=== PATIENT | female | born 1975 | race Caucasian/White ===

== ENCOUNTER → 2016-09-16 | Outpatient (CLI) | payer OTHER ==
[2016-09-16 18:34] LABS: Basophils % (A) 0 %; CH 30.9; Eosinophils # (A) 0.2 k/uL (0-0.7); Eosinophils % (A) 2 %; HCT 39.1 % (34.0-46.0); HDW 2.87; Luc # (Auto) 0.16; Luc % (Auto) 2; Lymphocytes # (A) 1.9 k/uL (1.0-4.8); Lymphocytes % (A) 22 %; MCH 30.3 pg (25.0-35.0); MCHC 33.1 g/dL (31.0-37.0); MCV 91.4 fL (80.0-100.0); Mean Platelet Volume 7.4; Monocytes # (A) 0.6 k/uL (0-1.0); Monocytes % (A) 6 %; Neutrophils % (A) 68 %; RBC 4.28 m/uL (3.80-5.40); RDW 13.8 % (11.5-15.5); WBC 8.9 k/uL (3.8-10.6); WBC (Perox) 9.36
[2016-09-16 18:59] LABS: Follicle Stimulating Hormone 3.2 mIU/mL; Prolactin 12.6 ng/mL (3.0-18.6)
[2016-09-16 19:23] LABS: HCG,Qualitative Serum Not Detected
== END ==
LOC: MMGSC 16:11
PROVIDERS: ATTEND Family Medicine
DX: N91.2 Amenorrhea, unspecified (principal)
CPT/HCPCS: 36415; 82626; 83001; 83002; 84146; 84439; 84443; 84703; 85025

== ENCOUNTER → 2016-11-05 | Outpatient (CLI) | payer OTHER ==
--- NOTE | 2016-11-05 10:01 | US ---
EXAMINATION TYPE: US pelvic complete DATE OF EXAM: 11/05/2016 COMPARISON: NONE CLINICAL HISTORY: N91.5 Oligomenorrhea,N85.01 Simple Hyperplasia. Oligomenorrhea, abnormal cycles, sp otting x 3 days, 3, para 2, 1, history of , obese patient TECHNIQUE: Transvaginal (TV) and Transabdominal (TA) Date of LMP: 09/18/2016 EXAM MEASUREMENTS: Uterus: 9.9 x 4.8 x 5.0 cm Endometrial Stripe: 0.8 cm Right Ovary: not seen Left Ovary: not seen Difficult and suboptimal study due to patient body habitus 1. Uterus: anteverted, heterogeneous echogenicity without any definite lesions seen at this time, mu ltiple nabothian cysts within cervix 2. Endometrium: appears wnl 3. Right Ovary: not seen due to overlying bowel gas 4. Left Ovary: not seen due to overlying bowel gas 5. Bilateral Adnexa: wnl 6. Posterior cul-de-sac: wnl IMPRESSION: 1. HETEROGENEITY OF THE UTERUS MAY REFLECT ADENOMYOSIS. 2. NABOTHIAN CYSTS.
== END | disposition home or self-care (01) ==
LOC: RADUSWWP 09:06
PROVIDERS: ATTEND Obstetrics & Gynecology
DX: N88.8 Other specified noninflammatory disorders of cervix uteri (principal)
CPT/HCPCS: 76830; 76856

== ENCOUNTER → 2018-10-13 | Outpatient (CLI) | payer OTHER ==
[2018-10-13 09:32] LABS: ALT 30 U/L (9-52); AST 166 U/L (14-36); African American GFR (CKD) >90 (>60 ml/min/1.73 sqM); Albumin 3.7 g/dL (3.5-5.0); Albumin/Globulin Ratio 1.2; Alkaline Phosphatase 137 U/L (38-126); Anion Gap 7 mmol/L; Blood Urea Nitrogen 14 mg/dL (7-17); Calcium 12.9 mg/dL (8.4-10.2); Carbon Dioxide 31 mmol/L (22-30); Chloride 103 mmol/L (98-107); Globulin 3.2 g/dL; Glucose 103 mg/dL (74-99); Potassium 3.2 mmol/L (3.5-5.1); Sodium 141 mmol/L (137-145); Total Protein 6.9 g/dL (6.3-8.2)
[2018-10-13 13:58] LABS: Phosphorus 2.5 mg/dL (2.5-4.5)
== END | disposition home or self-care (01) ==
LOC: LABWHC1 08:54
PROVIDERS: ATTEND Family Medicine
DX: E87.6 Hypokalemia (principal)
CPT/HCPCS: 36415; 80053; 83970; 84100

== ENCOUNTER 2018-10-25 16:15 | Inpatient (IN) | payer OTHER ==
[2018-10-25] MEDS ORDERED: SODIUM CHLORIDE 0.9% 1,000 ML IV STA (16:54)
--- NOTE | 2018-10-25 16:57 | ED ---
General Adult HPI - General Chief complaint: Recheck/Abnormal Lab/Rx Stated complaint: recheck-sent by Time Seen by Provider: 10/25/18 16:30 Source: patient, family, RN notes reviewed Mode of arrival: ambulatory Limitations: no limitations - History of Present Illness Initial comments: Patient is a pleasant 43-year-old female presenting to the emergency department with fatigue. Patient has had her blood work checked several times over the past week or 2. Patient has been having conflicting reports as far as potassium and calcium levels. Patient was advised to come to the emergency department. Patient states she is fatigued in general. Patient does admit to having some increased stress at work and increased stress regarding health problems including the fatigue and abdominal hernia which she has seen a surgeon for. Patient did also see her doctor who diagnosed a murmur on her. No isolated area of weakness. No confusion. Patient states she has been losing weight over the past few months however also has been trying to diet better. - Related Data Home Medications Medication Instructions Recorded Confirmed Ibuprofen [Motrin] 600 mg PO Q8HR PRN 10/25/18 10/25/18 Polyethylene Glycol 3350 [Miralax] 17 gm PO DAILY PRN 10/25/18 10/25/18 Sertraline [Zoloft] 50 mg PO QAM 10/25/18 10/25/18 amLODIPine BESYLATE/BENAZEPRIL 1 cap PO QAM 10/25/18 10/25/18 [amLODIPine BESYLATE/BENAZEPRIL 5-20 MG] Allergies Allergy/AdvReac Type Severity Reaction Status Date / Time No Known Allergies Allergy Verified 10/25/18 16:35 Review of Systems ROS Statement: Those systems with pertinent positive or pertinent negative responses have been documented in the HPI. ROS Other: All systems not noted in ROS Statement are negative. Constitutional: Denies: fever, chills Eyes: Denies: eye pain ENT: Denies: ear pain Respiratory: Denies: cough, dyspnea Cardiovascular: Denies: chest pain Endocrine: Reports: fatigue Gastrointestinal: Denies: abdominal pain Genitourinary: Denies: dysuria Musculoskeletal: Denies: back pain Skin: Denies: rash Neurological: Denies: headache, numbness Past Medical History Past Medical History: Hypertension Additional Past Medical History / Comment(s): arthritis History of Any Multi-Drug Resistant Organisms: None Reported Past Surgical History: Section Past Psychological History: Anxiety, Depression Smoking Status: Never smoker Past Alcohol Use History: Rare Past Drug Use History: Marijuana General Exam Limitations: no limitations General appearance: alert, in no apparent distress Head exam: Present: atraumatic Eye exam: Present: normal appearance, PERRL ENT exam: Present: normal oropharynx Neck exam: Present: normal inspection Respiratory exam: Present: normal lung sounds bilaterally Cardiovascular Exam: Present: regular rate, normal rhythm GI/Abdominal exam: Present: soft. Absent: tenderness Extremities exam: Present: normal inspection Neurological exam: Present: alert, oriented X3, CN II-XII intact. Absent: motor sensory deficit Expanded Motor strength exam: RUE: 5, LUE: 5, RLE: 5, LLE: 5 Psychiatric exam: Present: normal affect, normal mood Skin exam: Present: normal color Course Vital Signs 10/25/18 16:18 Temperature 97.7 F Pulse Rate 78 Respiratory 118 H Rate Blood Pressure 134/84 O2 Sat by Pulse 97 Oximetry EKG Findings - EKG Comments: EKG Findings:: Sinus rhythm at 65. [place] 182. QRS 100. QT 378. QTC 393. Normal axis. Q wave in lead III. No acute ST change. Medical Decision Making - Medical Decision Making Patient reevaluated and resting comfortably in bed. Patient updated on results and plan. Case was discussed in detail with Dr. Collins, covering for Dr. Meek, who will admit. Patient has scheduled appointment for hematology/oncology and they will be consult as well. - Lab Data Result diagrams: 10/25/18 17:14 10/25/18 17:14 Lab Results 10/25/18 10/25/18 10/25/18 Range/Units 17:14 17:14 17:14 WBC 6.7 (3.8-10.6) k/uL RBC 4.15 (3.80-5.40) m/uL Hgb 11.3 L (11.4-16.0) gm/dL Hct 34.0 (34.0-46.0) % MCV 81.8 (80.0-100.0) fL MCH 27.3 (25.0-35.0) pg MCHC 33.4 (31.0-37.0) g/dL RDW 14.7 (11.5-15.5) % Plt Count 270 (150-450) k/uL Neutrophils % 75 % Lymphocytes % 17 % Monocytes % 6 % Eosinophils % 1 % Basophils % 0 % Neutrophils # 5.0 (1.3-7.7) k/uL Lymphocytes # 1.1 (1.0-4.8) k/uL Monocytes # 0.4 (0-1.0) k/uL Eosinophils # 0.1 (0-0.7) k/uL Basophils # 0.0 (0-0.2) k/uL Poikilocytosis Slight PT (9.0-12.0) sec INR (<1.2) APTT (22.0-30.0) sec Sodium 140 (137-145) mmol/L Potassium 2.7 L* (3.5-5.1) mmol/L Chloride 101 (98-107) mmol/L Carbon Dioxide 31 H (22-30) mmol/L Anion Gap 8 mmol/L BUN 17 (7-17) mg/dL Creatinine 1.01 (0.52-1.04) mg/dL Est GFR (CKD-EPI)AfAm 78 (>60 ml/min/1.73 sqM) Est GFR (CKD-EPI)NonAf 68 (>60 ml/min/1.73 sqM) Glucose 101 H (74-99) mg/dL Plasma Lactic Acid Saroj 1.1 (0.7-2.0) mmol/L Calcium 13.1 H* (8.4-10.2) mg/dL Ionized Calcium Marilyn 7.1 H* (4.5-5.3) mg/dL Phosphorus 2.9 (2.5-4.5) mg/dL Magnesium 1.7 (1.6-2.3) mg/dL Total Bilirubin 0.9 (0.2-1.3) mg/dL AST 158 H (14-36) U/L ALT 26 (9-52) U/L Alkaline Phosphatase 130 H (38-126) U/L Creatine Kinase <20 L (30-135) U/L Troponin I (0.000-0.034) ng/mL Total Protein 6.8 (6.3-8.2) g/dL Albumin 3.5 (3.5-5.0) g/dL TSH 3.380 (0.465-4.680) mIU/L Free T4 1.51 (0.78-2.19) ng/dL Free T3 pg/mL 3.4 (2.8-5.3) pg/ml Urine Color Urine Appearance (Clear) Urine pH (5.0-8.0) Ur Specific [place] (1.001-1.035) Urine Protein (Negative) Urine Glucose (UA) (Negative) Urine Ketones (Negative) Urine Blood (Negative) Urine Nitrite (Negative) Urine Bilirubin (Negative) Urine Urobilinogen (<2.0) mg/dL Ur Leukocyte Esterase (Negative) Urine RBC (0-5) /hpf Urine WBC (0-5) /hpf Ur Squamous Epith Cells (0-4) /hpf Hyaline Casts (0-2) /lpf Urine Mucus (None) /hpf 10/25/18 10/25/18 10/25/18 Range/Units 17:14 17:14 Unknown WBC (3.8-10.6) k/uL RBC (3.80-5.40) m/uL Hgb (11.4-16.0) gm/dL Hct (34.0-46.0) % MCV (80.0-100.0) fL MCH (25.0-35.0) pg MCHC (31.0-37.0) g/dL RDW (11.5-15.5) % Plt Count (150-450) k/uL Neutrophils % % Lymphocytes % % Monocytes % % Eosinophils % % Basophils % % Neutrophils # (1.3-7.7) k/uL Lymphocytes # (1.0-4.8) k/uL Monocytes # (0-1.0) k/uL Eosinophils # (0-0.7) k/uL Basophils # (0-0.2) k/uL Poikilocytosis PT 10.4 (9.0-12.0) sec INR 1.0 (<1.2) APTT 23.0 (22.0-30.0) sec Sodium (137-145) mmol/L Potassium (3.5-5.1) mmol/L Chloride (98-107) mmol/L Carbon Dioxide (22-30) mmol/L Anion Gap mmol/L BUN (7-17) mg/dL Creatinine (0.52-1.04) mg/dL Est GFR (CKD-EPI)AfAm (>60 ml/min/1.73 sqM) Est GFR (CKD-EPI)NonAf (>60 ml/min/1.73 sqM) Glucose (74-99) mg/dL Plasma Lactic Acid Saroj (0.7-2.0) mmol/L Calcium (8.4-10.2) mg/dL Ionized Calcium Marilyn (4.5-5.3) mg/dL Phosphorus (2.5-4.5) mg/dL Magnesium (1.6-2.3) mg/dL Total Bilirubin (0.2-1.3) mg/dL AST (14-36) U/L ALT (9-52) U/L Alkaline Phosphatase (38-126) U/L Creatine Kinase (30-135) U/L Troponin I <0.012 (0.000-0.034) ng/mL Total Protein (6.3-8.2) g/dL Albumin (3.5-5.0) g/dL TSH (0.465-4.680) mIU/L Free T4 (0.78-2.19) ng/dL Free T3 pg/mL (2.8-5.3) pg/ml Urine Color Yellow Urine Appearance Cloudy H (Clear) Urine pH 5.5 (5.0-8.0) Ur Specific [place] 1.019 (1.001-1.035) Urine Protein 1+ H (Negative) Urine Glucose (UA) Negative (Negative) Urine Ketones Negative (Negative) Urine Blood Negative (Negative) Urine Nitrite Negative (Negative) Urine Bilirubin Negative (Negative) Urine Urobilinogen <2.0 (<2.0) mg/dL Ur Leukocyte Esterase Negative (Negative) Urine RBC 6 H (0-5) /hpf Urine WBC 14 H (0-5) /hpf Ur Squamous Epith Cells 9 H (0-4) /hpf Hyaline Casts 6 H (0-2) /lpf Urine Mucus Occasional H (None) /hpf - Radiology Data Radiology results: image reviewed (Chest x-ray shows no acute process) Disposition Clinical Impression: Hypokalemia, Hypercalcemia Disposition: ADMITTED IP TO THIS HOSP Is patient prescribed a controlled substance at d/c from ED?: No Referrals: Krupa Martin MD [Primary Care Provider] - 1-2 days Decision Time: 18:39
[2018-10-25 17:27] LABS: Basophils % (A) 0 %; Eosinophils # (A) 0.1 k/uL (0-0.7); Eosinophils % (A) 1 %; HGB 11.3 gm/dL (11.4-16.0); Lymphocytes # (A) 1.1 k/uL (1.0-4.8); Lymphocytes % (A) 17 %; MCH 27.3 pg (25.0-35.0); MCHC 33.4 g/dL (31.0-37.0); MCV 81.8 fL (80.0-100.0); Monocytes # (A) 0.4 k/uL (0-1.0); Monocytes % (A) 6 %; Neutrophils % (A) 75 %; Platelet Count 270 k/uL (150-450); Poikilocytosis Slight; RBC 4.15 m/uL (3.80-5.40); RDW 14.7 % (11.5-15.5); WBC 6.7 k/uL (3.8-10.6)
[2018-10-25 17:33] LABS: Ionized Calcium 7.1 mg/dL (4.5-5.3)
[2018-10-25 17:36] LABS: Appearance,Urine Cloudy (Clear); Bilirubin,Urine Negative (Negative); Blood,Urine Negative (Negative); Color,Urine Yellow; Glucose,Urine (UA) Negative (Negative); Hyaline Casts,Urine 6 /lpf (0-2); Ketones,Urine Negative (Negative); Leukocyte Esterase,Urine Negative (Negative); Mucus,Urine Occasional /hpf; Nitrite,Urine Negative (Negative); PH, Urine 5.5 (5.0-8.0); Protein,Urine 1+ (Negative); RBC,Urine 6 /hpf (0-5); Specific Gravity,Urine 1.019 (1.001-1.035); Squamous Epithelial Cell,Urine 9 /hpf (0-4); Urobilinogen,Urine <2.0 mg/dL (<2.0); WBC,Urine 14 /hpf (0-5)
[2018-10-25 17:41] LABS: ALT 26 U/L (9-52); AST 158 U/L (14-36); African American GFR (CKD) 78 (>60 ml/min/1.73 sqM); Albumin 3.5 g/dL (3.5-5.0); Alkaline Phosphatase 130 U/L (38-126); Anion Gap 8 mmol/L; Blood Urea Nitrogen 17 mg/dL (7-17); Carbon Dioxide 31 mmol/L (22-30); Chloride 101 mmol/L (98-107); Creatine Kinase <20 U/L (30-135); Glucose 101 mg/dL (74-99); Magnesium 1.7 mg/dL (1.6-2.3); Phosphorus 2.9 mg/dL (2.5-4.5); Sodium 140 mmol/L (137-145); Total Bilirubin 0.9 mg/dL (0.2-1.3); Total Protein 6.8 g/dL (6.3-8.2)
[2018-10-25 17:43] LABS: Prothrombin Time 10.4 sec (9.0-12.0)
--- NOTE | 2018-10-25 17:53 | XR ---
EXAMINATION TYPE: XR chest 2V DATE OF EXAM: 10/25/2018 COMPARISON: NONE HISTORY: Weakness TECHNIQUE: Frontal and lateral views of the chest are obtained. FINDINGS: Heart is normal. There is probably a right-sided aortic arch. Lungs are clear of infiltrat e. There is no pleural effusion. Bony thorax is intact. IMPRESSION: No active cardiopulmonary disease. Normal heart.
[2018-10-25 17:54] LABS: Potassium 2.7 mmol/L (3.5-5.1)
[2018-10-25 17:55] LABS: Calcium 13.1 mg/dL (8.4-10.2)
[2018-10-25 17:57] LABS: T4, Free (Free Thyroxine) 1.51 ng/dL (0.78-2.19)
[2018-10-25] MEDS ORDERED: POTASSIUM CHLORIDE ER 20 MEQ TAB.ER PO STA (18:02)
[2018-10-25] MEDS ORDERED: POTASSIUM CHLORIDE 2 MEQ/ML 20 ML VIAL IVPB STA (18:02)
[2018-10-25] MEDS ORDERED: NALOXONE 0.4 MG/ML 1 ML VIAL IV PRN (18:39)
[2018-10-25] MEDS: POTASSIUM CHLORIDE 10 MEQ in WATER FOR INJECTION 1 100ML.BAG IVPB SCH ×2 (19:01→19:56)
[2018-10-25] MEDS: 0.9% NACL WITH KCL 20 MEQ/L 1,000 ML IV SCH (21:37)
[2018-10-25] MEDS ORDERED: IOPAMIDOL-300 CONTRAST 30 ML VIAL (ORAL USE) PO PRN (23:31)
--- NOTE | 2018-10-25 23:39 | P.HPIM ---
History of Present Illness H&P Date: 10/25/18 The patient is a 43 yo F with a PMH of HTN, morbid obesity, and hemorrhoids who presented to the ED for worsening fatigue and weight-loss. The patient reports that over the past 6 months, she feels that her energy levels have been gradually decreasing and now more recently she finds herself sleeping upwards of 12-15 hours a day. She also reports a 30 lbs weight loss in the past 2 months along with a diminished exercise tolerance. She further endorsed a vague lower abdominal, somewhat post-prandial pain which she initially attributed to her constipation but notes that the pain is persistent, even when she has normal BMs. She reports the pain to be 3-4/10, non-radiating, with no clear alleviating or exacerbating features. She also notes that she feels she may have an abdominal hernia and was scheduled to see a surgeon for further workup. She further stated that she has been following with her PMD over the past few weeks for her hypercalcemia and hypokalemia. She otherwise denied fever, night sweats, cough, dysuria, melena, or hematochezia. She underwent an extensive evaluation in the ED w/ CXR unremarkable, EKG showing NSR @ 65 bpm. Laboratory evaluation revealed a K of 2.7, Calcium 13.1, PTH 3.9 (low), WBC 6.7, Hgb 11.3, platelelts 270, Cr 1.01 and Troponin < 0.012. The patient is being admitted to the medicine service for further management. Review of Systems Pertinent positives and negatives as discussed in HPI, a complete review of systems was performed and all other systems are negative. Past Medical History Past Medical History: Hypertension Additional Past Medical History / Comment(s): arthritis History of Any Multi-Drug Resistant Organisms: None Reported Past Surgical History: Section Past Psychological History: Anxiety, Depression Smoking Status: Never smoker Past Alcohol Use History: Rare Past Drug Use History: Marijuana - Past Family History Mother Family Medical History: Hypertension Medications and Allergies Home Medications Medication Instructions Recorded Confirmed Type Ibuprofen [Motrin] 600 mg PO Q8HR PRN 10/25/18 10/25/18 History Polyethylene Glycol 3350 [Miralax] 17 gm PO DAILY PRN 10/25/18 10/25/18 History Sertraline [Zoloft] 50 mg PO QAM 10/25/18 10/25/18 History amLODIPine BESYLATE/BENAZEPRIL 1 cap PO QAM 10/25/18 10/25/18 History [amLODIPine BESYLATE/BENAZEPRIL 5-20 MG] Allergies Allergy/AdvReac Type Severity Reaction Status Date / Time No Known Allergies Allergy Verified 10/25/18 16:35 Physical Exam Vitals: Vital Signs Temp Pulse Resp BP Pulse Ox 10/25/18 20:02 71 18 136/88 98 10/25/18 16:18 97.7 F 78 118 H 134/84 97 Intake and Output 10/25/18 10/25/18 10/26/18 14:59 22:59 06:59 Other: Weight 172.365 kg General: non toxic, no distress, appears at stated age, morbidly obese Derm: no unusual rashes/lesions no unusual ecchymoses, warm, dry Head: atraumatic, normocephalic, symmetric Eyes: EOMI, no lid lag, anicteric sclera, pupils equal round reactive to light ENT: Nose and ears atraumatic, no thrush, no pharyngeal erythema Neck: No thyromegaly, no cervical lymphadenopathy, trachea midline, supple Mouth: no lip lesion, mucus membranes moist Cardiovascular: S1S2 reg, no murmur, positive posterior tibial pulse bilateral, trace lower extremity edema bilaterally, capillary refill less than 2 seconds Lungs: CTA bilateral, no rhonchi, no rales , no accessory muscle use Abdominal: soft, mild diffuse lower abdominal tenderness to palpation, no guarding, no appreciable organomegaly, normal bowel sounds Ext: no gross muscle atrophy, muscle strength 5 out of 5 in all 4 extremities grossly, no contractures, Neuro: CN II-XI grossly intact, light touch intact all 4 extremities, finger to nose within normal limits, Psych: Alert, oriented, appropriate affect Results CBC & Chem 7: 10/25/18 17:14 10/25/18 17:14 Labs: Abnormal Lab Results - Last 24 Hours (Table) 10/25/18 10/25/18 10/25/18 Range/Units 17:14 17:14 Unknown Hgb 11.3 L (11.4-16.0) gm/dL Potassium 2.7 L* (3.5-5.1) mmol/L Carbon Dioxide 31 H (22-30) mmol/L Glucose 101 H (74-99) mg/dL Calcium 13.1 H* (8.4-10.2) mg/dL Ionized Calcium Marilyn 7.1 H* (4.5-5.3) mg/dL AST 158 H (14-36) U/L Alkaline Phosphatase 130 H (38-126) U/L Creatine Kinase <20 L (30-135) U/L Urine Appearance Cloudy H (Clear) Urine Protein 1+ H (Negative) Urine RBC 6 H (0-5) /hpf Urine WBC 14 H (0-5) /hpf Ur Squamous Epith Cells 9 H (0-4) /hpf Hyaline Casts 6 H (0-2) /lpf Urine Mucus Occasional H (None) /hpf Assessment and Plan Plan: Hypercalcemia, intact PTH suppressed -- highly suspicious for malignancy, especially in light of presenting features of weight-loss and fatigue -Will obtain CT C/A/P w/ contrast -Obtain SPEP, UPEP, Urine light chains -Check PTH-rp levels, if available -Oncology consult -C/w IV Hydration for now -Cardiac monitoring Hypokalemia, secondary to hypercalcemia -Will replace and monitor -Cardiac monitoring Normocytic anemia -Possibly due to malignancy -Will f/u workup Abdominal pain, possible related to underling malignancy vs hernia -F/u imaging studies DVT prophylaxis -Heparin The patient is admitted with an anticipated greater than 2 midnight stay for evaluation of hypercalcemia. CODE STATUS:Full Code Discussed with: Patient Anticipated discharge date: 10/27/[address]: Home A total of 45 minutes was spent on the care of this complex patient more than 50% of the time was spent in counseling and care coordination.
[2018-10-26] MEDS: HEPARIN SODIUM,PORCINE 5,000 UNIT/ML 1 ML VIAL SQ SCH ×4 (09:10→23:08)
[2018-10-26 10:41] LABS: Albumin 3.3 g/dL (3.5-5.0); Calcium 12.7 mg/dL (8.4-10.2); Potassium 2.9 mmol/L (3.5-5.1); Total Protein 6.4 g/dL (6.3-8.2)
--- NOTE | 2018-10-26 11:06 | CT ---
EXAMINATION TYPE: CT ChestAbdPelvis w con DATE OF EXAM: 10/26/2018 COMPARISON: Chest x-ray 10/25/2018 HISTORY: hypercalcemia, hypokalemia and suspected malignancy CT DLP: 3319.8 mGycm Automated exposure control for dose reduction was used. CONTRAST: CT scan of the chest, abdomen and pelvis is performed with Oral Contrast and with IV Contrast, patien t injected with 100 mL of Isovue 300. FINDINGS: LUNGS: The lungs are grossly clear, there is no concerning parenchymal mass or nodule identified. T here is no pleural effusion or pneumothorax seen. The tracheobronchial tree is patent. MEDIASTINUM: There are no greater than 1 cm hilar or mediastinal lymph nodes. No pericardial effusi on is seen. AORTA: Right arch is present. 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 OTHER: There is an umbilical hernia containing some fluid attenuation, there may be underlying infla mmatory change.. LIVER/GB: Multiple varying sized low attenuation foci are scattered within the liver. The liver is en larged, gallstones present within the gallbladder. PANCREAS: No significant abnormality is seen. SPLEEN: Enlarged in close to 19 cm. ADRENALS: No significant abnormality is seen. KIDNEYS: No significant abnormality is seen. REPRODUCTIVE ORGANS: The uterus is bulky which may be due to underlying fibroids, intrauterine contra ceptive device is in place. BOWEL: Difficult to exclude mucosal abnormality within the colon, cecum shows some questionable incr eased soft tissue density, the appendix is normal. There is a hiatal hernia present which show some f luid density and lymph nodes present within the hernia. FREE AIR: No Free Air visible. ASCITES: Small amount of fluid is present about the liver. Possible small amount of fluid in the adn exal regions and within the mesentery. RETROPERITONEAL ADENOPATHY: No retroperitoneal adenopathy is seen. LYMPH NODES: No greater than 1 cm abdominal or pelvic lymph nodes are appreciated. URINARY BLADDER: No significant abnormality is seen. PELVIC ADENOPATHY: None visualized. OSSEOUS STRUCTURES: Lytic lesion is present within the right ilium measuring approximately 2.7 cm wi th some suggestion of endosteal scalloping, there is a lytic lesion in the posterior right ilium on a xial image 95 with some cortical destruction present, lesion measures 2.5 cm. Degenerative disc raymundo es present within the visualized spine. IMPRESSION: Findings suspicious for metastatic disease to the liver and bones. Splenomegaly, small am ount of ascites. Cholelithiasis. Nonspecific findings in the colon is described. Additional findings above
[2018-10-26] MEDS: SERTRALINE 50 MG TAB PO SCH (12:23)
[2018-10-26] MEDS ORDERED: SODIUM CHLORIDE 0.9% 250 ML with PAMIDRONATE 30 MG IV ONE ×4 (13:08→14:00)
--- NOTE | 2018-10-26 13:20 | P.CONS ---
History of Present Illness - Reason for Consult Consult date: 10/26/18 Hypercalcemia Requesting physician: Mikey Thomas - Chief Complaint Progressive weakness - History of Present Illness Mrs. Clancy is a very pleasant 43-year-old female who states that back in April she started noticing some health changes. At that time she was going through some blood pressure medication changes so, she did not initially think too much of her symptoms. Since that time now her symptoms include lightheadedness, decreased articulation, having to think very hard about thing she feels that she knows, progressive weakness, feeling exhausted, she can perform activities for about 10:15 minutes and then requires rest periods up to 30 minutes. She is also been trying to manage constipation, dry mouth, increased thirst, increased urination, she states that everything tastes very salty, she denies fevers, night sweats, painful swallowing or difficulty swallowing, no acute changes in her breathing, abdominal pain or bloating, changes in bladder habits, she has an IUD so no menses, no other health changes acutely to report. Patient had a maternal grandmother with breast cancer at 50 years old, patient has not had a mammogram in 3 years, she also had a paternal nephew with "tumors". Patient has no personal history of cancer. Review of Systems 14 point review of systems is negative except as stated in HPI Past Medical History Past Medical History: Hypertension, Osteoarthritis (OA) Additional Past Medical History / Comment(s): Cardiac murmur, chronic low back pain, UTI, constipation. History of Any Multi-Drug Resistant Organisms: None Reported Past Surgical History: Section Past Anesthesia/Blood Transfusion Reactions: No Reported Reaction Past Psychological History: No Psychological Hx Reported Smoking Status: Never smoker Past Alcohol Use History: None Reported Past Drug Use History: None Reported - Past Family History Mother Family Medical History: Dementia, Vascular Disorder Additional Family Medical History / Comment(s): Mother had appendicitis that went undiagnosed for VERN chavez. Patient's maternal grandmother had breast cancer around the age of 50 Father Family Medical History: No Reported History Additional Family Medical History / Comment(s): Father is healthy Medications and Allergies Home Medications Medication Instructions Recorded Confirmed Type Ibuprofen [Motrin] 600 mg PO Q8HR PRN 10/25/18 10/25/18 History Polyethylene Glycol 3350 [Miralax] 17 gm PO DAILY PRN 10/25/18 10/25/18 History Sertraline [Zoloft] 50 mg PO QAM 10/25/18 10/25/18 History amLODIPine BESYLATE/BENAZEPRIL 1 cap PO QAM 10/25/18 10/25/18 History [amLODIPine BESYLATE/BENAZEPRIL 5-20 MG] Allergies Allergy/AdvReac Type Severity Reaction Status Date / Time No Known Allergies Allergy Verified 10/25/18 16:35 Physical Exam Vitals: Vital Signs Temp Pulse Pulse Resp BP BP BP 10/26/18 11:42 10/26/18 11:25 98.3 F 58 L 17 86/58 10/26/18 10:00 18 10/26/18 09:25 98.2 F 64 17 171/81 10/26/18 08:59 97.7 F 62 18 144/82 10/26/18 08:00 62 18 140/80 10/26/18 03:00 74 18 134/67 10/25/18 20:02 71 18 136/88 10/25/18 16:18 97.7 F 78 118 H 134/84 BP BP BP Pulse Ox 10/26/18 11:42 106/68 126/76 149/87 10/26/18 11:25 98 10/26/18 10:00 10/26/18 09:25 97 10/26/18 08:59 98 10/26/18 08:00 98 10/26/18 03:00 98 10/25/18 20:02 98 10/25/18 16:18 97 Intake and Output 10/25/18 10/26/18 10/26/18 22:59 06:59 14:59 Other: Voiding Method Toilet Weight 172.365 kg - Constitutional General appearance: cooperative, morbidly obese, no acute distress - EENT Missing teeth towards the posterior, multiple fillings, no acutely broken teeth or caries Eyes: anicteric sclerae, EOMI ENT: hearing grossly normal, normal oropharynx - Neck Neck: no lymphadenopathy - Respiratory Respiratory: bilateral: CTA - Cardiovascular Rhythm: regular Heart sounds: normal: S1, S2 Abnormal Heart Sounds: systolic murmur leg Peripheral Edema: bilateral: 1+ - Gastrointestinal Large midline hernia, inferior to sternum, continues inferior and around to below the umbilicus General gastrointestinal: normal bowel sounds, soft - Integumentary Integumentary: normal, normal turgor - Neurologic Neurologic: CNII-XII intact - Musculoskeletal Musculoskeletal: generalized weakness, strength equal bilaterally - Psychiatric Psychiatric: A&O x's 3, appropriate affect, intact judgment & insight Results CBC & Chem 7: 10/25/18 17:14 10/26/18 09:25 Labs: Abnormal Lab Results - Last 24 Hours (Table) 10/25/18 10/25/18 10/25/18 Range/Units 17:14 17:14 17:14 Hgb 11.3 L (11.4-16.0) gm/dL Potassium 2.7 L* (3.5-5.1) mmol/L Carbon Dioxide 31 H (22-30) mmol/L Glucose 101 H (74-99) mg/dL Calcium 13.1 H* (8.4-10.2) mg/dL Ionized Calcium Marilyn 7.1 H* (4.5-5.3) mg/dL AST 158 H (14-36) U/L Alkaline Phosphatase 130 H (38-126) U/L Creatine Kinase <20 L (30-135) U/L Albumin (3.5-5.0) g/dL PTH Intact 4.2 L (14.0-72.0) pg/mL Urine Appearance (Clear) Urine Protein (Negative) Urine RBC (0-5) /hpf Urine WBC (0-5) /hpf Ur Squamous Epith Cells (0-4) /hpf Hyaline Casts (0-2) /lpf Urine Mucus (None) /hpf 10/25/18 10/26/18 Range/Units Unknown 09:25 Hgb (11.4-16.0) gm/dL Potassium 2.9 L (3.5-5.1) mmol/L Carbon Dioxide 32 H (22-30) mmol/L Glucose (74-99) mg/dL Calcium 12.7 H (8.4-10.2) mg/dL Ionized Calcium Marilyn (4.5-5.3) mg/dL AST 139 H (14-36) U/L Alkaline Phosphatase (38-126) U/L Creatine Kinase (30-135) U/L Albumin 3.3 L (3.5-5.0) g/dL PTH Intact (14.0-72.0) pg/mL Urine Appearance Cloudy H (Clear) Urine Protein 1+ H (Negative) Urine RBC 6 H (0-5) /hpf Urine WBC 14 H (0-5) /hpf Ur Squamous Epith Cells 9 H (0-4) /hpf Hyaline Casts 6 H (0-2) /lpf Urine Mucus Occasional H (None) /hpf Assessment and Plan (1) Hypercalcemia Narrative/Plan: CT of the chest abdomen and pelvis (this was ordered earlier today, this order was canceled) and Nuclear medicine bone scan ordered to evaluate for occult malignancy. Multiple labs have been ordered to evaluate for the potential of a marrow related malignancy. 1 dose of Aredia ordered for hypercalcemia. CMP ordered daily for ongoing monitoring. All of the above testing and reasons for testing, including differentials, were discussed with pt, she verbalized understanding and wants to proceed. Current Visit: Yes Status: Acute Priority: High Code(s): E83.52 - HYPERCALCEMIA SNOMED Code(s): 08765243
[2018-10-26] MEDS ORDERED: Potassium Replacement Protocol 1 EACH MISC MISCELLANE PRN (14:30)
[2018-10-26] MEDS ORDERED: POLYETHYLENE GLYCOL 3350 17 GM POWD.PACK PO PRN (14:30)
[2018-10-26] MEDS ORDERED: IBUPROFEN 600 MG TAB PO PRN (14:30)
[2018-10-26 15:47] VITALS: BMI 56.1
--- NOTE | 2018-10-26 16:18 | P.PN ---
Subjective Progress Note Date: 10/26/18 Patient seen and examined at bedside. Daughter and son present, with reporting vague symptoms of lower back pain and was having previous symptoms of constipation. Serum potassium 2.9 today, calcium 12.7 today,intact PTH 4.2. CT abdomen and pelvis suspicious for metastatic disease to the liver and bones splenomegaly and a small amount of ascites. Discussed findings and plan of care including correcting her electrolytes , obtaining a biopsy of lytic bone lesion versus liver lesion . Objective - Vital Signs Vital signs: Vital Signs Temp 98.3 F 10/26/18 11:25 Pulse 58 L 10/26/18 11:25 Resp 17 10/26/18 11:25 BP 126/76 10/26/18 11:42 Pulse Ox 98 10/26/18 11:25 Intake & Output 10/25/18 10/26/18 10/26/18 18:59 06:59 18:59 Intake Total 1100 Balance 1100 Weight 172.365 kg 172.365 kg Intake: Intake, IV Titration 450 Amount 0.9% NaCl with KCl 20 Meq 450 /l 1,000 ml @ 75 mls/hr IV .[id number] [facility] Rx#: [id number] Oral 650 Other: Voiding Method Toilet # Voids 3 - Exam Constitutional: No acute distress, flat affect sad, tearful after being told about concern for cancer metastatic disease Eyes: Anicteric sclerae, moist conjunctiva, no lid-lag, PERRLA ENMT: NC/AT,Oropharynx clear, no erythema, exudates Neck:Supple, FROM, no masses, or JVD, No carotid bruits; No thyromegaly Lungs: Clear to auscultation, Clear to percussion, Normal respiratory effort, no accessory muscle use Cardiovascular: Heart regular in rate and rhythm, No murmurs, gallops, or rubs no peripheral edema Abdominal: Soft Nontender, nom distended, no guarding, no rebound or rigidity, Normoactive bowel sounds No hepatomegaly, No splenomegaly, No palpable mass No abdominal wall hernia noted Skin: Normal temperature, tone, texture, turgor, No induration No subcutaneous nodules, No rash, lesions, No ulcers Extremities:No digital cyanosis No clubbing, Pedal pulses intact and symmetrical Radial pulses intact and symmetrical Normal gait and station, No calf tenderness Psychiatric: Alert and oriented to person, place and time, Appropriate affect Intact judgement Neuro: Muscles Strength 5/5 in all 4 extremities, Sensation to light touch grossly present throughout, Cranial nerves II-XII grossly intact. No focal sensory deficits - Labs CBC & Chem 7: 10/25/18 17:14 10/26/18 09:25 Labs: Abnormal Lab Results - Last 24 Hours (Table) 10/25/18 10/25/18 10/25/18 Range/Units 17:14 17:14 17:14 Hgb 11.3 L (11.4-16.0) gm/dL Potassium 2.7 L* (3.5-5.1) mmol/L Carbon Dioxide 31 H (22-30) mmol/L Glucose 101 H (74-99) mg/dL Calcium 13.1 H* (8.4-10.2) mg/dL Ionized Calcium Marilyn 7.1 H* (4.5-5.3) mg/dL AST 158 H (14-36) U/L Alkaline Phosphatase 130 H (38-126) U/L Creatine Kinase <20 L (30-135) U/L Albumin (3.5-5.0) g/dL PTH Intact 4.2 L (14.0-72.0) pg/mL Urine Appearance (Clear) Urine Protein (Negative) Urine RBC (0-5) /hpf Urine WBC (0-5) /hpf Ur Squamous Epith Cells (0-4) /hpf Hyaline Casts (0-2) /lpf Urine Mucus (None) /hpf 10/25/18 10/26/18 Range/Units Unknown 09:25 Hgb (11.4-16.0) gm/dL Potassium 2.9 L (3.5-5.1) mmol/L Carbon Dioxide 32 H (22-30) mmol/L Glucose (74-99) mg/dL Calcium 12.7 H (8.4-10.2) mg/dL Ionized Calcium Marilyn (4.5-5.3) mg/dL AST 139 H (14-36) U/L Alkaline Phosphatase (38-126) U/L Creatine Kinase (30-135) U/L Albumin 3.3 L (3.5-5.0) g/dL PTH Intact (14.0-72.0) pg/mL Urine Appearance Cloudy H (Clear) Urine Protein 1+ H (Negative) Urine RBC 6 H (0-5) /hpf Urine WBC 14 H (0-5) /hpf Ur Squamous Epith Cells 9 H (0-4) /hpf Hyaline Casts 6 H (0-2) /lpf Urine Mucus Occasional H (None) /hpf Assessment and Plan (1) Metastatic adenocarcinoma Narrative/Plan: * CT abdomen and pelvis concerning for metastatic disease, the primary unknown at this time suspect colon versus breast * Noted liver lesion on CT and lytic lesion in the right ilium * Appreciated oncology recommendations planning to have IR obtain biopsy * Bone nuclear scan also ordered to evaluate for occult malignancy Current Visit: Yes Status: Acute Code(s): C79.9 - SECONDARY MALIGNANT NEOPLASM OF UNSPECIFIED SITE SNOMED Code(s): 868273089 (2) Hypercalcemia Narrative/Plan: * Secondary to occult malignancy * Intact PTH only 4.2 Current Visit: Yes Status: Acute Priority: High Code(s): E83.52 - HYPERCALCEMIA SNOMED Code(s): 56464545 (3) Liver lesion Narrative/Plan: * Likely representing site of metastasis for primary malignancy Current Visit: Yes Status: Acute Code(s): K76.9 - LIVER DISEASE, UNSPECIFIED SNOMED Code(s): 798743842 (4) Hypokalemia Narrative/Plan: * Continue to replace and recheck Current Visit: Yes Status: Acute Code(s): E87.6 - HYPOKALEMIA SNOMED Code(s): 82517034 Plan: * Disposition follow up with biopsy results * Continue to monitor electrolytes
[2018-10-26 16:47] LABS: Protein, Total 6.2 g/dL (6.2-8.2)
--- NOTE | 2018-10-26 17:40 | NM ---
EXAMINATION TYPE: NM bone scan whole body DATE OF EXAM: 10/26/2018 COMPARISON: NONE HISTORY: Possible metastatic disease. Hypercalcemia. Delayed whole-body scanning was performed following the injection of 26.9 mCi Tc 99m MDP. Images acq uired 3 hours post injection. FINDINGS: There is fairly symmetric increased activity on both sides of the knee joints. This is similar at the shoulder joints. This could relate to metabolic disease or bone infarct. I do not see increased acti vity to suggest metastatic disease. IMPRESSION: No evidence of osseous metastatic disease.
[2018-10-26] MEDS: 0.9% NACL WITH KCL 20 MEQ/L 1,000 ML IV SCH (23:07)
[2018-10-27] MEDS: 0.9% NACL WITH KCL 20 MEQ/L 1,000 ML IV SCH ×2 (02:13→16:13)
[2018-10-27 09:52] LABS: Basophils % (A) 0 %; Eosinophils # (A) 0.1 k/uL (0-0.7); Eosinophils % (A) 1 %; HCT 34.4 % (34.0-46.0); HGB 10.9 gm/dL (11.4-16.0); Hypochromasia Slight; Lymphocytes # (A) 0.8 k/uL (1.0-4.8); Lymphocytes % (A) 13 %; MCH 26.3 pg (25.0-35.0); MCHC 31.8 g/dL (31.0-37.0); MCV 82.8 fL (80.0-100.0); Mean Platelet Volume 7.7; Monocytes # (A) 0.3 k/uL (0-1.0); Monocytes % (A) 6 %; Neutrophils # (A) 4.6 k/uL (1.3-7.7); Neutrophils % (A) 79 %; Platelet Count 209 k/uL (150-450); Poikilocytosis Slight; RBC 4.16 m/uL (3.80-5.40); WBC 5.8 k/uL (3.8-10.6)
[2018-10-27 09:55] LABS: ALT 24 U/L (9-52); AST 143 U/L (14-36); African American GFR (CKD) >90 (>60 ml/min/1.73 sqM); Albumin 3.3 g/dL (3.5-5.0); Alkaline Phosphatase 112 U/L (38-126); Anion Gap 6 mmol/L; Blood Urea Nitrogen 11 mg/dL (7-17); Calcium 12.3 mg/dL (8.4-10.2); Carbon Dioxide 31 mmol/L (22-30); Chloride 105 mmol/L (98-107); Glucose 120 mg/dL (74-99); Magnesium 1.5 mg/dL (1.6-2.3); Potassium 2.8 mmol/L (3.5-5.1); Sodium 142 mmol/L (137-145); Total Bilirubin 1.2 mg/dL (0.2-1.3); Total Protein 6.5 g/dL (6.3-8.2)
[2018-10-27] MEDS: HYDROmorphone 0.5 MG/0.5 ML SYRINGE IVP PRN ×2 (09:59→17:12)
--- NOTE | 2018-10-27 10:18 | P.PCN ---
Date of Procedure: 10/27/18 Preoperative Diagnosis: liver masses Postoperative Diagnosis: same Procedure(s) Performed: liver biopsy Anesthesia: local Estimated Blood Loss (ml): 10 Pathology: other (in formalin) Condition: stable Disposition: floor Indications for Procedure: above Operative Findings: 1 pass 18 ga right lobe liver mass, specimen to path in formalin
[2018-10-27] MEDS: HEPARIN SODIUM,PORCINE 5,000 UNIT/ML 1 ML VIAL SQ SCH ×2 (10:31→16:07)
--- NOTE | 2018-10-27 11:12 | US ---
EXAMINATION TYPE: US biopsy liver DATE OF EXAM: 10/27/2018 HISTORY: Liver masses. FINDINGS: Maximal barrier technique was utilized. The skin overlying a suitable path to the patient' s right lobe liver mass was localized with ultrasound and the overlying skin prepped and draped. Ult rasound was utilized with sterile technique. Lidocaine was used for local anesthesia. A skin jessica w as made with a scalpel. An 18-gauge needle was advanced under direct ultrasound guidance and core sp ecimen obtained of the mass. Specimen submitted in formalin to Pathology. Following the procedure, hemostasis achieved and the patient is discharged in stable condition without complication. IMPRESSION:STATUS POST ULTRASOUND GUIDED CORE BIOPSY OF right lobe liver MASS, PATHOLOGY IS PENDING. THIS PROCEDURE IS PERFORMED BY THE UNDERSIGNED.
[2018-10-27] MEDS: SERTRALINE 50 MG TAB PO SCH (11:52)
[2018-10-27] MEDS: amLODIPine 5 MG TAB PO SCH (12:14)
[2018-10-27] MEDS: LISINOPRIL 20 MG TAB PO SCH (12:14)
[2018-10-27 12:58] LABS: Albumin 2.86 g/dL (3.80-4.90); Gamma Globulin 1.64 g/dL (0.70-1.50)
--- NOTE | 2018-10-27 16:50 | P.PN ---
Subjective Progress Note Date: 10/27/18 Principal diagnosis: Liver lesions, hypercalcemia In f/u pt is s/p liver biopsy. She has no new symptoms to report, she is very anxious about the work up and what it means Objective - Vital Signs Vital signs: Vital Signs Temp 97.9 F 10/27/18 12:01 Pulse 85 10/27/18 12:01 Resp 17 10/27/18 12:01 BP 124/85 10/27/18 14:01 Pulse Ox 95 10/27/18 12:01 Intake & Output 10/26/18 10/27/18 10/27/18 18:59 06:59 18:59 Intake Total 1100 1180 1300 Balance 1100 1180 1300 Weight 172.365 kg Intake: Intake, IV Titration 450 650 Amount 0.9% NaCl with KCl 20 Meq 450 650 /l 1,000 ml @ 75 mls/hr IV .[id number] [facility] Rx#: [id number] Oral 650 1180 650 Other: Voiding Method Toilet Toilet Toilet # Voids 3 2 3 # Bowel Movements 1 - Constitutional General appearance: Present: cooperative, mild distress, morbidly obese - EENT Eyes: Present: anicteric sclerae, EOMI - Respiratory Respiratory: bilateral: CTA - Cardiovascular Heart sounds: normal: S1, S2 - Gastrointestinal General gastrointestinal: Present: normal bowel sounds, soft - Psychiatric Psychiatric Comment(s): tearful Psychiatric: Present: A&O x's 3, intact judgment & insight - Labs CBC & Chem 7: 10/27/18 08:51 10/27/18 08:51 Labs: Abnormal Lab Results - Last 24 Hours (Table) 10/26/18 10/26/18 10/27/18 Range/Units 09:25 09:25 08:51 Hgb (11.4-16.0) gm/dL Lymphocytes # (1.0-4.8) k/uL Potassium 2.8 L (3.5-5.1) mmol/L Carbon Dioxide 31 H (22-30) mmol/L Glucose 120 H (74-99) mg/dL Calcium 12.3 H (8.4-10.2) mg/dL Magnesium 1.5 L (1.6-2.3) mg/dL AST 143 H (14-36) U/L Albumin 3.3 L (3.5-5.0) g/dL Albumin (PEP) 2.86 L (3.80-4.90) g/dL Kfgb-[id number]-Jdrwihqelunbs 3.60 H (0.61-2.37) mg/L Gamma Globulins 1.64 H (0.70-1.50) g/dL Free [place] LC, Quant 4.87 H (0.33-1.94) mg/dL Free Lambda LC, Quant 4.23 H (0.57-2.63) mg/dL 10/27/18 Range/Units 08:51 Hgb 10.9 L (11.4-16.0) gm/dL Lymphocytes # 0.8 L (1.0-4.8) k/uL Potassium (3.5-5.1) mmol/L Carbon Dioxide (22-30) mmol/L Glucose (74-99) mg/dL Calcium (8.4-10.2) mg/dL Magnesium (1.6-2.3) mg/dL AST (14-36) U/L Albumin (3.5-5.0) g/dL Albumin (PEP) (3.80-4.90) g/dL [id number]-[id number]-Hlbxzaxmdelgp (0.61-2.37) mg/L Gamma Globulins (0.70-1.50) g/dL Free [place] LC, Quant (0.33-1.94) mg/dL Free Lambda LC, Quant (0.57-2.63) mg/dL Assessment and Plan (1) Hypercalcemia Narrative/Plan: Reviewed results of CT CAP with pt. Concerning findings in the liver and bone. Case discussed with IR Nurse, plan was for liver biopsy, that was changed to bone biopsy but, Radiologist today preferred the liver so, biopsy completed, path pending. The NM Bone scan did not report finding any specific lesion-this will be reviewed with Oncologist and possibly with Radiologist. The only other abnormality was a thickening in the colon-nothing else. If needed, may have to request colonoscopy. Pending immunofixation on the marrow work up, findings suggestive of infl ammation at this time. 1 dose of Aredia administered for hypercalcemia. CMP ordered daily for ongoing monitoring, Ca++ level stable, not improved, today. Once pt Ca++ improves she can be discharged home and further work up can be scheduled outpatient-pt has many family responsibilities. Current Visit: Yes Status: Acute Priority: High Code(s): E83.52 - HYPERCALCEMIA SNOMED Code(s): 55440133
--- NOTE | 2018-10-27 16:54 | P.PN ---
Subjective Progress Note Date: 10/27/18 Patient seen and examined at bedside. Denying any symptoms reported she had a bowel movement. Discussed bone scan findings with no evidence of osseous metastases. Patient scheduled to go down for a liver biopsy today. Objective - Vital Signs Vital signs: Vital Signs Temp 97.9 F 10/27/18 12:01 Pulse 85 10/27/18 12:01 Resp 17 10/27/18 12:01 BP 124/85 10/27/18 14:01 Pulse Ox 95 10/27/18 12:01 Intake & Output 10/26/18 10/27/18 10/27/18 18:59 06:59 18:59 Intake Total 1100 1180 1300 Balance 1100 1180 1300 Weight 172.365 kg Intake: Intake, IV Titration 450 650 Amount 0.9% NaCl with KCl 20 Meq 450 650 /l 1,000 ml @ 75 mls/hr IV .[id number] [facility] Rx#: [id number] Oral 650 1180 650 Other: Voiding Method Toilet Toilet Toilet # Voids 3 2 3 # Bowel Movements 1 - Exam Constitutional: No acute distress, flat affect sad, tearful after being told about concern for cancer metastatic disease Eyes: Anicteric sclerae, moist conjunctiva, no lid-lag, PERRLA ENMT: NC/AT,Oropharynx clear, no erythema, exudates Neck:Supple, FROM, no masses, or JVD, No carotid bruits; No thyromegaly Lungs: Clear to auscultation, Clear to percussion, Normal respiratory effort, no accessory muscle use Cardiovascular: Heart regular in rate and rhythm, No murmurs, gallops, or rubs no peripheral edema Abdominal: Soft Nontender, nom distended, no guarding, no rebound or rigidity, Normoactive bowel sounds No hepatomegaly, No splenomegaly, No palpable mass No abdominal wall hernia noted Skin: Normal temperature, tone, texture, turgor, No induration No subcutaneous nodules, No rash, lesions, No ulcers Extremities:No digital cyanosis No clubbing, Pedal pulses intact and symmetrical Radial pulses intact and symmetrical Normal gait and station, No calf tenderness Psychiatric: Alert and oriented to person, place and time, Appropriate affect Intact judgement Neuro: Muscles Strength 5/5 in all 4 extremities, Sensation to light touch grossly present throughout, Cranial nerves II-XII grossly intact. No focal sensory deficits - Labs CBC & Chem 7: 10/27/18 08:51 10/27/18 08:51 Labs: Abnormal Lab Results - Last 24 Hours (Table) 10/26/18 10/26/18 10/27/18 Range/Units 09:25 09:25 08:51 Hgb (11.4-16.0) gm/dL Lymphocytes # (1.0-4.8) k/uL Potassium 2.8 L (3.5-5.1) mmol/L Carbon Dioxide 31 H (22-30) mmol/L Glucose 120 H (74-99) mg/dL Calcium 12.3 H (8.4-10.2) mg/dL Magnesium 1.5 L (1.6-2.3) mg/dL AST 143 H (14-36) U/L Albumin 3.3 L (3.5-5.0) g/dL Albumin (PEP) 2.86 L (3.80-4.90) g/dL Gamma Globulins 1.64 H (0.70-1.50) g/dL Free [place] LC, Quant 4.87 H (0.33-1.94) mg/dL Free Lambda LC, Quant 4.23 H (0.57-2.63) mg/dL 10/27/18 Range/Units 08:51 Hgb 10.9 L (11.4-16.0) gm/dL Lymphocytes # 0.8 L (1.0-4.8) k/uL Potassium (3.5-5.1) mmol/L Carbon Dioxide (22-30) mmol/L Glucose (74-99) mg/dL Calcium (8.4-10.2) mg/dL Magnesium (1.6-2.3) mg/dL AST (14-36) U/L Albumin (3.5-5.0) g/dL Albumin (PEP) (3.80-4.90) g/dL Gamma Globulins (0.70-1.50) g/dL Free [place] LC, Quant (0.33-1.94) mg/dL Free Lambda LC, Quant (0.57-2.63) mg/dL Assessment and Plan (1) Metastatic adenocarcinoma Narrative/Plan: * CT abdomen and pelvis concerning for metastatic disease, the primary unknown at this time * Noted liver lesion on CT and lytic lesion in the right ilium, bone scan negative for osseous metastasis * Appreciated oncology recommendations planning to have IR obtain biopsy of liver lesion today Current Visit: Yes Status: Acute Code(s): C79.9 - SECONDARY MALIGNANT NEOPLASM OF UNSPECIFIED SITE SNOMED Code(s): 223522040 (2) Hypercalcemia Narrative/Plan: * Secondary to occult malignancy * Intact PTH only 4.2 * received dose of Aredia Current Visit: Yes Status: Acute Priority: High Code(s): E83.52 - HYPERCALCEMIA SNOMED Code(s): 26415755 (3) Liver lesion Narrative/Plan: * Awaiting biopsy to be done later today with path results * Likely representing site of metastasis for primary malignancy Current Visit: Yes Status: Acute Code(s): K76.9 - LIVER DISEASE, UNSPECIFIED SNOMED Code(s): 102678328 (4) Hypokalemia Narrative/Plan: * Continue to replace and recheck Current Visit: Yes Status: Acute Code(s): E87.6 - HYPOKALEMIA SNOMED Code(s): 86622699 Plan: * Disposition follow up with biopsy results * Continue to monitor electrolytes currently on K replacement protocol * Follow up further recommendations from oncology
[2018-10-27] MEDS: POTASSIUM CHLORIDE ER 20 MEQ TAB.ER PO SCH ×3 (17:11→20:16)
[2018-10-27] MEDS: MAGNESIUM OXIDE 400 MG TAB PO SCH (20:16)
[2018-10-27] MEDS ORDERED: Potassium Replacement Protocol 1 EACH MISC MISCELLANE PRN (23:42)
[2018-10-28] MEDS: POTASSIUM CHLORIDE ER 20 MEQ TAB.ER PO SCH ×3 (00:51→03:42)
[2018-10-28] MEDS: HEPARIN SODIUM,PORCINE 5,000 UNIT/ML 1 ML VIAL SQ SCH ×4 (00:51→22:54)
[2018-10-28] MEDS: 0.9% NACL WITH KCL 20 MEQ/L 1,000 ML IV SCH ×2 (00:53→17:31)
[2018-10-28 07:52] LABS: Basophils % (A) 0 %; Eosinophils % (A) 1 %; HCT 30.8 % (34.0-46.0); HGB 10.4 gm/dL (11.4-16.0); Lymphocytes # (A) 0.5 k/uL (1.0-4.8); Lymphocytes % (A) 12 %; MCH 27.8 pg (25.0-35.0); MCHC 33.7 g/dL (31.0-37.0); MCV 82.6 fL (80.0-100.0); Mean Platelet Volume 7.4; Monocytes # (A) 0.3 k/uL (0-1.0); Monocytes % (A) 8 %; Neutrophils # (A) 3.5 k/uL (1.3-7.7); Neutrophils % (A) 78 %; Platelet Count 199 k/uL (150-450); Poikilocytosis Slight; RBC 3.73 m/uL (3.80-5.40); RDW 15.1 % (11.5-15.5); WBC 4.5 k/uL (3.8-10.6)
[2018-10-28 08:05] LABS: ALT 31 U/L (9-52); AST 132 U/L (14-36); African American GFR (CKD) >90 (>60 ml/min/1.73 sqM); Albumin 2.9 g/dL (3.5-5.0); Alkaline Phosphatase 100 U/L (38-126); Anion Gap 6 mmol/L; Blood Urea Nitrogen 9 mg/dL (7-17); Calcium 10.7 mg/dL (8.4-10.2); Carbon Dioxide 28 mmol/L (22-30); Chloride 106 mmol/L (98-107); Glucose 90 mg/dL (74-99); Magnesium 1.4 mg/dL (1.6-2.3); Sodium 140 mmol/L (137-145); Total Bilirubin 1.1 mg/dL (0.2-1.3); Total Protein 5.8 g/dL (6.3-8.2)
[2018-10-28] MEDS ORDERED: POTASSIUM BICARBONATE/CIT AC 20 MEQ TABLET.EFF PO ONE (08:30)
[2018-10-28] MEDS: SERTRALINE 50 MG TAB PO SCH (08:30)
[2018-10-28] MEDS: MAGNESIUM OXIDE 400 MG TAB PO SCH ×2 (08:30→22:13)
[2018-10-28] MEDS: amLODIPine 5 MG TAB PO SCH (08:30)
[2018-10-28] MEDS: LISINOPRIL 20 MG TAB PO SCH (08:31)
[2018-10-28] MEDS: MAGNESIUM SULFATE-D5W PMX 1 GM in DEXTROSE/WATER 1 100ML.BAG IVPB SCH ×4 (10:16→15:33)
[2018-10-28] MEDS: POTASSIUM CHLORIDE 10 MEQ in WATER FOR INJECTION 1 100ML.BAG IVPB SCH ×4 (10:28→15:33)
[2018-10-28 14:07] LABS: African American GFR (CKD) >90 (>60 ml/min/1.73 sqM); Anion Gap 6 mmol/L; Blood Urea Nitrogen 9 mg/dL (7-17); Calcium 10.9 mg/dL (8.4-10.2); Carbon Dioxide 29 mmol/L (22-30); Chloride 105 mmol/L (98-107); Glucose 93 mg/dL (74-99); Magnesium 1.8 mg/dL (1.6-2.3); Potassium 3.3 mmol/L (3.5-5.1); Sodium 140 mmol/L (137-145)
--- NOTE | 2018-10-28 15:54 | P.PN ---
Subjective Progress Note Date: 10/28/18 Principal diagnosis: Liver lesions, hypercalcemia In follow-up today patient is starting to feel a little bit better. She is a little less fatigued, she has had a time to process all of the information she's been given and mentally feeling better as well. Noticing that food tastes terrible but, encouraged her to have family bring her different food items to try. No fevers, vomiting, biopsy site without bruising or discomfort, patient is able to ambulate independently Objective - Vital Signs Vital signs: Vital Signs Temp 98.8 F 10/28/18 13:00 Pulse 72 10/28/18 13:00 Resp 16 10/28/18 13:00 BP 132/72 10/28/18 13:00 Pulse Ox 96 10/28/18 13:00 Intake & Output 10/27/18 10/28/18 10/28/18 18:59 06:59 18:59 Intake Total 1300 1000 Balance 1300 1000 Intake: Intake, IV Titration 650 1000 Amount 0.9% NaCl with KCl 20 Meq 650 600 /l 1,000 ml @ 100 mls/hr IV .Q10H [facility] Rx#: [id number] Magnesium Sulfate-D5w Pmx 200 1 gm In Dextrose/Water 1 100ml.bag @ 100 mls/hr IVPB Q1H [facility] Rx#: [id number] Potassium Chloride 10 meq 200 In Water For Injection 1 100ml.bag @ 100 mls/hr IVPB Q1HR [facility] Rx#: [id number] Oral 650 Other: Voiding Method Toilet Toilet Toilet # Voids 3 3 # Bowel Movements 1 - Exam Well-developed female sitting up side of the bed, she is able to move independently without assistance, alert and oriented 4, no acute distress, respirations even and unlabored - Labs CBC & Chem 7: 10/28/18 07:26 10/28/18 13:13 Labs: Abnormal Lab Results - Last 24 Hours (Table) 10/27/18 10/28/18 10/28/18 Range/Units 23:07 07:26 07:26 RBC 3.73 L (3.80-5.40) m/uL Hgb 10.4 L (11.4-16.0) gm/dL Hct 30.8 L (34.0-46.0) % Lymphocytes # 0.5 L (1.0-4.8) k/uL Potassium 2.9 L 3.0 L (3.5-5.1) mmol/L Calcium 10.7 H (8.4-10.2) mg/dL Magnesium 1.4 L (1.6-2.3) mg/dL AST 132 H (14-36) U/L Total Protein 5.8 L (6.3-8.2) g/dL Albumin 2.9 L (3.5-5.0) g/dL 10/28/18 Range/Units 13:13 RBC (3.80-5.40) m/uL Hgb (11.4-16.0) gm/dL Hct (34.0-46.0) % Lymphocytes # (1.0-4.8) k/uL Potassium 3.3 L (3.5-5.1) mmol/L Calcium 10.9 H (8.4-10.2) mg/dL Magnesium (1.6-2.3) mg/dL AST (14-36) U/L Total Protein (6.3-8.2) g/dL Albumin (3.5-5.0) g/dL Assessment and Plan (1) Hypercalcemia Narrative/Plan: Pending immunofixation on the marrow work up. 1 dose of Aredia administered for hypercalcemia. Ca++ level slightly improved today on AM lab draw, then slightly worse on afternoon draw. Pending liver biopsy results. Bone scan and CT findings are more suggestive of myeloma bone vs solid tumor bone met (blastic vs lytic). Will await the results of testing to give final diagnosis. We will cont to follow Current Visit: Yes Status: Acute Priority: High Code(s): E83.52 - HYPERCALCEMIA SNOMED Code(s): 43836563
--- NOTE | 2018-10-28 18:44 | P.PN ---
Subjective Progress Note Date: 10/28/18 Principal diagnosis: fatigue and weight loss Patient is a 43-year-old female past medical history of hypertension, morbid obesity, and hemorrhoids who presented to the ER with worsening fatigue and weight loss. In the ER she underwent an extensive evaluation. Her chest x-ray was unremarkable, EKG did not history of normal sinus rhythm. Laboratory evaluation showed a potassium of 2.7, calcium 13.3, PTH 3.9 which is low, white blood cell count 6.7, hemoglobin 11.3, platelets 270, creatinine 1.01. Patient was admitted for symptomatic hypercalcemia. There was concerns for malignancy with her present weight loss and fatigue. CT chest abdomen and pelvis was ordered with contrast as well as SPEP, UPEP, and urine light chains. PTH-RP levels were ordered. Oncology was consulted. She was placed on IV hydration. She was given 1 dose of pamidronate for her hypercalcemia. CT chest/abdomen/pelvis showed metastatic disease to liver and bones as well as splenomegaly and small amounts of ascites. Nuclear medicine bone scan revealed no evidence of osseous metastatic disease. She underwent an ultrasound-guided liver biopsy on 10/27/18 of a right liver lobe mass. Pathology pending. Patient seen and examined at bedside. Still feeling very fatigued today. Having increased abdominal pain and bloating. Denies any vomiting but does still nauseous. Denies any chest pain or shortness of breath. Still not feeling well. Discussed the fact that she has severe electrolyte disturbances which should be corrected prior to patient being discharged. Objective - Vital Signs Vital signs: Vital Signs Temp 98.1 F 10/28/18 05:00 Pulse 78 10/28/18 05:00 Resp 18 10/28/18 05:00 BP 138/86 10/28/18 05:00 Pulse Ox 95 10/28/18 05:00 Intake & Output 10/27/18 10/28/18 10/28/18 18:59 06:59 18:59 Intake Total 1300 Balance 1300 Intake: Intake, IV Titration 650 Amount 0.9% NaCl with KCl 20 Meq 650 /l 1,000 ml @ 75 mls/hr IV .[id number] [facility] Rx#: [id number] Oral 650 Other: Voiding Method Toilet Toilet # Voids 3 3 # Bowel Movements 1 - Exam General: non toxic, no distress, appears at stated age, obese, ill-appearing Derm: warm, dry Head: atraumatic, normocephalic, symmetric Eyes: EOMI, no lid lag, anicteric sclera, sunken in eyes eyes Mouth: no lip lesion, mucus membranes moist Cardiovascular: S1S2 reg, no murmur, positive posterior tibial pulse bilateral, Lungs: Decreased breath sounds bilateral, no rhonchi, no rales , no accessory muscle use Abdominal: soft, nontender to palpation, no guarding, no appreciable organomegaly Ext: no gross muscle atrophy, no edema, no contractures Neuro: CN II-XI grossly intact, no focal neuro deficits Psych: Alert, oriented, appropriate affect - Labs CBC & Chem 7: 10/28/18 07:26 10/28/18 13:13 Labs: Abnormal Lab Results - Last 24 Hours (Table) 10/26/18 10/26/18 10/27/18 Range/Units 09:25 09:25 08:51 RBC (3.80-5.40) m/uL Hgb (11.4-16.0) gm/dL Hct (34.0-46.0) % Lymphocytes # (1.0-4.8) k/uL Potassium 2.8 L (3.5-5.1) mmol/L Carbon Dioxide 31 H (22-30) mmol/L Glucose 120 H (74-99) mg/dL Calcium 12.3 H (8.4-10.2) mg/dL Magnesium 1.5 L (1.6-2.3) mg/dL AST 143 H (14-36) U/L Albumin 3.3 L (3.5-5.0) g/dL Albumin (PEP) 2.86 L (3.80-4.90) g/dL Gamma Globulins 1.64 H (0.70-1.50) g/dL Free [place] LC, Quant 4.87 H (0.33-1.94) mg/dL Free L[place] LC, Quant 4.23 H (0.57-2.63) mg/dL 10/27/18 10/27/18 10/28/18 Range/Units 08:51 23:07 07:26 RBC 3.73 L (3.80-5.40) m/uL Hgb 10.9 L 10.4 L (11.4-16.0) gm/dL Hct 30.8 L (34.0-46.0) % Lymphocytes # 0.8 L 0.5 L (1.0-4.8) k/uL Potassium 2.9 L (3.5-5.1) mmol/L Carbon Dioxide (22-30) mmol/L Glucose (74-99) mg/dL Calcium (8.4-10.2) mg/dL Magnesium (1.6-2.3) mg/dL AST (14-36) U/L Albumin (3.5-5.0) g/dL Albumin (PEP) (3.80-4.90) g/dL Gamma Globulins (0.70-1.50) g/dL Free [place] LC, Quant (0.33-1.94) mg/dL Free Lambda LC, Quant (0.57-2.63) mg/dL Assessment and Plan Assessment: Hypercalcemia likely related to malignancy, liver lesion noted -Bony lesions noted on CT but not confirmed on nuclear medicine bone scan -Patient has slight spike on aspirin, immunofixation pending, marrow workup pending, liver biopsy pending -Oncology recommendations appreciated -On IV fluids, status post major knee on 10/26 -Check ionized calcium level in a.m. Severe hypokalemia and hypomagnesemia -Aggressive IV and oral replacements -Repeat today at 1 PM and in a.m. Hypertension, controlled - norvasc, lisinopril - Controlled, follow blood pressures Morbid obesity with BMI 56.1 -Patient has had significant amount of weight loss without trying DVT prophylaxis: heparin Discussed with: patient, nursing Anticipated discharge: [address]: home A total of 35 minutes was spent on the care of this complex patient more than 50% of the time was spent in counseling and care coordination.
[2018-10-28 18:56] LABS: African American GFR (CKD) >90 (>60 ml/min/1.73 sqM); Anion Gap 6 mmol/L; Blood Urea Nitrogen 8 mg/dL (7-17); Calcium 10.3 mg/dL (8.4-10.2); Carbon Dioxide 29 mmol/L (22-30); Chloride 105 mmol/L (98-107); Glucose 89 mg/dL (74-99); Magnesium 2.2 mg/dL (1.6-2.3); Potassium 3.5 mmol/L (3.5-5.1); Sodium 140 mmol/L (137-145)
[2018-10-28] MEDS ORDERED: POTASSIUM CHLORIDE ER 20 MEQ TAB.ER PO STA (22:26)
[2018-10-28] MEDS ORDERED: ONDANSETRON 4 MG/2 ML VIAL IVP PRN (22:26)
[2018-10-28] MEDS ORDERED: HYDROcodone/APAP 5-325MG 1 EACH TAB PO PRN (22:26)
[2018-10-29] MEDS: 0.9% NACL WITH KCL 20 MEQ/L 1,000 ML IV SCH ×2 (04:06→10:33)
[2018-10-29] MEDS: SERTRALINE 50 MG TAB PO SCH (09:17)
[2018-10-29] MEDS: amLODIPine 5 MG TAB PO SCH (09:17)
[2018-10-29] MEDS: LISINOPRIL 20 MG TAB PO SCH (09:17)
[2018-10-29] MEDS: HEPARIN SODIUM,PORCINE 5,000 UNIT/ML 1 ML VIAL SQ SCH (09:17)
[2018-10-29] MEDS: MAGNESIUM OXIDE 400 MG TAB PO SCH (09:17)
[2018-10-29 09:57] LABS: HCT 31.6 % (34.0-46.0); HGB 10.7 gm/dL (11.4-16.0); Hypochromasia Slight; MCH 28.2 pg (25.0-35.0); MCHC 33.9 g/dL (31.0-37.0); MCV 83.1 fL (80.0-100.0); Mean Platelet Volume 7.5; Platelet Count 194 k/uL (150-450); Poikilocytosis Slight; RBC 3.81 m/uL (3.80-5.40); RDW 15.4 % (11.5-15.5); WBC 5.8 k/uL (3.8-10.6)
[2018-10-29 10:03] LABS: Ionized Calcium 5.7 mg/dL (4.5-5.3)
[2018-10-29 10:06] LABS: ALT 28 U/L (9-52); AST 140 U/L (14-36); African American GFR (CKD) >90 (>60 ml/min/1.73 sqM); Alkaline Phosphatase 109 U/L (38-126); Anion Gap 6 mmol/L; Blood Urea Nitrogen 8 mg/dL (7-17); Calcium 9.8 mg/dL (8.4-10.2); Carbon Dioxide 25 mmol/L (22-30); Chloride 109 mmol/L (98-107); Glucose 105 mg/dL (74-99); Potassium 3.5 mmol/L (3.5-5.1); Sodium 140 mmol/L (137-145); Total Bilirubin 0.8 mg/dL (0.2-1.3)
[2018-10-29] MEDS ORDERED: POTASSIUM BICARBONATE/CIT AC 20 MEQ TABLET.EFF PO ONE (11:06)
[2018-10-29 12:31] VITALS: BP 113/67; PULSE 66; RESP 16; TEMP 98.1
--- NOTE | 2018-10-29 15:00 | P.DS ---
Providers Date of admission: 10/25/18 18:39 Expected date of discharge: 10/29/18 Attending physician: Susana Isabel MD Consults: 10/25/18 18:39 Consult Physician Urgent Consulting Provider: Andrzej Burt Consult Reason/Comments: Hypercalcemia, weight loss Do you want consulting provider notified?: Yes Primary care physician: Krupa Martin Hospital Course: Discharge Diagnosis: Hypercalcemia, liver mass, probable cancer Severe hypokalemia and hypomagnesemia HTN Morbid Obesity Hospital Course: Patient is a 43-year-old female past medical history of hypertension, morbid obesity, and hemorrhoids who presented to the ER with worsening fatigue and weight loss. In the ER she underwent an extensive evaluation. Her chest x-ray was unremarkable, EKG did not history of normal sinus rhythm. Laboratory evaluation showed a potassium of 2.7, calcium 13.3, PTH 4.2 which is low, white blood cell count 6.7, hemoglobin 11.3, platelets 270, creatinine 1.01. Patient was admitted for symptomatic hypercalcemia. There was concerns for malignancy with her present weight loss and fatigue. CT chest abdomen and pelvis was ordered with contrast as well as SPEP, UPEP, and urine light chains. Oncology was consulted. She was placed on IV hydration. She was given 1 dose of pamidronate for her hypercalcemia. CT chest/abdomen/pelvis showed metastatic disease to liver and bones as well as splenomegaly and small amounts of ascites. Nuclear medicine bone scan revealed no evidence of osseous metastatic disease. She underwent an ultrasound-guided liver biopsy on 10/27/18 of a right liver lobe mass. Pathology pending. Slight spike on protein analysis. Her severe electrolyte abnormalities had improved and calcium levels normalized. She was determined stable for discharge. She will see Dr. Hartman on 11/05. She will see Dr. Martin in 1-2 days. She will have CMP and magnesium between 11/03- 11/05. She will start on potassium and magnesium oral as outpatient. Patient seen and examined at bedside. No chest pain, SOB, no nausea, some loose stools. Feeling much better than yesterday. Vital signs reviewed and stable. General: non toxic, no distress, appears at stated age Derm: warm, dry Head: atraumatic, normocephalic, symmetric Eyes: EOMI, no lid lag, anicteric sclera Mouth: no lip lesion, mucus membranes moist Cardiovascular: S1S2 reg, no murmur, positive posterior tibial pulse bilateral, Lungs: CTA bilateral, no rhonchi, no rales , no accessory muscle use Abdominal: soft, nontender to palpation, no guarding, no appreciable organomegaly Ext: no gross muscle atrophy, no edema, no contractures Neuro: CN II-XI grossly intact, no focal neuro deficits Psych: Alert, oriented, appropriate affect A total of 35 minutes of time were spent preparing this complex discharge summary . Pertinent Studies: Nuclear Medicine Bone Scan- no evidence of metastatic disease CT abd and pelvis- suspicious metastatic disease to the liver and bones, splenomegaly, small amount of ascities. Procedures: Ultrasound-guided liver biopsy 10/27 Plan - Discharge Summary Discharge Rx Participant: No New Discharge Prescriptions: New Potassium Chloride ER [K-Dur 20] 40 meq PO DAILY #60 tab Magnesium Oxide [Mag-Oxide] 200 mg PO BID #60 tablet Continue amLODIPine BESYLATE/BENAZEPRIL [amLODIPine BESYLATE/BENAZEPRIL 5-20 MG] 1 cap PO QAM Sertraline [Zoloft] 50 mg PO QAM Ibuprofen [Motrin] 600 mg PO Q8HR PRN PRN Reason: Pain Polyethylene Glycol 3350 [Miralax] 17 gm PO DAILY PRN PRN Reason: Constipation Discharge Medication List Ibuprofen [Motrin] 600 mg PO Q8HR PRN 10/25/18 [History] Polyethylene Glycol 3350 [Miralax] 17 gm PO DAILY PRN 10/25/18 [History] Sertraline [Zoloft] 50 mg PO QAM 10/25/18 [History] amLODIPine BESYLATE/BENAZEPRIL [amLODIPine BESYLATE/BENAZEPRIL 5-20 MG] 1 cap PO QAM 10/25/18 [History] Magnesium Oxide [Mag-Oxide] 200 mg PO BID #60 tablet 10/29/18 [Rx] Potassium Chloride ER [K-Dur 20] 40 meq PO DAILY #60 tab 10/29/18 [Rx] Follow up Appointment(s)/Referral(s): Krupa Martin MD [Primary Care Provider] - 1-2 days Dorita Hartman MD [STAFF PHYSICIAN] - 11/05/18 9:45 am Ambulatory/Diagnostic Orders: Comprehensive Metabolic Panel [LAB.AMB] Time Frame: 1 Week, Location: None Selected Magnesium [LAB.AMB] Time Frame: 1 Week, Location: None Selected Activity/Diet/Wound Care/Special Instructions: diet: regular Activity: as tolerated Discharge/Stand Alone Forms: Work/Release Restrictions Form Discharge Disposition: HOME SELF-CARE Pending Studies Pending Results: Liver biopsy Immunofixation
--- NOTE | 2018-11-04 10:56 | CDI ---
Documentation Clarification Form Date: 11/04/18 From: Rajwinder Bennett Phone: If you have question, contact Svetlana Acevedo at [phone] M-F 8:30 am to 6pm Admit Date: 10/25/2018 6:39:00 PM Patient Name: Sole Clancy Visit Number: [id number] Discharge Date: 10/29/2018 4:54:00 PM ATTENTION: The Clinical Documentation Specialists (CDI) and [facility] Coding Staff appreciate your assistance in clarifying documentation. Please respond to the clarification below the line at the bottom and electronically sign. The CDI & [facility] Coding staff will review the response and follow-up if needed. Please note: Queries are made part of the Legal Health Record. If you have any questions, please contact the author of this message via ITS. Dr. Susana Isabel Ms Clancy underwent a biopsy of the liver masses on 10/27. The final diagnosis of the pathology report states: Metastatic poorly differentiated adenocarcinoma Documentation in the discharge summary states: liver mass, probable cancer Patient history/risk factors: Hypercalcemia, weight loss, normocytic anemia, no personal history of cancer In your professional opinion, do you agree with the pathology report specifying the liver masses as metastatic adenocarcinoma? Yes No Other (please specify) Unable to determine yes MTDD
== END 2018-10-29 16:54 | disposition home or self-care (01) | DRG 436 ==
LOC: EC 16:15 → 3NMEDONC 18:39
PROVIDERS: ADMIT Family Medicine; ATTEND Family Medicine
PROC: 0FB13ZX Excision of Right Lobe Liver, Percutaneous Approach, Diagnostic (ICD-10-PCS; principal; 2018-10-27)
DX: C78.7 Secondary malignant neoplasm of liver and intrahepatic bile duct (principal); C79.51 Secondary malignant neoplasm of bone; Z68.43 Body mass index [BMI] 50.0-59.9, adult; R18.8 Other ascites; E83.52 Hypercalcemia; E87.6 Hypokalemia; I10 Essential (primary) hypertension; E83.42 Hypomagnesemia; E66.01 Morbid (severe) obesity due to excess calories; C80.1 Malignant (primary) neoplasm, unspecified; R16.1 Splenomegaly, not elsewhere classified; D63.0 Anemia in neoplastic disease; M19.90 Unspecified osteoarthritis, unspecified site; F32.9 Major depressive disorder, single episode, unspecified; F41.9 Anxiety disorder, unspecified; K59.00 Constipation, unspecified; R01.1 Cardiac murmur, unspecified; K45.8 Other specified abdominal hernia without obstruction or gangrene; M54.5 Low back pain; G89.29 Other chronic pain; Z79.899 Other long term (current) drug therapy; Z80.3 Family history of malignant neoplasm of breast; Z82.49 Family history of ischemic heart disease and other diseases of the circulatory system; Z97.5 Presence of (intrauterine) contraceptive device; Z87.440 Personal history of urinary (tract) infections
CPT/HCPCS: 36415; 47000; 71046; 71260; 74177; 76942; 78306; 80048; 80053; 81001; 82232; 82330; 82550; 83605; 83735; 83883; 83970; 84100; 84132; 84165; 84439; 84443; 84481; 84484; 85025; 85027; 85610; 85730; 88307; 88341; 88342; 93005; 96361; 96365; 96366; 96372; 99284

== ENCOUNTER → 2018-11-02 | Outpatient (CLI) | payer OTHER ==
[2018-11-02 16:34] LABS: African American GFR (CKD) 121.3 (60.0-200.0); Albumin 3.5 g/dL (3.80-4.90); Albumin/Globulin Ratio 1.21 (1.60-3.17); Anion Gap 8.2 mmol/L (4.00-12.00); BUN/Creat Ratio 14.29 Ratio (12.00-20.00); Calcium 10.1 mg/dL (8.7-10.3); Carbon Dioxide 23.8 mmol/L (21.6-31.8); Globulin 2.9 g/dL (1.6-3.3); Magnesium 1.6 mg/dL (1.5-2.4); Potassium 3.9 mmol/L (3.5-5.5); Total Bilirubin 0.8 mg/dL (0.3-1.2); Total Protein 6.4 g/dL (6.2-8.2)
== END | disposition home or self-care (01) ==
LOC: LABWHC1 09:41
PROVIDERS: ATTEND Family Medicine
DX: E83.52 Hypercalcemia (principal); I10 Essential (primary) hypertension
CPT/HCPCS: 36415; 80053; 83735

== ENCOUNTER → 2018-11-17 | Outpatient (CLI) | payer OTHER ==
--- NOTE | 2018-11-18 08:54 | MM ---
Reason for exam: screening (asymptomatic). Last mammogram was performed 8 years and 7 months ago. History: Family history of breast cancer in maternal grandmother. Took hormonal contraceptives for 5 years beginning at age 19. Physical Findings: Nurse did not find any significant physical abnormalities on exam. MG Screening Mammo w CAD Bilateral CC and MLO view(s) were taken. Spot compression XCCL view(s) were taken of the right breast. Prior study comparison: April 12, 2010, bilateral diagnostic digital mammog. February 13, 2009, bilateral screening mammogram free. The breast tissue is heterogeneously dense. This may lower the sensitivity of mammography. Exaggerated CC done with spot resolving a lateral asymmetry, however, this is new from 2008 and precautionary ultrasound will be done. This is 12cm from nipple. These results were verbally communicated with the patient and result sheet given to the patient on 11/17/18. ASSESSMENT: Incomplete: need additional imaging evaluation, BI-RAD 0 RECOMMENDATION: Ultrasound of the right breast. (upper outer quadrant)
--- NOTE | 2018-11-18 08:55 | USB ---
Reason for exam: additional evaluation requested from abnormal screening. History: Family history of breast cancer in maternal grandmother. Took hormonal contraceptives for 5 years beginning at age 19. US Breast Workup Limited RT Right limited breast ultrasound including focal area of concern, retroareolar and axilla demonstrates no cystic or solid lesion seen. No suspicious finding. These results were verbally communicated with the patient and result sheet given to the patient on 11/17/18. ASSESSMENT: Negative, BI-RAD 1 RECOMMENDATION: Return to routine screening mammogram schedule for both breasts.
== END | disposition home or self-care (01) ==
LOC: RADMAMWWP 14:21
PROVIDERS: ATTEND Internal Medicine Hematology & Oncology
DX: Z12.31 Encounter for screening mammogram for malignant neoplasm of breast (principal); C80.0 Disseminated malignant neoplasm, unspecified; Z80.3 Family history of malignant neoplasm of breast
CPT/HCPCS: 77067

== ENCOUNTER 2018-12-11 18:22 | Inpatient (IN) | payer OTHER ==
[2018-12-11] MEDS ORDERED: SODIUM CHLORIDE 0.9% 1,000 ML IV STA (18:53)
--- NOTE | 2018-12-11 19:02 | ED ---
Pediatric Fever HPI - General Chief Complaint: Fever Stated Complaint: Fever Time Seen by Provider: 12/11/18 18:35 Source: patient Mode of arrival: ambulatory Limitations: no limitations - History of Present Illness Initial Comments: 43-year-old female patient with past medical history significant for stage IV pancreatic cancer currently receiving chemotherapy last dose one week ago, presents to the emergency department today for evaluation of fever. Patient states she's had a fever for the last 4 hours. States it has been over 100.5F. States that she has been having abdominal cramping. States she's been having intermittent constipation and diarrhea. States she's had some nausea and lack of appetite. Patient denies any cough or congestion. Denies any rash. States she does have some chafing to the inner thighs but denies any redness or purulent drainage. Sates that she does currently have hemorrhoids that bleed intermittently. She is currently being treated for urinary tract infection. Patient denies any recent rash, shortness breath, chest pain, back pain, numbness, tingling, dizziness, hematuria, dysuria, urinary urgency, urinary frequency, visual changes, or any other complaints. - Related Data Home Medications Medication Instructions Recorded Confirmed Ibuprofen [Motrin] 600 mg PO Q8HR PRN 10/25/18 12/11/18 Polyethylene Glycol 3350 [Miralax] 17 gm PO DAILY PRN 10/25/18 12/11/18 Sertraline [Zoloft] 50 mg PO DAILY 10/25/18 12/11/18 amLODIPine BESYLATE/BENAZEPRIL 1 cap PO DAILY 10/25/18 12/11/18 [amLODIPine BESYLATE/BENAZEPRIL 5-20 MG] Levofloxacin [Levaquin] 500 mg PO DAILY 12/11/18 12/11/18 Magnesium Oxide [Mag-Ox] 200 mg PO BID 12/11/18 12/11/18 Ondansetron HCl [Zofran] 4 mg PO Q8H PRN 12/11/18 12/11/18 traMADol HCL [Ultram] 50 mg PO Q6HR PRN 12/11/18 12/11/18 Previous Rx's Medication Instructions Recorded Potassium Chloride ER [K-Dur 20] 40 meq PO DAILY #60 tab 10/29/18 Allergies Allergy/AdvReac Type Severity Reaction Status Date / Time No Known Allergies Allergy Verified 12/11/18 23:38 Review of Systems ROS Statement: Those systems with pertinent positive or pertinent negative responses have been documented in the HPI. ROS Other: All systems not noted in ROS Statement are negative. Past Medical History Past Medical History: Cancer, Hypertension, Osteoarthritis (OA) Additional Past Medical History / Comment(s): Cardiac murmur, chronic low back pain, UTI, constipation. PANCREATIC Cancer History of Any Multi-Drug Resistant Organisms: None Reported Past Surgical History: Section Past Anesthesia/Blood Transfusion Reactions: No Reported Reaction Past Psychological History: No Psychological Hx Reported Smoking Status: Never smoker Past Alcohol Use History: None Reported Past Drug Use History: None Reported - Past Family History Mother Family Medical History: Dementia, Vascular Disorder Additional Family Medical History / Comment(s): Mother had appendicitis that went undiagnosed for VERN chavez. Patient's maternal grandmother had breast cancer around the age of 50 Father Family Medical History: No Reported History Additional Family Medical History / Comment(s): Father is healthy General Exam Limitations: no limitations General appearance: alert, in no apparent distress, other (Physical well- developed, well-nourished adult female patient in no acute distress. Vital signs upon presentation are temperature 100.6F, pulse 97, respirations 16, blood pressure 101/69, pulse ox 99% on room air.) Eye exam: Present: normal appearance, PERRL, EOMI. Absent: scleral icterus, conjunctival injection, periorbital swelling Neck exam: Present: normal inspection. Absent: tenderness, meningismus, lymphadenopathy Respiratory exam: Present: normal lung sounds bilaterally. Absent: respiratory distress, wheezes, rales, rhonchi, stridor Cardiovascular Exam: Present: regular rate, normal rhythm, normal heart sounds. Absent: systolic murmur, diastolic murmur, rubs, gallop, clicks GI/Abdominal exam: Present: soft, tenderness (Midepigastric tenderness), normal bowel sounds. Absent: distended, guarding, rebound, rigid Neurological exam: Present: alert, oriented X3, CN II-XII intact Psychiatric exam: Present: normal affect, normal mood Skin exam: Present: warm, dry, intact, normal color. Absent: rash Course Vital Signs 12/11/18 12/11/18 12/11/18 18:40 19:12 20:45 Temperature 100.6 F H 102.2 F H 100.8 F H Pulse Rate 97 Respiratory 16 Rate Blood Pressure 101/69 O2 Sat by Pulse 99 Oximetry Medical Decision Making - Medical Decision Making 43-year-old female patient with past medical history significant for stage IV. Chronic cancer currently receiving chemotherapy presents to the emergency department today for evaluation of fever 4 hours. Physical examination is relatively unremarkable there was some midepigastric tenderness. Labs reviewed and did reveal decreased white blood cell count at 0.3, hemoglobin 6.2, hematocrit 18.8, platelet count 7. Urine is still pending, patient has not yet been able to give a sample. Does report she's had decreased food and fluid intake over the last few days. I did discuss findings and results with the patient. Patient be admitted to [facility] physician [facility] Dr. Galvin. Case was also discussed with Dr. Ellis who recommends transfusing 2 units PRBC and platelets. Also, recommends cefepime and vancomycin for coverage of neutropenic fever. 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 Differential Comment Rouleaux Present PT (9.0-12.0) sec INR (<1.2) APTT (22.0-30.0) sec Sodium 137 (137-145) mmol/L Potassium 4.4 (3.5-5.1) mmol/L Chloride 108 H (98-107) mmol/L Carbon Dioxide 17 L (22-30) mmol/L Anion Gap 12 mmol/L BUN 29 H (7-17) mg/dL Creatinine 1.39 H (0.52-1.04) mg/dL Est GFR (CKD-EPI)AfAm 53 (>60 ml/min/1.73 sqM) Est GFR (CKD-EPI)NonAf 46 (>60 ml/min/1.73 sqM) Glucose 90 (74-99) mg/dL Plasma Lactic Acid Saroj 1.1 (0.7-2.0) mmol/L Calcium 8.6 (8.4-10.2) mg/dL Total Bilirubin 1.5 H (0.2-1.3) mg/dL AST 71 H (14-36) U/L ALT 30 (9-52) U/L Alkaline Phosphatase 112 (38-126) U/L Total Protein 5.8 L (6.3-8.2) g/dL Albumin 2.8 L (3.5-5.0) g/dL 12/11/18 Range/Units 22:16 WBC (3.8-10.6) k/uL RBC (3.80-5.40) m/uL Hgb (11.4-16.0) gm/dL Hct (34.0-46.0) % MCV (80.0-100.0) fL MCH (25.0-35.0) pg MCHC (31.0-37.0) g/dL RDW (11.5-15.5) % Plt Count (150-450) k/uL Neutrophils # Differential Comment Rouleaux PT 12.0 (9.0-12.0) sec INR 1.2 H (<1.2) APTT 26.0 (22.0-30.0) sec Sodium (137-145) mmol/L Potassium (3.5-5.1) mmol/L Chloride (98-107) mmol/L Carbon Dioxide (22-30) mmol/L Anion Gap mmol/L BUN (7-17) mg/dL Creatinine (0.52-1.04) mg/dL Est GFR (CKD-EPI)AfAm (>60 ml/min/1.73 sqM) Est GFR (CKD-EPI)NonAf (>60 ml/min/1.73 sqM) Glucose (74-99) mg/dL Plasma Lactic Acid Saroj (0.7-2.0) mmol/L Calcium (8.4-10.2) mg/dL Total Bilirubin (0.2-1.3) mg/dL AST (14-36) U/L ALT (9-52) U/L Alkaline Phosphatase (38-126) U/L Total Protein (6.3-8.2) g/dL Albumin (3.5-5.0) g/dL - Radiology Data Radiology results: report reviewed, image reviewed Two-view x-ray of the chest is obtained. Report was reviewed in its entirety. Impression by Dr. Cordero shows no suspicious acute pulmonary process Disposition Clinical Impression: Pancytopenia, Neutropenic fever, Pancreatic cancer Disposition: ADMITTED IP TO THIS [facility] Condition: Serious Referrals: Krupa Martin MD [Primary Care Provider] - 1-2 days Decision to Admit Reason: Admit from EC Decision Date: 12/11/18 Decision Time: 23:29
[2018-12-11] MEDS ORDERED: ACETAMINOPHEN TAB 500 MG TAB PO STA (20:37)
[2018-12-11] MEDS ORDERED: HYDROcodone/APAP 7.5-325MG 1 EACH TAB PO ONE (20:47)
--- NOTE | 2018-12-11 21:28 | XR ---
EXAMINATION TYPE: XR chest 2V DATE OF EXAM: 12/11/2018 COMPARISON: Chest x-ray October 25, 2018 HISTORY: Fever. History of advanced pancreatic cancer. TECHNIQUE: Frontal and lateral views of the chest are obtained. FINDINGS: There is no focal air space opacity, pleural effusion, or pneumothorax seen. The cardiac silhouette size is within normal limits. The osseous structures are intact. IMPRESSION: No new suspicious acute pulmonary process.
[2018-12-11 22:34] LABS: MCH 25.5 pg (25.0-35.0); MCHC 33.2 g/dL (31.0-37.0); MCV 76.9 fL (80.0-100.0); Mean Platelet Volume 9.9; RBC 2.44 m/uL (3.80-5.40); RDW 13.9 % (11.5-15.5)
[2018-12-11 22:36] LABS: Albumin 2.8 g/dL (3.5-5.0); Calcium 8.6 mg/dL (8.4-10.2); Potassium 4.4 mmol/L (3.5-5.1); Total Bilirubin 1.5 mg/dL (0.2-1.3); Total Protein 5.8 g/dL (6.3-8.2)
[2018-12-11 22:39] LABS: INR 1.2 (<1.2)
[2018-12-11 22:47] LABS: WBC 0.3 k/uL (3.8-10.6)
[2018-12-11 22:48] LABS: HCT 18.8 % (34.0-46.0); HGB 6.2 gm/dL (11.4-16.0)
[2018-12-11 22:50] LABS: Platelet Count 7 k/uL (150-450); Rouleaux Present
[2018-12-11] MEDS ORDERED: VANCOMYCIN IV PER PHARMACY 1 EACH MISC MISCELLANE PRN (23:24)
[2018-12-11] MEDS ORDERED: CEFEPIME 2 GM in SODIUM CHLORIDE 0.9% 100 ML IVPB STA (23:24)
[2018-12-11] MEDS ORDERED: NALOXONE 0.4 MG/ML 1 ML VIAL IV PRN (23:25)
[2018-12-11] MEDS ORDERED: VANCOMYCIN 2,000 MG in SODIUM CHLORIDE 0.9% 500 ML 500 ML IVPB STA (23:26)
[2018-12-12] MEDS ORDERED: SODIUM CHLORIDE 0.9% 500 ML 500 ML IV ONE
[2018-12-12] MEDS ORDERED: POLYETHYLENE GLYCOL 3350 17 GM POWD.PACK PO PRN (00:07)
--- NOTE | 2018-12-12 00:31 | P.HPIM ---
History of Present Illness H&P Date: 12/11/18 Chief Complaint: Fevers 43-year-old female with history of stage IV pancreatic cancer currently on chemotherapy Patient has been treated for urinary tract infection with levofloxacin today was day 4 of her antibiotics. However she spiked a fever today and decided come to the hospital. She only reports symptoms related to her urinary tract infection reporting burning sensation when she presented with dysuria and suprapubic abdominal pain. Described it as sharp crampy pain 6-7 out of 10 in severity comes and goes. She thinks that radiates to the back however she does have chronic back pain. However she knows that she is currently on chemotherapy she's been watching for any fevers. The high fever today and decided come the hospital for further management. She denies any upper respiratory infection like symptoms denies any chest pain or trouble breathing. She does report some diarrhea alternating with constipation. She does report hemorrhoids with off-and-on bleeding. She also report chronic pancreatitis pain in her left upper quadrant. In the ED she was found to be pancytopenic with platelets around 7 anemia 6.3 and neutropenia she was admitted for broad-spectrum antibiotics and further workup. Review of Systems Pertinent positives as noted in HPI. All other systems were reviewed and are negative Past Medical History Past Medical History: Cancer, Hypertension, Osteoarthritis (OA) Additional Past Medical History / Comment(s): Cardiac murmur, chronic low back pain, UTI, constipation. PANCREATIC Cancer History of Any Multi-Drug Resistant Organisms: None Reported Past Surgical History: Section Past Anesthesia/Blood Transfusion Reactions: No Reported Reaction Past Psychological History: No Psychological Hx Reported Smoking Status: Never smoker Past Alcohol Use History: None Reported Past Drug Use History: None Reported - Past Family History Mother Family Medical History: Dementia, Vascular Disorder Additional Family Medical History / Comment(s): Mother had appendicitis that went undiagnosed for VERN chavez. Patient's maternal grandmother had breast cancer around the age of 50 Father Family Medical History: No Reported History Additional Family Medical History / Comment(s): Father is healthy Medications and Allergies Home Medications Medication Instructions Recorded Confirmed Type Ibuprofen [Motrin] 600 mg PO Q8HR PRN 10/25/18 12/11/18 History Polyethylene Glycol 3350 [Miralax] 17 gm PO DAILY PRN 10/25/18 12/11/18 History Sertraline [Zoloft] 50 mg PO DAILY 10/25/18 12/11/18 History amLODIPine BESYLATE/BENAZEPRIL 1 cap PO DAILY 10/25/18 12/11/18 History [amLODIPine BESYLATE/BENAZEPRIL 5-20 MG] Potassium Chloride ER [K-Dur 20] 40 meq PO DAILY #60 tab 10/29/18 12/11/18 Rx Levofloxacin [Levaquin] 500 mg PO DAILY 12/11/18 12/11/18 History Magnesium Oxide [Mag-Ox] 200 mg PO BID 12/11/18 12/11/18 History Ondansetron HCl [Zofran] 4 mg PO Q8H PRN 12/11/18 12/11/18 History traMADol HCL [Ultram] 50 mg PO Q6HR PRN 12/11/18 12/11/18 History Allergies Allergy/AdvReac Type Severity Reaction Status Date / Time No Known Allergies Allergy Verified 12/11/18 23:38 Physical Exam Vitals: Vital Signs Temp Pulse Resp BP Pulse Ox 12/11/18 20:45 100.8 F H 12/11/18 19:12 102.2 F H 12/11/18 18:40 100.6 F H 97 16 101/69 99 Intake and Output 12/11/18 12/11/18 12/12/18 14:59 22:59 06:59 Other: Weight 157.397 kg Constitutional: No acute distress, conversant, pleasant, obese Eyes: Anicteric sclerae, moist conjunctiva, no lid-lag Pupils equal round reactive to light ENMT: NC/AT Oropharynx clear, no erythema, or exudates, no oral thrush Neck: Supple, FROM, no masses, or JVD No carotid bruits No thyromegaly Lungs: Clear to auscultation Clear to percussion Normal respiratory effort, no accessory muscle use Cardiovascular: Heart regular in rate and rhythm, Systolic murmurs, gallops, or rubs Pedal edema bilaterally, no leg edema Abdominal: Soft, tender to palpation of the suprapubic region, epigastric and left upper quadrant. Tenderness to percussion over the costovertebral angle over the left side no guarding, rebound or rigidity Abdomen moving with respiration Normoactive bowel sounds No hepatomegaly, No splenomegaly No palpable mass No abdominal wall hernia noted Skin: Normal temperature, tone, texture, turgor No induration No subcutaneous nodules No rash, lesions No ulcers Extremities: No digital cyanosis No clubbing Pedal pulses intact and symmetrical Radial pulses intact and symmetrical No calf tenderness Psychiatric: Alert and oriented to person, place and time Appropriate affect fair judgment Neuro Muscles Strength 5/5 in all 4 extremities Sensation to light touch grossly present throughout Cranial nerves II-XII grossly intact No focal sensory deficits Lymphatics: no palpable cervical or supraclavicular , or inguinal lymph nodes Results CBC & Chem 7: 12/11/18 17:35 12/11/18 17:35 Labs: Abnormal Lab Results - Last 24 Hours (Table) 12/11/18 12/11/18 12/11/18 Range/Units 17:35 17:35 22:16 WBC 0.3 L* (3.8-10.6) k/uL RBC 2.44 L (3.80-5.40) m/uL Hgb 6.2 L* D (11.4-16.0) gm/dL Hct 18.8 L* (34.0-46.0) % MCV 76.9 L D (80.0-100.0) fL Plt Count 7 L* D (150-450) k/uL INR 1.2 H (<1.2) Chloride 108 H (98-107) mmol/L Carbon Dioxide 17 L (22-30) mmol/L BUN 29 H (7-17) mg/dL Creatinine 1.39 H (0.52-1.04) mg/dL Total Bilirubin 1.5 H (0.2-1.3) mg/dL AST 71 H (14-36) U/L Total Protein 5.8 L (6.3-8.2) g/dL Albumin 2.8 L (3.5-5.0) g/dL Assessment and Plan Assessment: 43-year-old female with stage IV pancreatic cancer currently on chemotherapy admitted as an inpatient with anticipated length of stay more than 48 hours due to neutropenic fever, patient was currently treated for UTI as an outpatient. Patient found to have pancytopenia and neutropenia. Acute kidney injury admitted for further care Plan: Sepsis secondary to underlying urinary tract infection and neutropenic fever Hypotension, clinically asymptomatic, lactic acid unremarkable Blood cultures taken Follow-up urine cultures Patient started on vancomycin and cefepime Patient was getting by mouth levofloxacin home Repeat lactic acid due to hypotension Aggressive IV fluid hydration Close monitoring of vital signs Monitor urine output Pancytopenia secondary to chemotherapy Severe anemia , patient will be given blood transfusion Thrombocytopenia count less than 7 risk of spontaneous bleed patient will be transfused platelets Acute kidney injury and acidosis most likely secondary to prerenal ATN from decreased by mouth intake Aggressive IV fluid hydration Avoid nephrotoxic meds monitor renal function and urine output hemorroids consider Gen surgery consult or referral Chronic conditions Hypertension Pancreatic cancer stage IV Surrogate decision-maker: Benji patient brother CODE STATUS full code DVT prophylaxis: Mechanical due to thrombocytopenia Discussed with: Patient, ER, RN Anticipated discharge: 48-[address]: Pending clinical course A total of 60 minutes was spent on the care of this complex patient more than 50% of the time was spent in counseling and care coordination.
[2018-12-12 01:22] LABS: Appearance,Urine Cloudy (Clear); Bilirubin,Urine 1+ (Negative); Blood,Urine Trace (Negative); Color,Urine Orange; Glucose,Urine (UA) Negative (Negative); Hyaline Casts,Urine 34 /lpf (0-2); Ketones,Urine Negative (Negative); Leukocyte Esterase,Urine Negative (Negative); Mucus,Urine Few /hpf; Nitrite,Urine Negative (Negative); PH, Urine 5.5 (5.0-8.0); Protein,Urine 1+ (Negative); RBC,Urine 1 /hpf (0-5); Specific Gravity,Urine 1.019 (1.001-1.035); Squamous Epithelial Cell,Urine 5 /hpf (0-4)
[2018-12-12] MEDS: SODIUM CHLORIDE 0.9% 1,000 ML IV SCH ×4 (01:31→21:25)
[2018-12-12] MEDS: ONDANSETRON 4 MG/2 ML VIAL IVP PRN ×2 (01:57→18:15)
[2018-12-12] MEDS: ACETAMINOPHEN TAB 325 MG TAB PO PRN ×2 (05:09→21:18)
[2018-12-12] MEDS ORDERED: CEFEPIME 2 GM in SODIUM CHLORIDE 0.9% 100 ML IVPB SCH (08:00)
[2018-12-12] MEDS: HYDROcodone/APAP 7.5-325MG 1 EACH TAB PO PRN ×2 (08:17→13:47)
[2018-12-12] MEDS: DOCUSATE 100 MG CAP PO SCH (08:17)
[2018-12-12] MEDS: SERTRALINE 50 MG TAB PO SCH (08:18)
[2018-12-12] MEDS: MAGNESIUM OXIDE 400 MG TAB PO SCH ×2 (08:19→21:30)
[2018-12-12 09:11] LABS: HCT 22.6 % (34.0-46.0); HGB 7.6 gm/dL (11.4-16.0); Hypochromasia Slight; MCH 28.9 pg (25.0-35.0); MCHC 33.7 g/dL (31.0-37.0); Mean Platelet Volume 8.1; RBC 2.64 m/uL (3.80-5.40); RDW 14.7 % (11.5-15.5)
[2018-12-12 09:21] LABS: WBC 0.4 k/uL (3.8-10.6)
[2018-12-12 09:23] LABS: Albumin 2.8 g/dL (3.5-5.0); Calcium 8.1 mg/dL (8.4-10.2); Potassium 4.2 mmol/L (3.5-5.1); Total Bilirubin 2.4 mg/dL (0.2-1.3); Total Protein 5.8 g/dL (6.3-8.2)
[2018-12-12 09:27] LABS: MCV 85.7 fL (80.0-100.0); Platelet Count 18 k/uL (150-450)
[2018-12-12] MEDS: POTASSIUM CHLORIDE ER 20 MEQ TAB.ER PO SCH (10:43)
--- NOTE | 2018-12-12 12:44 | P.PN ---
Subjective Progress Note Date: 12/12/18 Patient reports that she is feeling tired and was unable to sleep all night because of the blood and platelet transfusions. Patient denies fever or chills. Noted maximum temperature was 99.1F. When patient presented to the emergency room she was febrile. Noted that patient is on normal saline IV hydration 150 mL/h currently. Patient reports that her left upper quadrant abdominal pain is therefore about 9 days and get worse with any movement or coughing. Even if she is riding at car and it goes over a pot or that causes more pain and discomfort to the left upper quadrant area. Patient denies chest pain, palpitation, nausea, vomiting, diarrhea, cough and denies rest of the review system. On review of labs it was noted that patient hemoglobin is still low after transfusion but above the critical level. Platelets are 18,000 and she is still neutropenic. Objective - Vital Signs Vital signs: Vital Signs Temp 99.1 F 12/12/18 12:00 Pulse 92 12/12/18 12:00 Resp 16 12/12/18 12:00 BP 127/60 12/12/18 12:00 Pulse Ox 99 12/12/18 12:00 Intake & Output 12/11/18 12/12/18 12/12/18 18:59 06:59 18:59 Intake Total 518 118 Balance 518 118 Weight 157.397 kg 159 kg Intake: Oral 118 Blood Product 518 0 Platelet Irr Pheresis 208 Acda1 Unit [id number] Rc As-1 Unit 310 [id number] Rc As-3 Unit 0 0 [id number] Other: Voiding Method Toilet Toilet # Bowel Movements 1 - Constitutional General appearance: Present: cooperative, no acute distress, obese - EENT Eyes: Present: EOMI, normal appearance ENT: Present: hearing grossly normal, NA/AT - Neck Neck: Present: normal ROM. Absent: lymphadenopathy, rigidity - Respiratory Respiratory: bilateral: CTA, negative: rales, rhonchi, wheezing - Cardiovascular Rhythm: regular Heart sounds: normal: S1, S2 Abnormal Heart Sounds: Absent: systolic murmur, diastolic murmur, S3 Gallop, S4 Gallop - Gastrointestinal Gastrointestinal Comment(s): Abdomen obese, soft, bulky positive all 4 quadrant, left upper quadrant tenderness noted with mild local rebound over left upper quadrant was noted without guarding or rigidity. - Neurologic Neurologic: Present: CNII-XII intact. Absent: focal deficits - Psychiatric Psychiatric: Present: A&O x's 3, appropriate affect, intact judgment & insight - Allied health notes Allied health notes reviewed: nursing - Labs CBC & Chem 7: 12/12/18 08:49 12/12/18 08:49 Labs: Abnormal Lab Results - Last 24 Hours (Table) 12/11/18 12/11/18 12/11/18 Range/Units 17:35 17:35 22:16 WBC 0.3 L* (3.8-10.6) k/uL RBC 2.44 L (3.80-5.40) m/uL Hgb 6.2 L* D (11.4-16.0) gm/dL Hct 18.8 L* (34.0-46.0) % MCV 76.9 L D (80.0-100.0) fL Plt Count 7 L* D (150-450) k/uL INR 1.2 H (<1.2) Chloride 108 H (98-107) mmol/L Carbon Dioxide 17 L (22-30) mmol/L BUN 29 H (7-17) mg/dL Creatinine 1.39 H (0.52-1.04) mg/dL Glucose (74-99) mg/dL Calcium (8.4-10.2) mg/dL Total Bilirubin 1.5 H (0.2-1.3) mg/dL AST 71 H (14-36) U/L Total Protein 5.8 L (6.3-8.2) g/dL Albumin 2.8 L (3.5-5.0) g/dL Urine Appearance (Clear) Urine Protein (Negative) Urine Blood (Negative) Urine Bilirubin (Negative) Urine WBC (0-5) /hpf Ur Squamous Epith Cells (0-4) /hpf Hyaline Casts (0-2) /lpf Urine Mucus (None) /hpf Crossmatch 12/11/18 12/12/18 12/12/18 Range/Units 23:38 01:09 08:49 WBC 0.4 L* (3.8-10.6) k/uL RBC 2.64 L (3.80-5.40) m/uL Hgb 7.6 L (11.4-16.0) gm/dL Hct 22.6 L (34.0-46.0) % MCV (80.0-100.0) fL Plt Count 18 L* D (150-450) k/uL INR (<1.2) Chloride (98-107) mmol/L Carbon Dioxide (22-30) mmol/L BUN (7-17) mg/dL Creatinine (0.52-1.04) mg/dL Glucose (74-99) mg/dL Calcium (8.4-10.2) mg/dL Total Bilirubin (0.2-1.3) mg/dL AST (14-36) U/L Total Protein (6.3-8.2) g/dL Albumin (3.5-5.0) g/dL Urine Appearance Cloudy H (Clear) Urine Protein 1+ H (Negative) Urine Blood Trace H (Negative) Urine Bilirubin 1+ H (Negative) Urine WBC 7 H (0-5) /hpf Ur Squamous Epith Cells 5 H (0-4) /hpf Hyaline Casts 34 H (0-2) /lpf Urine Mucus Few H (None) /hpf Crossmatch See Detail 12/12/18 Range/Units 08:49 WBC (3.8-10.6) k/uL RBC (3.80-5.40) m/uL Hgb (11.4-16.0) gm/dL Hct (34.0-46.0) % MCV (80.0-100.0) fL Plt Count (150-450) k/uL INR (<1.2) Chloride 110 H (98-107) mmol/L Carbon Dioxide 17 L (22-30) mmol/L BUN 29 H (7-17) mg/dL Creatinine 1.37 H (0.52-1.04) mg/dL Glucose 105 H (74-99) mg/dL Calcium 8.1 L (8.4-10.2) mg/dL Total Bilirubin 2.4 H (0.2-1.3) mg/dL AST 63 H (14-36) U/L Total Protein 5.8 L (6.3-8.2) g/dL Albumin 2.8 L (3.5-5.0) g/dL Urine Appearance (Clear) Urine Protein (Negative) Urine Blood (Negative) Urine Bilirubin (Negative) Urine WBC (0-5) /hpf Ur Squamous Epith Cells (0-4) /hpf Hyaline Casts (0-2) /lpf Urine Mucus (None) /hpf Crossmatch Assessment and Plan (1) Abdominal pain Current Visit: Yes Status: Acute Priority: High Code(s): R10.9 - UNSPECIFIED ABDOMINAL PAIN SNOMED Code(s): 87387935 (2) Neutropenic fever Current Visit: Yes Status: Acute Priority: High Code(s): D70.9 - NEUTROPENIA, UNSPECIFIED; R50.81 - FEVER PRESENTING WITH CONDITIONS CLASSIFIED ELSEWHERE SNOMED Code(s): 106656920 (3) Pancreatic cancer Current Visit: Yes Status: Acute Priority: High Code(s): C25.9 - MALIGNANT NEOPLASM OF PANCREAS, UNSPECIFIED SNOMED Code(s): 379457402 (4) Pancytopenia Current Visit: Yes Status: Acute Priority: High Code(s): D61.818 - OTHER PANCYTOPENIA SNOMED Code(s): 826300726 (5) Metastatic adenocarcinoma Current Visit: No Status: Acute Priority: Medium Code(s): C79.9 - SECONDARY MALIGNANT NEOPLASM OF UNSPECIFIED SITE SNOMED Code(s): 639489607 Plan: Patient does have signs of local peritoneal irritation which could be due to cancer-induced peritonitis or may be from splenomegaly, which cannot be palpated due to her obese abdomen. I will do ultrasound abdomen and pelvis to evaluate for intra-abdominal process and if needed further investigation will be done. Patient may need to have diagnostic versus therapeutic paracentesis if peritoneal free fluid is found in significant amount. I will check lactic acid and CBC at 6 PM tonight and CBC and complete metabolic panel in the morning. This will be to monitor patient's electrolytes renal function and hemoglobin along with white count and platelets. Patient did complain of having issues with her hemorrhoids which is chronic issue and she uses some cream at home I will prescribe Preparation H while here in the hospital. Overall patient condition is stable at this point and patient will be continued on current management plan. No further changes are recommended at this point in time. Time with Patient: Greater than 30 (Total time spent was 45 minutes and more than 50% was spent on counseling.)
--- NOTE | 2018-12-12 13:44 | P.CONS ---
History of Present Illness - Reason for Consult Consult date: 12/12/18 Metastatic adenocarcinoma on chemotherapy. Neutropenic sepsis, pancytopenia - History of Present Illness The patient is a 43-year-old white female, well known to our service. She was initially seen in consultation in late 10/27. She had been admitted with multiple complaints, including abdominal pain, weakness, nausea, with hypercalcemia and hypokalemia. Her workup revealed evidence of multiple lesions in the liver suggestive of metastatic malignancy. Lesions were also seen in the bone, which were however negative on further workup. The patient underwent a liver biopsy revealing metastatic adenocarcinoma that was poorly differentiated, with multiple primary sites possible, including upper GI, pancreatobiliary, endometrial and ovarian as well as less likely breast. She did have a mammogram and breast ultrasound which was negative. The patient was seen by Dr. Hartman in the office and started on chemotherapy, weekly with 2 weeks on, and 2 weeks off. She has had 1 cycle, with the last chemotherapy given on 12/03/18. The exact regimen is not available to me at this time The patient had been diagnosed with UTI in the outpatient setting had been started on levofloxacin. She could not receive PEG -G-CSF as it was not covered by her insurance. She had taken it for about 4 days, but continued to have abdominal discomfort with some increase, as well as nausea. She then developed a fever at home, at 100.4. She therefore came into the emergency room where she was found to have a temperature of 102.2. She was also markedly pancytopenic, with hemoglobin 6.3 and platelets 7. She had reported at least one episode of blood in the stool at home. Other associated symptoms included abdominal pain as noted above, more prominent on the left side but also diffuse, nausea and decreased appetite, difficulty in sleeping and progressive weakness, as well as diarrhea on and off. Consult was placed a further evaluation and recommendations. Review of Systems Constitutional: Reports chronic pain, Reports fever, Reports poor appetite, Reports weakness Eyes: denies blurred vision, denies pain Ears: deny: decreased hearing, ear discharge, earache, tinnitus Ears, nose, mouth and throat: Denies headache, Denies sore throat Cardiovascular: Reports decreased exercise tolerance Respiratory: Denies cough Gastrointestinal: Reports as per HPI, Reports abdominal pain, Reports diarrhea, Reports hematochezia, Reports loss of appetite, Reports nausea Genitourinary: Reports dysuria, Reports urinary frequency Musculoskeletal: Reports muscle weakness Integumentary: Denies pruritus, Denies rash Neurological: Reports weakness Psychiatric: Denies anxiety, Denies depression Endocrine: Reports fatigue Hematologic/Lymphatic: Reports as per HPI Past Medical History Past Medical History: Cancer, Hypertension, Osteoarthritis (OA) Additional Past Medical History / Comment(s): Cardiac murmur, chronic low back pain, UTI, constipation. PANCREATIC Cancer History of Any Multi-Drug Resistant Organisms: None Reported Past Surgical History: Section Past Anesthesia/Blood Transfusion Reactions: No Reported Reaction Past Psychological History: No Psychological Hx Reported Additional Psychological History / Comment(s): Pt resides with her 2 children, ages 14 and 16yrs. She is independent. Smoking Status: Never smoker Past Alcohol Use History: None Reported Past Drug Use History: None Reported Additional Drug Use History / Comment(s): Pt states she smokes marijuana once a week. - Past Family History Mother Family Medical History: Dementia, Vascular Disorder Additional Family Medical History / Comment(s): Mother had appendicitis that went undiagnosed for VERN chavez. Patient's maternal grandmother had breast cancer around the age of 50 Father Family Medical History: No Reported History Additional Family Medical History / Comment(s): Father is healthy Medications and Allergies Home Medications Medication Instructions Recorded Confirmed Type Ibuprofen [Motrin] 600 mg PO Q8HR PRN 10/25/18 12/11/18 History Polyethylene Glycol 3350 [Miralax] 17 gm PO DAILY PRN 10/25/18 12/11/18 History Sertraline [Zoloft] 50 mg PO DAILY 10/25/18 12/11/18 History amLODIPine BESYLATE/BENAZEPRIL 1 cap PO DAILY 10/25/18 12/11/18 History [amLODIPine BESYLATE/BENAZEPRIL 5-20 MG] Potassium Chloride ER [K-Dur 20] 40 meq PO DAILY #60 tab 10/29/18 12/11/18 Rx Levofloxacin [Levaquin] 500 mg PO DAILY 12/11/18 12/11/18 History Magnesium Oxide [Mag-Ox] 200 mg PO BID 12/11/18 12/11/18 History Ondansetron HCl [Zofran] 4 mg PO Q8H PRN 12/11/18 12/11/18 History traMADol HCL [Ultram] 50 mg PO Q6HR PRN 12/11/18 12/11/18 History Allergies Allergy/AdvReac Type Severity Reaction Status Date / Time No Known Allergies Allergy Verified 12/11/18 23:38 Physical Exam Vitals: Vital Signs Temp Pulse Pulse Resp BP BP Pulse Ox 12/12/18 12:00 99.1 F 92 16 127/60 99 12/12/18 11:48 82 16 12/12/18 08:00 98.9 F 82 82 16 109/54 109/54 98 12/12/18 05:46 99.5 F 69 18 96/55 97 12/12/18 05:16 99.2 F 85 20 106/51 99 12/12/18 05:06 100.0 F H 90 18 109/51 100 12/12/18 04:37 99.7 F H 97 20 123/59 100 12/12/18 04:00 99.7 F H 69 16 111/59 98 12/12/18 03:12 99.3 F 92 18 108/45 100 12/12/18 02:42 99.5 F 91 18 104/48 100 12/12/18 02:32 99.5 F 85 18 118/50 100 12/12/18 02:03 99.5 F 88 18 95/37 98 12/12/18 01:27 99.5 F 90 18 108/59 100 12/12/18 01:26 98.8 F 85 18 104/47 98 12/12/18 01:10 98.8 F 82 18 104/38 12/12/18 01:00 98.5 F 83 18 101/48 99 12/12/18 00:35 99 F 91 18 98/47 98 12/12/18 00:03 98.4 F 91 18 86/54 98 12/11/18 20:45 100.8 F H 12/11/18 19:12 102.2 F H 12/11/18 18:40 100.6 F H 97 16 101/69 99 Intake and Output 12/11/18 12/12/18 12/12/18 22:59 06:59 14:59 Intake Total 518 138 Balance 518 138 Intake: Oral 138 Blood Product 518 0 Platelet Irr Pheresis 208 Acda1 Unit [id number] Rc As-1 Unit 310 [id number] Rc As-3 Unit 0 0 [id number] Other: Voiding Method Toilet Toilet # Voids 3 # Bowel Movements 1 Weight 157.397 kg 159 kg - Constitutional General appearance: no acute distress - EENT Eyes: EOMI, PERRLA ENT: hearing grossly normal, normal oropharynx - Neck Neck: no lymphadenopathy Thyroid: bilateral: normal size - Respiratory Respiratory: bilateral: CTA - Cardiovascular Rhythm: regular Heart sounds: normal: S1, S2 - Gastrointestinal General gastrointestinal: hepatomegaly (Very marked with liver edge extending into the right lower quadrant), normal bowel sounds, soft, splenomegaly (2 to 3 F BCM) Localized gastrointestinal: tender: LUQ, RLQ, midline - Integumentary Integumentary: normal - Neurologic Neurologic: CNII-XII intact - Musculoskeletal Musculoskeletal: generalized weakness, strength equal bilaterally - Psychiatric Psychiatric: A&O x's 3, appropriate affect, intact judgment & insight Results CBC & Chem 7: 12/12/18 08:49 12/12/18 08:49 Labs: Abnormal Lab Results - Last 24 Hours (Table) 12/11/18 12/11/18 12/11/18 Range/Units 17:35 17:35 22:16 WBC 0.3 L* (3.8-10.6) k/uL RBC 2.44 L (3.80-5.40) m/uL Hgb 6.2 L* D (11.4-16.0) gm/dL Hct 18.8 L* (34.0-46.0) % MCV 76.9 L D (80.0-100.0) fL Plt Count 7 L* D (150-450) k/uL INR 1.2 H (<1.2) Chloride 108 H (98-107) mmol/L Carbon Dioxide 17 L (22-30) mmol/L BUN 29 H (7-17) mg/dL Creatinine 1.39 H (0.52-1.04) mg/dL Glucose (74-99) mg/dL Calcium (8.4-10.2) mg/dL Total Bilirubin 1.5 H (0.2-1.3) mg/dL AST 71 H (14-36) U/L Total Protein 5.8 L (6.3-8.2) g/dL Albumin 2.8 L (3.5-5.0) g/dL Urine Appearance (Clear) Urine Protein (Negative) Urine Blood (Negative) Urine Bilirubin (Negative) Urine WBC (0-5) /hpf Ur Squamous Epith Cells (0-4) /hpf Hyaline Casts (0-2) /lpf Urine Mucus (None) /hpf Crossmatch 12/11/18 12/12/18 12/12/18 Range/Units 23:38 01:09 08:49 WBC 0.4 L* (3.8-10.6) k/uL RBC 2.64 L (3.80-5.40) m/uL Hgb 7.6 L (11.4-16.0) gm/dL Hct 22.6 L (34.0-46.0) % MCV (80.0-100.0) fL Plt Count 18 L* D (150-450) k/uL INR (<1.2) Chloride (98-107) mmol/L Carbon Dioxide (22-30) mmol/L BUN (7-17) mg/dL Creatinine (0.52-1.04) mg/dL Glucose (74-99) mg/dL Calcium (8.4-10.2) mg/dL Total Bilirubin (0.2-1.3) mg/dL AST (14-36) U/L Total Protein (6.3-8.2) g/dL Albumin (3.5-5.0) g/dL Urine Appearance Cloudy H (Clear) Urine Protein 1+ H (Negative) Urine Blood Trace H (Negative) Urine Bilirubin 1+ H (Negative) Urine WBC 7 H (0-5) /hpf Ur Squamous Epith Cells 5 H (0-4) /hpf Hyaline Casts 34 H (0-2) /lpf Urine Mucus Few H (None) /hpf Crossmatch See Detail 12/12/18 Range/Units 08:49 WBC (3.8-10.6) k/uL RBC (3.80-5.40) m/uL Hgb (11.4-16.0) gm/dL Hct (34.0-46.0) % MCV (80.0-100.0) fL Plt Count (150-450) k/uL INR (<1.2) Chloride 110 H (98-107) mmol/L Carbon Dioxide 17 L (22-30) mmol/L BUN 29 H (7-17) mg/dL Creatinine 1.37 H (0.52-1.04) mg/dL Glucose 105 H (74-99) mg/dL Calcium 8.1 L (8.4-10.2) mg/dL Total Bilirubin 2.4 H (0.2-1.3) mg/dL AST 63 H (14-36) U/L Total Protein 5.8 L (6.3-8.2) g/dL Albumin 2.8 L (3.5-5.0) g/dL Urine Appearance (Clear) Urine Protein (Negative) Urine Blood (Negative) Urine Bilirubin (Negative) Urine WBC (0-5) /hpf Ur Squamous Epith Cells (0-4) /hpf Hyaline Casts (0-2) /lpf Urine Mucus (None) /hpf Crossmatch Assessment and Plan (1) Neutropenic fever Narrative/Plan: The patient is currently on chemotherapy for metastatic adenocarcinoma as noted. Details of the exact regimen are not available. The patient was unable to receive pegylated G-CSF as an outpatient due to coverage issues. She was an outpatient treatment with Levaquin for UTI, but developed progressive symptoms including fever leading her to come to the ER. At this time a definite source is not immediately apparent. Urinalysis shows 7 WBCs, and is negative for nitrite or leukocyte esterase. However the findings may have been affected by outpatient antibiotics. Urine culture on 11/28/18 was also negative. It was discussed with the patient that in cases of neutropenic sepsis on keil motherapy, a definite source may not be detectable up to 50% of the time. The patient will be treated with multiple antibiotics. She is on vancomycin and cefepime. Cultures have been ordered and are pending. She'll be started on G- CSF to enhance W BC recovery Current Visit: Yes Status: Acute Priority: High Code(s): D70.9 - NEUTROPENIA, UNSPECIFIED; R50.81 - FEVER PRESENTING WITH CONDITIONS CLASSIFIED ELSEWHERE SNOMED Code(s): 776509346 (2) Pancytopenia Narrative/Plan: Due to antineoplastic chemotherapy. The patient has received blood and platelets, with improvement of hemoglobin and platelets into a safe range, as long as there is no evidence of active bleeding. In that situation, continue to monitor, and transfuse as needed to keep hemoglobin greater than 7 and platelets greater than 10. The patient did report some blood in her stool at home, but on further questioning this appears to be hemorrhoidal. She did have a bowel movement today which was clear. If there is any evidence of active bleeding, then we will need to transfuse platelets to maintain her at a higher level, preferably around 40, as well as use other methods to control bleeding. Current Visit: Yes Status: Acute Priority: High Code(s): D61.818 - OTHER PANCYTOPENIA SNOMED Code(s): 094787674 (3) Metastatic adenocarcinoma Narrative/Plan: Diagnostic and therapeutic circumstances as described. The patient is off for another week, and we will not start back on treatment until 12/24 according to her. It is anticipated that by that time her acute condition will recover sufficiently. Current Visit: No Status: Acute Priority: Medium Code(s): C79.9 - SECONDARY MALIGNANT NEOPLASM OF UNSPECIFIED SITE SNOMED Code(s): 699453382 (4) Abdominal pain Narrative/Plan: This appears to be due to liver and splenic enlargement. Liver enlargement is more marked compared to diagnosis. While progression of disease is not ruled out, inflammation due to the effect of treatment is also possible. Even in case of the former, management will not change as the patient is too early in her treatment to estimate benefit. My exam there appears to be no evidence of neutropenic typhlitis. Continue to monitor. The patient is on [place], but is using it only once daily. She was advised that we would evaluate for modification, if she were needing to use this more than 5-6 times a day on a regular basis. Current Visit: Yes Status: Acute Priority: High Code(s): R10.9 - UNSPECIFI ED ABDOMINAL PAIN SNOMED Code(s): 59295302 Plan: Defer to the admitting service and other consultants for management of her other medical problems
--- NOTE | 2018-12-12 14:40 | US ---
EXAMINATION TYPE: US abdomen complete DATE OF EXAM: 12/12/2018 COMPARISON: CT CLINICAL HISTORY: Pain, Pancreatic pain. Pancreatic cancer with metastasis to the liver. EXAM MEASUREMENTS: Liver Length: 23.3 cm Gallbladder Wall: 1.0 cm CBD: 0.6 cm Spleen: 19.6 cm Right Kidney: 13.2 x 4.9 x 7.2 cm Left Kidney: 12.5 x 4.8 x 5.8 cm Technically difficult exam due to large body habitus. Pancreas: not well visualized due to overlying bowel gas Liver: enlarged with multiple lesions throughout Gallbladder: thickened wall, multiple shadowing stones. Evidence for sonographic Gutiérrez's sign: patient was tender all over, unable to discern if just ove r gallbladder. CBD: wnl Spleen: enlarged at 19.6 cm Right Kidney: No hydronephrosis or masses seen Left Kidney: No hydronephrosis or masses seen Upper IVC: not clearly visualized Abd Aorta: only visible at the proximal portion which is wnl. All 4 quadrants scanned, no ascites seen. The liver is enlarged measuring 20 cm. There are multiple solid lesions throughout the liver compatib le with metastases. The pancreas is not well visualized. There are multiple stones within the gallbladder. The gallbladder wall is thickened measuring 1 cm. T his common hepatic duct measures 6 mm. The spleen is enlarged measuring 20 cm. Limited views of both kidneys are unremarkable. IMPRESSION: 1. FINDINGS COMPATIBLE WITH MULTIPLE HEPATIC METASTASES. 2. CHOLELITHIASIS AND POSSIBLE ACUTE CHOLECYSTITIS.
[2018-12-12] MEDS: VANCOMYCIN 2,000 MG in SODIUM CHLORIDE 0.9% 500 ML 500 ML IVPB SCH (17:57)
[2018-12-12] MEDS: BENZOCAINE 20% HEMORRHOIDAL OINT 28GM RECTAL SCH (17:59)
[2018-12-12 18:23] LABS: HGB 7.9 gm/dL (11.4-16.0); MCH 27.6 pg (25.0-35.0); MCHC 32.9 g/dL (31.0-37.0); MCV 83.7 fL (80.0-100.0); Mean Platelet Volume 9.4; Poikilocytosis Slight; RBC 2.87 m/uL (3.80-5.40); RDW 14.8 % (11.5-15.5)
[2018-12-12 18:35] LABS: Platelet Count 19 k/uL (150-450); WBC 0.3 k/uL (3.8-10.6)
[2018-12-12] MEDS: FILGRASTIM-SNDZ 480 MCG/0.8 ML SYRINGE SQ SCH (18:36)
[2018-12-12] MEDS: MORPHINE SULFATE 2 MG/ML SYRINGE IVP PRN (21:19)
[2018-12-12] MEDS: CEFEPIME 2 GM in SODIUM CHLORIDE 0.9% 100 ML IVPB SCH (21:24)
[2018-12-13] MEDS: BENZOCAINE 20% HEMORRHOIDAL OINT 28GM RECTAL SCH ×4 (01:09→21:44)
[2018-12-13] MEDS: MORPHINE SULFATE 2 MG/ML SYRINGE IVP PRN ×3 (05:01→17:30)
[2018-12-13 06:08] LABS: HGB 7.7 gm/dL (11.4-16.0); Hypochromasia Slight; MCH 27.4 pg (25.0-35.0); MCHC 32.1 g/dL (31.0-37.0); MCV 85.3 fL (80.0-100.0); Mean Platelet Volume 9.3; RBC 2.82 m/uL (3.80-5.40); RDW 14.8 % (11.5-15.5)
[2018-12-13 06:21] LABS: Albumin 2.6 g/dL (3.5-5.0); Calcium 7.7 mg/dL (8.4-10.2); Potassium 4.1 mmol/L (3.5-5.1); Total Bilirubin 1.8 mg/dL (0.2-1.3); Total Protein 5.7 g/dL (6.3-8.2)
[2018-12-13 06:22] LABS: Platelet Count 29 k/uL (150-450); WBC 0.4 k/uL (3.8-10.6)
[2018-12-13] MEDS: VANCOMYCIN 2,000 MG in SODIUM CHLORIDE 0.9% 500 ML 500 ML IVPB SCH (08:59)
[2018-12-13] MEDS: CEFEPIME 2 GM in SODIUM CHLORIDE 0.9% 100 ML IVPB SCH ×2 (08:59→21:43)
[2018-12-13] MEDS: DOCUSATE 100 MG CAP PO SCH (08:59)
[2018-12-13] MEDS: MAGNESIUM OXIDE 400 MG TAB PO SCH ×2 (08:59→21:43)
[2018-12-13] MEDS: SERTRALINE 50 MG TAB PO SCH (08:59)
[2018-12-13] MEDS: POTASSIUM CHLORIDE ER 20 MEQ TAB.ER PO SCH (09:06)
[2018-12-13] MEDS ORDERED: FUROSEMIDE 20 MG TAB PO STA (09:14)
[2018-12-13] MEDS: HYDROcodone/APAP 7.5-325MG 1 EACH TAB PO PRN ×2 (10:52→21:43)
[2018-12-13] MEDS: FILGRASTIM-SNDZ 480 MCG/0.8 ML SYRINGE SQ SCH (13:43)
[2018-12-13 14:34] VITALS: BMI 52.7
--- NOTE | 2018-12-13 15:13 | P.PN ---
Subjective Progress Note Date: 12/13/18 Principal diagnosis: Abdominal Pain and Diarrhea Patient states the abdominal discomfort is worsening since admission, although appears very pinpointed on exam as the LUQ. Objective - Vital Signs Vital signs: Vital Signs Temp 98.6 F 12/13/18 07:53 Pulse 90 12/13/18 07:53 Resp 18 12/13/18 07:53 BP 90/49 12/13/18 07:53 Pulse Ox 97 12/13/18 07:53 Intake & Output 12/12/18 12/13/18 12/13/18 18:59 06:59 18:59 Intake Total 548 100 120 Balance 548 100 120 Weight 161.9 kg 161.9 kg Intake: Intake, IV Titration 100 Amount Cefepime 2 gm In Sodium 100 Chloride 0.9% 100 ml @ 200 mls/hr IVPB Q12HR [facility] Rx#:[id number] Oral 238 120 Blood Product 310 Rc As-3 Unit 310 [id number] Other: Voiding Method Toilet Toilet Toilet # Voids 3 3 1 # Bowel Movements 2 - Exam - Constitutional General appearance: no acute distress - EENT Eyes: EOMI, PERRLA ENT: hearing grossly normal, normal oropharynx - Neck Neck: no lymphadenopathy Thyroid: bilateral: normal size - Respiratory Respiratory: bilateral: CTA - Cardiovascular Rhythm: regular Heart sounds: normal: S1, S2 - Gastrointestinal General gastrointestinal: hepatomegaly extending into the right lower quadran, splenomegaly (appr 3 Fin) Localized gastrointestinal: tender: LUQ, RLQ, midline - Integumentary Integumentary: normal - Neurologic Neurologic: CNII-XII intact - Musculoskeletal Musculoskeletal: generalized weakness, strength equal bilaterally - Psychiatric Psychiatric: A&O x's 3, appropriate affect, intact judgment & insight - Labs CBC & Chem 7: 12/13/18 05:11 12/13/18 05:11 Labs: Abnormal Lab Results - Last 24 Hours (Table) 12/11/18 12/12/18 12/13/18 Range/Units 23:38 18:12 05:11 WBC 0.3 L* (3.8-10.6) k/uL RBC 2.87 L (3.80-5.40) m/uL Hgb 7.9 L (11.4-16.0) gm/dL Hct 24.0 L (34.0-46.0) % Plt Count 19 L* (150-450) k/uL Chloride 111 H (98-107) mmol/L Carbon Dioxide 15 L (22-30) mmol/L BUN 27 H (7-17) mg/dL Creatinine 1.08 H (0.52-1.04) mg/dL Calcium 7.7 L (8.4-10.2) mg/dL Total Bilirubin 1.8 H (0.2-1.3) mg/dL AST 59 H (14-36) U/L Total Protein 5.7 L (6.3-8.2) g/dL Albumin 2.6 L (3.5-5.0) g/dL Crossmatch See Detail 12/13/18 Range/Units 05:11 WBC 0.4 L* (3.8-10.6) k/uL RBC 2.82 L (3.80-5.40) m/uL Hgb 7.7 L (11.4-16.0) gm/dL Hct 24.0 L (34.0-46.0) % Plt Count 29 L D (150-450) k/uL Chloride (98-107) mmol/L Carbon Dioxide (22-30) mmol/L BUN (7-17) mg/dL Creatinine (0.52-1.04) mg/dL Calcium (8.4-10.2) mg/dL Total Bilirubin (0.2-1.3) mg/dL AST (14-36) U/L Total Protein (6.3-8.2) g/dL Albumin (3.5-5.0) g/dL Crossmatch Microbiology - Last 24 Hours (Table) 12/11/18 17:35 Blood Culture - Preliminary Blood No Growth after 24 hours Assessment and Plan Plan: Neutropenic fever - Currently on chemotherapy for metastatic adenocarcinoma as noted. Details of the exact regimen are not available. The patient was unable to receive pegylated G-CSF as an outpatient due to coverage issues. She was an outpatient treatment with Levaquin for UTI, but developed progressive symptoms including fever leading her to come to the ER. At this time a definite source is not immediately apparent. Urinalysis shows 7 WBCs, and is negative for nitrite or leukocyte esterase. However the findings may have been affected by outpatient antibiotics. Urine culture on 11/28/18 was also negative. It was discussed with the patient that in cases of neutropenic sepsis on chemotherapy, a definite source may not be detectable up to 50% of the time. The patient will be treated with multiple antibiotics. She is on vancomycin and cefepime. Cultures have been ordered and are pending. She'll be started on G- CSF to enhance W BC recovery Pancytopenia - Due to antineoplastic chemotherapy. The patient has received blood and platelets, with improvement of hemoglobin and platelets into a safe range, as long as there is no evidence of active bleeding. - Monior CBC Daily and transfuse as needed to keep hemoglobin greater than 7 and platelets greater than 10. - Platlets 29K and hemoglobn 7.7 today, both in saqfe range - If there is any evidence of active bleeding, then we will need to transfuse platelets to maintain her at a higher level, preferably around 40, as well as use other methods to control bleeding. - No evidence of bleeding at this time Metastatic adenocarcinoma Diagnostic and therapeutic circumstances as described. The patient is off for another week, and we will not start back on treatment until 12/24 according to her. It is anticipated that by that time her acute condition will recover sufficiently. Abdominal pain This appears to be due to liver and splenic enlargement. Liver enlargement is more marked compared to diagnosis. While progression of disease is not ruled out, inflammation due to the effect of treatment is also possible. Even in case of the former, management will not change as the patient is too early in her treatment to estimate benefit. - Abdominal ultrasound reviewed, Gallstones presents and Surgery evaluated, no surgical interventio - Continue to monitor closely for neutropenic typhlitis. Continue to monitor. - The patient is on [place], but is using it only once daily. - She was advised that we would evaluate for modification, if she were needing to use this more than 5-6 times a day on a regular basis. Plan: Continue Zarxio, CBC and CMP daily monitoring and close abdominal monitoring
--- NOTE | 2018-12-13 16:22 | P.GSCN ---
History of Present Illness Consult date: 12/13/18 Reason for Consult: Cholelithiasis Requesting physician: Dg Caballero History of present illness: CHIEF COMPLAINT: Cholelithiasis HISTORY OF PRESENT ILLNESS: 43-year-old female admitted to the hospital secondary to fever and pancytopenia. Patient was recently diagnosed with metastatic adenocarcinoma. Abdominal ultrasound was obtained revealing multiple stones within the gallbladder. Gallbladder wall is thickened measuring 1 cm. Common hepatic duct measures 6 mm. Gen. surgery was consulted for further evaluation. Patient examined at the bedside this afternoon with Dr. Stephens. Patient reports left lower quadrant abdominal pain. She denies any right upper quadrant pain or discomfort. Denies nausea or vomiting. WBC 0.4. Hemoglobin 7.7. Platelet count 29. Bilirubin 1.8. AST 59. ALT 24. PAST MEDICAL HISTORY: See list. PAST SURGICAL HISTORY: See list. SOCIAL HISTORY: No illicit drug use. REVIEW OF SYSTEMS: CONSTITUTIONAL: Reports fevers. HEENT: Denies blurred vision, vision changes, or eye pain. Denies hemoptysis CARDIOVASCULAR: Denies chest pain or pressure. RESPIRATORY: No shortness of breath. GASTROINTESTINAL: Refer to HPI for pertinent findings HEMATOLOGIC: Denies bleeding disorders. GENITOURINARY: Denies any blood in urine. SKIN: Denies pruitis. Denies rash. PHYSICAL EXAM: VITAL SIGNS: Reviewed. GENERAL: Well-developed in no acute distress. HEENT: Extraocular movements grossly intact. Moist buccal mucosa. Head is atraumatic, normocephalic. ABDOMEN: Soft. Obese. Nondistended. Nontender. Positive bowel sounds. Tenderness with palpation to left lower quadrant. NEUROLOGIC: Alert and oriented. Cranial nerves II through XII grossly intact. ASSESSMENT: 1. Cholelithiasis 2. Metastatic adenocarcinoma PLAN: Advance diet to full liquid/low fat diet. No surgical intervention advised at this time. Patient is currently asymptomatic with gallstones and is very high risk for surgical intervention secondary to immunosuppression and pancytopenia. Nurse practitioner note has been reviewed by physician. Signing provider agrees with the documented findings, assessment, and plan of care. Past Medical History Past Medical History: Cancer, Hypertension, Osteoarthritis (OA) Additional Past Medical History / Comment(s): Cardiac murmur, chronic low back pain, UTI, constipation. PANCREATIC Cancer History of Any Multi-Drug Resistant Organisms: None Reported Past Surgical History: Section Past Anesthesia/Blood Transfusion Reactions: No Reported Reaction Past Psychological History: No Psychological Hx Reported Additional Psychological History / Comment(s): Pt resides with her 2 children, ages 14 and 16yrs. She is independent. Smoking Status: Never smoker Past Alcohol Use History: None Reported Past Drug Use History: None Reported Additional Drug Use History / Comment(s): Pt states she smokes marijuana once a week. - Past Family History Mother Family Medical History: Dementia, Vascular Disorder Additional Family Medical History / Comment(s): Mother had appendicitis that went undiagnosed for VERN chavez. Patient's maternal grandmother had breast cancer around the age of 50 Father Family Medical History: No Reported History Additional Family Medical History / Comment(s): Father is healthy Medications and Allergies Home Medications Medication Instructions Recorded Confirmed Type Ibuprofen [Motrin] 600 mg PO Q8HR PRN 10/25/18 12/11/18 History Polyethylene Glycol 3350 [Miralax] 17 gm PO DAILY PRN 10/25/18 12/11/18 History Sertraline [Zoloft] 50 mg PO DAILY 10/25/18 12/11/18 History amLODIPine BESYLATE/BENAZEPRIL 1 cap PO DAILY 10/25/18 12/11/18 History [amLODIPine BESYLATE/BENAZEPRIL 5-20 MG] Potassium Chloride ER [K-Dur 20] 40 meq PO DAILY #60 tab 10/29/18 12/11/18 Rx Levofloxacin [Levaquin] 500 mg PO DAILY 12/11/18 12/11/18 History Magnesium Oxide [Mag-Ox] 200 mg PO BID 12/11/18 12/11/18 History Ondansetron HCl [Zofran] 4 mg PO Q8H PRN 12/11/18 12/11/18 History traMADol HCL [Ultram] 50 mg PO Q6HR PRN 12/11/18 12/11/18 History Allergies Allergy/AdvReac Type Severity Reaction Status Date / Time No Known Allergies Allergy Verified 12/11/18 23:38 Surgical - Exam Vital Signs Temp Pulse Resp BP Pulse Ox 100.6 F H 97 16 101/69 99 12/11/18 18:40 12/11/18 18:40 12/11/18 18:40 12/11/18 18:40 12/11/18 18:40 Results - Labs 12/13/18 05:11 12/13/18 05:11 Abnormal Lab Results - Last 24 Hours (Table) 12/11/18 12/12/18 12/13/18 Range/Units 23:38 18:12 05:11 WBC 0.3 L* (3.8-10.6) k/uL RBC 2.87 L (3.80-5.40) m/uL Hgb 7.9 L (11.4-16.0) gm/dL Hct 24.0 L (34.0-46.0) % Plt Count 19 L* (150-450) k/uL Chloride 111 H (98-107) mmol/L Carbon Dioxide 15 L (22-30) mmol/L BUN 27 H (7-17) mg/dL Creatinine 1.08 H (0.52-1.04) mg/dL Calcium 7.7 L (8.4-10.2) mg/dL Total Bilirubin 1.8 H (0.2-1.3) mg/dL AST 59 H (14-36) U/L Total Protein 5.7 L (6.3-8.2) g/dL Albumin 2.6 L (3.5-5.0) g/dL Crossmatch See Detail 12/13/18 Range/Units 05:11 WBC 0.4 L* (3.8-10.6) k/uL RBC 2.82 L (3.80-5.40) m/uL Hgb 7.7 L (11.4-16.0) gm/dL Hct 24.0 L (34.0-46.0) % Plt Count 29 L D (150-450) k/uL Chloride (98-107) mmol/L Carbon Dioxide (22-30) mmol/L BUN (7-17) mg/dL Creatinine (0.52-1.04) mg/dL Calcium (8.4-10.2) mg/dL Total Bilirubin (0.2-1.3) mg/dL AST (14-36) U/L Total Protein (6.3-8.2) g/dL Albumin (3.5-5.0) g/dL Crossmatch Microbiology - Last 24 Hours (Table) 12/11/18 17:35 Blood Culture - Preliminary Blood No Growth after 24 hours Diabetes panel 12/13/18 Range/Units 05:11 Sodium 137 (137-145) mmol/L Potassium 4.1 (3.5-5.1) mmol/L Chloride 111 H (98-107) mmol/L Carbon Dioxide 15 L (22-30) mmol/L BUN 27 H (7-17) mg/dL Creatinine 1.08 H (0.52-1.04) mg/dL Glucose 83 (74-99) mg/dL Calcium 7.7 L (8.4-10.2) mg/dL AST 59 H (14-36) U/L ALT 24 (9-52) U/L Alkaline Phosphatase 98 (38-126) U/L Total Protein 5.7 L (6.3-8.2) g/dL Albumin 2.6 L (3.5-5.0) g/dL Calcium panel 12/13/18 Range/Units 05:11 Calcium 7.7 L (8.4-10.2) mg/dL Albumin 2.6 L (3.5-5.0) g/dL Pituitary panel 12/13/18 Range/Units 05:11 Sodium 137 (137-145) mmol/L Potassium 4.1 (3.5-5.1) mmol/L Chloride 111 H (98-107) mmol/L Carbon Dioxide 15 L (22-30) mmol/L BUN 27 H (7-17) mg/dL Creatinine 1.08 H (0.52-1.04) mg/dL Glucose 83 (74-99) mg/dL Calcium 7.7 L (8.4-10.2) mg/dL Adrenal panel 12/13/18 Range/Units 05:11 Sodium 137 (137-145) mmol/L Potassium 4.1 (3.5-5.1) mmol/L Chloride 111 H (98-107) mmol/L Carbon Dioxide 15 L (22-30) mmol/L BUN 27 H (7-17) mg/dL Creatinine 1.08 H (0.52-1.04) mg/dL Glucose 83 (74-99) mg/dL Calcium 7.7 L (8.4-10.2) mg/dL Total Bilirubin 1.8 H (0.2-1.3) mg/dL AST 59 H (14-36) U/L ALT 24 (9-52) U/L Alkaline Phosphatase 98 (38-126) U/L Total Protein 5.7 L (6.3-8.2) g/dL Albumin 2.6 L (3.5-5.0) g/dL
[2018-12-13] MEDS: SODIUM CHLORIDE 0.9% 1,000 ML IV SCH (18:29)
--- NOTE | 2018-12-13 19:27 | P.PN ---
Subjective Progress Note Date: 12/13/18 Patient reports that she is feeling little better her pain in the left upper quadrant of the abdomen is slightly better also. Patient was seen by this surgical team and recommended conservative management. Patient was started on full liquid diet which patient is tolerating well. Patient does have incidental finding of cholelithiasis and cholecystitis although her pain was on the left side which could be because of splenomegaly secondary to metastatic pancreatic cancer. Patient denies chest pain, palpitation, diaphoresis, dizziness, cough, sputum, vomiting and denies rest of review system. She does have off-and-on some nausea for which she uses Zofran and her nausea could be secondary to chemotherapy related. Objective - Vital Signs Vital signs: Vital Signs Temp 98.2 F 12/13/18 16:00 Pulse 92 12/13/18 16:00 Resp 16 12/13/18 16:00 BP 115/55 12/13/18 16:00 Pulse Ox 98 12/13/18 16:00 Intake & Output 12/13/18 12/13/18 12/14/18 06:59 18:59 06:59 Intake Total 100 360 Balance 100 360 Weight 161.9 kg 161.9 kg Intake: Intake, IV Titration 100 Amount Cefepime 2 gm In Sodium 100 Chloride 0.9% 100 ml @ 200 mls/hr IVPB Q12HR [facility] Rx#:[id number] Oral 360 Other: Voiding Method Toilet Toilet # Voids 3 1 - Constitutional General appearance: Present: cooperative, no acute distress - EENT Eyes: Present: EOMI, normal appearance ENT: Present: hearing grossly normal, NA/AT - Neck Neck: Present: normal ROM. Absent: lymphadenopathy, rigidity, stridor, thyromegaly - Respiratory Respiratory: bilateral: CTA, negative: rales, rhonchi, wheezing - Cardiovascular Rhythm: regular Heart sounds: normal: S1, S2 Abnormal Heart Sounds: Absent: systolic murmur, diastolic murmur, S3 Gallop, S4 Gallop - Gastrointestinal General gastrointestinal: Present: normal bowel sounds, soft. Absent: distended, rigid, tenderness - Neurologic Neurologic: Present: CNII-XII intact. Absent: focal deficits - Psychiatric Psychiatric: Present: A&O x's 3, appropriate affect, intact judgment & insight - Allied health notes Allied health notes reviewed: nursing - Labs CBC & Chem 7: 12/13/18 05:11 12/13/18 05:11 Labs: Abnormal Lab Results - Last 24 Hours (Table) 12/11/18 12/13/18 12/13/18 Range/Units 23:38 05:11 05:11 WBC 0.4 L* (3.8-10.6) k/uL RBC 2.82 L (3.80-5.40) m/uL Hgb 7.7 L (11.4-16.0) gm/dL Hct 24.0 L (34.0-46.0) % Plt Count 29 L D (150-450) k/uL Chloride 111 H (98-107) mmol/L Carbon Dioxide 15 L (22-30) mmol/L BUN 27 H (7-17) mg/dL Creatinine 1.08 H (0.52-1.04) mg/dL Calcium 7.7 L (8.4-10.2) mg/dL Total Bilirubin 1.8 H (0.2-1.3) mg/dL AST 59 H (14-36) U/L Total Protein 5.7 L (6.3-8.2) g/dL Albumin 2.6 L (3.5-5.0) g/dL Crossmatch See Detail Microbiology - Last 24 Hours (Table) 12/11/18 17:35 Blood Culture - Preliminary Blood No Growth after 24 hours Assessment and Plan (1) Abdominal pain Current Visit: Yes Status: Acute Priority: High Code(s): R10.9 - UNSPECIFIED ABDOMINAL PAIN SNOMED Code(s): 63931628 (2) Neutropenic fever Current Visit: Yes Status: Acute Priority: High Code(s): D70.9 - NEUTROPENIA, UNSPECIFIED; R50.81 - FEVER PRESENTING WITH CONDITIONS CLASSIFIED ELSEWHERE SNOMED Code(s): 470568443 (3) Pancreatic cancer Current Visit: Yes Status: Acute Priority: High Code(s): C25.9 - MALIGNANT NEOPLASM OF PANCREAS, UNSPECIFIED SNOMED Code(s): 981592855 (4) Pancytopenia Current Visit: Yes Status: Acute Priority: High Code(s): D61.818 - OTHER PANCYTOPENIA SNOMED Code(s): 011379548 (5) Metastatic adenocarcinoma Current Visit: No Status: Acute Priority: Medium Code(s): C79.9 - SECONDARY MALIGNANT NEOPLASM OF UNSPECIFIED SITE SNOMED Code(s): 495504685 Plan: Patient will be continued on current management plan, her white count is still in neutropenic range but seems to be slightly improved that yesterday. We will continue G-CSF and will continue to monitor patient's hemoglobin, white cell count and platelets. Surgery evaluation and recommendation appreciated. Patient lost her IV access so MEDLINE was requested and inserted. Patient was educated about her cancer her other medical conditions and response to the treatment. Patient is supposed to discuss her options and prognosis from advance stage IV pancreatic cancer with her oncologist after discharge. Time with Patient: Less than 30
[2018-12-14] MEDS: VANCOMYCIN 2,250 MG in SODIUM CHLORIDE 0.9% 500 ML 500 ML IVPB SCH ×2 (01:51→17:09)
[2018-12-14] MEDS: HYDROcodone/APAP 7.5-325MG 1 EACH TAB PO PRN ×3 (04:44→23:32)
[2018-12-14] MEDS: DOCUSATE 100 MG CAP PO SCH (08:24)
[2018-12-14] MEDS: MAGNESIUM OXIDE 400 MG TAB PO SCH ×2 (08:24→20:22)
[2018-12-14] MEDS: CEFEPIME 2 GM in SODIUM CHLORIDE 0.9% 100 ML IVPB SCH ×3 (08:24→23:31)
[2018-12-14] MEDS: POTASSIUM CHLORIDE ER 20 MEQ TAB.ER PO SCH (08:24)
[2018-12-14] MEDS: BENZOCAINE 20% HEMORRHOIDAL OINT 28GM RECTAL SCH ×3 (08:26→20:23)
[2018-12-14 08:36] LABS: HCT 24.3 % (34.0-46.0); MCH 27.4 pg (25.0-35.0); MCHC 33.1 g/dL (31.0-37.0); Mean Platelet Volume 8.8; Poikilocytosis Slight; RBC 2.93 m/uL (3.80-5.40); RDW 15.6 % (11.5-15.5)
[2018-12-14 08:42] LABS: WBC 0.9 k/uL (3.8-10.6)
[2018-12-14] MEDS: SERTRALINE 50 MG TAB PO SCH (09:42)
[2018-12-14] MEDS: FILGRASTIM-SNDZ 480 MCG/0.8 ML SYRINGE SQ SCH (09:43)
[2018-12-14 10:31] LABS: Anisocytosis (M) Present; Platelet Count 116 k/uL (150-450)
--- NOTE | 2018-12-14 11:25 | P.PN ---
Subjective Progress Note Date: 12/14/18 Patient reports feeling fine today but did complain of having loose stools. Patient T-max was 99.5 in the past 24 hours. She is on vancomycin and cefepime. Patient is also on Neupogen and her white count is improving. Her hemoglobin and platelets are also improving. Patient stated that her appetite is getting better and she is on soft diet now got some cereals and oatmeal and tolerated well. Her abdominal pain is the also getting better on the left upper quadrant site. Patient denies chest pain, palpitation, headache, dizziness, lightheaded, diaphoresis and denies rest of the review system. Objective - Vital Signs Vital signs: Vital Signs Temp 99.5 F 12/14/18 04:59 Pulse 84 12/14/18 04:59 Resp 18 12/14/18 04:59 BP 99/63 12/14/18 04:59 Pulse Ox 96 12/14/18 04:59 Intake & Output 12/13/18 12/14/18 12/14/18 18:59 06:59 18:59 Intake Total 360 1250 Balance 360 1250 Weight 161.9 kg Intake: Intake, IV Titration 1250 Amount Sodium Chloride 0.9% 1, 750 000 ml @ 150 mls/hr IV . Q6H40M [facility] Rx#:[id number] Vancomycin 2,250 mg In 500 Sodium Chloride 0.9% 500 ml 500 ml @ 167 mls/hr IVPB Q16H [facility] Rx#: [id number] Oral 360 Other: Voiding Method Toilet Toilet # Voids 1 4 - Constitutional General appearance: Present: cooperative, no acute distress - EENT Eyes: Present: EOMI, normal appearance ENT: Present: hearing grossly normal - Neck Neck: Present: normal ROM. Absent: lymphadenopathy, rigidity, thyromegaly - Respiratory Respiratory: bilateral: CTA, negative: rales, rhonchi, wheezing - Cardiovascular Rhythm: regular Heart sounds: normal: S1, S2 Abnormal Heart Sounds: Absent: systolic murmur, diastolic murmur, S3 Gallop, S4 Gallop - Gastrointestinal Gastrointestinal Comment(s): Minimal tenderness in the left upper quadrant area without guarding rigidity or rebound. General gastrointestinal: Present: normal bowel sounds, soft. Absent: distended, rigid - Neurologic Neurologic: Present: CNII-XII intact. Absent: focal deficits - Psychiatric Psychiatric: Present: A&O x's 3, appropriate affect, intact judgment & insight - Allied health notes Allied health notes reviewed: nursing - Labs CBC & Chem 7: 12/14/18 08:06 12/14/18 08:06 Labs: Abnormal Lab Results - Last 24 Hours (Table) 12/11/18 12/14/18 Range/Units 23:38 08:06 WBC 0.9 L* (3.8-10.6) k/uL RBC 2.93 L (3.80-5.40) m/uL Hgb 8.0 L (11.4-16.0) gm/dL Hct 24.3 L (34.0-46.0) % RDW 15.6 H (11.5-15.5) % Plt Count 116 L D (150-450) k/uL Crossmatch See Detail Microbiology - Last 24 Hours (Table) 12/11/18 17:35 Blood Culture - Preliminary Blood No Growth after 48 hours Assessment and Plan (1) Abdominal pain Current Visit: Yes Status: Acute Priority: High Code(s): R10.9 - UNSPECIFIED ABDOMINAL PAIN SNOMED Code(s): 68167014 (2) Neutropenic fever Current Visit: Yes Status: Acute Priority: High Code(s): D70.9 - NEUTRO PENIA, UNSPECIFIED; R50.81 - FEVER PRESENTING WITH CONDITIONS CLASSIFIED ELSEWHERE SNOMED Code(s): 982837559 (3) Pancreatic cancer Current Visit: Yes Status: Acute Priority: High Code(s): C25.9 - MALIGNANT NEOPLASM OF PANCREAS, UNSPECIFIED SNOMED Code(s): 973099675 (4) Pancytopenia Current Visit: Yes Status: Acute Priority: High Code(s): D61.818 - OTHER PANCYTOPENIA SNOMED Code(s): 048685543 (5) Metastatic adenocarcinoma Current Visit: No Status: Acute Priority: Medium Code(s): C79.9 - SECONDARY MALIGNANT NEOPLASM OF UNSPECIFIED SITE SNOMED Code(s): 920043334 (6) Diarrhea Current Visit: Yes Status: Acute Priority: High Code(s): R19.7 - DIARRHEA, UNSPECIFIED SNOMED Code(s): 69234766 Plan: Patient will be continued on current management plan her CBC will be checked on a daily basis and she'll be continued on IV antibiotics for now. I will send a stool for C. diff toxin analysis and if it is positive then we will treat her. No changes in her current management plan suggest at this time. Time with Patient: Less than 30
[2018-12-14] MEDS: ONDANSETRON 4 MG/2 ML VIAL IVP PRN ×2 (13:54→23:31)
--- NOTE | 2018-12-14 14:02 | P.PN ---
Subjective Progress Note Date: 12/14/18 CHIEF COMPLAINT: Cholelithiasis HISTORY OF PRESENT ILLNESS: Patient examined this morning at the bedside. She reports continued left lower quadrant abdominal pain, but states it is improving since yesterday. Denies right upper quadrant pain. She is tolerating full liquid diet. She reports some mild nausea. No episodes of emesis. PHYSICAL EXAM: VITAL SIGNS: Reviewed. GENERAL: Well-developed in no acute distress. HEENT: Extraocular movements grossly intact. Moist buccal mucosa. Head is atraumatic, normocephalic. ABDOMEN: Soft. Obese. Nondistended. Positive bowel sounds. Tenderness with palpation to left lower quadrant. NEUROLOGIC: Alert and oriented. Cranial nerves II through XII grossly intact. ASSESSMENT: 1. Cholelithiasis 2. Metastatic adenocarcinoma PLAN: Continue antiemetics. Continue current diet. Advance as tolerated to low fat diet. CDiff ordered per internal medicine. No surgical intervention advised at this time. Patient is currently asymptomatic in regards to cholelithiasis and is very high risk for surgical intervention secondary to immunosuppression and pancytopenia. Nurse practitioner note has been reviewed by physician. Signing provider agrees with the documented findings, assessment, and plan of care. Objective - Vital Signs Vital signs: Vital Signs Temp 98.3 F 12/14/18 11:49 Pulse 92 12/14/18 11:49 Resp 16 12/14/18 11:49 BP 125/58 12/14/18 11:49 Pulse Ox 96 12/14/18 11:49 Intake & Output 12/13/18 12/14/18 12/14/18 18:59 06:59 18:59 Intake Total 360 1250 Balance 360 1250 Weight 161.9 kg Intake: Intake, IV Titration 1250 Amount Sodium Chloride 0.9% 1, 750 000 ml @ 150 mls/hr IV . Q6H40M [facility] Rx#:[id number] Vancomycin 2,250 mg In 500 Sodium Chloride 0.9% 500 ml 500 ml @ 167 mls/hr IVPB Q16H [facility] Rx#: [id number] Oral 360 Other: Voiding Method Toilet Toilet # Voids 1 4 - Labs CBC & Chem 7: 12/14/18 08:06 12/14/18 08:06 Labs: Abnormal Lab Results - Last 24 Hours (Table) 12/14/18 Range/Units 08:06 WBC 0.9 L* (3.8-10.6) k/uL RBC 2.93 L (3.80-5.40) m/uL Hgb 8.0 L (11.4-16.0) gm/dL Hct 24.3 L (34.0-46.0) % RDW 15.6 H (11.5-15.5) % Plt Count 116 L D (150-450) k/uL Microbiology - Last 24 Hours (Table) 12/11/18 17:35 Blood Culture - Preliminary Blood No Growth after 48 hours
--- NOTE | 2018-12-14 14:21 | P.PN ---
Subjective Progress Note Date: 12/14/18 Principal diagnosis: Abdominal Pain and Diarrhea Patient states the abdominal discomfort is same today Objective - Vital Signs Vital signs: Vital Signs Temp 98.3 F 12/14/18 11:49 Pulse 92 12/14/18 11:49 Resp 16 12/14/18 11:49 BP 125/58 12/14/18 11:49 Pulse Ox 96 12/14/18 11:49 Intake & Output 12/13/18 12/14/18 12/14/18 18:59 06:59 18:59 Intake Total 360 1250 Balance 360 1250 Weight 161.9 kg Intake: Intake, IV Titration 1250 Amount Sodium Chloride 0.9% 1, 750 000 ml @ 150 mls/hr IV . Q6H40M KHALIDA Rx#:[id number] Vancomycin 2,250 mg In 500 Sodium Chloride 0.9% 500 ml 500 ml @ 167 mls/hr IVPB Q16H KHALIDA Rx#: [id number] Oral 360 Other: Voiding Method Toilet Toilet # Voids 1 4 - Exam - Constitutional General appearance: no acute distress - EENT Eyes: EOMI, PERRLA ENT: hearing grossly normal, normal oropharynx - Neck Neck: no lymphadenopathy Thyroid: bilateral: normal size - Respiratory Respiratory: bilateral: CTA - Cardiovascular Rhythm: regular Heart sounds: normal: S1, S2 - Gastrointestinal General gastrointestinal: hepatomegaly extending into the right lower quadran, splenomegaly (appr 3 Fin) Localized gastrointestinal: tender: LUQ, RLQ, midline - Integumentary Integumentary: normal - Neurologic Neurologic: CNII-XII intact - Musculoskeletal Musculoskeletal: generalized weakness, strength equal bilaterally - Psychiatric Psychiatric: A&O x's 3, appropriate affect, intact judgment & insight - Labs CBC & Chem 7: 12/14/18 08:06 12/15/18 08:49 Labs: Abnormal Lab Results - Last 24 Hours (Table) 12/14/18 Range/Units 08:06 WBC 0.9 L* (3.8-10.6) k/uL RBC 2.93 L (3.80-5.40) m/uL Hgb 8.0 L (11.4-16.0) gm/dL Hct 24.3 L (34.0-46.0) % RDW 15.6 H (11.5-15.5) % Plt Count 116 L D (150-450) k/uL Microbiology - Last 24 Hours (Table) 12/11/18 17:35 Blood Culture - Preliminary Blood No Growth after 48 hours Assessment and Plan Plan: Neutropenic fever - Currently on chemotherapy for metastatic adenocarcinoma as noted. Details of the exact regimen are not available. The patient was unable to receive pegylat ed G-CSF as an outpatient due to coverage issues. She was an outpatient treatment with Levaquin for UTI, but developed progressive symptoms including fever leading her to come to the ER. At this time a definite source is not immediately apparent. Urinalysis shows 7 WBCs, and is negative for nitrite or leukocyte esterase. However the findings may have been affected by outpatient antibiotics. Urine culture on 11/28/18 was also negative. It was discussed with the patient that in cases of neutropenic sepsis on chemotherapy, a definite source may not be detectable up to 50% of the time. Th e patient will be treated with multiple antibiotics. She is on vancomycin and cefepime. Cultures have been ordered and are pending. She'll be started on G- CSF to enhance W BC recovery Pancytopenia - Due to antineoplastic chemotherapy. The patient has received blood and platelets, with improvement of hemoglobin and platelets into a safe range, as lo ng as there is no evidence of active bleeding. - Monior CBC Daily and transfuse as needed to keep hemoglobin greater than 7 and platelets greater than 10. - Platlets 116 today and hemoglobn8 today, both improved and safe range - If there is any evidence of active bleeding, then we will need to transfuse platelets to maintain her at a higher level, preferably around 40, as well as use other methods to control bleeding. - No evidence of bleeding at this time Metastatic adenocarcinoma Diagnostic and therapeutic circumstances as described. The patient is off for another week, and we will not start back on treatment until 12/24 according to her. It is anticipated that by that time her acute condition will recover sufficiently. Abdominal pain This appears to be due to liver and splenic enlargement. Liver enlargement is more marked compared to diagnosis. While progression of disease is not ruled out, inflammation due to the effect of treatment is also possible. Even in case of the former, management will not change as the patient is too early in her treatment to estimate benefit. - Abdominal ultrasound reviewed, Gallstones presents and Surgery evaluated, no surgical interventio - Continue to monitor closely for neutropenic typhlitis. Continue to monitor. - The patient is on [place], but is using it only once daily. - She was advised that we would evaluate for modification, if she were needing to use this more than 5-6 times a day on a regular basis. Plan: Continue Zarxio, CBC and CMP daily monitoring and close abdominal monitoring Encourage get out of bed, increase activity.
[2018-12-15] MEDS: CEFEPIME 2 GM in SODIUM CHLORIDE 0.9% 100 ML IVPB SCH ×2 (07:28→16:59)
[2018-12-15] MEDS: FILGRASTIM-SNDZ 480 MCG/0.8 ML SYRINGE SQ SCH (07:28)
[2018-12-15] MEDS: HYDROcodone/APAP 7.5-325MG 1 EACH TAB PO PRN (07:29)
[2018-12-15] MEDS: MAGNESIUM OXIDE 400 MG TAB PO SCH ×2 (07:29→21:15)
[2018-12-15] MEDS: POTASSIUM CHLORIDE ER 20 MEQ TAB.ER PO SCH (07:30)
[2018-12-15] MEDS: SERTRALINE 50 MG TAB PO SCH (07:30)
[2018-12-15] MEDS: DOCUSATE 100 MG CAP PO SCH (07:30)
[2018-12-15] MEDS: BENZOCAINE 20% HEMORRHOIDAL OINT 28GM RECTAL SCH ×3 (07:33→21:23)
[2018-12-15] MEDS: ONDANSETRON 4 MG/2 ML VIAL IVP PRN (07:34)
[2018-12-15] MEDS ORDERED: VANCOMYCIN TROUGH DUE 1 EACH MISC MISCELLANE ONE (09:00)
[2018-12-15] MEDS: VANCOMYCIN 2,250 MG in SODIUM CHLORIDE 0.9% 500 ML 500 ML IVPB SCH (09:51)
[2018-12-15] MEDS: CYANOCOBALAMIN 500 MCG TAB PO SCH (10:00)
--- NOTE | 2018-12-15 11:39 | P.PN ---
Subjective Progress Note Date: 12/15/18 CHIEF COMPLAINT: Cholelithiasis HISTORY OF PRESENT ILLNESS: Patient examined this morning at the bedside. She reports continued left lower quadrant abdominal pain. She states it seems to be worse at night or when she is laying in bed. Denies right upper quadrant pain. She is tolerating full liquid diet. She reports some mild nausea. No episodes of emesis. She is hoping to be discharged soon. PHYSICAL EXAM: VITAL SIGNS: Reviewed. GENERAL: Well-developed in no acute distress. HEENT: Extraocular movements grossly intact. Moist buccal mucosa. Head is atraumatic, normocephalic. ABDOMEN: Soft. Obese. Nondistended. Positive bowel sounds. Tenderness with palpation to left lower quadrant. NEUROLOGIC: Alert and oriented. Cranial nerves II through XII grossly intact. ASSESSMENT: 1. Cholelithiasis 2. Metastatic adenocarcinoma PLAN: Continue antiemetics as needed. Continue current diet. Advance as tolerated to low fat diet. CDiff ordered per internal medicine. Has not been collected yet. No surgical intervention advised at this time. Patient is currently asymptomatic in regards to cholelithiasis and is high risk for surgical intervention secondary to immunosuppression and pancytopenia. We will sign off. Please reconsult if needed. Nurse practitioner note has been reviewed by physician. Signing provider agrees with the documented findings, assessment, and plan of care. Objective - Vital Signs Vital signs: Vital Signs Temp 98.1 F 12/15/18 05:00 Pulse 97 12/15/18 05:00 Resp 18 12/15/18 07:34 BP 120/57 12/15/18 05:00 Pulse Ox 94 L 12/15/18 05:00 Intake & Output 12/14/18 12/15/18 12/15/18 18:59 06:59 18:59 Intake Total 100 1670 Balance 100 1670 Intake: Intake, IV Titration 100 600 Amount Cefepime 2 gm In Sodium 100 100 Chloride 0.9% 100 ml @ 200 mls/hr IVPB Q8HR [facility]HALIDA Rx#:[id number] Vancomycin 2,250 mg In 500 Sodium Chloride 0.9% 500 ml 500 ml @ 167 mls/hr IVPB Q16H KHALIDA Rx#: [id number] Oral 1070 Other: Voiding Method Toilet Toilet # Voids 2 # Bowel Movements 1 - Labs CBC & Chem 7: 12/14/18 08:06 12/15/18 08:49 Labs: Microbiology - Last 24 Hours (Table) 12/11/18 17:35 Blood Culture - Preliminary Blood No Growth after 72 hours
--- NOTE | 2018-12-15 14:39 | P.PN ---
Subjective Progress Note Date: 12/15/18 Principal diagnosis: Abdominal Pain and Diarrhea Abdominal discomfort has improved. We will recheck her CBC today and place order picc until blood counts improve. Her Thursday12.17.18 chemotherapy will be delayed one week and will see Dr. hodgson prior to next cycle for any changes. Objective - Vital Signs Vital signs: Vital Signs Temp 98.2 F 12/15/18 12:02 Pulse 88 12/15/18 12:02 Resp 17 12/15/18 12:02 BP 111/71 12/15/18 12:02 Pulse Ox 97 12/15/18 12:02 Intake & Output 12/14/18 12/15/18 12/15/18 18:59 06:59 18:59 Intake Total 100 1670 Balance 100 1670 Intake: Intake, IV Titration 100 600 Amount Cefepime 2 gm In Sodium 100 100 Chloride 0.9% 100 ml @ 200 mls/hr IVPB Q8HR [facility]HALIDA Rx#:[id number] Vancomycin 2,250 mg In 500 Sodium Chloride 0.9% 500 ml 500 ml @ 167 mls/hr IVPB Q16H KHALIDA Rx#: [id number] Oral 1070 Other: Voiding Method Toilet Toilet # Voids 2 # Bowel Movements 1 - Exam - Constitutional General appearance: no acute distress - EENT Eyes: EOMI, PERRLA ENT: hearing grossly normal, normal oropharynx - Neck Neck: no lymphadenopathy Thyroid: bilateral: normal size - Respiratory Respiratory: bilateral: CTA - Cardiovascular Rhythm: regular Heart sounds: normal: S1, S2 - Gastrointestinal General gastrointestinal: hepatomegaly extending into the right lower quadran, splenomegaly (appr 3 Fin) Localized gastrointestinal: tender: LUQ, RLQ, midline - Integumentary Integumentary: normal - Neurologic Neurologic: CNII-XII intact - Musculoskeletal Musculoskeletal: generalized weakness, strength equal bilaterally - Psychiatric Psychiatric: A&O x's 3, appropriate affect, intact judgment & insight - Labs CBC & Chem 7: 12/14/18 08:06 12/15/18 08:49 Labs: Microbiology - Last 24 Hours (Table) 12/11/18 17:35 Blood Culture - Preliminary Blood No Growth after 72 hours Assessment and Plan Plan: Neutropenic fever - Currently on chemotherapy for metastatic adenocarcinoma as noted. Details of the exact regimen are not available. The patient was unable to receive pegylated G-CSF as an outpatient due to coverage issues. She was an outpatient treatment with Levaquin for UTI, but developed progressive symptoms including fever leading her to come to the ER. At this time a definite source is not immediately apparent. Urinalysis shows 7 WBCs, and is negative for nitrite or leukocyte esterase. However the findings may have been affected by outpatient antibiotics. Urine culture on 11/28/18 was also negative. It was discussed with the patient that in cases of neutropenic sepsis on chemotherapy, a definite source may not be detectable up to 50% of the time. The patient will be treated with multiple antibiotics. She is on vancomycin and cefepime. Cultures have been ordered and are pending. She'll be started on G- CSF to enhance W BC recovery Pancytopenia - Due to antineoplastic chemotherapy. The patient has received blood and plate lets, with improvement of hemoglobin and platelets into a safe range, as long as there is no evidence of active bleeding. - Monitor CBC Daily and transfuse as needed to keep hemoglobin greater than 7 and platelets greater than 10. - Await CBC today - If there is any evidence of active bleeding, then we will need to transfuse platelets to maintain her at a higher level, preferably around 40, as well as use other methods to control bleeding. - No evidence of bleeding at this time Metastatic adenocarcinoma Diagnostic and therapeutic circumstances as described. The patient is off for another week, and we will not start back on treatment until 12/24 according to her. It is anticipated that by that time her acute condition will recover sufficiently. Abdominal pain This appears to be due to liver and splenic enlargement. Liver enlargement is more marked compared to diagnosis. While progression of disease is not ruled out, inflammation due to the effect of treatment is also possible. Even in case of the former, management will not change as the patient is too early in her treatment to estimate benefit. - Abdominal ultrasound reviewed, Gallstones presents and Surgery evaluated, no surgical interventio - Continue to monitor closely for neutropenic typhlitis. Continue to monitor. - The patient is on [place], but is using it only once daily. - She was advised that we would evaluate for modification, if she were needing to use this more than 5-6 times a day on a regular basis. Plan: Continue Zarxio, CBC and CMP daily monitoring and close abdominal monitoring We will recheck her CBC today and place order picc until blood counts improve. Her Thursday 8.9.19 chemotherapy will be delayed one week and will see Dr. hodgson prior to next cycle for any changes. - Increase to Low Fat Diet - Zofran every 8 hours scheduled and PRN - [place] every 8 hours scheduled and PRN - PT/OT Evaluation - D/C TMS - Add Questran - If counts recovered and patient is cleared Surgical and Medical hope to DISPO by Thursday - Will follow up next week with Dr. Hodgson Encourage get out of bed, increase activity.
[2018-12-15] MEDS ORDERED: ONDANSETRON 4 MG/2 ML VIAL IVP PRN (16:16)
[2018-12-15] MEDS ORDERED: HYDROcodone/APAP 7.5-325MG 1 EACH TAB PO PRN (16:16)
[2018-12-15 16:22] LABS: Potassium 4.2 mmol/L (3.5-5.1)
[2018-12-15 16:29] LABS: HCT 33.5 % (34.0-46.0); HGB 10.9 gm/dL (11.4-16.0); MCH 27.1 pg (25.0-35.0); MCHC 32.4 g/dL (31.0-37.0); MCV 83.7 fL (80.0-100.0); Mean Platelet Volume 8.3; Platelet Count 211 k/uL (150-450); Poikilocytosis Slight; WBC 5.6 k/uL (3.8-10.6)
[2018-12-15 16:37] LABS: Albumin 2.7 g/dL (3.5-5.0); Calcium 7.9 mg/dL (8.4-10.2); Total Bilirubin 1.2 mg/dL (0.2-1.3); Total Protein 5.9 g/dL (6.3-8.2)
[2018-12-15] MEDS: HYDROcodone/APAP 7.5-325MG 1 EACH TAB PO SCH (16:57)
[2018-12-15 17:03] LABS: Band Neutrophils % 9 %; Eosinophils # (M) 0.06 k/uL (0-0.7); Lymphocytes # (M) 1.96 k/uL (1.0-4.8); Metamyelocytes # (M) 0.22 k/uL (0); Metamyelocytes % 4 %; Monocytes # (M) 0.62 k/uL (0-1.0); Myelocytes # (M) 0.34 k/uL (0); Myelocytes % 6 %; Neutrophils % (M) 34 %; Nucleated Red Blood Cells 0 /100 WBC (0-0); Polychromasia Present; Total Cells Counted 100; Toxic Granulation Present
--- NOTE | 2018-12-15 19:15 | P.PN ---
Subjective Progress Note Date: 12/15/18 Principal diagnosis: diarrhea patient was seen and examined. No acute events overnight. Patient reports diarrhea that is slightly improved but continues to be watery in nature. Patient reports abdominal pain that is chronic in nature. She denies any chest pain, shortness of breath or palpitations. No nausea or vomiting. No fever or chills. Objective - Vital Signs Vital signs: Vital Signs Temp 98.2 F 12/15/18 12:02 Pulse 88 12/15/18 12:02 Resp 17 12/15/18 12:02 BP 111/71 12/15/18 12:02 Pulse Ox 97 12/15/18 12:02 Intake & Output 12/15/18 12/15/18 12/16/18 06:59 18:59 06:59 Intake Total 1670 400 Balance 1670 400 Intake: Intake, IV Titration 600 Amount Cefepime 2 gm In Sodium 100 Chloride 0.9% 100 ml @ 200 mls/hr IVPB Q8HR [facility] Rx#:[id number] Vancomycin 2,250 mg In 500 Sodium Chloride 0.9% 500 ml 500 ml @ 167 mls/hr IVPB Q16H [facility]HALIDA Rx#: [id number] Oral 1070 400 Other: Voiding Method Toilet Toilet # Voids 2 2 # Bowel Movements 1 - Exam General: [non toxic], [no distress, obese], [appears at stated age] Derm: [warm], [dry] Head: [atraumatic], [normocephalic], [symmetric] Eyes: [EOMI], [no lid lag], [anicteric sclera] Mouth: [no lip lesion], [mucus membranes moist] Cardiovascular: [S1S2 reg], [no murmur], [positive DP pulse bilateral], Lungs: [CTA bilateral], [no rhonchi, no rales] , [no accessory muscle use] Abdominal: [soft], [ nontender to palpation, hyperactive bowel sounds], [no gua rding], [no appreciable organomegaly] Ext: [no gross muscle atrophy], [2+ nonpitting edema], [no contractures] Neuro: [no focal neuro deficits] Psych: [Alert], [oriented], [appropriate affect] - Labs CBC & Chem 7: 12/15/18 15:23 12/15/18 15:23 Labs: Abnormal Lab Results - Last 24 Hours (Table) 12/15/18 12/15/18 Range/Units 15:23 15:23 Hgb 10.9 L (11.4-16.0) gm/dL Hct 33.5 L (34.0-46.0) % RDW 16.0 H (11.5-15.5) % Metamyelocytes # (Man) 0.22 H (0) k/uL Myelocytes # (Manual) 0.34 H (0) k/uL Sodium 136 L (137-145) mmol/L Chloride 111 H (98-107) mmol/L Carbon Dioxide 15 L (22-30) mmol/L BUN 22 H (7-17) mg/dL Calcium 7.9 L (8.4-10.2) mg/dL AST 75 H (14-36) U/L Total Protein 5.9 L (6.3-8.2) g/dL Albumin 2.7 L (3.5-5.0) g/dL Microbiology - Last 24 Hours (Table) 12/11/18 17:35 Blood Culture - Preliminary Blood No Growth after 72 hours Assessment and Plan Assessment: Abdominal pain with diarrhea Neutropenic fever Pancreatic cancer Gallbladder ultrasound shows concerns for cholecystitis. General surgery consulted, no plans of acute intervention. Plans: Continue vancomycin and cefepime. Pain control with [place], morphine. Zofran as stated for nausea or vomiting. Follow ID consultation. Follow C. diff. Improved. Plans: Given Filgastim. Follow Oncology recommendations. Plans: We'll need adequate outpatient follow-up. ID consulted for antibiotic recommendations on discharge. White count has improved. Plans for possible DC tomorrow with coordination of oncology.
[2018-12-15] MEDS ORDERED: VANCOMYCIN 2,000 MG in SODIUM CHLORIDE 0.9% 500 ML 500 ML IVPB SCH (21:00)
[2018-12-15] MEDS: SALT AND SODA MOUTHWASH 1,000 ML PO SCH (21:15)
--- NOTE | 2018-12-15 22:07 | P.CONS ---
History of Present Illness - Reason for Consult Consult date: 12/15/18 - Chief Complaint Fever - History of Present Illness 43-year-old female who has a relatively recent significant past medical history. She is not feeling well having some weight loss associated with fevers chills abdominal pain and generalized malaise. She is admitted to hospital and workup was initiated at that point and there was evidence of metastatic disease involving her liver and skeleton. Extensive workup was performed and liver biopsy revealed evidence of metastatic adenocarcinoma. The primary site of the cancer has not been characterized by the available data from the oncologist. Review of the records revealed evidence of the computed tomography scan, as well as ultrasounds that do not clarify a primary site of malignancy. The patient herself however relates that she thinks she has pancreatic cancer as her primary. She has been initiated to chemotherapy and has received 2 cycles and is now developed febrile neutropenia, the oncologist relates that her insurance does not allow her to have Neulasta. Antibiotic therapy as started and she is having symptoms of some mild mucositis. She is some mild worsening GI upset with some diarrhea that was a bit worse t aleman before. She was having some constipation and minimal diarrhea. She's had no hematemesis, melena or hematochezia. She relates that her gums are bit sore. Review of Systems HEENT:Denies headache or acute visual change. Denies neck stiffness. As noted oral cavity is mildly uncomfortable, the teeth are sore. Oral cavity is just minimally uncomfortable. Lungs: Denies significant shortness of breath, cough, sputum production, or hemoptysis. Cardiovascular: Denies significant shortness of breath, chest pain, chest wall pain, orthopnea, dyspnea on exertion, syncope Gastrointestinal:Denies nausea, vomiting, hematemesis, melena, hematochezia. Has had at least 5 loose stools today. And does have ongoing abdominal pain. Musculoskeletal: denies significant myalgias or arthralgias. No new joint swelling. Denies new back pain. Skin: Denies new rash or lesions. No new ulcers or wounds are related.. Neuro: Denies headache or visual change. Denies any new onset weakness or difficulty with ambulation. Denies falls or seizures. Psychiatric:Denies anxiety or depression. Endocrine: Denies significant fatigue, denies significant weight loss or weight gain. Past Medical History Past Medical History: Cancer, Hypertension, Osteoarthritis (OA) Additional Past Medical History / Comment(s): Cardiac murmur, chronic low back pain, UTI, constipation. PANCREATIC Cancer History of Any Multi-Drug Resistant Organisms: None Reported Past Surgical History: Section Past Anesthesia/Blood Transfusion Reactions: No Reported Reaction Past Psychological History: No Psychological Hx Reported Additional Psychological History / Comment(s): Pt resides with her 2 children, ages 14 and 16yrs. She is independent. Is becoming disabled from [employer]. No experience. No tobacco or alcohol use. Single. 2 brothers live close by. Relates to a strong family support system. No experience. No international travel. Pet dog and cat at home Smoking Status: Never smoker Past Alcohol Use History: None Reported Past Drug Use History: None Reported Additional Drug Use History / Comment(s): Pt states she smokes marijuana once a week. - Past Family History Mother Family Medical History: Dementia, Vascular Disorder Additional Family Medical History / Comment(s): Mother had appendicitis that went undiagnosed for VERN chavez. Patient's maternal grandmother had breast cancer around the age of 50 Father Family Medical History: No Reported History Additional Family Medical History / Comment(s): Father is healthy Medications and Allergies Home Medications and Allergies Comment(s): Current Medications Acetaminophen (Tylenol Tab) 650 mg PO Q6HR PRN PRN Reason: Fever and/ or Pain Last Admin: 12/12/18 21:18 Dose: 650 mg Documented by: Hydrocodone Bitart/Acetaminophen ([place]ar[place] 7.5-325) 1 each PO Q8H [facility] Last Admin: 12/15/18 16:57 Dose: 1 each Documented by: Hydrocodone Bitart/Acetaminophen ([place] 7.5-325) 1 each PO Q8H PRN PRN Reason: Pain Benzocaine (Americaine Hemorrhoidal Oint) 1 applic RECTAL TID [facility] Last Admin: 12/15/18 21:23 Dose: 1 applic Documented by: Cyanocobalamin (Vitamin B-12) 1,000 mcg PO DAILY [facility] Last Admin: 12/15/18 10:00 Dose: 1,000 mcg Documented by: Filgrastim (Zarxio) 480 mcg SQ DAILY [facility] Last Admin: 12/15/18 07:28 Dose: 480 mcg Documented by: Cefepime HCl 2 gm/ Sodium (Chloride) 100 mls @ 200 mls/hr IVPB Q8HR [facility] Last Admin: 12/15/18 16:59 Dose: 200 mls/hr Documented by: Vancomycin HCl 2,000 mg/ (Sodium Chloride) 500 mls @ 167 mls/hr IVPB Q24H [facility] Last Admin: 12/15/18 21:15 Dose: 167 mls/hr Documented by: Magnesium Oxide (Mag-Ox) 200 mg PO BID [facility] Last Admin: 12/15/18 21:15 Dose: 200 mg Documented by: Morphine Sulfate (Morphine Sulfate (Inj)) 1 mg IVP Q3HR PRN PRN Reason: Breakthrough Pain Last Admin: 12/13/18 17:30 Dose: 1 mg Documented by: Naloxone HCl (Narcan) 0.2 mg IV Q2M PRN PRN Reason: Opioid Reversal Ondansetron HCl (Zofran) 4 mg IVP Q6HR PRN PRN Reason: Nausea And Vomiting Last Admin: 12/15/18 17:07 Dose: 4 mg Documented by: Ondansetron HCl (Zofran) 4 mg IVP Q8HR [facility] Polyethylene Glycol (Miralax) 17 gm PO DAILY PRN PRN Reason: Constipation Last Admin: 12/12/18 08:17 Dose: 17 gm Documented by: Potassium Chloride (K-Dur 20) 40 meq PO DAILY [facility] Last Admin: 12/15/18 07:30 Dose: 40 meq Documented by: Sertraline HCl (Zoloft) 50 mg PO DAILY [facility] Last Admin: 12/15/18 07:30 Dose: 50 mg Documented by: Sodium Bicarbonate () 10 ml PO 5XD [facility] Last Admin: 12/15/18 21:15 Dose: 10 ml Documented by: Home Medications Medication Instructions Recorded Confirmed Type Ibuprofen [Motrin] 600 mg PO Q8HR PRN 10/25/18 12/11/18 History Polyethylene Glycol 3350 [Miralax] 17 gm PO DAILY PRN 10/25/18 12/11/18 History Sertraline [Zoloft] 50 mg PO DAILY 10/25/18 12/11/18 History amLODIPine BESYLATE/BENAZEPRIL 1 cap PO DAILY 10/25/18 12/11/18 History [amLODIPine BESYLATE/BENAZEPRIL 5-20 MG] Potassium Chloride ER [K-Dur 20] 40 meq PO DAILY #60 tab 10/29/18 12/11/18 Rx Levofloxacin [Levaquin] 500 mg PO DAILY 12/11/18 12/11/18 History Magnesium Oxide [Mag-Ox] 200 mg PO BID 12/11/18 12/11/18 History Ondansetron HCl [Zofran] 4 mg PO Q8H PRN 12/11/18 12/11/18 History traMADol HCL [Ultram] 50 mg PO Q6HR PRN 12/11/18 12/11/18 History Allergies Allergy/AdvReac Type Severity Reaction Status Date / Time No Known Allergies Allergy Verified 12/11/18 23:38 Physical Exam Vitals: Vital Signs Temp Pulse Resp BP Pulse Ox 12/15/18 21:00 98.3 F 54 L 18 111/54 100 12/15/18 12:02 98.2 F 88 17 111/71 97 12/15/18 07:34 18 12/15/18 05:00 98.1 F 97 18 120/57 94 L Intake and Output 12/15/18 12/15/18 12/15/18 06:59 14:59 22:59 Intake Total 1170 400 Balance 1170 400 Intake: Intake, IV Titration 100 Amount Cefepime 2 gm In Sodium 100 Chloride 0.9% 100 ml @ 200 mls/hr IVPB Q8HR [facility] Rx#:[id number] Oral 1070 400 Other: Voiding Method Toilet Toilet # Voids 2 2 # Bowel Movements 1 43-year-old woman with obesity HEENT: Anicteric conjunctiva are pink and moist nasal mucosa grossly intact without significant lesions, there is no thrush. Neck: The neck is supple without significant lymphadenopathy or thyromegaly. Lungs: Good bilateral air entry without significant crackles or wheezing. There is no significant bronchial sounds. There is no egophony or dullness. Heart: Regular rate and rhythm with an audible S1-S2, no S3 no S4. There is no significant murmur click or rub, PMI was nondisplaced. Abdomen: Positive bowel sounds soft Diffuse abdominal tenderness, organomegaly is noted. No other intra-abdominal masses are noted. No rigidity is noted. Extremities: The upper extremities have excellent pulses they are symmetric, no significant petechiae or telangiectasia. No splinter hemorrhages were noted. The lower extremities are free from significant edema. The peripheral pulses were 2+ and symmetric. Neuro: Awake alert oriented to person place and time. There are no acute new gross focal sensory motor deficits. Results CBC & Chem 7: 12/15/18 15:23 12/15/18 15:23 Labs: Abnormal Lab Results - Last 24 Hours (Table) 12/15/18 12/15/18 Range/Units 15:23 15:23 Hgb 10.9 L (11.4-16.0) gm/dL Hct 33.5 L (34.0-46.0) % RDW 16.0 H (11.5-15.5) % Metamyelocytes # (Man) 0.22 H (0) k/uL Myelocytes # (Manual) 0.34 H (0) k/uL Sodium 136 L (137-145) mmol/L Chloride 111 H (98-107) mmol/L Carbon Dioxide 15 L (22-30) mmol/L BUN 22 H (7-17) mg/dL Calcium 7.9 L (8.4-10.2) mg/dL AST 75 H (14-36) U/L Total Protein 5.9 L (6.3-8.2) g/dL Albumin 2.7 L (3.5-5.0) g/dL Microbiology - Last 24 Hours (Table) 12/11/18 17:35 Blood Culture - Preliminary Blood No Growth after 72 hours Laboratory Results WBC 5.6 k/uL (3.8-10.6) 12/15/18 15:23 RBC 4.00 m/uL (3.80-5.40) 12/15/18 15:23 Hgb 10.9 gm/dL (11.4-16.0) L 12/15/18 15:23 Hct 33.5 % (34.0-46.0) L 12/15/18 15:23 MCV 83.7 fL (80.0-100.0) 12/15/18 15:23 MCH 27.1 pg (25.0-35.0) 12/15/18 15:23 MCHC 32.4 g/dL (31.0-37.0) 12/15/18 15:23 RDW 16.0 % (11.5-15.5) H 12/15/18 15:23 Plt Count 211 k/uL (150-450) 12/15/18 15:23 Neutrophils % CHANNELER OUTSOLE 12/12/18 18:12 Neutrophils % (Manual) 34 % 12/15/18 15:23 Band Neutrophils % 9 % 12/15/18 15:23 Lymphocytes % [facility] OUTSOLE 12/12/18 18:12 Lymphocytes % (Manual) 35 % 12/15/18 15:23 Monocytes % CH[employer] OUTSOLE 12/12/18 18:12 Monocytes % (Manual) 11 % 12/15/18 15:23 Eosinophils % CHANNEL[employer] OUTSOLE 12/12/18 18:12 Eosinophils % (Manual) 1 % 12/15/18 15:23 Basophils % CHANNEL[employer] OUTSOLE 12/12/18 18:12 Metamyelocytes % 4 % 12/15/18 15:23 Myelocytes % 6 % 12/15/18 15:23 Neutrophils # CHANNELER OUTSOLE 12/14/18 08:06 Neutrophils # (Manual) 2.40 k/uL (1.3-7.7) 12/15/18 15:23 Lymphocytes # CHANNELER OUTSOLE 12/12/18 18:12 Lymphocytes # (Manual) 1.96 k/uL (1.0-4.8) 12/15/18 15:23 Monocytes # CHANNELER OUTSOLE 12/12/18 18:12 Monocytes # (Manual) 0.62 k/uL (0-1.0) 12/15/18 15:23 Eosinophils # CHANNELER OUTSOLE 12/12/18 18:12 Eosinophils # (Manual) 0.06 k/uL (0-0.7) 12/15/18 15:23 Basophils # CHANNELER OUTSOLE 12/12/18 18:12 Metamyelocytes # (Man) 0.22 k/uL (0) H 12/15/18 15:23 Myelocytes # (Manual) 0.34 k/uL (0) H 12/15/18 15:23 Nucleated RBCs 0 /100 WBC (0-0) 12/15/18 15:23 Differential Comment 12/14/18 08:06 Manual Slide Review Performed 12/14/18 08:06 Toxic Granulation Present 12/15/18 15:23 RBC Morphology Normal 12/15/18 15:23 Polychromasia Present 12/15/18 15:23 Hypochromasia Slight 12/13/18 05:11 Poikilocytosis Slight 12/15/18 15:23 Anisocytosis (manual) Present 12/14/18 08:06 Rouleaux Present 12/11/18 17:35 PT 12.0 sec (9.0-12.0) 12/11/18 22:16 INR 1.2 (<1.2) H 12/11/18 22:16 APTT 26.0 sec (22.0-30.0) 12/11/18 22:16 Sodium 136 mmol/L (137-145) L 12/15/18 15:23 Potassium 4.2 mmol/L (3.5-5.1) 12/15/18 15:23 Chloride 111 mmol/L (98-107) H 12/15/18 15:23 Carbon Dioxide 15 mmol/L (22-30) L 12/15/18 15:23 Anion Gap 10 mmol/L 12/15/18 15:23 BUN 22 mg/dL (7-17) H 12/15/18 15:23 Creatinine 0.92 mg/dL (0.52-1.04) 12/15/18 15:23 Est GFR (CKD-EPI)AfAm 87 (>60 ml/min/1.73 sqM) 12/15/18 15:23 Est GFR (CKD-EPI)NonAf 76 (>60 ml/min/1.73 sqM) 12/15/18 15:23 Glucose 82 mg/dL (74-99) 12/15/18 15:23 Plasma Lactic Acid Saroj 1.2 mmol/L (0.7-2.0) 12/12/18 18:12 Calcium 7.9 mg/dL (8.4-10.2) L 12/15/18 15:23 Total Bilirubin 1.2 mg/dL (0.2-1.3) 12/15/18 15:23 AST 75 U/L (14-36) H 12/15/18 15:23 ALT 24 U/L (9-52) 12/15/18 15:23 Alkaline Phosphatase 116 U/L (38-126) 12/15/18 15:23 Total Protein 5.9 g/dL (6.3-8.2) L 12/15/18 15:23 Albumin 2.7 g/dL (3.5-5.0) L 12/15/18 15:23 Urine Color [place] 12/12/18 01:09 Urine Appearance Cloudy (Clear) H 12/12/18 01:09 Urine pH 5.5 (5.0-8.0) 12/12/18 01:09 Ur Specific [place] 1.019 (1.001-1.035) 12/12/18 01:09 Urine Protein 1+ (Negative) H 12/12/18 01:09 Urine Glucose (UA) Negative (Negative) 12/12/18 01:09 Urine Ketones Negative (Negative) 12/12/18 01:09 Urine Blood Trace (Negative) H 12/12/18 01:09 Urine Nitrite Negative (Negative) 12/12/18 01:09 Urine Bilirubin 1+ (Negative) H 12/12/18 01:09 Urine Urobilinogen 3.0 mg/dL (<2.0) 12/12/18 01:09 Ur Leukocyte Esterase Negative (Negative) 12/12/18 01:09 Urine RBC 1 /hpf (0-5) 12/12/18 01:09 Urine WBC 7 /hpf (0-5) H 12/12/18 01:09 Ur Squamous Epith Cells 5 /hpf (0-4) H 12/12/18 01:09 Hyaline Casts 34 /lpf (0-2) H 12/12/18 01:09 Urine Mucus Few /hpf (None) H 12/12/18 01:09 Vancomycin Trough 26.8 ug/mL 12/15/18 08:49 Blood Type A Positive 12/11/18 23:38 Blood Type Recheck No 12/11/18 23:38 Antibody Screen NEGATIVE 12/11/18 23:38 Crossmatch See Detail 12/11/18 23:38 Transfuse Platelets 12/12/2018 12/11/18 23:38 Spec Expiration Date 12/14/2018 - 1836 12/11/18 23:38 Microbiology 12/11/18 17:35 Blood Blood Culture - Preliminary No Growth after 72 hours Assessment and Plan (1) Abdominal pain Current Visit: Yes Status: Acute Priority: High Code(s): R10.9 - UNSPECIFIED ABDOMINAL PAIN SNOMED Code(s): 02410176 (2) Neutropenic fever Narrative/Plan: 43-year-old female presents to Hospital from home with the onset of, fevers chills rigors and generalized malaise. She's been having some ongoing abdominal pain that has not improved. She at this point in time relates that she's feeling just slightly better and that the fever started to have some improvement with admission with flu is negative antibiotic therapy. With her current status Tylenols being utilized for fever control. As noted from the oncology team GCSF has been added and a white blood cell count is starting to respond. Salt and soda has been requested for the mild mucositis Suggest that she takes one yogurt per day to try to improve her stool status. She should not take Imodium and that that could cause significant constipation which be quite miserable for her. I await clarification from the oncology team is to their findings as to the primary site of the malignancy. Patient states that it is pancreatic. Current Visit: Yes Status: Acute Priority: High Code(s): D70.9 - NEUTR OPENIA, UNSPECIFIED; R50.81 - FEVER PRESENTING WITH CONDITIONS CLASSIFIED ELSEWHERE SNOMED Code(s): 729228483 (3) Metastatic adenocarcinoma Current Visit: No Status: Acute Priority: Medium Code(s): C79.9 - SECONDARY MALIGNANT NEOPLASM OF UNSPECIFIED SITE SNOMED Code(s): 228568685
[2018-12-16] MEDS: HYDROcodone/APAP 7.5-325MG 1 EACH TAB PO SCH ×3 (00:04→16:34)
[2018-12-16] MEDS: CEFEPIME 2 GM in SODIUM CHLORIDE 0.9% 100 ML IVPB SCH ×3 (00:04→16:31)
[2018-12-16] MEDS: SALT AND SODA MOUTHWASH 1,000 ML PO SCH ×4 (00:22→16:35)
[2018-12-16] MEDS: ONDANSETRON 4 MG/2 ML VIAL IVP SCH ×3 (00:22→16:36)
[2018-12-16 08:08] LABS: HCT 25.1 % (34.0-46.0); MCH 26.1 pg (25.0-35.0); MCHC 31.4 g/dL (31.0-37.0); MCV 83.3 fL (80.0-100.0); Mean Platelet Volume 7.8; Platelet Count 253 k/uL (150-450); Poikilocytosis Slight; RBC 3.02 m/uL (3.80-5.40); RDW 15.9 % (11.5-15.5)
[2018-12-16 08:09] LABS: HGB 7.9 gm/dL (11.4-16.0)
[2018-12-16] MEDS: MAGNESIUM OXIDE 400 MG TAB PO SCH (08:12)
[2018-12-16] MEDS: SERTRALINE 50 MG TAB PO SCH (08:12)
[2018-12-16] MEDS: CYANOCOBALAMIN 500 MCG TAB PO SCH (08:13)
[2018-12-16] MEDS: FILGRASTIM-SNDZ 480 MCG/0.8 ML SYRINGE SQ SCH ×2 (08:14→08:38)
[2018-12-16] MEDS: BENZOCAINE 20% HEMORRHOIDAL OINT 28GM RECTAL SCH ×2 (08:39→16:37)
[2018-12-16] MEDS: POTASSIUM CHLORIDE ER 20 MEQ TAB.ER PO SCH (09:08)
[2018-12-16 11:30] LABS: Band Neutrophils % 5 %; Metamyelocytes % 7 %; Myelocytes % 7 %; Neutrophils % (M) 46 %; Promyelocytes % 4 %
[2018-12-16 11:34] LABS: Blast Cells # (M) 0.47 k/uL (0); Nucleated Red Blood Cells 1 /100 WBC (0-0); Total Cells Counted 200
[2018-12-16 11:35] LABS: Metamyelocytes # (M) 1.09 k/uL (0); Monocytes # (M) 2.34 k/uL (0-1.0); Myelocytes # (M) 1.09 k/uL (0); Promyelocytes # (M) 0.62 k/uL (0); WBC 15.6 k/uL (3.8-10.6)
[2018-12-16 11:36] LABS: Polychromasia Present
[2018-12-16 11:38] VITALS: BP 122/72; RESP 17; TEMP 98.3
--- NOTE | 2018-12-16 12:14 | P.PN ---
Subjective Progress Note Date: 12/16/18 Principal diagnosis: Abdominal Pain and Diarrhea Patient headed for Picc line, tolerating non-fat diet well. Objective - Vital Signs Vital signs: Vital Signs Temp 98.3 F 12/16/18 11:37 Pulse 86 12/16/18 11:37 Resp 17 12/16/18 11:37 BP 122/72 12/16/18 11:37 Pulse Ox 99 12/16/18 11:37 Intake & Output 12/15/18 12/16/18 12/16/18 18:59 06:59 18:59 Intake Total 400 2150 480 Balance 400 2150 480 Weight 161.9 kg Intake: Intake, IV Titration 740 Amount Cefepime 2 gm In Sodium 100 Chloride 0.9% 100 ml @ 200 mls/hr IVPB Q8HR [facility] Rx#:[id number] Vancomycin 2,000 mg In 140 Sodium Chloride 0.9% 500 ml 500 ml @ 167 mls/hr IVPB Q24H [facility] Rx#: [id number] Vancomycin 2,250 mg In 500 Sodium Chloride 0.9% 500 ml 500 ml @ 167 mls/hr IVPB Q16H [facility] Rx#: [id number] Oral 400 1410 480 Other: Voiding Method Toilet Toilet # Voids 2 3 # Bowel Movements 0 - Exam - Constitutional General appearance: no acute distress - EENT Eyes: EOMI, PERRLA ENT: hearing grossly normal, normal oropharynx - Neck Neck: no lymphadenopathy Thyroid: bilateral: normal size - Respiratory Respiratory: bilateral: CTA - Cardiovascular Rhythm: regular Heart sounds: normal: S1, S2 - Gastrointestinal General gastrointestinal: hepatomegaly extending into the right lower quadran, splenomegaly (appr 3 Fin) Localized gastrointestinal: tender: LUQ, RLQ, midline - Integumentary Integumentary: normal - Neurologic Neurologic: CNII-XII intact - Musculoskeletal Musculoskeletal: generalized weakness, strength equal bilaterally - Psychiatric Psychiatric: A&O x's 3, appropriate affect, intact judgment & insight - Labs CBC & Chem 7: 12/16/18 07:15 12/16/18 07:15 Labs: Abnormal Lab Results - Last 24 Hours (Table) 12/15/18 12/15/18 12/16/18 Range/Units 15:23 15:23 07:15 WBC 15.6 H (3.8-10.6) k/uL RBC 3.02 L (3.80-5.40) m/uL Hgb 10.9 L 7.9 L D (11.4-16.0) gm/dL Hct 33.5 L 25.1 L (34.0-46.0) % RDW 16.0 H 15.9 H (11.5-15.5) % Blast Cells % 3 H* % Neutrophils # (Manual) 7.90 H (1.3-7.7) k/uL Monocytes # (Manual) 2.34 H (0-1.0) k/uL Metamyelocytes # (Man) 0.22 H 1.09 H (0) k/uL Myelocytes # (Manual) 0.34 H 1.09 H (0) k/uL Promyelocytes # (Man) 0.62 H (0) k/uL Blast Cells # (Man) 0.47 H (0) k/uL Nucleated RBCs 1 H (0-0) /100 WBC Sodium 136 L (137-145) mmol/L Chloride 111 H (98-107) mmol/L Carbon Dioxide 15 L (22-30) mmol/L BUN 22 H (7-17) mg/dL Calcium 7.9 L (8.4-10.2) mg/dL AST 75 H (14-36) U/L Total Protein 5.9 L (6.3-8.2) g/dL Albumin 2.7 L (3.5-5.0) g/dL Microbiology - Last 24 Hours (Table) 12/11/18 17:35 Blood Culture - Preliminary Blood No Growth after 96 hours Assessment and Plan Plan: Neutropenic fever - Currently on chemotherapy for metastatic adenocarcinoma as noted. Details of the exact regimen are not available. The patient was unable to receive pegylated G-CSF as an outpatient due to coverage issues. She was an outpatient treatment with Levaquin for UTI, but developed progressive symptoms including fever leading her to come to the ER. At this time a definite source is not immediately apparent. Urinalysis shows 7 WBCs, and is negative for nitrite or leukocyte esterase. However the findings may have been affected by outpatient antibiotics. Urine culture on 11/28/18 was also negative. It was discussed with the patient that in cases of neutropenic sepsis on chemotherapy, a definite source may not be detectable up to 50% of the time. The patient will be treated with multiple antibiotics. She is on vancomycin and cefepime. Cultures have been ordered and are pending. She'll be started on G- CSF to enhance W BC recovery Pancytopenia - Due to antineoplastic chemotherapy. The patient has received blood and platelets, with improvement of hemoglobin and platelets into a safe range, as long as there is no evidence of active bleeding. - Monitor CBC Daily and transfuse as needed to keep hemoglobin greater than 7 and platelets greater than 10. - Await CBC today - If there is any evidence of active bleeding, then we will need to transfuse platelets to maintain her at a higher level, preferably around 40, as well as use other methods to control bleeding. - No evidence of bleeding at this time - Stop GCSF today Metastatic adenocarcinoma Diagnostic and therapeutic circumstances as described. The patient is off for another week, and we will not start back on treatment until 12/24 according to her. It is anticipated that by that time her acute condition will recover sufficiently. Abdominal pain This appears to be due to liver and splenic enlargement. Liver enlargement is more marked compared to diagnosis. While progression of disease is not ruled out, inflammation due to the effect of treatment is also possible. Even in case of the former, management will not change as the patient is too early in her treatment to estimate benefit. - Abdominal ultrasound reviewed, Gallstones presents and Surgery evaluated, no surgical interventio - Continue to monitor closely for neutropenic typhlitis. Continue to monitor. - The patient is on [place], but is using it only once daily. - She was advised that we would evaluate for modification, if she were needing to use this more than 5-6 times a day on a regular basis. Plan: Continue Zarxio, CBC and CMP daily monitoring and close abdominal monitoring We will recheck her CBC today and place order picc until blood counts improve. Her [id number] chemotherapy will be delayed one week and will see Dr. hodgson prior to next cycle for any changes. - Stop Zarxio - Will follow-up with dr Hodgson and for next chemo next week - Picc line - Await clearance from ID regarding IV antibiotics, ok for discharge from hematology standpoint Encourage get out of bed, increase activity.
--- NOTE | 2018-12-16 12:36 | IR ---
EXAMINATION TYPE: IR cvc insert >=5 years DATE OF EXAM: 12/16/2018 COMPARISON: NONE CLINICAL HISTORY: Pancreatic carcinoma Needs long-term intravenous access for therapy. PROCEDURE: After informed consent, the skin overlying the left basilic vein was localized with ultrasound and no candice to be compressible and patent. An ultrasound image was obtained and submitted on the patient's c pope. The overlying skin was prepped and draped and Lidocaine was used for local anesthesia. A skin jessica was made with a scalpel. Access was gained to the vein under ultrasound guidance with a 21 gau ge needle and a 0.018 inch wire was advanced. Access site was dilated with Peel-Away sheath and cath eter tailored to the appropriate length and advanced such that the distal tip is at the cavoatrial ju nction. Spot image was obtained verifying placement. Catheter was fixed to the skin and a sterile d ressing was placed following hemostasis. Catheter was aspirated and flushed with saline. Patient wa s discharged in stable condition without complication. Maximal barrier technique is utilized. Ultras ound image is documented on the chart. Ultrasound used with sterile technique. Fluoro time and fluoroscopic images submitted to document procedure: 47 intraoperative C-arm images, 0.3 minutes fluoroscopy time IMPRESSION: STATUS POST ULTRASOUND AND FLUOROSCOPIC GUIDED PICC LINE PLACEMENT, READY FOR USE. THIS PROCEDURE WAS PERFORMED BY THE UNDERSIGNED.
[2018-12-16] MEDS: FUROSEMIDE 10 MG/ML 2 ML VIAL IV SCH ×2 (14:52→16:33)
[2018-12-16 16:07] VITALS: PULSE 82
[2018-12-16] MEDS ORDERED: POTASSIUM CHLORIDE ER 10 MEQ TAB.ER.PRT PO SCH (21:00)
== END 2018-12-16 18:50 | disposition home health service (06) | DRG 871 ==
LOC: EC 18:22 → 3SCARD 23:30 → 3NMEDONC 12-14 00:12
PROVIDERS: ADMIT Internal Medicine; ATTEND Internal Medicine
PROC: 30233R1 Transfusion of Nonautologous Platelets into Peripheral Vein, Percutaneous Approach (ICD-10-PCS; 2018-12-12)
PROC: 30233N1 Transfusion of Nonautologous Red Blood Cells into Peripheral Vein, Percutaneous Approach (ICD-10-PCS; 2018-12-12)
PROC: 02HV33Z Insertion of Infusion Device into Superior Vena Cava, Percutaneous Approach (ICD-10-PCS; principal; 2018-12-16 10:34)
DX: A41.9 Sepsis, unspecified organism (principal); D61.810 Antineoplastic chemotherapy induced pancytopenia; N17.0 Acute kidney failure with tubular necrosis; C25.9 Malignant neoplasm of pancreas, unspecified; C78.7 Secondary malignant neoplasm of liver and intrahepatic bile duct; E87.2 Acidosis; K80.10 Calculus of gallbladder with chronic cholecystitis without obstruction; N39.0 Urinary tract infection, site not specified; Z68.43 Body mass index [BMI] 50.0-59.9, adult; I95.9 Hypotension, unspecified; D69.59 Other secondary thrombocytopenia; D70.3 Neutropenia due to infection; G89.29 Other chronic pain; I10 Essential (primary) hypertension; K12.30 Oral mucositis (ulcerative), unspecified; K64.9 Unspecified hemorrhoids; L30.4 Erythema intertrigo; T45.1X5A Adverse effect of antineoplastic and immunosuppressive drugs, initial encounter; M19.90 Unspecified osteoarthritis, unspecified site; R01.1 Cardiac murmur, unspecified; M54.5 Low back pain; R11.0 Nausea; E66.9 Obesity, unspecified; Z79.899 Other long term (current) drug therapy; Z80.3 Family history of malignant neoplasm of breast; Z82.0 Family history of epilepsy and other diseases of the nervous system; Z84.89 Family history of other specified conditions
CPT/HCPCS: 36410; 36415; 36573; 71046; 76700; 76937; 80053; 80202; 81001; 82565; 83605; 84132; 85025; 85610; 85730; 86850; 86900; 86901; 86920; 87040; 96361; 96365; 96366; 96367; 96375; 99285

== ENCOUNTER 2019-01-04 21:33 | Inpatient (IN) | payer OTHER ==
[2019-01-04] MEDS ORDERED: ACETAMINOPHEN TAB 325 MG TAB PO STA (22:11)
--- NOTE | 2019-01-04 22:22 | ED ---
Fever HPI - General Chief Complaint: Fever Stated Complaint: Fever, blood transfusion Yesterday, CA pt Time Seen by Provider: 01/04/19 22:01 Source: patient, family Mode of arrival: wheelchair Limitations: no limitations - History of Present Illness Initial Comments: This patient is a 43-year-old woman with history of pancreatic cancer with known metastases to the liver, diagnosed in October. She presents to have evaluation of fever that had developed last night, and was as high as 103. The patient states that she had subsequent follow-up with her oncologist in the clinic today and he advised her to be seen in the emergency department. The patient did receive transfusion yesterday. The patient also did have strep exposure, she states her daughter was diagnosed with this recently. The patient denies any specific symptoms of infection. She does state that she is feeling somewhat fatigued and rundown. Complaint: fever Onset/Timin -: hour(s) Temperature Source: oral Context: sick contacts Associated Symptoms: myalgias Treatments Prior to Arrival: none - Related Data Home Medications Medication Instructions Recorded Confirmed Polyethylene Glycol 3350 [Miralax] 17 gm PO DAILY PRN 10/25/18 01/04/19 Sertraline [Zoloft] 50 mg PO DAILY 10/25/18 01/04/19 Magnesium Oxide [Mag-Ox] 200 mg PO BID 12/11/18 01/04/19 Ondansetron HCl [Zofran] 4 mg PO Q8H PRN 12/11/18 01/04/19 traMADol HCL [Ultram] 50 mg PO Q6HR PRN 12/11/18 01/04/19 Acetaminophen [Tylenol Extra 1,000 mg PO TID PRN 01/04/19 01/04/19 Strength] Furosemide [Lasix] 20 mg PO BID 01/04/19 01/04/19 Previous Rx's Medication Instructions Recorded Potassium Chloride ER [K-Dur 20] 40 meq PO DAILY #60 tab 10/29/18 Allergies Allergy/AdvReac Type Severity Reaction Status Date / Time No Known Allergies Allergy Verified 01/04/19 22:13 Review of Systems ROS Statement: Those systems with pertinent positive or pertinent negative responses have been documented in the HPI. ROS Other: All systems not noted in ROS Statement are negative. Constitutional: Reports: fever Eyes: Denies: eye pain ENT: Denies: throat pain, hearing loss, congestion Respiratory: Denies: cough, dyspnea Cardiovascular: Reports: edema (Chronic for weeks). Denies: chest pain, palpitations Endocrine: Reports: fatigue Gastrointestinal: Reports: abdominal pain (Chronic). Denies: nausea, vomiting Genitourinary: Denies: dysuria, frequency, hematuria Musculoskeletal: Reports: back pain (Chronic) Skin: Denies: rash Neurological: Denies: headache, weakness, numbness Past Medical History Past Medical History: Cancer, Hypertension, Osteoarthritis (OA) Additional Past Medical History / Comment(s): Cardiac murmur, chronic low back pain, UTI, constipation. PANCREATIC Cancer History of Any Multi-Drug Resistant Organisms: None Reported Past Surgical History: Section Past Anesthesia/Blood Transfusion Reactions: No Reported Reaction Past Psychological History: No Psychological Hx Reported Smoking Status: Never smoker Past Alcohol Use History: None Reported Past Drug Use History: None Reported - Past Family History Mother Family Medical History: Dementia, Vascular Disorder Additional Family Medical History / Comment(s): Mother had appendicitis that went undiagnosed for awsarita, NAIMAD. Patient's maternal grandmother had breast cancer around the age of 50 Father Family Medical History: No Reported History Additional Family Medical History / Comment(s): Father is healthy General Exam Limitations: no limitations General appearance: alert, in no apparent distress Head exam: Present: atraumatic, normocephalic Eye exam: Present: PERRL, EOMI. Absent: scleral icterus, conjunctival injection, nystagmus ENT exam: Present: mucous membranes dry Neck exam: Present: normal inspection, full ROM. Absent: tenderness, meningismus Respiratory exam: Present: normal lung sounds bilaterally. Absent: respiratory distress, wheezes, rales, rhonchi, stridor Cardiovascular Exam: Present: regular rate, normal rhythm, systolic murmur (Patient has grade 4 systolic ejection murmur at the left sternal border.). Absent: diastolic murmur, rubs, gallop GI/Abdominal exam: Present: soft. Absent: distended, tenderness, guarding, rebound, rigid, mass Extremities exam: Present: normal inspection, normal capillary refill. Absent: pedal edema, calf tenderness Back exam: Present: normal inspection. Absent: CVA tenderness (R), CVA tenderness (L) Neurological exam: Present: alert, oriented X3 Skin exam: Present: warm, dry, intact, normal color. Absent: rash Course Vital Signs 01/04/19 01/05/19 01/05/19 21:46 00:02 02:22 Temperature 100.9 F H 98.8 F Pulse Rate 100 92 90 Respiratory 16 18 18 Rate Blood Pressure 103/69 140/60 124/63 O2 Sat by Pulse 98 98 98 Oximetry 01/05/19 02:30 Temperature 99 F Pulse Rate Respiratory Rate Blood Pressure O2 Sat by Pulse Oximetry Medical Decision Making - Medical Decision Making This patient is a 43-year-old woman presenting with fever, myalgias, and fatigue . The patient's workup does reveal that there is neutropenia as well. The patient is started on fluid bolus, based on ideal body weight, and cefepime. Vancomycin is added. Case is discussed with [facility] physician group for admission and also discussed with Dr. Smith, covering for oncology. Treatment recommendations are incorporated. Patient's hemoglobin is 5.8 and will receive transfusion. She reports receiving colony stimulating factors in the clinic earlier in the day. - Lab Data Result diagrams: 01/04/19 23:46 01/04/19 23:46 Lab Results 01/04/19 01/04/19 01/04/19 Range/Units 23:21 23:23 23:46 WBC 0.3 L* (3.8-10.6) k/uL RBC 2.10 L (3.80-5.40) m/uL Hgb 5.8 L* D (11.4-16.0) gm/dL Hct 17.6 L* (34.0-46.0) % MCV 84.4 (80.0-100.0) fL MCH 28.5 (25.0-35.0) pg MCHC 33.8 (31.0-37.0) g/dL RDW 18.7 H (11.5-15.5) % Plt Count 48 L D (150-450) k/uL Neutrophils # MOBILE [employer]UT[employer] ARCHITECT Differential Comment Manual Slide Review Performed Anisocytosis Slight PT (9.0-12.0) sec INR (<1.2) APTT (22.0-30.0) sec Sodium (137-145) mmol/L Potassium (3.5-5.1) mmol/L Chloride (98-107) mmol/L Carbon Dioxide (22-30) mmol/L Anion Gap mmol/L BUN (7-17) mg/dL Creatinine (0.52-1.04) mg/dL Est GFR (CKD-EPI)AfAm (>60 ml/min/1.73 sqM) Est GFR (CKD-EPI)NonAf (>60 ml/min/1.73 sqM) Glucose (74-99) mg/dL Plasma Lactic Acid Saroj (0.7-2.0) mmol/L Calcium (8.4-10.2) mg/dL Total Bilirubin (0.2-1.3) mg/dL AST (14-36) U/L ALT (9-52) U/L Alkaline Phosphatase (38-126) U/L Troponin I (0.000-0.034) ng/mL Total Protein (6.3-8.2) g/dL Albumin (3.5-5.0) g/dL Urine Color Yellow Urine Appearance Clear (Clear) Urine pH 5.5 (5.0-8.0) Ur Specific [place] 1.018 (1.001-1.035) Urine Protein Trace H (Negative) Urine Glucose (UA) Negative (Negative) Urine Ketones Negative (Negative) Urine Blood Negative (Negative) Urine Nitrite Negative (Negative) Urine Bilirubin Negative (Negative) Urine Urobilinogen <2.0 (<2.0) mg/dL Ur Leukocyte Esterase Negative (Negative) Group A Strep Rapid Negative (Negative) Blood Type Blood Type Recheck Bld Type Recheck Status Antibody Screen NICOLA, IgG Interpret NICOLA, Poly Interpret Crossmatch Spec Expiration Date 01/04/19 01/04/19 01/04/19 Range/Units 23:46 23:46 23:46 WBC (3.8-10.6) k/uL RBC (3.80-5.40) m/uL Hgb (11.4-16.0) gm/dL Hct (34.0-46.0) % MCV (80.0-100.0) fL MCH (25.0-35.0) pg MCHC (31.0-37.0) g/dL RDW (11.5-15.5) % Plt Count (150-450) k/uL Neutrophils # Differential Comment Manual Slide Review Anisocytosis PT 11.5 (9.0-12.0) sec INR 1.1 (<1.2) APTT 25.2 (22.0-30.0) sec Sodium 138 (137-145) mmol/L Potassium 3.2 L (3.5-5.1) mmol/L Chloride 106 (98-107) mmol/L Carbon Dioxide 24 (22-30) mmol/L Anion Gap 8 mmol/L BUN 21 H (7-17) mg/dL Creatinine 0.80 (0.52-1.04) mg/dL Est GFR (CKD-EPI)AfAm >90 (>60 ml/min/1.73 sqM) Est GFR (CKD-EPI)NonAf 90 (>60 ml/min/1.73 sqM) Glucose 94 (74-99) mg/dL Plasma Lactic Acid Saroj 1.5 (0.7-2.0) mmol/L Calcium 8.5 (8.4-10.2) mg/dL Total Bilirubin 1.5 H (0.2-1.3) mg/dL AST 113 H (14-36) U/L ALT 36 (9-52) U/L Alkaline Phosphatase 127 H (38-126) U/L Troponin I (0.000-0.034) ng/mL Total Protein 6.4 (6.3-8.2) g/dL Albumin 2.9 L (3.5-5.0) g/dL Urine Color Urine Appearance (Clear) Urine pH (5.0-8.0) Ur Specific [place] (1.001-1.035) Urine Protein (Negative) Urine Glucose (UA) (Negative) Urine Ketones (Negative) Urine Blood (Negative) Urine Nitrite (Negative) Urine Bilirubin (Negative) Urine Urobilinogen (<2.0) mg/dL Ur Leukocyte Esterase (Negative) Group A Strep Rapid (Negative) Blood Type Blood Type Recheck Bld Type Recheck Status Antibody Screen NICOLA, IgG Interpret NICOLA, Poly Interpret Crossmatch Spec Expiration Date 01/04/19 01/04/19 01/04/19 Range/Units 23:46 23:46 23:46 WBC (3.8-10.6) k/uL RBC (3.80-5.40) m/uL Hgb (11.4-16.0) gm/dL Hct (34.0-46.0) % MCV (80.0-100.0) fL MCH (25.0-35.0) pg MCHC (31.0-37.0) g/dL RDW (11.5-15.5) % Plt Count (150-450) k/uL Neutrophils # Differential Comment Manual Slide Review Anisocytosis PT (9.0-12.0) sec INR (<1.2) APTT (22.0-30.0) sec Sodium (137-145) mmol/L Potassium (3.5-5.1) mmol/L Chloride (98-107) mmol/L Carbon Dioxide (22-30) mmol/L Anion Gap mmol/L BUN (7-17) mg/dL Creatinine (0.52-1.04) mg/dL Est GFR (CKD-EPI)AfAm (>60 ml/min/1.73 sqM) Est GFR (CKD-EPI)NonAf (>60 ml/min/1.73 sqM) Glucose (74-99) mg/dL Plasma Lactic Acid Saroj (0.7-2.0) mmol/L Calcium (8.4-10.2) mg/dL Total Bilirubin (0.2-1.3) mg/dL AST (14-36) U/L ALT (9-52) U/L Alkaline Phosphatase (38-126) U/L Troponin I <0.012 (0.000-0.034) ng/mL Total Protein (6.3-8.2) g/dL Albumin (3.5-5.0) g/dL Urine Color Urine Appearance (Clear) Urine pH (5.0-8.0) Ur Specific [place] (1.001-1.035) Urine Protein (Negative) Urine Glucose (UA) (Negative) Urine Ketones (Negative) Urine Blood (Negative) Urine Nitrite (Negative) Urine Bilirubin (Negative) Urine Urobilinogen (<2.0) mg/dL Ur Leukocyte Esterase (Negative) Group A Strep Rapid (Negative) Blood Type A Positive Blood Type Recheck A Pos Bld Type Recheck Status No Antibody Screen NEGATIVE NICOLA, IgG Interpret Negative NICOLA, Poly Interpret Negative Crossmatch See Detail Spec Expiration Date 01/07/2019 - 3327 - EKG Data -: EKG Interpreted by [facility] EKG shows normal: sinus rhythm, axis (Normal), intervals (Normal), QRS complexes (Normal), ST-T waves (Normal) Rate: normal (Rate 96 bpm) Interpretation: normal EKG Critical Care Time Critical Care Time: Yes (35 minutes) Disposition Clinical Impression: Neutropenic fever, Hypokalemia, Anemia Disposition: ADMITTED IP TO THIS HOSP Condition: Fair Is patient prescribed a controlled substance at d/c from ED?: No
[2019-01-04] MEDS: SODIUM CHLORIDE 0.9% 500 ML 500 ML IV SCH ×2 (22:50→23:19)
[2019-01-04] MEDS: SODIUM CHLORIDE 0.9% 1,000 ML IV SCH (23:20)
[2019-01-04 23:47] LABS: Appearance,Urine Clear (Clear); Bilirubin,Urine Negative (Negative); Blood,Urine Negative (Negative); Color,Urine Yellow; Glucose,Urine (UA) Negative (Negative); Ketones,Urine Negative (Negative); Leukocyte Esterase,Urine Negative (Negative); Nitrite,Urine Negative (Negative); PH, Urine 5.5 (5.0-8.0); Protein,Urine Trace (Negative); Specific Gravity,Urine 1.018 (1.001-1.035); Urobilinogen,Urine <2.0 mg/dL (<2.0)
--- NOTE | 2019-01-04 23:56 | XR ---
EXAM: XR Chest, 2 Views CLINICAL HISTORY: ITS.REASON XR Reason: Fever TECHNIQUE: Frontal and lateral views of the chest. COMPARISON: No relevant prior studies available. FINDINGS: Lungs: Unremarkable. No consolidation. Pleural space: Unremarkable. No pneumothorax. Heart: No suspicious enlargement. Mediastinum: Unremarkable. Bones/joints: No acute fracture. IMPRESSION: No acute findings.
[2019-01-05 00:06] LABS: Anisocytosis Slight; MCH 28.5 pg (25.0-35.0); MCHC 33.8 g/dL (31.0-37.0); MCV 84.4 fL (80.0-100.0); Mean Platelet Volume 7.9; RDW 18.7 % (11.5-15.5)
[2019-01-05 00:15] LABS: INR 1.1 (<1.2); Partial Thromboplastin Time 25.2 sec (22.0-30.0); Prothrombin Time 11.5 sec (9.0-12.0)
[2019-01-05 00:20] LABS: ALT 36 U/L (9-52); AST 113 U/L (14-36); African American GFR (CKD) >90 (>60 ml/min/1.73 sqM); Albumin 2.9 g/dL (3.5-5.0); Alkaline Phosphatase 127 U/L (38-126); Anion Gap 8 mmol/L; Blood Urea Nitrogen 21 mg/dL (7-17); Calcium 8.5 mg/dL (8.4-10.2); Carbon Dioxide 24 mmol/L (22-30); Chloride 106 mmol/L (98-107); Glucose 94 mg/dL (74-99); Potassium 3.2 mmol/L (3.5-5.1); Sodium 138 mmol/L (137-145); Total Bilirubin 1.5 mg/dL (0.2-1.3); Total Protein 6.4 g/dL (6.3-8.2)
[2019-01-05 00:31] LABS: WBC 0.3 k/uL (3.8-10.6)
[2019-01-05] MEDS ORDERED: CEFEPIME 2 GM in SODIUM CHLORIDE 0.9% 100 ML IVPB STA (00:44)
[2019-01-05 00:46] LABS: Platelet Count 48 k/uL (150-450)
[2019-01-05] MEDS ORDERED: NALOXONE 0.4 MG/ML 1 ML VIAL IV PRN (00:56)
[2019-01-05] MEDS ORDERED: POTASSIUM CHLORIDE ER 20 MEQ TAB.ER PO STA (01:00)
[2019-01-05 01:07] LABS: HCT 17.6 % (34.0-46.0); HGB 5.8 gm/dL (11.4-16.0)
[2019-01-05] MEDS ORDERED: POLYETHYLENE GLYCOL 3350 17 GM POWD.PACK PO PRN (01:56)
[2019-01-05] MEDS ORDERED: VANCOMYCIN IV PER PHARMACY 1 EACH MISC MISCELLANE PRN (01:56)
[2019-01-05] MEDS ORDERED: VANCOMYCIN 2,000 MG in SODIUM CHLORIDE 0.9% 500 ML 500 ML IVPB STA (01:57)
[2019-01-05] MEDS ORDERED: ALPRAZolam 0.5 MG TAB PO STA (01:58)
--- NOTE | 2019-01-05 02:02 | P.HPIM ---
History of Present Illness H&P Date: 01/05/19 Chief Complaint: fever 43 year old female with stage IV pancreatic cancer on chemotherapy patient comes in today , upon recommendations of her oncologist , due to having a fever, she reports sick contact with her daughter who was diagnosed with strep throat. patient reports vague generalized body aches and malaise. she received a unit of blood yesterday , and plan was to follow up with oncologist for possibly get more units as needed. Patient reports abdominal pain that is chronic in nature mainly left upper quadrant sharp stabbing pain 6-7 out of 10 in severity comes and goes. She denies any oral thrush runny nose or sore throat denies any chest pain or troub le breathing or coughing denies any diarrhea or vomiting denies any changes in her urinary habits denies any rashes. Review of Systems Pertinent positives as noted in HPI. All other systems were reviewed and are negative Past Medical History Past Medical History: Cancer, Hypertension, Osteoarthritis (OA) Additional Past Medical History / Comment(s): Cardiac murmur, chronic low back pain, UTI, constipation. PANCREATIC Cancer History of Any Multi-Drug Resistant Organisms: None Reported Past Surgical History: Section Past Anesthesia/Blood Transfusion Reactions: No Reported Reaction Past Psychological History: No Psychological Hx Reported Smoking Status: Never smoker Past Alcohol Use History: None Reported Past Drug Use History: None Reported - Past Family History Mother Family Medical History: Dementia, Vascular Disorder Additional Family Medical History / Comment(s): Mother had appendicitis that went undiagnosed for VERN chavez. Patient's maternal grandmother had breast cancer around the age of 50 Father Family Medical History: No Reported History Additional Family Medical History / Comment(s): Father is healthy Medications and Allergies Home Medications Medication Instructions Recorded Confirmed Type Polyethylene Glycol 3350 [Miralax] 17 gm PO DAILY PRN 10/25/18 01/04/19 History Sertraline [Zoloft] 50 mg PO DAILY 10/25/18 01/04/19 History Potassium Chloride ER [K-Dur 20] 40 meq PO DAILY #60 tab 10/29/18 01/04/19 Rx Magnesium Oxide [Mag-Ox] 200 mg PO BID 12/11/18 01/04/19 History Ondansetron HCl [Zofran] 4 mg PO Q8H PRN 12/11/18 01/04/19 History traMADol HCL [Ultram] 50 mg PO Q6HR PRN 12/11/18 01/04/19 History Acetaminophen [Tylenol Extra 1,000 mg PO TID PRN 01/04/19 01/04/19 History Strength] Furosemide [Lasix] 20 mg PO BID 01/04/19 01/04/19 History Allergies Allergy/AdvReac Type Severity Reaction Status Date / Time No Known Allergies Allergy Verified 01/04/19 22:13 Physical Exam Vitals: Vital Signs Temp Pulse Resp BP Pulse Ox 01/05/19 00:02 98.8 F 92 18 140/60 98 01/04/19 21:46 100.9 F H 100 16 103/69 98 Intake and Output 01/04/19 01/04/19 01/05/19 14:59 22:59 06:59 Other: Weight 156.716 kg Constitutional: No acute distress, conversant, pleasant Eyes: Anicteric sclerae, moist conjunctiva, no lid-lag Pupils equal round reactive to light ENMT: NC/AT Oropharynx clear, no erythema, no oral thrush or exudates Neck: Supple, FROM, no masses, or JVD No carotid bruits No thyromegaly Lungs: Clear to auscultation Clear to percussion Normal respiratory effort, no accessory muscle use Cardiovascular: Heart regular in rate and rhythm, Systolic murmur, no gallops, or rubs Bilateral peripheral edema +1, Abdominal: Soft, diffuse tenderness to deep palpation of the abdomen, Gutiérrez sign positive No rebound tenderness or rigidity Abdomen moving with respiration Normoactive bowel sounds No hepatomegaly, No splenomegaly No palpable mass No abdominal wall hernia noted Skin: Normal temperature, tone, texture, turgor No induration No subcutaneous nodules No rash, lesions No ulcers Extremities: No digital cyanosis No clubbing Pedal pulses intact and symmetrical Radial pulses intact and symmetrical No calf tenderness Psychiatric: Alert and oriented to person, place and time Appropriate affect fair judgment Neuro Muscles Strength 5/5 in all 4 extremities Sensation to light touch grossly present throughout Cranial nerves II-XII grossly intact No focal sensory deficits Lymphatics: no palpable cervical or supraclavicular , or inguinal lymph nodes Results CBC & Chem 7: 01/04/19 23:46 01/04/19 23:46 Labs: Abnormal Lab Results - Last 24 Hours (Table) 0801/04/19 01/04/19 Range/Units 23:21 23:46 23:46 WBC 0.3 L* (3.8-10.6) k/uL RBC 2.10 L (3.80-5.40) m/uL RDW 18.7 H (11.5-15.5) % Plt Count 48 L D (150-450) k/uL Potassium 3.2 L (3.5-5.1) mmol/L BUN 21 H (7-17) mg/dL Total Bilirubin 1.5 H (0.2-1.3) mg/dL AST 113 H (14-36) U/L Alkaline Phosphatase 127 H (38-126) U/L Albumin 2.9 L (3.5-5.0) g/dL Urine Protein Trace H (Negative) Assessment and Plan Assessment: 43-year-old female with history of pancreatic cancer on chemotherapy admitted as inpatient with anticipated length of stay more than 48 hours due to neutropenic fever patient was started on IV antibiotic further investigation was done to rule out infectious process Patient has slightly elevated liver enzymes, during her last hospitalization she was found to have cholecystitis however was managed conservatively and surgery recommended against performing any surgery due to patient being high risk Plan: Sepsis secondary to neutropenic fever Follow-up cultures Started on cefepime IV fluid hydration Follow-up labs and vital signs Negative rapid strep test, follow-up cultures Pancytopenia Follow-up hemoglobin level transfuse as needed for hemoglobin less than 7 or symptomatic Hypokalemia replace and follow up levels Recent history of cholecystitis managed conservatively Follow-up abdominal ultrasound limited to evaluate gallbladder Hypertension continue home meds DVT prophylaxis mechanical due to thrombocytopenia Preformed a thorough record review from recent hospitalization frequent hospitalization with neutropenic fever Surrogate decision-maker: Brother CODE STATUS: Full code Discussed with: Patient, ER, RN Anticipated discharge: 48-[address]: Home A total of 60* minutes was spent on the care of this complex patient more than 50% of the time was spent in counseling and care coordination.
[2019-01-05] MEDS: ACETAMINOPHEN TAB 325 MG TAB PO PRN (05:53)
[2019-01-05 06:00] VITALS: BMI 51.0
[2019-01-05] MEDS: ONDANSETRON 4 MG/2 ML VIAL IVP PRN ×2 (06:11→13:57)
[2019-01-05] MEDS: MORPHINE SULFATE 4 MG/ML SYRINGE IV PRN ×2 (06:20→13:57)
[2019-01-05] MEDS: SODIUM CHLORIDE 0.9% 1,000 ML IV SCH (10:22)
[2019-01-05] MEDS: CEFEPIME 2 GM in SODIUM CHLORIDE 0.9% 100 ML IVPB SCH ×2 (10:23→18:26)
[2019-01-05] MEDS: POTASSIUM CHLORIDE ER 20 MEQ TAB.ER PO SCH (10:24)
[2019-01-05] MEDS: SERTRALINE 50 MG TAB PO SCH (10:24)
[2019-01-05] MEDS: FAMOTIDINE 20 MG TAB PO SCH ×2 (10:24→20:38)
[2019-01-05] MEDS: MAGNESIUM OXIDE 400 MG TAB PO SCH ×2 (10:24→20:38)
[2019-01-05 11:29] LABS: African American GFR (CKD) >90 (>60 ml/min/1.73 sqM); Anion Gap 10 mmol/L; Anisocytosis Slight; Blood Urea Nitrogen 20 mg/dL (7-17); Calcium 8.2 mg/dL (8.4-10.2); Carbon Dioxide 21 mmol/L (22-30); Chloride 108 mmol/L (98-107); Glucose 108 mg/dL (74-99); MCH 26.8 pg (25.0-35.0); MCHC 31.3 g/dL (31.0-37.0); MCV 85.5 fL (80.0-100.0); Mean Platelet Volume 7.1; Potassium 3.6 mmol/L (3.5-5.1); RBC 2.12 m/uL (3.80-5.40); RDW 18.3 % (11.5-15.5); Sodium 139 mmol/L (137-145)
[2019-01-05 11:33] LABS: HCT 18.1 % (34.0-46.0); HGB 5.7 gm/dL (11.4-16.0); Platelet Count 37 k/uL (150-450); WBC 0.4 k/uL (3.8-10.6)
[2019-01-05 12:59] LABS: Poikilocytosis (M) Present
[2019-01-05] MEDS: 0.9% NACL WITH KCL 20 MEQ/L 1,000 ML IV SCH ×2 (13:53→22:51)
[2019-01-05] MEDS: VANCOMYCIN 2,250 MG in SODIUM CHLORIDE 0.9% 500 ML 500 ML IVPB SCH (13:58)
--- NOTE | 2019-01-05 16:48 | P.PN ---
Progress Note - Text Progress Note Date: 01/05/19 43-year-old female with PMH of pancreatic cancer with metastatic disease to the liver, hypertension, chronic lower back pain presents for fevers and generalized body aches and malaise. Patient was recently hospitalized, diagnosed with cholecystitis, treated with antibiotics with surgery recommended against surgical intervention. Patient was seen. Please refer to H&P for full documentation. Patient reports fatigue and generalized abdominal pain. Pain is 7-8 out of 10 in severity. Patient also reports myalgias and soreness throughout her body. Had a bowel movement today. She denies any chest pain, shortness of breath or palpitations. On admission, hemoglobin was 5.8. She was transfused 1 unit of PRBC and repeat hemoglobin was 5.7. Her blood pressure has been running low. T-max is 100.9 Fahrenheit yesterday. Patient has a systolic murmur on cardiac exam. She is tachycardic to 101. Her lungs are clear to auscultation. Her abdomen is tender in all 4 quadrants without rebound. Her abdomen appears distended. Positive bowel sounds. She does have lower extremity edema. We will continue vancomycin and cefepime for concerns of neutropenic fever. Tylenol as needed for fever. Morphine or tramadol as needed for pain. We will order CT of the abdomen and pelvis to rule out intra-abdominal pathology. Follow ID consultation Her hemoglobin has not been going up with 1 unit PRBC. Concerns for hemolysis or bleeding as patient has low platelet count. Follow hemolytic labs. Follow Heme-Onc consultation.
[2019-01-05] MEDS: traMADol 50 MG TAB PO PRN (18:27)
--- NOTE | 2019-01-05 18:36 | CT ---
EXAMINATION TYPE: CT abdomen pelvis wo con DATE OF EXAM: 01/05/2019 COMPARISON: Chest abdomen and pelvis 10/26/2018 INDICATION: abdominal pain and distention DLP: 2812.3 mGycm, Automated exposure control for dose reduction was used. CONTRAST: 0 mL of Isovue 300. Study performed without Oral Contrast TECHNIQUE: Axial images were obtained from above the diaphragm to the pubic rami in the axial plane a t 5 mm thick sections. Reconstructed images are reviewed on the computer in the coronal plane. FINDINGS: Limited CT sections are obtained the lung bases. There is patchy peripheral based densities greater on the right middle lobe.. CT ABDOMEN: Small amount of ascites is adjacent to the liver. Small amount of fluid is also adjacent to the spleen. Liver: The patchy appearance on the previous study is not as apparent on this noncontrast study. The patchy suspicious appearance is better visualized near the diaphragm on this exam. Spleen: Normal Pancreas: Normal Adrenal glands: The adrenal glands are normal. Gallbladder: Full gallstones are present. Kidneys: No masses are evident. No hydronephrosis is present. No cysts are present. No renal stone s are evident. Aorta: Normal Inferior vena cava: Normal. CT PELVIS: There is a periumbilical hernia containing mesenteric fat. This also contains a large flui d collection measuring 7.7 cm transverse by 5.1 cm AP. Loops of bowel within the abdomen and pelvis are normal. This study is performed without oral con trast limiting bowel evaluation. Appendix: Not visualized. No suspicious inflammatory changes are evident. Urinary bladder: Partially decompressed but otherwise unremarkable. Genitourinary structures: IUD is within the uterus. Fibroid may be at the body of the uterus on the r ight. Adnexal regions appear normal. Osseous structures: Lytic lesions are within the medial right iliac wing adjacent to the sacroiliac j oint. Some sacral alar metastatic lytic lesion may also be present. IMPRESSIONS: 1. Mild ascites. 2. Fluid-filled periumbilical hernia discussed above. 3. Cholelithiasis. 4. Lytic lesions within the medial right iliac wing.
[2019-01-05 19:00] LABS: Anisocytosis Slight; Hypochromasia Slight; MCH 28.8 pg (25.0-35.0); MCV 87.3 fL (80.0-100.0); RBC 2.52 m/uL (3.80-5.40); RDW 18.6 % (11.5-15.5)
[2019-01-05 19:07] LABS: WBC 0.6 k/uL (3.8-10.6)
[2019-01-05 19:08] LABS: HGB 7.3 gm/dL (11.4-16.0); Platelet Count 33 k/uL (150-450)
[2019-01-05] MEDS ORDERED: ANIDULAFUNGIN 200 MG in SODIUM CHLORIDE 0.9% 200 ML IVPB ONE (20:44)
--- NOTE | 2019-01-05 23:21 | P.CONS ---
History of Present Illness - Reason for Consult Consult date: 01/05/19 febrile neutropenia - History of Present Illness The patient is a 43-year-old white female, well known to our service. She was initially seen in consultation in late 10/27. She had been admitted with multiple complaints, including abdominal pain, weakness, nausea, with hypercalcemia and hypokalemia. Her workup revealed evidence of multiple lesions in the liver suggestive of metastatic malignancy. Lesions were also seen in the bone, which were however negative on further workup. The patient underwent a liver biopsy revealing metastatic adenocarcinoma that was poorly differentiated, with multiple primary sites possible, including upper GI, pancreatobiliary, endometrial and ovarian as well as less likely breast. She did have a mammogram and breast ultrasound which was negative. The patient was seen by Dr. Hartman in the office and started on chemotherapy, weekly with gemcitabine and cisplatin. she was admitted after cycle 1 with severe pancytopenia and sepsis due to UTI. She is now status post cycle 2, with treatment given on 12/31/18. She received pegylated G-CSF on 01/03/19 The patient had developed intermittent fevers over the last 24-36 hours with highest temperature 100.7. He therefore came into the emergency room and was found to have a WBC of 0.3. She was therefore admitted for further management She denied any specific localizing signs. Associated symptoms include chills a nd fatigue. Review of Systems Constitutional: Reports chronic pain, Reports fever, Reports poor appetite Eyes: denies blurred vision, denies pain Ears: deny: decreased hearing, ear discharge, earache, tinnitus Ears, nose, mouth and throat: Denies headache, Denies sore throat Cardiovascular: Reports decreased exercise tolerance Respiratory: Denies cough Gastrointestinal: Reports abdominal pain Genitourinary: Denies dysuria, Denies hematuria Musculoskeletal: Reports muscle weakness Integumentary: Reports as per HPI Neurological: Reports as per HPI, Reports weakness Psychiatric: Denies anxiety, Denies depression Endocrine: Reports fatigue Hematologic/Lymphatic: Reports as per HPI Past Medical History Past Medical History: Cancer, Hypertension, Osteoarthritis (OA) Additional Past Medical History / Comment(s): Cardiac murmur, chronic low back pain, UTI, constipation. PANCREATIC Cancer History of Any Multi-Drug Resistant Organisms: None Reported Past Surgical History: Section Additional Past Surgical History / Comment(s): IUD, biopsy of liver. Past Anesthesia/Blood Transfusion Reactions: No Reported Reaction Past Psychological History: No Psychological Hx Reported Smoking Status: Never smoker Past Alcohol Use History: None Reported Past Drug Use History: None Reported - Past Family History Mother Family Medical History: Dementia, Vascular Disorder Additional Family Medical History / Comment(s): Mother had appendicitis that went undiagnosed for awVERN stein. Patient's maternal grandmother had breast cancer around the age of 50 Father Family Medical History: No Reported History Additional Family Medical History / Comment(s): Father is healthy Medications and Allergies Home Medications Medication Instructions Recorded Confirmed Type Polyethylene Glycol 3350 [Miralax] 17 gm PO DAILY PRN 10/25/18 01/04/19 History Sertraline [Zoloft] 50 mg PO DAILY 10/25/18 01/04/19 History Potassium Chloride ER [K-Dur 20] 40 meq PO DAILY #60 tab 10/29/18 01/04/19 Rx Magnesium Oxide [Mag-Ox] 200 mg PO BID 12/11/18 01/04/19 History Ondansetron HCl [Zofran] 4 mg PO Q8H PRN 12/11/18 01/04/19 History traMADol HCL [Ultram] 50 mg PO Q6HR PRN 12/11/18 01/04/19 History Acetaminophen [Tylenol Extra 1,000 mg PO TID PRN 01/04/19 01/04/19 History Strength] Furosemide [Lasix] 20 mg PO BID 01/04/19 01/04/19 History Allergies Allergy/AdvReac Type Severity Reaction Status Date / Time No Known Allergies Allergy Verified 01/04/19 22:13 Physical Exam Vitals: Vital Signs Temp Pulse Pulse Resp BP BP Pulse Ox 01/05/19 11:58 98.6 F 88 16 94/58 97 01/05/19 09:15 18 01/05/19 07:30 99 F 101 H 18 115/56 92 L 01/05/19 07:00 99 F 101 H 18 115/56 92 L 01/05/19 02:50 98.8 F 108 H 16 141/63 98 01/05/19 02:30 99 F 01/05/19 02:22 90 18 124/63 98 01/05/19 00:02 98.8 F 92 18 140/60 98 01/04/19 21:46 100.9 F H 100 16 103/69 98 Intake and Output 01/04/19 01/05/19 01/05/19 22:59 06:59 14:59 Intake Total 878 310 Balance 878 310 Intake: Intake, IV Titration 878 Amount Sodium Chloride 0.9% 1, 378 000 ml @ 126 mls/hr IV . Q7H57M [facility] Rx#:[id number] Vancomycin 2,000 mg In 500 Sodium Chloride 0.9% 500 ml 500 ml @ 167 mls/hr IVPB ONCE [facility] Rx#: [id number] Blood Product 310 Rc As-1 Unit 310 [id number] Other: Voiding Method Toilet # Voids 1 Weight 156.716 kg 156.716 kg - Constitutional General appearance: no acute distress - EENT Eyes: EOMI, PERRLA - Neck Neck: no lymphadenopathy, other Thyroid: right: firm - Respiratory Respiratory: bilateral: CTA - Cardiovascular Rhythm: regular Heart sounds: normal: S1, S2 - Integumentary Integumentary: normal - Neurologic Neurologic: CNII-XII intact - Musculoskeletal Musculoskeletal: generalized weakness, strength equal bilaterally Results CBC & Chem 7: 01/05/19 18:34 01/05/19 18:34 Labs: Abnormal Lab Results - Last 24 Hours (Table) 01/04/19 01/04/19 01/04/19 Range/Units 23:21 23:46 23:46 WBC 0.3 L* (3.8-10.6) k/uL RBC 2.10 L (3.80-5.40) m/uL Hgb 5.8 L* D (11.4-16.0) gm/dL Hct 17.6 L* (34.0-46.0) % RDW 18.7 H (11.5-15.5) % Plt Count 48 L D (150-450) k/uL Potassium 3.2 L (3.5-5.1) mmol/L Chloride (98-107) mmol/L Carbon Dioxide (22-30) mmol/L BUN 21 H (7-17) mg/dL Glucose (74-99) mg/dL Calcium (8.4-10.2) mg/dL Total Bilirubin 1.5 H (0.2-1.3) mg/dL AST 113 H (14-36) U/L Alkaline Phosphatase 127 H (38-126) U/L Albumin 2.9 L (3.5-5.0) g/dL Urine Protein Trace H (Negative) Crossmatch 01/04/19 01/05/19 01/05/19 Range/Units 23:46 10:48 10:48 WBC 0.4 L* (3.8-10.6) k/uL RBC 2.12 L (3.80-5.40) m/uL Hgb 5.7 L* (11.4-16.0) gm/dL Hct 18.1 L* (34.0-46.0) % RDW 18.3 H (11.5-15.5) % Plt Count 37 L (150-450) k/uL Potassium (3.5-5.1) mmol/L Chloride 108 H (98-107) mmol/L Carbon Dioxide 21 L (22-30) mmol/L BUN 20 H (7-17) mg/dL Glucose 108 H (74-99) mg/dL Calcium 8.2 L (8.4-10.2) mg/dL Total Bilirubin (0.2-1.3) mg/dL AST (14-36) U/L Alkaline Phosphatase (38-126) U/L Albumin (3.5-5.0) g/dL Urine Protein (Negative) Crossmatch See Detail Chest x-ray: report reviewed Assessment and Plan (1) Neutropenic fever Narrative/Plan: The patient had similar symptoms after cycle 1. He received growth factors after cycle 2 but has again developed neutropenia with fever. She has no localizing signs of infection Case was discussed with the emergency room physician. Cultures have been sent and are negative so far. Continue cefepime and vancomycin. WBC is is quite low, but the patient received pegylated G-CSF on 01/03/19. Therefore there would be no benefit from giving additional short-acting G-CSF detail about 01/13/19 Current Visit: Yes Status: Acute Priority: High Code(s): D70.9 - NEUTROPENIA, UNSPECIFIED; R50.81 - FEVER PRESENTING WITH CONDITIONS CLASSIFIED ELSEWHERE SNOMED Code(s): 244034554 (2) Abdominal pain Narrative/Plan: This is partially improved since starting chemotherapy. Continue current pain management regimen Current Visit: No Status: Acute Priority: High Code(s): R10.9 - UNSPECIFIED ABDOMINAL PAIN SNOMED Code(s): 64546043 (3) Pancytopenia due to antineoplastic chemotherapy Narrative/Plan: Patient has already received G-CSF as an outpatient as noted. Hemoglobin and platelets are currently in a safe range. Continue to monitor with transfusion as needed to keep hemoglobin greater than 7 and plt >10, unless actively bleeding Current Visit: Yes Status: Acute Code(s): D61.810 - ANTINEOPLASTIC CHEMOTHERAPY INDUCED PANCYTOPENIA; T45.1X5A - ADVERSE EFFECT OF ANTINEOPLASTIC AND IMMUNOSUP DRUGS, INIT SNOMED Code(s): 761819015217003
--- NOTE | 2019-01-05 23:24 | P.CONS ---
History of Present Illness - Reason for Consult Consult date: 01/05/19 - Chief Complaint Fever and weakness - History of Present Illness 43-year-old female who has a relatively recent significant past medical history. She was not feeling well having some weight loss associated with fevers chills abdominal pain and generalized malaise. She was admitted to hospital and workup was initiated at that point and there was evidence of metastatic disease involving her liver and skeleton. Extensive workup was performed and liver biopsy revealed evidence of metastatic adenocarcinoma. The primary site of the cancer has not been characterized by the available data from the oncologist. Review of the records revealed evidence of the computed tomography scan, as well as ultrasounds that do not clarify a primary site of malignancy. The patient herself however relates that she thinks she has pancreatic cancer as her primary. She has been initiated to chemotherapy and has received 3 cycles and has now developed another episode of febrile neutropenia, and it's related that she did receive Neulasta in the office on Thursday. The patient feels poorly with fever chills malaise, poor appetite and progressive fatigue. His related since her office visit on Thursday she has worsened, has required transfusion because of her progressive anemia, has thrombocytopenia but apparently is not receiving platelets today and does have some difficulty with discomfort to oral cavity but is not having significant ulceration or oozing of her oral cavity. Evaluation of the febrile neutropenia is requested. Review of Systems HEENT:Denies headache or acute visual change. Denies neck stiffness. As noted oral cavity is mildly uncomfortable, the teeth are sore. Oral cavity is just minimally uncomfortable. Lungs: Denies significant shortness of breath, cough, sputum production, or hemoptysis. Cardiovascular: Denies significant shortness of breath, chest pain, chest wall pain, orthopnea, dyspnea on exertion, syncope Gastrointestinal:Denies nausea, vomiting, hematemesis, melena, hematochezia. Has had at least 5 loose stools today. And does have ongoing abdominal pain. Musculoskeletal: denies significant myalgias or arthralgias. No new joint swelling. Denies new back pain. Skin: Denies new rash or lesions. No new ulcers or wounds are related.. Neuro: Denies headache or visual change. Denies any new onset weakness or d ifficulty with ambulation. Denies falls or seizures. Psychiatric: Does not have anxiety but is having some situational depression. Endocrine: Denies significant fatigue, is starting to have some weight loss Past Medical History Past Medical History: Cancer, Hypertension, Osteoarthritis (OA) Additional Past Medical History / Comment(s): Cardiac murmur, chronic low back pain, UTI, constipation. PANCREATIC Cancer History of Any Multi-Drug Resistant Organisms: None Reported Past Surgical History: Section Additional Past Surgical History / Comment(s): IUD, biopsy of liver. Past Anesthesia/Blood Transfusion Reactions: No Reported Reaction Past Psychological History: No Psychological Hx Reported Additional Psychological History / Comment(s): patient resides with her 2 children, ages 14 and 16yrs. She is independent. Is becoming disabled from [employer]. No experience. No tobacco or alcohol use. Single. 2 brothers live close by. Relates to a strong family support system. No experience. No international travel. Pet dog and cat at home Smoking Status: Never smoker Past Alcohol Use History: None Reported Past Drug Use History: None Reported - Past Family History Mother Family Medical History: Dementia, Vascular Disorder Additional Family Medical History / Comment(s): Mother had appendicitis that went undiagnosed for VERN chavez. Patient's maternal grandmother had breast cancer around the age of 50 Father Family Medical History: No Reported History Additional Family Medical History / Comment(s): Father is healthy Medications and Allergies Home Medications and Allergies Comment(s): Current Medications Acetaminophen (Tylenol Tab) 650 mg PO Q4H PRN PRN Reason: PAIN OR FEVER Last Admin: 01/05/19 05:53 Dose: 650 mg Documented by: Famotidine (Pepcid) 20 mg PO BID [facility] Last Admin: 01/05/19 20:38 Dose: 20 mg Documented by: Cefepime HCl 2 gm/ Sodium (Chloride) 100 mls @ 200 mls/hr IVPB Q8H [facility] Last Admin: 01/05/19 18:26 Dose: 200 mls/hr Documented by: Vancomycin HCl 2,250 mg/ (Sodium Chloride) 500 mls @ 167 mls/hr IVPB Q12H [facility] Last Admin: 01/05/19 13:58 Dose: 167 mls/hr Documented by: Potassium Chloride/Sodium Chloride (Ns-Kcl 20 Meq/L Iv Solution) 1,000 mls @ 125 mls/hr IV .Q8H [facility] Last Admin: 01/05/19 22:51 Dose: 125 mls/hr Documented by: Anidulafungin 100 mg/ Sodium (Chloride) 100 mls @ 84 mls/hr IVPB DAILY [facility] Magnesium Oxide (Mag-Ox) 200 mg PO BID [facility] Last Admin: 01/05/19 20:38 Dose: 200 mg Documented by: Morphine Sulfate (Morphine Sulfate (Inj)) 4 mg IV Q4HR PRN PRN Reason: Severe Pain Last Admin: 01/05/19 13:57 Dose: 4 mg Documented by: Naloxone HCl (Narcan) 0.2 mg IV Q2M PRN PRN Reason: Opioid Reversal Ondansetron HCl (Zofran) 4 mg IVP Q8HR PRN PRN Reason: Nausea And Vomiting Last Admin: 01/05/19 13:57 Dose: 4 mg Documented by: Polyethylene Glycol (Miralax) 17 gm PO DAILY PRN PRN Reason: Constipation Last Admin: 01/05/19 20:38 Dose: 17 gm Documented by: Potassium Chloride (K-Dur 20) 40 meq PO DAILY [facility] Last Admin: 01/05/19 10:24 Dose: 40 meq Documented by: Sertraline HCl (Zoloft) 50 mg PO DAILY [facility] Last Admin: 01/05/19 10:24 Dose: 50 mg Documented by: Tramadol HCl (Ultram) 50 mg PO Q6HR PRN PRN Reason: Pain Last Admin: 01/05/19 18:27 Dose: 50 mg Documented by: Home Medications Medication Instructions Recorded Confirmed Type Polyethylene Glycol 3350 [Miralax] 17 gm PO DAILY PRN 10/25/18 01/04/19 History Sertraline [Zoloft] 50 mg PO DAILY 10/25/18 01/04/19 History Potassium Chloride ER [K-Dur 20] 40 meq PO DAILY #60 tab 10/29/18 01/04/19 Rx Magnesium Oxide [Mag-Ox] 200 mg PO BID 12/11/18 01/04/19 History Ondansetron HCl [Zofran] 4 mg PO Q8H PRN 12/11/18 01/04/19 History traMADol HCL [Ultram] 50 mg PO Q6HR PRN 12/11/18 01/04/19 History Acetaminophen [Tylenol Extra 1,000 mg PO TID PRN 01/04/19 01/04/19 History Strength] Furosemide [Lasix] 20 mg PO BID 01/04/19 01/04/19 History Allergies Allergy/AdvReac Type Severity Reaction Status Date / Time No Known Allergies Allergy Verified 01/04/19 22:13 Physical Exam Vitals: Vital Signs Temp Pulse Pulse Resp BP BP BP 01/05/19 19:57 98.9 F 88 18 102/61 01/05/19 17:35 98.1 F 97 17 115/68 01/05/19 16:00 16 01/05/19 14:52 98.3 F 92 16 99/61 01/05/19 14:31 98.3 F 92 16 99/61 01/05/19 14:01 98.5 F 91 18 104/58 01/05/19 13:51 98.6 F 92 16 106/64 01/05/19 11:58 98.6 F 88 16 94/58 01/05/19 09:15 18 01/05/19 07:30 99 F 101 H 18 115/56 01/05/19 07:00 99 F 101 H 18 115/56 01/05/19 02:50 98.8 F 108 H 16 141/63 01/05/19 02:30 99 F 01/05/19 02:22 90 18 124/63 01/05/19 00:02 98.8 F 92 18 140/60 Pulse Ox 01/05/19 19:57 96 01/05/19 17:35 96 01/05/19 16:00 01/05/19 14:52 94 L 01/05/19 14:31 94 L 01/05/19 14:01 95 01/05/19 13:51 95 01/05/19 11:58 97 01/05/19 09:15 01/05/19 07:30 92 L 01/05/19 07:00 92 L 01/05/19 02:50 98 01/05/19 02:30 01/05/19 02:22 98 01/05/19 00:02 98 Intake and Output 01/05/19 01/05/19 01/06/19 14:59 22:59 06:59 Intake Total 2455 550 Balance 2455 550 Intake: Intake, IV Titration 1495 Amount Cefepime 2 gm In Sodium 100 Chloride 0.9% 100 ml @ 200 mls/hr IVPB Q8H [facility] Rx#:[id number] Sodium Chloride 0.9% 1, 895 000 ml @ 126 mls/hr IV . Q7H57M [facility] Rx#:[id number] Vancomycin 2,250 mg In 500 Sodium Chloride 0.9% 500 ml 500 ml @ 167 mls/hr IVPB Q12H [facility] Rx#: [id number] Oral 650 240 Blood Product 310 310 Rc As-1 Unit 310 [id number] Rc As-3 Unit 0 310 [id number] Other: Voiding Method Toilet Toilet # Voids 4 Weight 156.716 kg 43-year-old woman with obesity HEENT: Anicteric conjunctiva are pink and moist nasal mucosa grossly intact without significant lesions, there is no thrush.is mildly irritated. Neck: The neck is supple without significant lymphadenopathy or thyromegaly. Lungs: Good bilateral air entry without significant crackles or wheezing. There is no significant bronchial sounds. There is no egophony or dullness. Heart: Regular rate and rhythm with an audible S1-S2, no S3 no S4. There is no significant murmur click or rub, PMI was nondisplaced. Abdomen: Positive bowel sounds soft Diffuse abdominal tenderness, organomegaly is noted. No other intra-abdominal masses are noted. No rigidity is noted. Extremities: The upper extremities have excellent pulses they are symmetric, no significant petechiae or telangiectasia. No splinter hemorrhages were noted. The lower extremities are free from significant edema. The peripheral pulses were 2+ and symmetric. Neuro: Awake alert oriented to person place and time. There are no acute new gross focal sensory motor deficits. Results CBC & Chem 7: 01/05/19 18:34 01/05/19 18:34 Labs: Abnormal Lab Results - Last 24 Hours (Table) 01/04/19 01/04/19 01/04/19 Range/Units 23:21 23:46 23:46 WBC 0.3 L* (3.8-10.6) k/uL RBC 2.10 L (3.80-5.40) m/uL Hgb 5.8 L* D (11.4-16.0) gm/dL Hct 17.6 L* (34.0-46.0) % RDW 18.7 H (11.5-15.5) % Plt Count 48 L D (150-450) k/uL Potassium 3.2 L (3.5-5.1) mmol/L Chloride (98-107) mmol/L Carbon Dioxide (22-30) mmol/L BUN 21 H (7-17) mg/dL Glucose (74-99) mg/dL Calcium (8.4-10.2) mg/dL Total Bilirubin 1.5 H (0.2-1.3) mg/dL AST 113 H (14-36) U/L Alkaline Phosphatase 127 H (38-126) U/L Albumin 2.9 L (3.5-5.0) g/dL Urine Protein Trace H (Negative) Crossmatch 01/04/19 01/05/19 01/05/19 Range/Units 23:46 10:48 10:48 WBC 0.4 L* (3.8-10.6) k/uL RBC 2.12 L (3.80-5.40) m/uL Hgb 5.7 L* (11.4-16.0) gm/dL Hct 18.1 L* (34.0-46.0) % RDW 18.3 H (11.5-15.5) % Plt Count 37 L (150-450) k/uL Potassium (3.5-5.1) mmol/L Chloride 108 H (98-107) mmol/L Carbon Dioxide 21 L (22-30) mmol/L BUN 20 H (7-17) mg/dL Glucose 108 H (74-99) mg/dL Calcium 8.2 L (8.4-10.2) mg/dL Total Bilirubin (0.2-1.3) mg/dL AST (14-36) U/L Alkaline Phosphatase (38-126) U/L Albumin (3.5-5.0) g/dL Urine Protein (Negative) Crossmatch See Detail 01/05/19 Range/Units 18:34 WBC 0.6 L* (3.8-10.6) k/uL RBC 2.52 L (3.80-5.40) m/uL Hgb 7.3 L D (11.4-16.0) gm/dL Hct 22.0 L (34.0-46.0) % RDW 18.6 H (11.5-15.5) % Plt Count 33 L (150-450) k/uL Potassium (3.5-5.1) mmol/L Chloride (98-107) mmol/L Carbon Dioxide (22-30) mmol/L BUN (7-17) mg/dL Glucose (74-99) mg/dL Calcium (8.4-10.2) mg/dL Total Bilirubin (0.2-1.3) mg/dL AST (14-36) U/L Alkaline Phosphatase (38-126) U/L Albumin (3.5-5.0) g/dL Urine Protein (Negative) Crossmatch Laboratory Results WBC 0.6 k/uL (3.8-10.6) L* 01/05/19 18:34 RBC 2.52 m/uL (3.80-5.40) L 01/05/19 18:34 Hgb 7.3 gm/dL (11.4-16.0) L D 01/05/19 18:34 Hct 22.0 % (34.0-46.0) L 01/05/19 18:34 MCV 87.3 fL (80.0-100.0) 01/05/19 18:34 MCH 28.8 pg (25.0-35.0) 01/05/19 18:34 MCHC 33.0 g/dL (31.0-37.0) 01/05/19 18:34 RDW 18.6 % (11.5-15.5) H 01/05/19 18:34 Plt Count 33 k/uL (150-450) L 01/05/19 18:34 Neutrophils % [employer] 01/05/19 10:48 Lymphocytes % [employer] 01/05/19 10:48 Monocytes % [employer] 01/05/19 10:48 Eosinophils % [employer] 01/05/19 10:48 Basophils % [employer] 01/05/19 10:48 Neutrophils # [employer] 01/05/19 10:48 Lymphocytes # [employer] 01/05/19 10:48 Monocytes # [employer] 01/05/19 10:48 Eosinophils # [employer] 01/05/19 10:48 Basophils # [employer] 01/05/19 10:48 Differential Comment 01/05/19 10:48 Manual Slide Review Performed 01/05/19 10:48 Hypochromasia Slight 01/05/19 18:34 Poikilocytosis (manual Present 01/05/19 10:48 Anisocytosis Slight 01/05/19 18:34 PT 11.5 sec (9.0-12.0) 01/04/19 23:46 INR 1.1 (<1.2) 01/04/19 23:46 APTT 25.2 sec (22.0-30.0) 01/04/19 23:46 Sodium 139 mmol/L (137-145) 01/05/19 10:48 Potassium 4.0 mmol/L (3.5-5.1) 01/05/19 18:34 Chloride 108 mmol/L (98-107) H 01/05/19 10:48 Carbon Dioxide 21 mmol/L (22-30) L 01/05/19 10:48 Anion Gap 10 mmol/L 01/05/19 10:48 BUN 20 mg/dL (7-17) H 01/05/19 10:48 Creatinine 0.82 mg/dL (0.52-1.04) 01/05/19 10:48 Est GFR (CKD-EPI)AfAm >90 (>60 ml/min/1.73 sqM) 01/05/19 10:48 Est GFR (CKD-EPI)NonAf 87 (>60 ml/min/1.73 sqM) 01/05/19 10:48 Glucose 108 mg/dL (74-99) H 01/05/19 10:48 Plasma Lactic Acid Saroj 1.5 mmol/L (0.7-2.0) 01/04/19 23:46 Calcium 8.2 mg/dL (8.4-10.2) L 01/05/19 10:48 Total Bilirubin 1.5 mg/dL (0.2-1.3) H 01/04/19 23:46 AST 113 U/L (14-36) H 01/04/19 23:46 ALT 36 U/L (9-52) 01/04/19 23:46 Alkaline Phosphatase 127 U/L (38-126) H 01/04/19 23:46 Troponin I <0.012 ng/mL (0.000-0.034) 01/04/19 23:46 Total Protein 6.4 g/dL (6.3-8.2) 01/04/19 23:46 Albumin 2.9 g/dL (3.5-5.0) L 01/04/19 23:46 Urine Color Yellow 01/04/19 23:21 Urine Appearance Clear (Clear) 01/04/19 23:21 Urine pH 5.5 (5.0-8.0) 01/04/19 23:21 Ur Specific [place] 1.018 (1.001-1.035) 01/04/19 23:21 Urine Protein Trace (Negative) H 01/04/19 23:21 Urine Glucose (UA) Negative (Negative) 01/04/19 23:21 Urine Ketones Negative (Negative) 01/04/19 23:21 Urine Blood Negative (Negative) 01/04/19 23:21 Urine Nitrite Negative (Negative) 01/04/19 23:21 Urine Bilirubin Negative (Negative) 01/04/19 23:21 Urine Urobilinogen <2.0 mg/dL (<2.0) 01/04/19 23:21 Ur Leukocyte Esterase Negative (Negative) 01/04/19 23:21 Group A Strep Rapid Negative (Negative) 01/04/19 23:23 Blood Type A Positive 01/04/19 23:46 Blood Type Recheck A Pos 01/04/19 23:46 Bld Type Recheck Status No 01/04/19 23:46 Antibody Screen NEGATIVE 01/04/19 23:46 NICOLA, IgG Interpret Negative 01/04/19 23:46 NICOLA, Poly Interpret Negative 01/04/19 23:46 Crossmatch See Detail 01/04/19 23:46 Spec Expiration Date 01/07/2019 - 2346 01/04/19 23:46 Assessment and Plan Plan: 43-year-old female who was recently diagnosed with metastatic adenocarcinoma with involvement of liver and skeleton is undergone 3 cycles of chemotherapy and is now in her second bout of febrile neutropenia. She presents with the fever and malaise and white count of 0.4. She also has anemia and has required transfusion. Patient is slightly better this evening and fever seems to be trending down with the antibiotic therapy of cefepime and vancomycin. There is culture with concerns erlin and consequently Eraxis is added given her significant and recurrent neutropenia. Cultures will be monitored. Transfusions as per oncology recommendations.
[2019-01-06] MEDS: CEFEPIME 2 GM in SODIUM CHLORIDE 0.9% 100 ML IVPB SCH ×3 (01:10→19:17)
[2019-01-06] MEDS: VANCOMYCIN 2,250 MG in SODIUM CHLORIDE 0.9% 500 ML 500 ML IVPB SCH ×2 (01:35→15:57)
[2019-01-06] MEDS: MORPHINE SULFATE 4 MG/ML SYRINGE IV PRN ×2 (01:35→20:47)
[2019-01-06] MEDS: 0.9% NACL WITH KCL 20 MEQ/L 1,000 ML IV SCH ×4 (05:06→22:00)
[2019-01-06] MEDS: ONDANSETRON 4 MG/2 ML VIAL IVP PRN ×2 (05:42→12:45)
[2019-01-06 08:25] LABS: Anisocytosis Slight; MCH 28.1 pg (25.0-35.0); MCV 85.3 fL (80.0-100.0); Mean Platelet Volume 7.5; Platelet Count 21 k/uL (150-450); RBC 2.33 m/uL (3.80-5.40); Reticulocyte % 0.8 % (0.5-2.0)
[2019-01-06 08:48] LABS: ALT 33 U/L (9-52); AST 78 U/L (14-36); African American GFR (CKD) >90 (>60 ml/min/1.73 sqM); Albumin 2.7 g/dL (3.5-5.0); Alkaline Phosphatase 107 U/L (38-126); Anion Gap 9 mmol/L; Blood Urea Nitrogen 19 mg/dL (7-17); Calcium 7.8 mg/dL (8.4-10.2); Carbon Dioxide 21 mmol/L (22-30); Chloride 111 mmol/L (98-107); Glucose 93 mg/dL (74-99); Potassium 3.9 mmol/L (3.5-5.1); Sodium 141 mmol/L (137-145); Total Bilirubin 2.7 mg/dL (0.2-1.3); Total Protein 6.3 g/dL (6.3-8.2)
[2019-01-06 09:34] LABS: WBC 1.1 k/uL (3.8-10.6)
[2019-01-06 09:35] LABS: HCT 19.9 % (34.0-46.0); HGB 6.6 gm/dL (11.4-16.0)
[2019-01-06] MEDS: MAGNESIUM OXIDE 400 MG TAB PO SCH ×2 (09:59→21:59)
[2019-01-06] MEDS: FAMOTIDINE 20 MG TAB PO SCH ×2 (09:59→21:59)
[2019-01-06] MEDS: ANIDULAFUNGIN 100 MG in SODIUM CHLORIDE 0.9% 100 ML IVPB SCH (09:59)
[2019-01-06] MEDS: POTASSIUM CHLORIDE ER 20 MEQ TAB.ER PO SCH (09:59)
[2019-01-06] MEDS: SERTRALINE 50 MG TAB PO SCH (09:59)
[2019-01-06 12:04] LABS: Iron Saturation 37.33 (12.00-45.00)
[2019-01-06 12:15] LABS: Folate, Serum 4.2 ng/mL
[2019-01-06] MEDS: traMADol 50 MG TAB PO PRN (12:45)
[2019-01-06 13:53] LABS: Band Neutrophils % 6 %; Eosinophils # (M) 0.01 k/uL (0-0.7); Lymphocytes # (M) 0.45 k/uL (1.0-4.8); Metamyelocytes # (M) 0.01 k/uL (0); Metamyelocytes % 1 %; Monocytes # (M) 0.04 k/uL (0-1.0); Neutrophils % (M) 47 %; Nucleated Red Blood Cells 0 /100 WBC (0-0); Total Cells Counted 100
--- NOTE | 2019-01-06 15:32 | P.PN ---
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 Afebrile since admission Objective - Vital Signs Vital signs: Vital Signs Temp 98.7 F 01/06/19 12:26 Pulse 90 01/06/19 12:26 Resp 17 01/06/19 12:26 BP 125/68 01/06/19 12:26 Pulse Ox 97 01/06/19 12:26 Intake & Output 01/05/19 01/06/19 01/06/19 18:59 06:59 18:59 Intake Total 2765 3840 Balance 2765 3840 Weight 156.716 kg Intake: Intake, IV Titration 1495 2350 Amount 0.9% NaCl with KCl 20 Meq 1250 /l 1,000 ml @ 125 mls/hr IV .Q8H [facility] Rx#:[id number] Anidulafungin 200 mg In 400 Sodium Chloride 0.9% 200 ml @ 84 mls/hr IVPB ONCE ONE Rx#:[id number] Cefepime 2 gm In Sodium 100 200 Chloride 0.9% 100 ml @ 200 mls/hr IVPB Q8H [facility] Rx#:[id number] Sodium Chloride 0.9% 1, 895 000 ml @ 126 mls/hr IV . Q7H57M [facility] Rx#:[id number] Vancomycin 2,250 mg In 500 500 Sodium Chloride 0.9% 500 ml 500 ml @ 167 mls/hr IVPB Q12H [facility] Rx#: [id number] Oral 650 1490 Blood Product 620 Rc As-1 Unit 310 [id number] Rc As-3 Unit 310 [id number] Other: Voiding Method Toilet Toilet Toilet # Voids 4 4 - Exam - - Constitutional General appearance: no acute distress - EENT Eyes: EOMI, PERRLA ENT: hearing grossly normal, normal oropharynx - Neck Neck: no lymphadenopathy Thyroid: bilateral: normal size - Respiratory Respiratory: bilateral: CTA - Cardiovascular Rhythm: regular Heart sounds: normal: S1, S2 - Gastrointestinal General gastrointestinal: hepatomegaly extending into the right lower quadran, splenomegaly (appr 3 Fin) Localized gastrointestinal: tender: LUQ, RLQ, midline - Integumentary Integumentary: normal - Neurologic Neurologic:non focal - Musculoskeletal Musculoskeletal: generalized weakness, strength equal bilaterally - Psychiatric Psychiatric: A&O x's 3, appropriate affect, intact judgment & insight - Labs CBC & Chem 7: 01/06/19 07:38 01/06/19 07:38 Labs: Abnormal Lab Results - Last 24 Hours (Table) 01/04/19 01/05/19 01/06/19 Range/Units 23:46 18:34 07:38 WBC 0.6 L* 1.1 L* (3.8-10.6) k/uL RBC 2.52 L 2.33 L (3.80-5.40) m/uL Hgb 7.3 L D 6.6 L* (11.4-16.0) gm/dL Hct 22.0 L 19.9 L* (34.0-46.0) % RDW 18.6 H 18.0 H (11.5-15.5) % Plt Count 33 L 21 L (150-450) k/uL Neutrophils # (Manual) 0.50 L (1.3-7.7) k/uL Lymphocytes # (Manual) 0.45 L (1.0-4.8) k/uL Metamyelocytes # (Man) 0.01 H (0) k/uL Chloride (98-107) mmol/L Carbon Dioxide (22-30) mmol/L BUN (7-17) mg/dL Calcium (8.4-10.2) mg/dL TIBC (228-460) ug/dL Ferritin (10.0-291.0) ng/mL Total Bilirubin (0.2-1.3) mg/dL AST (14-36) U/L Albumin (3.5-5.0) g/dL Vitamin B12 (200.0-944.0) pg/mL Crossmatch See Detail 01/06/19 01/06/19 Range/Units 07:38 07:38 WBC (3.8-10.6) k/uL RBC (3.80-5.40) m/uL Hgb (11.4-16.0) gm/dL Hct (34.0-46.0) % RDW (11.5-15.5) % Plt Count (150-450) k/uL Neutrophils # (Manual) (1.3-7.7) k/uL Lymphocytes # (Manual) (1.0-4.8) k/uL Metamyelocytes # (Man) (0) k/uL Chloride 111 H (98-107) mmol/L Carbon Dioxide 21 L (22-30) mmol/L BUN 19 H (7-17) mg/dL Calcium 7.8 L (8.4-10.2) mg/dL TIBC 217 L (228-460) ug/dL Ferritin 994.5 H (10.0-291.0) ng/mL Total Bilirubin 2.7 H (0.2-1.3) mg/dL AST 78 H (14-36) U/L Albumin 2.7 L (3.5-5.0) g/dL Vitamin B12 1806.0 H (200.0-944.0) pg/mL Crossmatch Microbiology - Last 24 Hours (Table) 01/05/19 01:20 Blood Culture - Preliminary Blood No Growth after 24 hours 01/04/19 23:46 Blood Culture - Preliminary Blood No Growth after 24 hours 01/04/19 23:05 Blood Culture - Preliminary Blood No Growth after 24 hours Assessment and Plan Plan: Neutropenic fever - Currently on chemotherapy for metastatic adenocarcinoma as noted. She receives cis/gemzar weekly x2 q 21 days, status post cycle 2 with Neulasta on day 22 which was 01.03.19. Her last treatment she was hospitalized with febrile neutropenia requiring antibiotics and CSGF \ vancomycin and cefepime. Cultures have been ordered and are pending. She wasstarted on G-CSF to enhance WBC recoverypost cycle 2, given 01.03.19 Pancytopenia - Due to antineoplastic chemotherapy. The patient has received blood and platelets, with improvement of hemoglobin and platelets into a safe range, as long as there is no evidence of active bleeding. - Monitor CBC Daily and transfuse as needed to keep hemoglobin greater than 7 and platelets greater than 10. - Await CBC today - If there is any evidence of active bleeding, then we will need to transfuse platelets to maintain her at a higher level, preferably around 40, as well as use other methods to control bleeding. - No evidence of bleeding at this time - Metastatic adenocarcinoma Diagnostic and therapeutic circumstances as described. The patient is off for another week, and we will not start back on treatment until 12/24 according to her. It is anticipated that by that time her acute condition will recover sufficiently. Abdominal pain This appears to be due to liver and splenic enlargement. Liver enlargement is more marked compared to diagnosis. While progression of disease is not ruled out, inflammation due to the effect of treatment is also possible. Even in case of the former, management will not change as the patient is too early in her treatment to estimate benefit. - Abdominal ultrasound reviewed, Gallstones presents and Surgery evaluated, no surgical interventio - Continue to monitor closely for neutropenic typhlitis. Continue to monitor. - The patient is on [place], but is using it only once daily. - She was advised that we would evaluate for modification, if she were needing to use this more than 5-6 times a day on a regular basis. Plan: Continue Zarxio, CBC and CMP daily monitoring and close abdominal monitoring - Transfuse one unit PRBC today hg 6.6 Encourage get out of bed, increase activity.
[2019-01-06] MEDS: ACETAMINOPHEN TAB 325 MG TAB PO PRN (15:59)
--- NOTE | 2019-01-06 17:28 | P.PN ---
Subjective Progress Note Date: 01/06/19 Principal diagnosis: Neutropenic fever Patient was seen and examined. No acute events overnight. No fever over the past 24 hours. Patient reports improved mood. She continues to complain of generalized myalgias but currently denies any abdominal pain, chest pain, shortness of breath or palpitations. No nausea or vomiting. Objective - Vital Signs Vital signs: Vital Signs Temp 98.6 F 01/06/19 16:05 Pulse 98 01/06/19 16:47 Resp 16 01/06/19 16:47 BP 107/72 01/06/19 16:47 Pulse Ox 65 L 01/06/19 16:47 Intake & Output 01/05/19 01/06/19 01/06/19 18:59 06:59 18:59 Intake Total 2765 3840 1100 Balance 2765 3840 1100 Weight 156.716 kg Intake: Intake, IV Titration 1495 2350 1100 Amount 0.9% NaCl with KCl 20 Meq 1250 1000 /l 1,000 ml @ 125 mls/hr IV .Q8H [facility] Rx#:[id number] Anidulafungin 100 mg In 100 Sodium Chloride 0.9% 100 ml @ 84 mls/hr IVPB DAILY [facility] Rx#:[id number] Anidulafungin 200 mg In 400 Sodium Chloride 0.9% 200 ml @ 84 mls/hr IVPB ONCE ONE Rx#:[id number] Cefepime 2 gm In Sodium 100 200 Chloride 0.9% 100 ml @ 200 mls/hr IVPB Q8H [facility] Rx#:[id number] Sodium Chloride 0.9% 1, 895 000 ml @ 126 mls/hr IV . Q7H57M [facility] Rx#:[id number] Vancomycin 2,250 mg In 500 500 Sodium Chloride 0.9% 500 ml 500 ml @ 167 mls/hr IVPB Q12H [facility] Rx#: [id number] Oral 650 1490 Blood Product 620 0 Rc As-1 Unit 310 [id number] Rc As-3 Unit 0 [id number] Rc As-3 Unit 310 [id number] Other: Voiding Method Toilet Toilet Toilet # Voids 4 4 - Exam General: [non toxic], [no distress], [appears at stated age] Derm: [warm], [dry] Head: [atraumatic], [normocephalic], [symmetric] Eyes: [EOMI], [no lid lag], [anicteric sclera] Mouth: [no lip lesion], [mucus membranes moist] Cardiovascular: [S1S2 reg], [tachycardic], [positive DP pulse bilateral], Lungs: [CTA bilateral], [no rhonchi, no rales] , [no accessory muscle use] Abdominal: [soft], [tenderness to palpation in all 4 quadrants without rebound], [no guarding], [no appreciable organomegaly] Ext: [no gross muscle atrophy], [no edema], [no contractures] Neuro: [no focal neuro deficits] Psych: [Alert], [oriented], [appropriate affect] - Labs CBC & Chem 7: 01/06/19 07:38 01/06/19 07:38 Labs: Abnormal Lab Results - Last 24 Hours (Table) 01/04/19 01/05/19 01/06/19 Range/Units 23:46 18:34 07:38 WBC 0.6 L* 1.1 L* (3.8-10.6) k/uL RBC 2.52 L 2.33 L (3.80-5.40) m/uL Hgb 7.3 L D 6.6 L* (11.4-16.0) gm/dL Hct 22.0 L 19.9 L* (34.0-46.0) % RDW 18.6 H 18.0 H (11.5-15.5) % Plt Count 33 L 21 L (150-450) k/uL Neutrophils # (Manual) 0.50 L (1.3-7.7) k/uL Lymphocytes # (Manual) 0.45 L (1.0-4.8) k/uL Metamyelocytes # (Man) 0.01 H (0) k/uL Chloride (98-107) mmol/L Carbon Dioxide (22-30) mmol/L BUN (7-17) mg/dL Calcium (8.4-10.2) mg/dL TIBC (228-460) ug/dL Ferritin (10.0-291.0) ng/mL Total Bilirubin (0.2-1.3) mg/dL AST (14-36) U/L Albumin (3.5-5.0) g/dL Vitamin B12 (200.0-944.0) pg/mL Crossmatch See Detail 01/06/19 01/06/19 Range/Units 07:38 07:38 WBC (3.8-10.6) k/uL RBC (3.80-5.40) m/uL Hgb (11.4-16.0) gm/dL Hct (34.0-46.0) % RDW (11.5-15.5) % Plt Count (150-450) k/uL Neutrophils # (Manual) (1.3-7.7) k/uL Lymphocytes # (Manual) (1.0-4.8) k/uL Metamyelocytes # (Man) (0) k/uL Chloride 111 H (98-107) mmol/L Carbon Dioxide 21 L (22-30) mmol/L BUN 19 H (7-17) mg/dL Calcium 7.8 L (8.4-10.2) mg/dL TIBC 217 L (228-460) ug/dL Ferritin 994.5 H (10.0-291.0) ng/mL Total Bilirubin 2.7 H (0.2-1.3) mg/dL AST 78 H (14-36) U/L Albumin 2.7 L (3.5-5.0) g/dL Vitamin B12 1806.0 H (200.0-944.0) pg/mL Crossmatch Microbiology - Last 24 Hours (Table) 01/05/19 01:20 Blood Culture - Preliminary Blood No Growth after 24 hours 01/04/19 23:46 Blood Culture - Preliminary Blood No Growth after 24 hours 01/04/19 23:05 Blood Culture - Preliminary Blood No Growth after 24 hours Assessment and Plan Assessment: Sepsis with neutropenic fever History of cholecystitis Pancytopenia Initially met sepsis criteria with tachycardia, leukopenia, fever and positive source of infection. CT abdomen and pelvis shows ascites, periumbilical hernia, cholelithiasis and lytic lesions. UA negative. Rapid strep negative. Lactic acid negative. Blood culture preliminary negative at 24 hours. Plans: Continue vancomycin and cefepime. ID consulted, added Anidulafungin. Tylenol as needed for fever. Continue normal saline at 125 mL per hour. Follow blood cultures. Follow ID consultation. As seen on gallbladder ultrasound on previous admission. Previously evaluated by general surgery, recommended medical management due to high risk for surgery. CT abdomen pelvis shows cholelithiasis with no signs of cholecystitis. Plans: Continue IV antibiotics. Continue to monitor. Abdominal pain likely related to metastatic disease and organ enlargement. WBC count of 1.1, hemoglobin 6.6, platelet count 21. Likely related to metastatic disease possibly to bone marrow. Received Neupogen yesterday, WBC count up from 0.6. Patient has not responding appropriate to PRBC transfusion. Elevated total bilirubin. Lactate dehydrogenase within normal limits. Vitamin B12 and folate within normal limits. Plans: 1 unit PRBC today. Repeat CBC. Follow reticulocyte count. Follow-up haptoglobin. Follow fibrinogen. Transfuse if hemoglobin less than 7. Follow hematology consultation. [Patient admitted for sepsis with neutropenic fever. On broad-spectrum antibiotics. Cultures are pending. Receiving transfusion for anemia. ID and oncology on board. Likely DC in 2-3 days.]
[2019-01-07] MEDS: CEFEPIME 2 GM in SODIUM CHLORIDE 0.9% 100 ML IVPB SCH ×3 (00:43→17:15)
[2019-01-07] MEDS: VANCOMYCIN 2,250 MG in SODIUM CHLORIDE 0.9% 500 ML 500 ML IVPB SCH ×2 (00:43→14:53)
[2019-01-07] MEDS: 0.9% NACL WITH KCL 20 MEQ/L 1,000 ML IV SCH ×2 (00:44→11:36)
[2019-01-07] MEDS: POTASSIUM CHLORIDE ER 20 MEQ TAB.ER PO SCH (07:51)
[2019-01-07] MEDS: FAMOTIDINE 20 MG TAB PO SCH ×2 (07:51→20:02)
[2019-01-07] MEDS: ANIDULAFUNGIN 100 MG in SODIUM CHLORIDE 0.9% 100 ML IVPB SCH (07:52)
[2019-01-07] MEDS: MAGNESIUM OXIDE 400 MG TAB PO SCH ×2 (07:52→20:01)
[2019-01-07] MEDS: ONDANSETRON 4 MG/2 ML VIAL IVP PRN ×2 (07:57→14:31)
[2019-01-07] MEDS: traMADol 50 MG TAB PO PRN ×3 (07:59→21:03)
[2019-01-07 10:03] LABS: INR 1.3 (<1.2); Prothrombin Time 13.4 sec (9.0-12.0)
[2019-01-07 10:20] LABS: ALT 28 U/L (9-52); AST 64 U/L (14-36); African American GFR (CKD) >90 (>60 ml/min/1.73 sqM); Albumin 2.6 g/dL (3.5-5.0); Alkaline Phosphatase 125 U/L (38-126); Anion Gap 9 mmol/L; Blood Urea Nitrogen 16 mg/dL (7-17); Calcium 7.5 mg/dL (8.4-10.2); Carbon Dioxide 19 mmol/L (22-30); Chloride 113 mmol/L (98-107); Glucose 94 mg/dL (74-99); Potassium 3.8 mmol/L (3.5-5.1); Sodium 141 mmol/L (137-145); Total Bilirubin 2.1 mg/dL (0.2-1.3); Total Protein 6.1 g/dL (6.3-8.2)
[2019-01-07 10:29] LABS: Anisocytosis Slight; Basophils % (A) 0 %; Eosinophils % (A) 1 %; HCT 20.5 % (34.0-46.0); Lymphocytes # (A) 0.6 k/uL (1.0-4.8); Lymphocytes % (A) 11 %; MCH 28.9 pg (25.0-35.0); MCHC 33.8 g/dL (31.0-37.0); MCV 85.3 fL (80.0-100.0); Mean Platelet Volume 7.6; Monocytes # (A) 0.1 k/uL (0-1.0); Monocytes % (A) 1 %; Neutrophils # (A) 4.6 k/uL (1.3-7.7); Neutrophils % (A) 85 %; Poikilocytosis Slight; RDW 18.9 % (11.5-15.5); WBC 5.5 k/uL (3.8-10.6)
[2019-01-07 10:40] LABS: HGB 6.9 gm/dL (11.4-16.0)
[2019-01-07] MEDS: SERTRALINE 50 MG TAB PO SCH (10:44)
[2019-01-07 10:51] LABS: Platelet Count 10 k/uL (150-450)
[2019-01-07] MEDS ORDERED: VANCOMYCIN TROUGH DUE 1 EACH MISC MISCELLANE ONE (13:00)
--- NOTE | 2019-01-07 14:15 | P.PN ---
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 Objective - Vital Signs Vital signs: Vital Signs Temp 98.9 F 01/07/19 12:03 Pulse 82 01/07/19 12:03 Resp 17 01/07/19 12:03 BP 131/76 01/07/19 12:03 Pulse Ox 96 01/07/19 12:03 Intake & Output 01/06/19 01/07/19 01/07/19 18:59 06:59 18:59 Intake Total 1100 4700 Balance 1100 4700 Intake: Intake, IV Titration 1100 2200 Amount 0.9% NaCl with KCl 20 Meq 1000 1500 /l 1,000 ml @ 125 mls/hr IV .Q8H [facility] Rx#:[id number] Anidulafungin 100 mg In 100 Sodium Chloride 0.9% 100 ml @ 84 mls/hr IVPB DAILY [facility] Rx#:[id number] Cefepime 2 gm In Sodium 200 Chloride 0.9% 100 ml @ 200 mls/hr IVPB Q8H [facility] Rx#:[id number] Vancomycin 2,250 mg In 500 Sodium Chloride 0.9% 500 ml 500 ml @ 167 mls/hr IVPB Q12H [facility] Rx#: [id number] Oral 2190 Blood Product 0 310 Rc As-3 Unit 0 310 [id number] Other: Voiding Method Toilet Toilet Toilet # Voids 3 # Bowel Movements 1 - Exam - - Constitutional General appearance: no acute distress - EENT Eyes: EOMI, PERRLA ENT: hearing grossly normal, normal oropharynx - Neck Neck: no lymphadenopathy Thyroid: bilateral: normal size - Respiratory Respiratory: bilateral: CTA - Cardiovascular Rhythm: regular Heart sounds: normal: S1, S2 - Gastrointestinal General gastrointestinal: hepatomegaly extending into the right lower quadran, splenomegaly (appr 3 Fin) Localized gastrointestinal: tender: LUQ, RLQ, midline - Integumentary Integumentary: normal - Neurologic Neurologic:non focal - Musculoskeletal Musculoskeletal: generalized weakness, strength equal bilaterally - Psychiatric Psychiatric: A&O x's 3, appropriate affect, intact judgment & insight - Labs CBC & Chem 7: 01/07/19 09:19 01/07/19 09:19 Labs: Abnormal Lab Results - Last 24 Hours (Table) 01/04/19 01/07/19 01/07/19 Range/Units 23:46 09:19 09:19 RBC 2.40 L (3.80-5.40) m/uL Hgb 6.9 L* (11.4-16.0) gm/dL Hct 20.5 L (34.0-46.0) % RDW 18.9 H (11.5-15.5) % Plt Count 10 L* D (150-450) k/uL Lymphocytes # 0.6 L (1.0-4.8) k/uL PT (9.0-12.0) sec INR (<1.2) Chloride 113 H (98-107) mmol/L Carbon Dioxide 19 L (22-30) mmol/L Calcium 7.5 L (8.4-10.2) mg/dL Total Bilirubin 2.1 H (0.2-1.3) mg/dL AST 64 H (14-36) U/L Total Protein 6.1 L (6.3-8.2) g/dL Albumin 2.6 L (3.5-5.0) g/dL Crossmatch See Detail 01/07/19 Range/Units 09:19 RBC (3.80-5.40) m/uL Hgb (11.4-16.0) gm/dL Hct (34.0-46.0) % RDW (11.5-15.5) % Plt Count (150-450) k/uL Lymphocytes # (1.0-4.8) k/uL PT 13.4 H (9.0-12.0) sec INR 1.3 H (<1.2) Chloride (98-107) mmol/L Carbon Dioxide (22-30) mmol/L Calcium (8.4-10.2) mg/dL Total Bilirubin (0.2-1.3) mg/dL AST (14-36) U/L Total Protein (6.3-8.2) g/dL Albumin (3.5-5.0) g/dL Crossmatch Microbiology - Last 24 Hours (Table) 01/04/19 23:23 Group A Strep Throat Culture - Final Throat 01/05/19 01:20 Blood Culture - Preliminary Blood No Growth after 48 hours 01/04/19 23:46 Blood Culture - Preliminary Blood No Growth after 48 hours 01/04/19 23:05 Blood Culture - Preliminary Blood No Growth after 48 hours Assessment and Plan Plan: Neutropenic fever - Currently on chemotherapy for metastatic adenocarcinoma as noted. She receives cis/gemzar weekly x2 q 21 days, status post cycle 2 with Neulasta on day 22 which was 01.03.19. Her last treatment she was hospitalized with febrile neutropenia requiring antibiotics and CSGF \ vancomycin and cefepime. Cultures have been ordered and are pending. She wasstarted on G-CSF to enhance WBC recoverypost cycle 2, given 01.03.19 Pancytopenia - Due to antineoplastic chemotherapy. The patient has received blood and platelets, with improvement of hemoglobin and platelets into a safe range, as long as there is no evidence of active bleeding. - Monitor CBC Daily and transfuse as needed to keep hemoglobin greater than 7 and platelets greater than 10. - Await CBC today - If there is any evidence of active bleeding, then we will need to transfuse platelets to maintain her at a higher level, preferably around 40, as well as use other methods to control bleeding. - No evidence of bleeding at this time - Metastatic adenocarcinoma Diagnostic and therapeutic circumstances as described. The patient is off for another week, and we will not start back on treatment until 12/24 according to her. It is anticipated that by that time her acute condition will recover sufficiently. Abdominal pain This appears to be due to liver and splenic enlargement. Liver enlargement is more marked compared to diagnosis. While progression of disease is not ruled ou t, inflammation due to the effect of treatment is also possible. Even in case of the former, management will not change as the patient is too early in her treatment to estimate benefit. - Abdominal ultrasound reviewed, Gallstones presents and Surgery evaluated, no surgical interventio - Continue to monitor closely for neutropenic typhlitis. Continue to monitor. - The patient is on [place], but is using it only once daily. - She was advised that we would evaluate for modification, if she were needing to use this more than 5-6 times a day on a regular basis. Plan: Continue CBC and CMP daily monitoring and close abdominal monitoring - Transfuse one unit PRBC today hg 6.9, platelets 10 Encourage get out of bed, increase activity.
--- NOTE | 2019-01-07 14:19 | P.PN ---
Subjective Progress Note Date: 01/07/19 Principal diagnosis: Anemia Patient was seen and examined. No acute events overnight. Patient reports no changes in her condition. Had multiple nosebleeds overnight, none currently. She denies any chest pain or palpitations. Does complain of some shortness of breath. No active signs of bleeding. No nausea or vomiting. No fever or chills. Visitors at bedside. Objective - Vital Signs Vital signs: Vital Signs Temp 98.9 F 01/07/19 12:03 Pulse 82 01/07/19 12:03 Resp 17 01/07/19 12:03 BP 131/76 01/07/19 12:03 Pulse Ox 96 01/07/19 12:03 Intake & Output 01/06/19 01/07/19 01/07/19 18:59 06:59 18:59 Intake Total 1100 4700 Balance 1100 4700 Intake: Intake, IV Titration 1100 2200 Amount 0.9% NaCl with KCl 20 Meq 1000 1500 /l 1,000 ml @ 125 mls/hr IV .Q8H [facility] Rx#:[id number] Anidulafungin 100 mg In 100 Sodium Chloride 0.9% 100 ml @ 84 mls/hr IVPB DAILY [facility] Rx#:[id number] Cefepime 2 gm In Sodium 200 Chloride 0.9% 100 ml @ 200 mls/hr IVPB Q8H [facility] Rx#:[id number] Vancomycin 2,250 mg In 500 Sodium Chloride 0.9% 500 ml 500 ml @ 167 mls/hr IVPB Q12H [facility] Rx#: [id number] Oral 2190 Blood Product 0 310 Rc As-3 Unit 0 310 [id number] Other: Voiding Method Toilet Toilet Toilet # Voids 3 # Bowel Movements 1 - Exam General: [non toxic], [no distress], [appears at stated age] Derm: [warm], [dry] Head: [atraumatic], [normocephalic], [symmetric] Eyes: [EOMI], [no lid lag], [anicteric sclera] Mouth: [no lip lesion], [mucus membranes moist] Cardiovascular: [S1S2 reg], [tachycardic], [positive DP pulse bilateral], Lungs: [CTA bilateral], [no rhonchi, no rales] , [no accessory muscle use] Abdominal: [soft], [tenderness to palpation in all 4 quadrants without rebound], [no guarding], [no appreciable organomegaly] Ext: [no gross muscle atrophy], [3+ edema], [no contractures] Neuro: [no focal neuro deficits] Psych: [Alert], [oriented], [appropriate affect] - Labs CBC & Chem 7: 01/07/19 09:19 01/07/19 09:19 Labs: Abnormal Lab Results - Last 24 Hours (Table) 01/04/19 01/07/19 01/07/19 Range/Units 23:46 09:19 09:19 RBC 2.40 L (3.80-5.40) m/uL Hgb 6.9 L* (11.4-16.0) gm/dL Hct 20.5 L (34.0-46.0) % RDW 18.9 H (11.5-15.5) % Plt Count 10 L* D (150-450) k/uL Lymphocytes # 0.6 L (1.0-4.8) k/uL PT (9.0-12.0) sec INR (<1.2) Chloride 113 H (98-107) mmol/L Carbon Dioxide 19 L (22-30) mmol/L Calcium 7.5 L (8.4-10.2) mg/dL Total Bilirubin 2.1 H (0.2-1.3) mg/dL AST 64 H (14-36) U/L Total Protein 6.1 L (6.3-8.2) g/dL Albumin 2.6 L (3.5-5.0) g/dL Crossmatch See Detail 01/07/19 Range/Units 09:19 RBC (3.80-5.40) m/uL Hgb (11.4-16.0) gm/dL Hct (34.0-46.0) % RDW (11.5-15.5) % Plt Count (150-450) k/uL Lymphocytes # (1.0-4.8) k/uL PT 13.4 H (9.0-12.0) sec INR 1.3 H (<1.2) Chloride (98-107) mmol/L Carbon Dioxide (22-30) mmol/L Calcium (8.4-10.2) mg/dL Total Bilirubin (0.2-1.3) mg/dL AST (14-36) U/L Total Protein (6.3-8.2) g/dL Albumin (3.5-5.0) g/dL Crossmatch Microbiology - Last 24 Hours (Table) 01/04/19 23:23 Group A Strep Throat Culture - Final Throat 01/05/19 01:20 Blood Culture - Preliminary Blood No Growth after 48 hours 01/04/19 23:46 Blood Culture - Preliminary Blood No Growth after 48 hours 01/04/19 23:05 Blood Culture - Preliminary Blood No Growth after 48 hours Assessment and Plan Assessment: Sepsis with neutropenic fever Epistaxes Lower extremity swelling History of cholecystitis Pancytopenia Initially met sepsis criteria with tachycardia, leukopenia, fever and positive source of infection. CT abdomen and pelvis shows ascites, periumbilical hernia, cholelithiasis and lytic lesions. UA negative. Rapid strep negative. Lactic acid negative. Blood culture preliminary negative at 24 hours. Plans: Continue vancomycin and cefepime. ID consulted, added Anidulafungin. Tylenol as needed for fever. Continue normal saline at 125 mL per hour. Follow blood cultures. Follow ID consultation. Hemoglobin 6.9. Platelet count 10. Plans: Would recommend platelet transfusion but will discuss with hematology. Would recommend 1 unit PRBC. Related to lymphedema. Plans: Start Lasix 20 mg IV twice a day. As seen on gallbladder ultrasound on previous admission. Previously evaluated by general surgery, recommended medical management due to high risk for surgery. CT abdomen pelvis shows cholelithiasis with no signs of cholecystitis. Plans: Continue IV antibiotics. Continue to monitor. Abdominal pain likely related to metastatic disease and organ enlargement. WBC count of 1.1-5.5, hemoglobin 6.6-6.9, platelet count 21-10. Likely related to metastatic disease possibly to bone marrow. Received Neupogen, WBC count up from 0.6. Patient has not responding appropriate to PRBC transfusion. Elevated total bilirubin. Lactate dehydrogenase within normal limits. Vitamin B12 and folate within normal limits. Plans: Will discus with Hematology regarding transfusion of platelets and PRBC. Transfuse if hemoglobin less than 7. Follow hematology consultation. [Patient admitted for sepsis with neutropenic fever. On broad-spectrum antibiotics. Cultures are pending. Possible transfusion for anemia and thrombocytopenia. ID and oncology on board. Likely DC in 2-3 days.]
[2019-01-07] MEDS: FUROSEMIDE 10 MG/ML 2 ML VIAL IV SCH ×2 (14:27→20:02)
[2019-01-08] MEDS ORDERED: VANCOMYCIN 2,250 MG in SODIUM CHLORIDE 0.9% 500 ML 500 ML IVPB SCH ×2
[2019-01-08] MEDS: CEFEPIME 2 GM in SODIUM CHLORIDE 0.9% 100 ML IVPB SCH ×3 (02:11→16:25)
[2019-01-08 06:48] LABS: Anisocytosis Slight; Basophils # (A) 0.1 k/uL (0-0.2); Basophils % (A) 1 %; Eosinophils # (A) 0.1 k/uL (0-0.7); Eosinophils % (A) 1 %; HCT 21.6 % (34.0-46.0); HGB 7.5 gm/dL (11.4-16.0); Lymphocytes % (A) 11 %; MCH 29.5 pg (25.0-35.0); MCHC 34.5 g/dL (31.0-37.0); MCV 85.3 fL (80.0-100.0); Mean Platelet Volume 6.6; Monocytes # (A) 0.3 k/uL (0-1.0); Monocytes % (A) 3 %; Neutrophils # (A) 7.8 k/uL (1.3-7.7); Neutrophils % (A) 83 %; Poikilocytosis Slight; RBC 2.54 m/uL (3.80-5.40); RDW 19.7 % (11.5-15.5); WBC 9.5 k/uL (3.8-10.6)
[2019-01-08 07:00] LABS: African American GFR (CKD) >90 (>60 ml/min/1.73 sqM); Anion Gap 8 mmol/L; Blood Urea Nitrogen 14 mg/dL (7-17); Calcium 7.7 mg/dL (8.4-10.2); Carbon Dioxide 20 mmol/L (22-30); Chloride 113 mmol/L (98-107); Glucose 101 mg/dL (74-99); Platelet Count 8 k/uL (150-450); Potassium 3.7 mmol/L (3.5-5.1); Sodium 141 mmol/L (137-145)
[2019-01-08] MEDS: POTASSIUM CHLORIDE ER 20 MEQ TAB.ER PO SCH (08:31)
[2019-01-08] MEDS: MAGNESIUM OXIDE 400 MG TAB PO SCH ×2 (08:31→21:33)
[2019-01-08] MEDS: FAMOTIDINE 20 MG TAB PO SCH ×2 (08:31→21:33)
[2019-01-08] MEDS: FUROSEMIDE 10 MG/ML 2 ML VIAL IV SCH ×2 (08:31→21:33)
[2019-01-08] MEDS: SERTRALINE 50 MG TAB PO SCH (08:31)
[2019-01-08] MEDS: ANIDULAFUNGIN 100 MG in SODIUM CHLORIDE 0.9% 100 ML IVPB SCH (08:33)
[2019-01-08] MEDS: traMADol 50 MG TAB PO PRN ×2 (08:34→23:04)
[2019-01-08] MEDS: ONDANSETRON 4 MG/2 ML VIAL IVP PRN ×2 (08:35→16:52)
--- NOTE | 2019-01-08 11:34 | P.PN ---
Subjective Progress Note Date: 01/08/19 Generalized weakness persists with the patient is stronger and feels better. No obvious bleeding. No fevers or chills. Objective - Vital Signs Vital signs: Vital Signs Temp 97.9 F 01/08/19 05:00 Pulse 92 01/08/19 05:00 Resp 16 01/08/19 05:00 BP 95/68 01/08/19 05:00 Pulse Ox 95 01/08/19 05:00 Intake & Output 01/07/19 01/08/19 01/08/19 18:59 06:59 18:59 Intake Total 1200 900 Balance 1200 900 Intake: Intake, IV Titration 1200 Amount 0.9% NaCl with KCl 20 Meq 1000 /l 1,000 ml @ 125 mls/hr IV .Q8H KHALIDA Rx#:[id number] Anidulafungin 100 mg In 100 Sodium Chloride 0.9% 100 ml @ 84 mls/hr IVPB DAILY [facility]IDA Rx#:[id number] Cefepime 2 gm In Sodium 100 Chloride 0.9% 100 ml @ 200 mls/hr IVPB Q8H [facility] Rx#:[id number] Oral 590 Blood Product 0 310 Rc As-1 Unit 0 310 [id number] Other: Voiding Method Toilet Toilet # Voids 2 - Constitutional General appearance: Present: no acute distress - EENT Eyes: Present: EOMI ENT: Present: hearing grossly normal, normal oropharynx - Respiratory Respiratory: bilateral: CTA - Cardiovascular Rhythm: regular Heart sounds: normal: S1, S2 - Gastrointestinal General gastrointestinal: Present: normal bowel sounds, soft - Integumentary Integumentary: Present: normal - Neurologic Neurologic: Present: CNII-XII intact - Musculoskeletal Musculoskeletal: Present: generalized weakness, strength equal bilaterally - Psychiatric Psychiatric: Present: A&O x's 3 - Labs CBC & Chem 7: 01/08/19 06:26 01/08/19 06:26 Labs: Abnormal Lab Results - Last 24 Hours (Table) 01/04/19 01/08/19 01/08/19 Range/Units 23:46 06:26 06:26 RBC 2.54 L (3.80-5.40) m/uL Hgb 7.5 L (11.4-16.0) gm/dL Hct 21.6 L (34.0-46.0) % RDW 19.7 H (11.5-15.5) % Plt Count 8 L* (150-450) k/uL Neutrophils # 7.8 H (1.3-7.7) k/uL Chloride 113 H (98-107) mmol/L Carbon Dioxide 20 L (22-30) mmol/L Glucose 101 H (74-99) mg/dL Calcium 7.7 L (8.4-10.2) mg/dL Crossmatch See Detail Microbiology - Last 24 Hours (Table) 01/05/19 01:20 Blood Culture - Preliminary Blood No Growth after 72 hours 01/04/19 23:46 Blood Culture - Preliminary Blood No Growth after 72 hours 01/04/19 23:05 Blood Culture - Preliminary Blood No Growth after 72 hours 01/04/19 23:23 Group A Strep Throat Culture - Final Throat Assessment and Plan (1) Neutropenic fever Narrative/Plan: Fever and neutropenia have both resolved. Cultures remained negative. The patient had received Neulasta with chemotherapy and had recovery of her WBC within the expected range. She can be switched to oral antibiotics from our standpoint. Defer to the admitting service as to choice of antibiotic therapy to complete her course Current Visit: Yes Status: Acute Priority: High Code(s): D70.9 - NEUTROPENIA, UNSPECIFIED; R50.81 - FEVER PRESENTING WITH CONDITIONS CLASSIFIED ELSEWHERE SNOMED Code(s): 270212523 (2) Abdominal pain Narrative/Plan: This is improved significantly. The patient is tolerating a diet and reports no diarrhea. Her cancer related pain component is controlled on her current regimen Current Visit: No Status: Acute Priority: High Code(s): R10.9 - UNSPECIFIED ABDOMINAL PAIN SNOMED Code(s): 54145003 (3) Pancytopenia due to antineoplastic chemotherapy Narrative/Plan: WBC has recovered. Hemoglobin and platelets are still low. Hemoglobin is in a safe range, and platelets are less than 10 today. She has no obvious bleeding. One unit of platelet transfusion will be ordered Current Visit: Yes Status: Acute Code(s): D61.810 - ANTINEOPLASTIC CHEMOTHERAPY INDUCED PANCYTOPENIA; T45.1X5A - ADVERSE EFFECT OF ANTINEOPLASTIC AND IMMUNOSUP DRUGS, INIT SNOMED Code(s): 366088205169211
--- NOTE | 2019-01-08 11:58 | P.PN ---
Subjective Progress Note Date: 01/08/19 Patient was seen and examined. No acute events overnight. Family at bedside. Patient with no complaints this morning. States that she had nosebleeds overnight that was controlled with local pressure. She denies any chest pain, shortness of breath or palpitations. Objective - Vital Signs Vital signs: Vital Signs Temp 97.9 F 01/08/19 05:00 Pulse 92 01/08/19 05:00 Resp 16 01/08/19 05:00 BP 95/68 01/08/19 05:00 Pulse Ox 95 01/08/19 05:00 Intake & Output 01/07/19 01/08/19 01/08/19 18:59 06:59 18:59 Intake Total 1200 900 Balance 1200 900 Intake: Intake, IV Titration 1200 Amount 0.9% NaCl with KCl 20 Meq 1000 /l 1,000 ml @ 125 mls/hr IV .Q8H KHALIDA Rx#:[id number] Anidulafungin 100 mg In 100 Sodium Chloride 0.9% 100 ml @ 84 mls/hr IVPB DAILY [facility] Rx#:[id number] Cefepime 2 gm In Sodium 100 Chloride 0.9% 100 ml @ 200 mls/hr IVPB Q8H [facility]IDA Rx#:[id number] Oral 590 Blood Product 0 310 Rc As-1 Unit 0 310 [id number] Other: Voiding Method Toilet Toilet # Voids 2 - Exam General: [non toxic], [no distress], [appears at stated age] Derm: [warm], [dry] Head: [atraumatic], [normocephalic], [symmetric] Eyes: [EOMI], [no lid lag], [anicteric sclera] Mouth: [no lip lesion], [mucus membranes moist] Cardiovascular: [S1S2 reg], [no murmur], [positive DP pulse bilateral], Lungs: [CTA bilateral], [no rhonchi, no rales] , [no accessory muscle use] Abdominal: [soft], [nontender to palpation], [no guarding], [no appreciable organomegaly] Ext: [no gross muscle atrophy], [2+ edema], [no contractures] Neuro: [no focal neuro deficits] Psych: [Alert], [oriented], [appropriate affect] - Labs CBC & Chem 7: 01/08/19 06:26 01/08/19 06:26 Labs: Abnormal Lab Results - Last 24 Hours (Table) 01/04/19 01/08/19 01/08/19 Range/Units 23:46 06:26 06:26 RBC 2.54 L (3.80-5.40) m/uL Hgb 7.5 L (11.4-16.0) gm/dL Hct 21.6 L (34.0-46.0) % RDW 19.7 H (11.5-15.5) % Plt Count 8 L* (150-450) k/uL Neutrophils # 7.8 H (1.3-7.7) k/uL Chloride 113 H (98-107) mmol/L Carbon Dioxide 20 L (22-30) mmol/L Glucose 101 H (74-99) mg/dL Calcium 7.7 L (8.4-10.2) mg/dL Crossmatch See Detail Microbiology - Last 24 Hours (Table) 01/05/19 01:20 Blood Culture - Preliminary Blood No Growth after 72 hours 01/04/19 23:46 Blood Culture - Preliminary Blood No Growth after 72 hours 01/04/19 23:05 Blood Culture - Preliminary Blood No Growth after 72 hours 01/04/19 23:23 Group A Strep Throat Culture - Final Throat Assessment and Plan Assessment: SIRS with neutropenic fever Epistaxes Lower extremity swelling History of cholecystitis Pancytopenia Initially met sepsis criteria with tachycardia, leukopenia, fever with unknown source of infection. CT abdomen and pelvis shows ascites, periumbilical hernia, cholelithiasis and lytic lesions. UA negative. Rapid strep negative. Lactic acid negative. Blood culture preliminary negative at 72 hours. Plans: Continue vancomycin and cefepime. ID consulted, added Anidulafungin. Tylenol as needed for fever. Continue normal saline at 125 mL per hour. Follow blood cultures. Follow ID consultation. Hemoglobin 6.9-7.5 post 1 PRBC. Platelet count 10-8. Plans: Discussed with Dr. Smith, recommends 1 unit Platelet today. Related to lymphedema. Plans: Start Lasix 20 mg IV twice a day. ALTHEA wraps, discussed with RN. Lower extremity elevation. As seen on gallbladder ultrasound on previous admission. Previously evaluated by general surgery, recommended medical management due to high risk for surgery. CT abdomen pelvis shows cholelithiasis with no signs of cholecystitis. Plans: Continue IV antibiotics. Continue to monitor. Abdominal pain likely related to metastatic disease and organ enlargement. WBC count of 1.1-5.5-9.5 (resolved), hemoglobin 6.6-6.9-7.5 (improving), platelet count 21-10-8 (worsening). Likely related to metastatic disease possibly to bone marrow. Received Neupogen, WBC count up from 0.6. Elevated total bilirubin. Lactate dehydrogenase within normal limits. Vitamin B12 and folate within normal limits. Plans: Transfuse 1 unit of platelets today. Transfuse if hemoglobin less than 7. Follow hematology consultation. [Patient admitted for SIRS with neutropenic fever. On broad-spectrum antibiotics. Cultures are currently negative. Platelet transfusion for thrombocytopenia. ID and oncology on board. Likely DC in 1-2 days.]
[2019-01-08] MEDS ORDERED: diphenhydrAMINE 25 MG CAP PO PRN (18:46)
[2019-01-08 19:36] LABS: LD Isoenzymes 1 19 % (19-38); LD Isoenzymes 2 32 % (30-43); LD Isoenzymes 3 20 % (16-26); LD Isoenzymes 4 9 % (3-12); LD Isoenzymes 5 20 % (3-14); Lactacte Dehydrogenase(LD) ISO 153 U/L (100-200)
[2019-01-08] MEDS: VANCOMYCIN 2,250 MG in SODIUM CHLORIDE 0.9% 500 ML 500 ML IVPB SCH (23:04)
[2019-01-09] MEDS: CEFEPIME 2 GM in SODIUM CHLORIDE 0.9% 100 ML IVPB SCH ×4 (02:10→23:56)
[2019-01-09] MEDS: MORPHINE SULFATE 4 MG/ML SYRINGE IV PRN ×2 (03:05→15:39)
[2019-01-09] MEDS: ONDANSETRON 4 MG/2 ML VIAL IVP PRN (06:15)
[2019-01-09] MEDS: FUROSEMIDE 10 MG/ML 2 ML VIAL IV SCH (10:08)
[2019-01-09] MEDS: MAGNESIUM OXIDE 400 MG TAB PO SCH ×2 (10:09→20:27)
[2019-01-09] MEDS: FAMOTIDINE 20 MG TAB PO SCH ×2 (10:09→20:27)
[2019-01-09] MEDS: POTASSIUM CHLORIDE ER 20 MEQ TAB.ER PO SCH (10:11)
[2019-01-09] MEDS: SERTRALINE 50 MG TAB PO SCH (10:11)
[2019-01-09 10:57] LABS: Anisocytosis Moderate; HCT 22.9 % (34.0-46.0); HGB 7.7 gm/dL (11.4-16.0); MCHC 33.8 g/dL (31.0-37.0); MCV 85.8 fL (80.0-100.0); Mean Platelet Volume 7.8; Poikilocytosis Slight; RBC 2.66 m/uL (3.80-5.40); WBC 8.6 k/uL (3.8-10.6)
[2019-01-09 10:58] LABS: Platelet Count 7 k/uL (150-450)
[2019-01-09 11:40] LABS: Band Neutrophils % 3 %; Eosinophils # (M) 0.09 k/uL (0-0.7); Lymphocytes # (M) 0.77 k/uL (1.0-4.8); Metamyelocytes # (M) 0.17 k/uL (0); Metamyelocytes % 2 %; Monocytes # (M) 0.69 k/uL (0-1.0); Neutrophils % (M) 78 %; Nucleated Red Blood Cells 0 /100 WBC (0-0); Polychromasia Present; Total Cells Counted 200
[2019-01-09 11:48] LABS: ALT 27 U/L (9-52); AST 64 U/L (14-36); African American GFR (CKD) >90 (>60 ml/min/1.73 sqM); Albumin 2.7 g/dL (3.5-5.0); Alkaline Phosphatase 131 U/L (38-126); Anion Gap 8 mmol/L; Blood Urea Nitrogen 13 mg/dL (7-17); Calcium 7.7 mg/dL (8.4-10.2); Carbon Dioxide 21 mmol/L (22-30); Chloride 112 mmol/L (98-107); Glucose 114 mg/dL (74-99); Potassium 3.5 mmol/L (3.5-5.1); Sodium 141 mmol/L (137-145); Total Bilirubin 1.4 mg/dL (0.2-1.3); Total Protein 6.2 g/dL (6.3-8.2)
[2019-01-09] MEDS: ANIDULAFUNGIN 100 MG in SODIUM CHLORIDE 0.9% 100 ML IVPB SCH (12:19)
[2019-01-09] MEDS: traMADol 50 MG TAB PO PRN (12:27)
--- NOTE | 2019-01-09 13:49 | P.PN ---
Subjective Progress Note Date: 01/09/19 Principal diagnosis: Low platelet count Patient was seen and examined. No acute events overnight. Patient reports generally feeling well. She denies any chest pain, shortness of breath or palpitations. No fever or chills. No nausea or vomiting. Tolerating diet well. He received 1 unit of platelets yesterday. Platelets decreased from 10,000-7000 this morning. Objective - Vital Signs Vital signs: Vital Signs Temp 97.8 F 01/09/19 12:47 Pulse 87 01/09/19 12:47 Resp 16 01/09/19 12:47 BP 113/75 01/09/19 12:47 Pulse Ox 97 01/09/19 12:47 Intake & Output 01/08/19 01/09/19 01/09/19 18:59 06:59 18:59 Intake Total 4906 600 Balance 4906 600 Intake: Intake, IV Titration 1200 600 Amount 0.9% NaCl with KCl 20 Meq 1000 /l 1,000 ml @ 125 mls/hr IV .Q8H [facility] Rx#:[id number] Anidulafungin 100 mg In 100 Sodium Chloride 0.9% 100 ml @ 84 mls/hr IVPB DAILY [facility] Rx#:[id number] Cefepime 2 gm In Sodium 100 100 Chloride 0.9% 100 ml @ 200 mls/hr IVPB Q8H [facility] Rx#:[id number] Vancomycin 2,250 mg In 500 Sodium Chloride 0.9% 500 ml 500 ml @ 167 mls/hr IVPB Q24H [facility] Rx#: [id number] Oral 3500 Blood Product 206 Platelet Irr Pheresis 206 Acda1 Unit [id number] Other: Voiding Method Toilet Toilet Toilet # Voids 4 4 - Exam General: [non toxic], [no distress], [appears at stated age] Derm: [warm], [dry] Head: [atraumatic], [normocephalic], [symmetric] Eyes: [EOMI], [no lid lag], [anicteric sclera] Mouth: [no lip lesion], [mucus membranes moist] Cardiovascular: [S1S2 reg], [no murmur], [positive DP pulse bilateral], Lungs: [Decreased breath sounds bilateral], [no rhonchi, no rales] , [no accessory muscle use] Abdominal: [soft], [nontender to palpation], [no guarding], [no appreciable organomegaly] Ext: [no gross muscle atrophy], [3+ lower extremity edema, Bharathi wrap], [no contractures] Neuro: [no focal neuro deficits] Psych: [Alert], [oriented], [appropriate affect] - Labs CBC & Chem 7: 01/09/19 10:27 01/09/19 10:27 Labs: Abnormal Lab Results - Last 24 Hours (Table) 01/05/19 01/09/19 01/09/19 Range/Units 10:48 10:27 10:27 RBC 2.66 L (3.80-5.40) m/uL Hgb 7.7 L (11.4-16.0) gm/dL Hct 22.9 L (34.0-46.0) % RDW 21.0 H (11.5-15.5) % Plt Count 7 L* (150-450) k/uL Lymphocytes # (Manual) 0.77 L (1.0-4.8) k/uL Metamyelocytes # (Man) 0.17 H (0) k/uL Chloride 112 H (98-107) mmol/L Carbon Dioxide 21 L (22-30) mmol/L Glucose 114 H (74-99) mg/dL Calcium 7.7 L (8.4-10.2) mg/dL Total Bilirubin 1.4 H (0.2-1.3) mg/dL AST 64 H (14-36) U/L Alkaline Phosphatase 131 H (38-126) U/L LD 5 20 H (3-14) % Total Protein 6.2 L (6.3-8.2) g/dL Albumin 2.7 L (3.5-5.0) g/dL Microbiology - Last 24 Hours (Table) 01/05/19 01:20 Blood Culture - Preliminary Blood No Growth after 96 hours 01/04/19 23:46 Blood Culture - Preliminary Blood No Growth after 96 hours 01/04/19 23:05 Blood Culture - Preliminary Blood No Growth after 96 hours Assessment and Plan Assessment: SIRS with neutropenic fever Epistaxes Lower extremity swelling History of cholecystitis Pancytopenia Initially met sepsis criteria with tachycardia, leukopenia, fever with unknown source of infection. CT abdomen and pelvis shows ascites, periumbilical hernia, cholelithiasis and lytic lesions. UA negative. Rapid strep negative. Lactic acid negative. Blood culture preliminary negative at 96 hours. Plans: Continue vancomycin and cefepime. ID consulted, added Anidulafungin. Tylenol as needed for fever. Follow blood cultures. Follow ID consultation. Hemoglobin 6.9-7.5-7.7 post 1 PRBC. Platelet count 10-8-7. Plans: Discussed with Dr. Smith, recommends 1 unit Platelet today. Related to lymphedema. Plans:Increase Lasix to 40 mg IV twice a day. BHARATHI wraps, discussed with RN. Lower extremity elevation. As seen on gallbladder ultrasound on previous admission. Previously evaluated by general surgery, recommended medical management due to high risk for surgery. CT abdomen pelvis shows cholelithiasis with no signs of cholecystitis. Plans: Continue IV antibiotics. Continue to monitor. Abdominal pain likely related to metastatic disease and organ enlargement. WBC count of 1.1-5.5-9.5-8.6 (resolved), hemoglobin 6.6-6.9-7.5-7.7 (improving), platelet count 21-10-8-7 (worsening). Likely related to metastatic disease possibly to bone marrow. Received Neupogen, WBC count up from 0.6. Elevated total bilirubin. Lactate dehydrogenase within normal limits. Vitamin B12 and folate within normal limits. Plans: Transfuse 1 unit of platelets today. Transfuse if hemoglobin less than 7. Follow hematology consultation. [Patient admitted for SIRS with neutropenic fever. On broad-spectrum antibiotics. Cultures are currently negative. Platelet transfusion for thr ombocytopenia. Plans on DC tomorrow if platelet count has improved.]
[2019-01-09] MEDS ORDERED: ALPRAZolam 0.25 MG TAB PO STA (15:52)
[2019-01-09] MEDS: FUROSEMIDE 10 MG/ML 4 ML VIAL IV SCH (18:25)
[2019-01-09 22:58] VITALS: PULSE 85; RESP 16
[2019-01-09] MEDS ORDERED: VANCOMYCIN TROUGH DUE 1 EACH MISC MISCELLANE ONE (23:00)
[2019-01-09 23:58] LABS: African American GFR (CKD) >90 (>60 ml/min/1.73 sqM)
[2019-01-10] MEDS: VANCOMYCIN 2,250 MG in SODIUM CHLORIDE 0.9% 500 ML 500 ML IVPB SCH (00:43)
[2019-01-10] MEDS: traMADol 50 MG TAB PO PRN ×2 (03:57→11:14)
[2019-01-10 05:20] LABS: Anisocytosis Moderate; HCT 23.3 % (34.0-46.0); HGB 8.2 gm/dL (11.4-16.0); MCH 29.9 pg (25.0-35.0); MCHC 35.1 g/dL (31.0-37.0); MCV 85.3 fL (80.0-100.0); Mean Platelet Volume 11.4; Platelet Count 19 k/uL (150-450); Poikilocytosis Slight; RBC 2.73 m/uL (3.80-5.40); RDW 23.1 % (11.5-15.5)
[2019-01-10 05:37] LABS: ALT 24 U/L (9-52); AST 69 U/L (14-36); African American GFR (CKD) >90 (>60 ml/min/1.73 sqM); Albumin 2.7 g/dL (3.5-5.0); Alkaline Phosphatase 129 U/L (38-126); Anion Gap 9 mmol/L; Blood Urea Nitrogen 13 mg/dL (7-17); Calcium 7.8 mg/dL (8.4-10.2); Carbon Dioxide 20 mmol/L (22-30); Chloride 112 mmol/L (98-107); Glucose 98 mg/dL (74-99); Sodium 141 mmol/L (137-145); Total Bilirubin 1.5 mg/dL (0.2-1.3); Total Protein 6.2 g/dL (6.3-8.2)
[2019-01-10 05:38] VITALS: BP 94/54; TEMP 97.5
[2019-01-10] MEDS: FUROSEMIDE 10 MG/ML 4 ML VIAL IV SCH (05:38)
[2019-01-10 05:42] LABS: Band Neutrophils % 2 %; Lymphocytes # (M) 0.74 k/uL (1.0-4.8); Metamyelocytes # (M) 0.11 k/uL (0); Metamyelocytes % 1 %; Monocytes # (M) 1.38 k/uL (0-1.0); Myelocytes # (M) 0.85 k/uL (0); Myelocytes % 8 %; Neutrophils % (M) 70 %; Nucleated Red Blood Cells 1 /100 WBC (0-0); Potassium 3.6 mmol/L (3.5-5.1); Total Cells Counted 200; WBC 10.6 k/uL (3.8-10.6)
[2019-01-10] MEDS: MAGNESIUM OXIDE 400 MG TAB PO SCH (07:40)
[2019-01-10] MEDS: POTASSIUM CHLORIDE ER 20 MEQ TAB.ER PO SCH (07:40)
[2019-01-10] MEDS: FAMOTIDINE 20 MG TAB PO SCH (07:40)
[2019-01-10] MEDS: ONDANSETRON 4 MG/2 ML VIAL IVP PRN (07:43)
[2019-01-10] MEDS: ANIDULAFUNGIN 100 MG in SODIUM CHLORIDE 0.9% 100 ML IVPB SCH (07:44)
[2019-01-10] MEDS: CEFEPIME 2 GM in SODIUM CHLORIDE 0.9% 100 ML IVPB SCH (07:44)
[2019-01-10] MEDS: SERTRALINE 50 MG TAB PO SCH (07:44)
--- NOTE | 2019-01-10 08:53 | P.DS ---
Providers Date of admission: 01/05/19 00:58 Expected date of discharge: 01/10/19 Attending physician: Lin Galvin MD Consults: 01/05/19 00:57 Consult Physician Urgent Consulting Provider: Chris Smith Consult Reason/Comments: Febrile neutropenia. Do you want consulting provider notified?: Yes 01/05/19 16:03 Consult Physician Stat Consulting Provider: Pedro Lomax Consult Reason/Comments: neutropenic fever Do you want consulting provider notified?: Yes Primary care physician: [facility] Course: 43-year-old female with PMH of pancreatic cancer with metastatic disease to the liver, hypertension, chronic lower back pain presents for fevers and generalized body aches and malaise. Patient was recently hospitalized, diagnosed with cholecystitis, treated with antibiotics with surgery recommended against surgical intervention. Patient reported fatigue and generalized abdominal pain, sharp in the left upper quadrant, stabbing, 6-7 out of 10 in severity. Pain is 7-8 out of 10 in severity. Patient also reports myalgias and soreness throughout her body. Patient also reports a positive sick contact and strep throat at home, though denying sore throat or cough. Of note, patient had received 2 units of PRBCs in the outpatient setting under hematology oncology for anemia prior to her fever. In the ED, patient was noted to have SIRS criteria. Her pulse was greater than 90, T-max of 100.9 Fahrenheit, leukopenic to 0.3 with a lactic acid was within normal limits at 1.5. Urinalysis was negative. Her rapid strep test was negative. CT of the abdomen and pelvis was performed to rule out intra- abdominal pathology which showed ascites,. Umbilical hernia, cholelithiasis and lytic lesions. She was empirically started on vancomycin and cefepime and infectious disease was consulted. ID added Anidulafungin to cover for fungal infections. She was given Tylenol as needed for fever. With regard to her leukopenia, hematology oncology was consulted. He recommended patient receive Neupogen which progressively improved her WBC count. Patient had a white count of 10.6 at the time of discharge. Patient was noted to be anemic with hemoglobin of 5.8. Patient was noted to have an elevated total bilirubin. Lactate dehydrogenase was within normal limits. Vitamin B12 and folate was within normal limits. Iron studies showed anemia of chronic disease. She was transfused 4 units of PRBCs. Her hemoglobin on discharge was 8.2. Patient was noted to have a low platelet count through hospitalization. Her platelet count on admission was 48 which trended down to 8 on 01/08/2019. Patient developed an episode of epistaxis which was controlled with local pressure. Hematology oncology recommended 1 unit platelet. Her repeat platelet was 7 and patient was transfused another unit of platelet. Her platelet count at the time of discharge was 19. Patient was noted to have chronic lower extremity swelling due to lymphedema. She was started on Lasix 40 mg IV twice a day. Nursing was instructed for ALTHEA wrap. Patient was seen and examined. No acute events overnight. Patient with no complaints. No further episodes of epistaxis or bleeding. She denies any chest pain, shortness of breath or palpitations. No nausea vomiting. No fever or chills. Tolerating diet well. General: [non toxic], [no distress], [appears at stated age] Derm: [warm], [dry] Head: [atraumatic], [normocephalic], [symmetric] Eyes: [EOMI], [no lid lag], [anicteric sclera] Mouth: [no lip lesion], [mucus membranes moist] Cardiovascular: [S1S2 reg], [no murmur], [positive DP pulse bilateral] Lungs: [Decreased breath sounds bilateral], [no rhonchi, no rales] , [no accessory muscle use] Abdominal: [soft], [nontender to palpation], [no guarding], [no appreciable organomegaly] Ext: [no gross muscle atrophy], [3+ lower extremity edema], [no contractures] Neuro: [no focal neuro deficits] Psych: [Alert], [oriented], [appropriate affect] SIRS with neutropenic fever Epistaxes Lower extremity swelling History of cholecystitis Pancytopenia Initially met sepsis criteria with tachycardia, leukopenia, fever with unknown source of infection. CT abdomen and pelvis shows ascites, periumbilical hernia, cholelithiasis and lytic lesions. UA negative. Rapid strep negative. Lactic acid negative. Blood culture preliminary negative at 120 hours. Plans: Per discussions with Dr. Smith, we'll continue levofloxacin by mouth for 10 days. Tylenol as needed for fever. Follow blood cultures. Follow ID consultation. Hemoglobin 8.2 post 4 PRBC. Platelet count 7-19 post 2 Plt units. Plans: Resolved. Related to lymphedema. Plans: Continue home dose of Lasix. ALTHEA wraps, discussed with RN. Lower extremity elevation. As seen on gallbladder ultrasound on previous admission. Previously evaluated by general surgery, recommended medical management due to high risk for surgery. CT abdomen pelvis shows cholelithiasis with no signs of cholecystitis. Plans: Plans of Levofloxacin for 10 days by mouth at home. Continue to monitor. Abdominal pain likely related to metastatic disease and organ enlargement. WBC count of 1.1-5.5-9.5-8.6-10.6 (resolved), hemoglobin 6.6-6.9-7.5-7.7-8.2 (improving), platelet count 17-25-4-7-19 (improving). Likely related to metastatic disease possibly to bone marrow. Received Neupogen, WBC count up from 0.6. Elevated total bilirubin. Lactate dehydrogenase within normal limits. Vitamin B12 and folate within normal limits. Plans: Transfuse if hemoglobin less than 7. Follow hematology consultation. [Patient admitted for SIRS with neutropenic fever. Cultures are currently negative, fever possibly from blood transfusion in the outpatient setting. Anemia and thrombocytopenia has improved. Leukopenia has resolved. Plans on DC today if okay with hematology oncology.] Pertinent Studies: Chest x-ray, CT abdomen and pelvis Patient Condition at Discharge: Stable Plan - Discharge Summary Discharge Rx Participant: No New Discharge Prescriptions: New Levofloxacin [Levaquin] 750 mg PO DAILY 10 Days #10 tab Continue Sertraline [Zoloft] 50 mg PO DAILY Polyethylene Glycol 3350 [Miralax] 17 gm PO DAILY PRN PRN Reason: Constipation Potassium Chloride ER [K-Dur 20] 40 meq PO DAILY #60 tab traMADol HCL [Ultram] 50 mg PO Q6HR PRN PRN Reason: Pain Ondansetron HCl [Zofran] 4 mg PO Q8H PRN PRN Reason: Nausea Magnesium Oxide [Mag-Ox] 200 mg PO BID Acetaminophen [Tylenol Extra Strength] 1,000 mg PO TID PRN PRN Reason: Pain Furosemide [Lasix] 20 mg PO BID Discharge Medication List Polyethylene Glycol 3350 [Miralax] 17 gm PO DAILY PRN 10/25/18 [History] Sertraline [Zoloft] 50 mg PO DAILY 10/25/18 [History] Potassium Chloride ER [K-Dur 20] 40 meq PO DAILY #60 tab 10/29/18 [Rx] Magnesium Oxide [Mag-Ox] 200 mg PO BID 12/11/18 [History] Ondansetron HCl [Zofran] 4 mg PO Q8H PRN 12/11/18 [History] traMADol HCL [Ultram] 50 mg PO Q6HR PRN 12/11/18 [History] Acetaminophen [Tylenol Extra Strength] 1,000 mg PO TID PRN 01/04/19 [History] Furosemide [Lasix] 20 mg PO BID 01/04/19 [History] Levofloxacin [Levaquin] 750 mg PO DAILY 10 Days #10 tab 01/10/19 [Rx] Follow up Appointment(s)/Referral(s): Krupa Martin MD [Primary Care Provider] - 1-2 days [facility], [NON-STAFF] - 1 Week Dorita Hartman MD [STAFF PHYSICIAN] - 1 Week Ambulatory/Diagnostic Orders: Complete Blood Count w/diff [LAB.AMB] Time Frame: 2 Days, Location: None Selected Activity/Diet/Wound Care/Special Instructions: Diet: Low-salt Follow-up PCP within 1-2 days of discharge. Follow-up with the oncologist Dr. Hartman within 1 week of discharge. Please repeat a CBC within 2 days of discharge. Take all medications as advised. Discharge Disposition: HOME SELF-CARE
== END 2019-01-10 11:40 | disposition home health service (06) | DRG 871 ==
LOC: EC 21:33 → 3NMEDONC 01-05 00:58
PROVIDERS: ADMIT Internal Medicine; ATTEND Internal Medicine
PROC: 30233N1 Transfusion of Nonautologous Red Blood Cells into Peripheral Vein, Percutaneous Approach (ICD-10-PCS; principal; 2019-01-05)
PROC: 30233R1 Transfusion of Nonautologous Platelets into Peripheral Vein, Percutaneous Approach (ICD-10-PCS; 2019-01-08)
DX: A41.9 Sepsis, unspecified organism (principal); D61.810 Antineoplastic chemotherapy induced pancytopenia; C79.51 Secondary malignant neoplasm of bone; C25.9 Malignant neoplasm of pancreas, unspecified; C78.7 Secondary malignant neoplasm of liver and intrahepatic bile duct; K80.10 Calculus of gallbladder with chronic cholecystitis without obstruction; N39.0 Urinary tract infection, site not specified; Z68.43 Body mass index [BMI] 50.0-59.9, adult; R18.8 Other ascites; E66.9 Obesity, unspecified; D70.1 Agranulocytosis secondary to cancer chemotherapy; R50.81 Fever presenting with conditions classified elsewhere; D63.8 Anemia in other chronic diseases classified elsewhere; K42.9 Umbilical hernia without obstruction or gangrene; R04.0 Epistaxis; I89.0 Lymphedema, not elsewhere classified; G89.3 Neoplasm related pain (acute) (chronic); T45.1X5A Adverse effect of antineoplastic and immunosuppressive drugs, initial encounter; M54.5 Low back pain; K59.00 Constipation, unspecified; E87.6 Hypokalemia; I10 Essential (primary) hypertension; M19.90 Unspecified osteoarthritis, unspecified site; Z79.899 Other long term (current) drug therapy; Z71.3 Dietary counseling and surveillance; Z87.440 Personal history of urinary (tract) infections; Z98.891 History of uterine scar from previous surgery; Z80.3 Family history of malignant neoplasm of breast; Z81.8 Family history of other mental and behavioral disorders
CPT/HCPCS: 36415; 71046; 74176; 80048; 80053; 80202; 81003; 82565; 82607; 82728; 82746; 83010; 83540; 83550; 83605; 83615; 83625; 84132; 84484; 85025; 85027; 85045; 85384; 85610; 85730; 86850; 86880; 86900; 86901; 86920; 87040; 87081; 87086; 87430; 93005; 96361; 96365; 96368; 99285

== ENCOUNTER → 2019-01-18 | Outpatient (CLI) | payer OTHER ==
[2019-01-18 14:12] LABS: African American GFR (CKD) >90 (>60 ml/min/1.73 sqM); Blood Urea Nitrogen 11 mg/dL (7-17)
--- NOTE | 2019-01-18 15:13 | CT ---
EXAMINATION TYPE: CT abdomen pelvis w con DATE OF EXAM: 01/18/2019 HISTORY: f/u ca of bile duct CT DLP: 4126.9mGycm Automated Exposure Control for Dose Reduction was Utilized. CONTRAST: CT scan of the abdomen and pelvis is performed with IV Contrast, patient injected with 100 mL of Isov ue 370. COMPARISON: CT abdomen and pelvis January 05, 2019. Older CT October 26, 2018 FINDINGS: LUNG BASES: Stable mild cardiomegaly. LIVER/GB: Diffuse hepatic metastatic disease redemonstrated with scattered hypodense foci. Hypoattenu ation of left hepatic lobe shows some improvement could reflect positive treatment response of centra l obstructing neoplasm. Easier to measure lesions right hepatic lobe are identified. For reference ri ght hepatic lobe lesion measures 1.9 cm long axis axial image 23 versus 3.1 cm on October 26 study long axis axial image 46. New adjacent ascites is seen. Liver size slightly diminished from prior. Numerou s dependent calcified gallstones in gallbladder redemonstrated. PANCREAS: No significant abnormality is seen. SPLEEN: Splenomegaly redemonstrated measuring 20 cm axial image 40. Adjacent left lateral ascites now noted. ADRENALS: No significant abnormality is seen. KIDNEYS: No significant abnormality is seen. BOWEL: Oral contrast does not reach colonic level making evaluation distal wall suboptimal. No suspic ious small or large bowel dilatation. Poorly distended stomach. Scattered colonic diverticulosis. UTERUS/ADNEXA: Anteverted uterus with central metallic IUD. Moderate amount of free fluid in pelvic cul-de-sac. LYMPH NODES: No greater than 1cm abdominal or pelvic lymph nodes are appreciated. OSSEOUS STRUCTURES: Disc space narrowing with vacuum disc phenomenon L2-L3 and L5-S1 levels. Lytic le trevon right ischial tuberosity axial image 67 shows no significant change from prior. Additional lytic lesion right iliac bone near sacroiliac joint axial image 71 is redemonstrated. No definitive new ly tic lesions. OTHER: Moderate diffuse soft tissue anasarca umbilical hernia containing fat and tiny mesenteric vess els with collecting fluid inferiorly redemonstrated. IMPRESSION: Improving disease in liver is felt present. Stable osseous metastatic disease. New small to moderate abdominal and pelvic ascites. Increasing soft tissue anasarca. No new masses or adenopath y. Persistent splenomegaly.
== END | disposition home or self-care (01) ==
LOC: RADCTMAIN 12:37
PROVIDERS: ATTEND Internal Medicine Hematology & Oncology
DX: R18.8 Other ascites (principal); R16.1 Splenomegaly, not elsewhere classified; K76.9 Liver disease, unspecified; C24.0 Malignant neoplasm of extrahepatic bile duct
CPT/HCPCS: 82565; 84520; 74177; 36415; Q9967

== ENCOUNTER 2019-02-10 11:26 | Inpatient (IN) | payer OTHER ==
[2019-02-10] MEDS ORDERED: MORPHINE SULFATE 4 MG/ML SYRINGE IVP STA (12:53)
[2019-02-10 12:55] LABS: ALT 27 U/L (9-52); AST 54 U/L (14-36); African American GFR (CKD) >90 (>60 ml/min/1.73 sqM); Alkaline Phosphatase 109 U/L (38-126); Anion Gap 8 mmol/L; Blood Urea Nitrogen 21 mg/dL (7-17); Calcium 8.5 mg/dL (8.4-10.2); Carbon Dioxide 29 mmol/L (22-30); Chloride 100 mmol/L (98-107); Glucose 109 mg/dL (74-99); Potassium 3.2 mmol/L (3.5-5.1); Sodium 137 mmol/L (137-145); Total Bilirubin 2.9 mg/dL (0.2-1.3); Total Protein 6.7 g/dL (6.3-8.2)
[2019-02-10 12:57] LABS: INR 1.2 (<1.2); Partial Thromboplastin Time 28.2 sec (22.0-30.0); Prothrombin Time 12.1 sec (9.0-12.0)
[2019-02-10 13:01] LABS: Anisocytosis Slight; Basophils % (A) 1 %; Eosinophils % (A) 1 %; Lymphocytes # (A) 0.4 k/uL (1.0-4.8); Lymphocytes % (A) 21 %; MCH 31.5 pg (25.0-35.0); MCHC 33.3 g/dL (31.0-37.0); MCV 94.4 fL (80.0-100.0); Mean Platelet Volume 7.7; Monocytes % (A) 1 %; Neutrophils # (A) 1.2 k/uL (1.3-7.7); Neutrophils % (A) 74 %; RBC 1.97 m/uL (3.80-5.40); RDW 17.6 % (11.5-15.5); WBC 1.7 k/uL (3.8-10.6)
[2019-02-10 13:21] LABS: HCT 18.6 % (34.0-46.0); HGB 6.2 gm/dL (11.4-16.0)
[2019-02-10 13:22] LABS: Platelet Count 6 k/uL (150-450)
--- NOTE | 2019-02-10 13:31 | CT ---
EXAMINATION TYPE: CT brain wo con DATE OF EXAM: 02/10/2019 COMPARISON: NONE HISTORY: frontal headache CT DLP: 1087.4 mGycm. Automated Exposure Control for Dose Reduction was Utilized. TECHNIQUE: CT scan of the head is performed without contrast. FINDINGS: There is no acute intracranial hemorrhage or midline shift identified. There is diffuse v entricular and sulcal prominence consistent with diffuse age-related cerebral atrophy. No suspicious extra axial fluid collection. The globes are intact and the visualized sinuses are clear. IMPRESSION: No acute intracranial hemorrhage or midline shift. There is diffuse age-related cerebra l atrophy.
[2019-02-10] MEDS ORDERED: POTASSIUM CHLORIDE ER 20 MEQ TAB.ER PO STA (13:33)
[2019-02-10] MEDS ORDERED: NALOXONE 0.4 MG/ML 1 ML VIAL IV PRN (13:55)
--- NOTE | 2019-02-10 13:55 | ED ---
General Adult HPI - General Chief complaint: Recheck/Abnormal Lab/Rx Stated complaint: CA PT, High platelets Time Seen by Provider: 02/10/19 11:49 Source: patient, RN notes reviewed Mode of arrival: ambulatory Limitations: no limitations - History of Present Illness Initial comments: 43-year-old female with a past medical history of stage IV pancreatic cancer, hypertension, osteoarthritis, cardiac murmur chronic low back pain, UTI, constipation presents for a chief complaint of anemia. Patient states she had outpatient labs drawn and was found to be anemic and have thrombocytopenia. States that she is getting chemo currently with her last chemo treatment being last Thursday. States this is why she becomes anemic. Patient does admit that she has been having nosebleeds and is bruising more easily than normal. Denies any GI bleeding.Patient has no other complaints at this time including shortness of breath, chest pain, abdominal pain, nausea or vomiting, headache, or visual changes. - Related Data Home Medications Medication Instructions Recorded Confirmed Polyethylene Glycol 3350 [Miralax] 17 gm PO DAILY PRN 10/25/18 01/04/19 Sertraline [Zoloft] 50 mg PO DAILY 10/25/18 01/04/19 Magnesium Oxide [Mag-Ox] 200 mg PO BID 12/11/18 01/04/19 Ondansetron HCl [Zofran] 4 mg PO Q8H PRN 12/11/18 01/04/19 traMADol HCL [Ultram] 50 mg PO Q6HR PRN 12/11/18 01/04/19 Acetaminophen [Tylenol Extra 1,000 mg PO TID PRN 01/04/19 01/04/19 Strength] Furosemide [Lasix] 20 mg PO BID 01/04/19 01/04/19 Previous Rx's Medication Instructions Recorded Potassium Chloride ER [K-Dur 20] 40 meq PO DAILY #60 tab 10/29/18 Levofloxacin [Levaquin] 750 mg PO DAILY 10 Days #10 tab 01/10/19 Allergies Allergy/AdvReac Type Severity Reaction Status Date / Time No Known Allergies Allergy Verified 02/10/19 11:31 Review of Systems ROS Statement: Those systems with pertinent positive or pertinent negative responses have been documented in the HPI. ROS Other: All systems not noted in ROS Statement are negative. Past Medical History Past Medical History: Cancer, Hypertension, Osteoarthritis (OA) Additional Past Medical History / Comment(s): Cardiac murmur, chronic low back pain, UTI, constipation. PANCREATIC Cancer History of Any Multi-Drug Resistant Organisms: None Reported Past Surgical History: Section Additional Past Surgical History / Comment(s): IUD, biopsy of liver. Past Anesthesia/Blood Transfusion Reactions: No Reported Reaction Past Psychological History: No Psychological Hx Reported Smoking Status: Never smoker Past Alcohol Use History: Occasional Past Drug Use History: None Reported - Past Family History Mother Family Medical History: Dementia, Vascular Disorder Additional Family Medical History / Comment(s): Mother had appendicitis that went undiagnosed for awhle, PVD. Patient's maternal grandmother had breast cancer around the age of 50 Father Family Medical History: No Reported History Additional Family Medical History / Comment(s): Father is healthy General Exam Limitations: no limitations General appearance: alert, in no apparent distress Head exam: Present: atraumatic, normocephalic, normal inspection Eye exam: Present: normal appearance, PERRL, EOMI. Absent: scleral icterus, conjunctival injection, periorbital swelling ENT exam: Present: normal exam, normal oropharynx, mucous membranes moist, TM's normal bilaterally, normal external ear exam, other (No epistaxis at this time.) Neck exam: Present: normal inspection, full ROM. Absent: tenderness, men ingismus, lymphadenopathy Respiratory exam: Present: normal lung sounds bilaterally. Absent: respiratory distress, wheezes, rales, rhonchi, stridor Cardiovascular Exam: Present: regular rate, normal rhythm, normal heart sounds. Absent: systolic murmur, diastolic murmur, rubs, gallop, clicks GI/Abdominal exam: Present: soft, normal bowel sounds. Absent: distended, tenderness, guarding, rebound, rigid Neurological exam: Present: alert Psychiatric exam: Present: normal affect, normal mood Course Vital Signs 02/10/19 02/10/19 11:28 13:32 Temperature 98.3 F 98.1 F Pulse Rate 79 80 Respiratory 20 16 Rate Blood Pressure 133/58 125/62 O2 Sat by Pulse 98 100 Oximetry Medical Decision Making - Medical Decision Making 43-year-old female with a past medical history of pancreatic cancer currently receiving chemo presents for anemia and chemotherapy knee. Patient was sent over by her oncologist as they could not obtain platelets outpatient. Patient was found to have a hemoglobin of 6.2 with a platelet count of 6. Hemodynamically stable at this time. Patient also has a white blood cell count of 1.7, and cytopenic. Potassium is 3.2. Patient was given by mouth potassium. This will be rechecked. Patient will be admitted. Culture was consulted. - Lab Data Result diagrams: 02/10/19 12:20 02/10/19 12:20 Lab Results 02/10/19 02/10/19 02/10/19 Range/Units 12:20 12:20 12:20 WBC 1.7 L (3.8-10.6) k/uL RBC 1.97 L (3.80-5.40) m/uL Hgb 6.2 L* D (11.4-16.0) gm/dL Hct 18.6 L* (34.0-46.0) % MCV 94.4 (80.0-100.0) fL MCH 31.5 (25.0-35.0) pg MCHC 33.3 (31.0-37.0) g/dL RDW 17.6 H (11.5-15.5) % Plt Count 6 L* D (150-450) k/uL Neutrophils % 74 % Lymphocytes % 21 % Monocytes % 1 % Eosinophils % 1 % Basophils % 1 % Neutrophils # 1.2 L (1.3-7.7) k/uL Lymphocytes # 0.4 L (1.0-4.8) k/uL Monocytes # 0.0 (0-1.0) k/uL Eosinophils # 0.0 (0-0.7) k/uL Basophils # 0.0 (0-0.2) k/uL Anisocytosis Slight PT (9.0-12.0) sec INR (<1.2) APTT (22.0-30.0) sec Fibrinogen (200-500) mg/dL Sodium 137 (137-145) mmol/L Potassium 3.2 L (3.5-5.1) mmol/L Chloride 100 (98-107) mmol/L Carbon Dioxide 29 (22-30) mmol/L Anion Gap 8 mmol/L BUN 21 H (7-17) mg/dL Creatinine 0.74 (0.52-1.04) mg/dL Est GFR (CKD-EPI)AfAm >90 (>60 ml/min/1.73 sqM) Est GFR (CKD-EPI)NonAf >90 (>60 ml/min/1.73 sqM) Glucose 109 H (74-99) mg/dL Calcium 8.5 (8.4-10.2) mg/dL Total Bilirubin 2.9 H (0.2-1.3) mg/dL AST 54 H (14-36) U/L ALT 27 (9-52) U/L Alkaline Phosphatase 109 (38-126) U/L Total Protein 6.7 (6.3-8.2) g/dL Albumin 3.0 L (3.5-5.0) g/dL Blood Type A Positive Blood Type Recheck A Pos Bld Type Recheck Status No Antibody Screen NEGATIVE Crossmatch See Detail Spec Expiration Date 02/13/2019231902/10/19 02/10/19 Range/Units 12:20 12:20 WBC (3.8-10.6) k/uL RBC (3.80-5.40) m/uL Hgb (11.4-16.0) gm/dL Hct (34.0-46.0) % MCV (80.0-100.0) fL MCH (25.0-35.0) pg MCHC (31.0-37.0) g/dL RDW (11.5-15.5) % Plt Count (150-450) k/uL Neutrophils % % Lymphocytes % % Monocytes % % Eosinophils % % Basophils % % Neutrophils # (1.3-7.7) k/uL Lymphocytes # (1.0-4.8) k/uL Monocytes # (0-1.0) k/uL Eosinophils # (0-0.7) k/uL Basophils # (0-0.2) k/uL Anisocytosis PT 12.1 H (9.0-12.0) sec INR 1.2 H (<1.2) APTT 28.2 (22.0-30.0) sec Fibrinogen 307 (200-500) mg/dL Sodium (137-145) mmol/L Potassium (3.5-5.1) mmol/L Chloride (98-107) mmol/L Carbon Dioxide (22-30) mmol/L Anion Gap mmol/L BUN (7-17) mg/dL Creatinine (0.52-1.04) mg/dL Est GFR (CKD-EPI)AfAm (>60 ml/min/1.73 sqM) Est GFR (CKD-EPI)NonAf (>60 ml/min/1.73 sqM) Glucose (74-99) mg/dL Calcium (8.4-10.2) mg/dL Total Bilirubin (0.2-1.3) mg/dL AST (14-36) U/L ALT (9-52) U/L Alkaline Phosphatase (38-126) U/L Total Protein (6.3-8.2) g/dL Albumin (3.5-5.0) g/dL Blood Type Blood Type Recheck Bld Type Recheck Status Antibody Screen Crossmatch Spec Expiration Date Disposition Clinical Impression: Hypokalemia, Anemia, Pancytopenia, Thrombocytopenia Disposition: ADMITTED IP TO THIS HOSP Condition: Fair Is patient prescribed a controlled substance at d/c from ED?: No Referrals: Krupa Martin MD [Primary Care Provider] - 1-2 days Time of Disposition: 13:55
[2019-02-10 15:03] VITALS: BMI 49.1
[2019-02-10] MEDS ORDERED: Potassium Replacement Protocol 1 EACH MISC MISCELLANE PRN (15:51)
[2019-02-10] MEDS: SODIUM CHLORIDE 0.9% 1,000 ML IV SCH (16:16)
--- NOTE | 2019-02-10 16:28 | P.HPIM ---
History of Present Illness H&P Date: 02/10/19 Chief Complaint: Anemia 43-year-old female with PMH of pancreatic cancer with metastatic disease to the liver, hypertension, chronic lower back pain presents to the ED after being sent from her oncology clinic. Patient was noted to have a low hemoglobin and low platelet count in the oncology clinic. It was noted that there were no units of platelets that were available to be transfused in the outpatient setting, thus patient was sent to the ED. Patient states that she has been progressively feeling better since her discharge in December 2018. She currently reports worsening indigestion of food and heartburn. She complains of left-sided abdominal pain, 6-7 out of 10 in severity, stabbing in nature without any radiating features. She has been worked up previously for this pain and was told it was too to her pancreatic cancer and metastatic disease. Patient reports a frontal headache that she describes as bandlike that has been ongoing for the past couple of weeks. Patient reports intermittent nosebleeds that have been controlled with local pressure. Patient reports episodes where she wakes up gasping for air. This is been ongoing for the past few weeks and happens every time she dozes off. Of note, patient reports chronic lower extremity swelling but states that this has been improved from her previous admissions. She reports nausea but denies any vomiting. Patient reports low-grade fevers from 98-99F. She denies any cough, chest pain, palpitations, changes in urination or bowel habits. No dizziness, numbness/weakness/tingling of the extremities. She does describe some exertional shortness of breath. In the ED, her vital signs were stable. CBC showed pancytopenia with WBC count 1.7, hemoglobin 6.2, platelet 6. Coagulation panel showed INR of 1.2. Fibrinogen was within normal limits. CMP showed a potassium of 3.2, BUN 21, total bilirubin 2.9, AST 54. Patient is admitted for anemia and thrombocytopenia with 1 unit of PRBC and platelet that is ordered from the ED. Review of Systems Pertinent positives and negatives as discussed in HPI, a complete review of systems was performed and all other systems are negative. Past Medical History Past Medical History: Cancer, Hypertension, Osteoarthritis (OA) Additional Past Medical History / Comment(s): Pancreatic cancer stage IV with mets to liver-current chemo with last dose 02/04/19, pancytopenia, anemia r/t chemotherapy, chronic lower back pain, constipation, cholecystitis, cardiac murmur, lower extremity edema, UTIs. History of Any Multi-Drug Resistant Organisms: None Reported Past Surgical History: Section Additional Past Surgical History / Comment(s): IUD, biopsy of liver. Past Anesthesia/Blood Transfusion Reactions: No Reported Reaction Smoking Status: Never smoker - Past Family History Mother Family Medical History: Dementia, Vascular Disorder Additional Family Medical History / Comment(s): Mother had appendicitis that went undiagnosed for awhle, PVD. Patient's maternal grandmother had breast cancer around the age of 50 Father Family Medical History: No Reported History Additional Family Medical History / Comment(s): Father is healthy Medications and Allergies Home Medications Medication Instructions Recorded Confirmed Type Polyethylene Glycol 3350 [Miralax] 17 gm PO DAILY PRN 10/25/18 02/10/19 History Sertraline [Zoloft] 50 mg PO DAILY 10/25/18 02/10/19 History Magnesium Oxide [Mag-Ox] 200 mg PO BID 12/11/18 02/10/19 History Ondansetron HCl [Zofran] 4 mg PO Q8H PRN 12/11/18 02/10/19 History traMADol HCL [Ultram] 50 mg PO Q6HR PRN 12/11/18 02/10/19 History Acetaminophen [Tylenol Extra 1,000 mg PO TID PRN 01/04/19 02/10/19 History Strength] Furosemide [Lasix] 20 mg PO BID 01/04/19 02/10/19 History Spironolactone 50 mg PO DAILY 02/10/19 02/10/19 History Allergies Allergy/AdvReac Type Severity Reaction Status Date / Time No Known Allergies Allergy Verified 02/10/19 14:07 Physical Exam Vitals: Vital Signs Temp Pulse Resp BP Pulse Ox 02/10/19 15:40 98.1 F 88 16 118/57 99 02/10/19 15:10 98.0 F 84 16 108/87 98 02/10/19 14:40 98.1 F 87 16 134/87 02/10/19 14:30 98.8 F 79 16 119/71 99 02/10/19 13:32 98.1 F 80 16 125/62 100 02/10/19 11:28 98.3 F 79 20 133/58 98 Intake and Output 02/10/19 02/10/19 02/10/19 06:59 14:59 22:59 Intake Total 0 Balance 0 Intake: Blood Product 0 Rc As-3 Unit 0 [id number] Other: Weight 151.046 kg General: [non toxic], [no distress], [appears at stated age], [jaundiced] Derm: [warm], [dry] Head: [atraumatic], [normocephalic], [symmetric] Eyes: [EOMI], [no lid lag], [anicteric sclera] Mouth: [no lip lesion], [mucus membranes moist] Cardiovascular: [S1S2 reg], [systolic murmur], [positive DP pulse bilateral], Lungs: [Decreased breath sounds bilateral], [no rhonchi, no rales] , [no accessory muscle use] Abdominal: [soft], [tenderness to palpation over the left upper quadrant without rebound], [no guarding], [no appreciable organomegaly] Ext: [no gross muscle atrophy], [2+ bilateral lower extremity edema], [no contractures] Neuro: [ CN II-XI grossly intact], [no focal neuro deficits] Psych: [Alert], [oriented], [appropriate affect] Results CBC & Chem 7: 02/10/19 12:20 02/10/19 12:20 Labs: Abnormal Lab Results - Last 24 Hours (Table) 02/10/19 02/10/19 02/10/19 Range/Units 12:20 12:20 12:20 WBC 1.7 L (3.8-10.6) k/uL RBC 1.97 L (3.80-5.40) m/uL Hgb 6.2 L* D (11.4-16.0) gm/dL Hct 18.6 L* (34.0-46.0) % RDW 17.6 H (11.5-15.5) % Plt Count 6 L* D (150-450) k/uL Neutrophils # 1.2 L (1.3-7.7) k/uL Lymphocytes # 0.4 L (1.0-4.8) k/uL PT (9.0-12.0) sec INR (<1.2) Potassium 3.2 L (3.5-5.1) mmol/L BUN 21 H (7-17) mg/dL Glucose 109 H (74-99) mg/dL Total Bilirubin 2.9 H (0.2-1.3) mg/dL AST 54 H (14-36) U/L Albumin 3.0 L (3.5-5.0) g/dL Crossmatch See Detail 02/10/19 Range/Units 12:20 WBC (3.8-10.6) k/uL RBC (3.80-5.40) m/uL Hgb (11.4-16.0) gm/dL Hct (34.0-46.0) % RDW (11.5-15.5) % Plt Count (150-450) k/uL Neutrophils # (1.3-7.7) k/uL Lymphocytes # (1.0-4.8) k/uL PT 12.1 H (9.0-12.0) sec INR 1.2 H (<1.2) Potassium (3.5-5.1) mmol/L BUN (7-17) mg/dL Glucose (74-99) mg/dL Total Bilirubin (0.2-1.3) mg/dL AST (14-36) U/L Albumin (3.5-5.0) g/dL Crossmatch Thrombosis Risk Factor Assmnt - Choose All That Apply Any of the Below Risk Factors Present?: Yes Each Factor Represents 1 point: Age 41-60 years, Obesity (BMI >25) Other Risk Factors: Yes Each Risk Factor Represents 2 Points: Malignancy Other congenital or acquired thrombophilia - If yes, enter type in comment: No Thrombosis Risk Factor Assessment Total Risk Factor Score: 4 Thrombosis Risk Factor Assessment Level: Moderate Risk Assessment and Plan Assessment: Assessment and Plan Anemia with hemoglobin of 6.2 Thrombocytopenia with platelet count of 6 Leukopenia with WBC count 1.7 Hypokalemia Transaminitis Pancreatic cancer currently undergoing chemotherapy with Dr. Hartman Hemoglobin 6.2. Likely due to chemotherapy. Plans: Telemetry monitoring. Transfuse 1 unit PRBC. Repeat CBC in the morning. Follow oncology consultation. Platelet count of 6. Likely due to chemotherapy. Plans: Transfuse 1 unit platelets. Repeat CBC in the morning. Follow oncology consultation. Leukopenia with WBC count 1.7. ANC 1258. Plans: Leukopenic precautions. No signs of infection. Repeat CBC in the morning. Follow oncology consultation. Potassium 3.2. Plans: Replace via protocol. Total bilirubin 2.9, AST 54. ALT and alkaline phosphatase within normal limits. Likely obstruction from pancreatic cancer with metastatic disease to the liver. Plans: We'll continue to monitor. Repeat CMP in the morning. Plans: Needs adequate follow-up with Dr. Hartman. Follow oncology consultation. DVT prophylaxis: [SCD boots] Discussed with: [Patient] Anticipated discharge: [1-2 days] Anticipated discharge place: [Home] A total of [45] minutes was spent on the care of this complex patient more than 50% of the time was spent in counseling and care coordination. [Patient names her brother Benji decision-maker in the case that she can't make decisions for herself. Patient reiterates wanting to remain full code.]
[2019-02-10] MEDS ORDERED: MORPHINE SULFATE 4 MG/ML SYRINGE IV PRN (16:29)
[2019-02-10] MEDS ORDERED: MORPHINE SULFATE 2 MG/ML SYRINGE IV PRN (16:31)
[2019-02-10] MEDS: FUROSEMIDE 20 MG TAB PO SCH (17:03)
[2019-02-10] MEDS: ONDANSETRON 4 MG/2 ML VIAL IVP PRN (17:05)
[2019-02-11] MEDS: ONDANSETRON 4 MG/2 ML VIAL IVP PRN (03:28)
[2019-02-11 08:40] LABS: Anisocytosis Slight; Basophils % (A) 0 %; Eosinophils % (A) 0 %; Lymphocytes # (A) 0.3 k/uL (1.0-4.8); Lymphocytes % (A) 19 %; MCH 32.2 pg (25.0-35.0); MCHC 34.8 g/dL (31.0-37.0); MCV 92.6 fL (80.0-100.0); Monocytes % (A) 1 %; Neutrophils # (A) 1.3 k/uL (1.3-7.7); Neutrophils % (A) 78 %; RBC 1.98 m/uL (3.80-5.40); WBC 1.7 k/uL (3.8-10.6)
[2019-02-11 08:42] LABS: HGB 6.4 gm/dL (11.4-16.0)
[2019-02-11 08:43] LABS: HCT 18.3 % (34.0-46.0)
[2019-02-11 08:44] LABS: Platelet Count 3 k/uL (150-450)
[2019-02-11 08:58] LABS: ALT 19 U/L (9-52); AST 44 U/L (14-36); African American GFR (CKD) >90 (>60 ml/min/1.73 sqM); Albumin 2.8 g/dL (3.5-5.0); Alkaline Phosphatase 118 U/L (38-126); Anion Gap 9 mmol/L; Blood Urea Nitrogen 22 mg/dL (7-17); Calcium 8.3 mg/dL (8.4-10.2); Carbon Dioxide 28 mmol/L (22-30); Chloride 99 mmol/L (98-107); Glucose 104 mg/dL (74-99); LDH 418 U/L (313-618); Potassium 3.6 mmol/L (3.5-5.1); Sodium 136 mmol/L (137-145); Total Protein 6.2 g/dL (6.3-8.2)
[2019-02-11] MEDS: SPIRONOLACTONE 25 MG TAB PO SCH (09:15)
[2019-02-11] MEDS: FUROSEMIDE 20 MG TAB PO SCH ×2 (09:15→17:10)
[2019-02-11] MEDS: SERTRALINE 50 MG TAB PO SCH (09:15)
[2019-02-11] MEDS: SODIUM CHLORIDE 0.9% 1,000 ML IV SCH (09:18)
[2019-02-11] MEDS: ACETAMINOPHEN TAB 325 MG TAB PO PRN (09:25)
[2019-02-11] MEDS ORDERED: methylPREDNISolone SOD SUCCI 125 MG/2 ML VIAL IM ONE (10:11)
[2019-02-11] MEDS ORDERED: diphenhydrAMINE 50 MG/ML 1 ML VIAL IVP PRN (10:13)
[2019-02-11] MEDS ORDERED: FAMOTIDINE 20 MG/2 ML VIAL IV PRN (10:17)
--- NOTE | 2019-02-11 10:22 | P.PN ---
Subjective Progress Note Date: 02/11/19 Principal diagnosis: Anemia Patient was seen and examined. No acute events overnight. Patient reports transfusion reaction during the unit PRBC and 1 unit of platelets last night. States that she felt as if her spine from his and felt intense chills. She was noted to have a fever of 99.3. Currently, she denies any chest pain, shortness of breath or palpitations. No nausea or vomiting. No fever or chills. Objective - Vital Signs Vital signs: Vital Signs Temp 99.3 F 02/11/19 05:00 Pulse 89 02/11/19 05:00 Resp 16 02/11/19 05:00 BP 107/61 02/11/19 05:00 Pulse Ox 96 02/11/19 05:00 Intake & Output 02/10/19 02/11/19 02/11/19 18:59 06:59 18:59 Intake Total 310 1800 Balance 310 1800 Weight 151.046 kg Intake: Oral 1080 Blood Product 310 720 Platelet Pheresis Acda1 205 Unit [id number] Rc As-1 Unit 0 310 [id number] Rc As-3 Unit 310 [id number] Other: # Voids 2 - Exam General: [non toxic], [no distress], [appears at stated age], [jaundiced] Derm: [warm], [dry] Head: [atraumatic], [normocephalic], [symmetric] Eyes: [EOMI], [no lid lag], [anicteric sclera] Mouth: [no lip lesion], [mucus membranes moist] Cardiovascular: [S1S2 reg], [systolic murmur], [positive DP pulse bilateral], Lungs: [Decreased breath sounds bilateral], [no rhonchi, no rales] , [no accessory muscle use] Abdominal: [soft], [tenderness to palpation over the left upper quadrant without rebound], [no guarding], [no appreciable organomegaly] Ext: [no gross muscle atrophy], [2+ bilateral lower extremity edema], [no contractures] Neuro: [no focal neuro deficits] Psych: [Alert], [oriented], [appropriate affect] - Labs CBC & Chem 7: 02/11/19 07:56 02/11/19 07:56 Labs: Abnormal Lab Results - Last 24 Hours (Table) 02/10/19 02/10/19 02/10/19 Range/Units 12:20 12:20 12:20 WBC 1.7 L (3.8-10.6) k/uL RBC 1.97 L (3.80-5.40) m/uL Hgb 6.2 L* D (11.4-16.0) gm/dL Hct 18.6 L* (34.0-46.0) % RDW 17.6 H (11.5-15.5) % Plt Count 6 L* D (150-450) k/uL Neutrophils # 1.2 L (1.3-7.7) k/uL Lymphocytes # 0.4 L (1.0-4.8) k/uL PT (9.0-12.0) sec INR (<1.2) Sodium (137-145) mmol/L Potassium 3.2 L (3.5-5.1) mmol/L BUN 21 H (7-17) mg/dL Glucose 109 H (74-99) mg/dL Calcium (8.4-10.2) mg/dL Total Bilirubin 2.9 H (0.2-1.3) mg/dL AST 54 H (14-36) U/L Total Protein (6.3-8.2) g/dL Albumin 3.0 L (3.5-5.0) g/dL Crossmatch See Detail 02/10/19 02/11/19 02/11/19 Range/Units 12:20 07:56 07:56 WBC 1.7 L (3.8-10.6) k/uL RBC 1.98 L (3.80-5.40) m/uL Hgb 6.4 L* (11.4-16.0) gm/dL Hct 18.3 L* (34.0-46.0) % RDW 17.0 H (11.5-15.5) % Plt Count 3 L* (150-450) k/uL Neutrophils # (1.3-7.7) k/uL Lymphocytes # 0.3 L (1.0-4.8) k/uL PT 12.1 H (9.0-12.0) sec INR 1.2 H (<1.2) Sodium 136 L (137-145) mmol/L Potassium (3.5-5.1) mmol/L BUN 22 H (7-17) mg/dL Glucose 104 H (74-99) mg/dL Calcium 8.3 L (8.4-10.2) mg/dL Total Bilirubin 4.0 H (0.2-1.3) mg/dL AST 44 H (14-36) U/L Total Protein 6.2 L (6.3-8.2) g/dL Albumin 2.8 L (3.5-5.0) g/dL Crossmatch Assessment and Plan Assessment: Assessment and Plan Fever Anemia with hemoglobin of 6.2 Thrombocytopenia with platelet count of 6 Leukopenia with WBC count 1.7 Transaminitis Pancreatic cancer currently undergoing chemotherapy with Dr. Hartman Result: Hypokalemia T-max 99.3 overnight. Likely transfusion reaction. Plans: Solu-Medrol IV 1, Benadryl prior to transfusion. Hemoglobin 6.2-6.4 post 2 unit PRBC. Likely due to chemotherapy. Plans: Telemetry monitoring. Transfuse 1 unit PRBC. Repeat CBC in the morning. Follow oncology consultation. Platelet count of 6-3 post 1 unit platelet. Likely due to chemotherapy. Plans: Transfuse 1 unit platelets. Repeat CBC in the morning. Follow oncology consu ltation. Leukopenia with WBC count 1.7. ANC 1258. Plans: Leukopenic precautions. No signs of infection. Repeat CBC in the morning. Follow oncology consultation. Total bilirubin 4, AST 44. ALT and alkaline phosphatase within normal limits. Likely obstruction from pancreatic cancer with metastatic disease to the liver. Plans: We'll continue to monitor. Repeat CMP in the morning. Plans: Needs adequate follow-up with Dr. Hartman. Follow oncology consultation. [Patient continues to be severely thrombocytopenic along with anemia. Transfusion reaction order set performed. Plans to transfuse platelets and PRBC today. She is pending clinical improvement. Likely DC in 1-2 days.]
[2019-02-11] MEDS ORDERED: methylPREDNISolone SOD SUCCI 125 MG/2 ML VIAL IV PRN (10:30)
[2019-02-11] MEDS: POLYETHYLENE GLYCOL 3350 17 GM POWD.PACK PO SCH (11:57)
--- NOTE | 2019-02-11 14:57 | P.CONS ---
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 Hartman who was initially evaluated inpatient at [facility] on 10/25/2018 when she presented with weakness, hypercalcemia. She had not been feeling well for about 2 months, progressive weak, difficulty concentrating and abdominal fullness. CT CAP 10/26/2018 revealed multiple liver lesions suspicious for metastatic disease and lytic lesion in right ilium with some cortical destruction. Bone scan was negative, Hypercalcemia was corrected. 10/27/18 U/S guided liver biopsy, pathology positive for metastatic adenocarcinoma, non specific IHC stains which could be consistent with breast, lung, endometrial or upper GI/pancreaticobiliary primary, NGS, PDL-1 and MSI could not be done on the biopsy. 11/06/18 CA19-9 was 2611.8, 11/16/18 EGD and colonoscopy were negative. 11/17/18 mammogram and breast U/S were negative. 11/26/18 she started cisplatin/gemzar. 01/18/19 treatment f/u CT revealed improvement her lesions. She was in office 02/10/19 for routine follow-up status post 3 cycles of cisplatin and Gemzar day 1 and 8, over the last 24 hours she was experiencing progressive malaise, epistaxis started, slow persistent drip, stool has some bright red blood on it from known hemorrhoid, trace amt of blood (suspect vaginally) with perneal cleansing, no gross hematuria, mild to moderate indigestion and heartburn, mild nausea, no vomiting, everything tastes "salty", pounding in the head, tinnitus new onset. No fevers, unusual bruises, she had a scab on her arm that came off with persistent oozing of blood. No other c/o. Hgb was 6.8 and plt count was 6,000. We requested transfusions outpatient but, this could not be accomodated so pt was sent to hospital. Also, requested CT head for symptoms-this returned negative for acute hemorrhage. Today pt feels the same, she had a nose bleed this AM but none since, no other bleeding to report. Review of Systems 14 point ROS is negative except as stated in HPI Past Medical History Past Medical History: Cancer, Hypertension, Osteoarthritis (OA) Additional Past Medical History / Comment(s): Pancreatic cancer stage IV with m ets to liver-current chemo with last dose 02/04/19, pancytopenia, anemia r/t chemotherapy, chronic lower back pain, constipation, cholecystitis, cardiac murmur, lower extremity edema, UTIs. History of Any Multi-Drug Resistant Organisms: None Reported Past Surgical History: Section Additional Past Surgical History / Comment(s): IUD, biopsy of liver. Past Anesthesia/Blood Transfusion Reactions: No Reported Reaction Smoking Status: Never smoker - Past Family History Mother Family Medical History: Dementia, Vascular Disorder Additional Family Medical History / Comment(s): Mother had appendicitis that went undiagnosed for VERN chavez. Patient's maternal grandmother had breast cancer around the age of 50 Father Family Medical History: No Reported History Additional Family Medical History / Comment(s): Father is healthy Medications and Allergies Home Medications Medication Instructions Recorded Confirmed Type Polyethylene Glycol 3350 [Miralax] 17 gm PO DAILY PRN 10/25/18 02/10/19 History Sertraline [Zoloft] 50 mg PO DAILY 10/25/18 02/10/19 History Magnesium Oxide [Mag-Ox] 200 mg PO BID 12/11/18 02/10/19 History Ondansetron HCl [Zofran] 4 mg PO Q8H PRN 12/11/18 02/10/19 History traMADol HCL [Ultram] 50 mg PO Q6HR PRN 12/11/18 02/10/19 History Acetaminophen [Tylenol Extra 1,000 mg PO TID PRN 01/04/19 02/10/19 History Strength] Furosemide [Lasix] 20 mg PO BID 01/04/19 02/10/19 History Spironolactone 50 mg PO DAILY 02/10/19 02/10/19 History Allergies Allergy/AdvReac Type Severity Reaction Status Date / Time No Known Allergies Allergy Verified 02/10/19 14:07 Physical Exam Vitals: Vital Signs Temp Pulse Pulse Resp BP BP Pulse Ox 02/11/19 05:00 99.3 F 89 16 107/61 96 02/11/19 01:13 98.5 F 102 H 18 113/62 96 02/11/19 00:52 98.3 F 83 18 114/66 02/10/19 23:57 97.5 F L 82 16 114/55 96 02/10/19 23:50 18 02/10/19 23:47 97.7 F 84 16 117/67 96 02/10/19 21:00 98.6 F 16 112/62 02/10/19 19:28 98.4 F 84 18 110/63 02/10/19 17:35 98.3 F 81 16 108/52 02/10/19 17:05 98.9 F 88 16 109/56 02/10/19 16:55 98.9 F 83 16 109/56 02/10/19 16:53 98.6 F 83 16 118/58 02/10/19 15:40 98.1 F 88 16 118/57 99 02/10/19 15:10 98.0 F 84 16 108/87 98 02/10/19 14:40 98.1 F 87 16 134/87 02/10/19 14:30 98.8 F 79 16 119/71 99 02/10/19 13:32 98.1 F 80 16 125/62 100 02/10/19 11:28 98.3 F 79 20 133/58 98 Intake and Output 02/10/19 02/11/19 02/11/19 22:59 06:59 14:59 Intake Total 1340 770 Balance 1340 770 Intake: Oral 720 360 Blood Product 620 410 Platelet Pheresis Acda1 205 Unit [id number] Rc As-1 Unit 310 [id number] Rc As-3 Unit 310 [id number] Other: # Voids 1 2 - Constitutional General appearance: cooperative, morbidly obese, no acute distress - EENT 2 wet purpura in the oral mucous membranes Eyes: anicteric sclerae, EOMI ENT: hearing grossly normal - Neck Neck: no lymphadenopathy - Respiratory Respiratory: bilateral: CTA - Cardiovascular Rhythm: regular Heart sounds: normal: S1, S2 Abnormal Heart Sounds: systolic murmur leg Peripheral Edema: bilateral: Trace - Gastrointestinal General gastrointestinal: no absent bowel sounds, no decreased bowel sounds, no distended, no hepatomegaly, no hyperactive bowel sounds, normal bowel sounds, no organomegaly, no rigid, no scaphoid, soft, splenomegaly, no tenderness, no umb ilical hernia, no ventral hernia - Integumentary Integumentary: pale - Neurologic Neurologic: CNII-XII intact - Musculoskeletal Musculoskeletal: strength equal bilaterally - Psychiatric Psychiatric: A&O x's 3, appropriate affect, intact judgment & insight Results CBC & Chem 7: 02/11/19 07:56 02/11/19 07:56 Labs: Abnormal Lab Results - Last 24 Hours (Table) 02/10/19 02/10/19 02/10/19 Range/Units 12:20 12:20 12:20 WBC 1.7 L (3.8-10.6) k/uL RBC 1.97 L (3.80-5.40) m/uL Hgb 6.2 L* D (11.4-16.0) gm/dL Hct 18.6 L* (34.0-46.0) % RDW 17.6 H (11.5-15.5) % Plt Count 6 L* D (150-450) k/uL Neutrophils # 1.2 L (1.3-7.7) k/uL Lymphocytes # 0.4 L (1.0-4.8) k/uL PT (9.0-12.0) sec INR (<1.2) Potassium 3.2 L (3.5-5.1) mmol/L BUN 21 H (7-17) mg/dL Glucose 109 H (74-99) mg/dL Total Bilirubin 2.9 H (0.2-1.3) mg/dL AST 54 H (14-36) U/L Albumin 3.0 L (3.5-5.0) g/dL Crossmatch See Detail 02/10/19 Range/Units 12:20 WBC (3.8-10.6) k/uL RBC (3.80-5.40) m/uL Hgb (11.4-16.0) gm/dL Hct (34.0-46.0) % RDW (11.5-15.5) % Plt Count (150-450) k/uL Neutrophils # (1.3-7.7) k/uL Lymphocytes # (1.0-4.8) k/uL PT 12.1 H (9.0-12.0) sec INR 1.2 H (<1.2) Potassium (3.5-5.1) mmol/L BUN (7-17) mg/dL Glucose (74-99) mg/dL Total Bilirubin (0.2-1.3) mg/dL AST (14-36) U/L Albumin (3.5-5.0) g/dL Crossmatch CT Scan - head: report reviewed Assessment and Plan (1) Pancytopenia due to antineoplastic chemotherapy Narrative/Plan: Patient is status post 3 cycles of cisplatin and Gemzar, days 1 and 8 on 02/07/19. Pancytopenia was the reason patient was sent to the hospital (unable to be transfused outpatient). Platelets were 6000. She had complaints of persistent mild epistaxis, new onset headache and tinnitus. CT of the brain without contrast was negative for any signs or symptoms of hemorrhage. Patient received a unit of single donor platelets, her platelets were 3 on recheck. It is noted that patient began having transfusion reaction after completion of administration of 2 units of blood and platelets. Quite possibly destroyed by immune system? Patient has been premedicated and 1 unit of packed red blood cells and 1 unit of single donor platelets ordered. CBC ordered for recheck 6 hours post transfusion. Current Visit: Yes Status: Acute Priority: High Code(s): D61.810 - A NTINEOPLASTIC CHEMOTHERAPY INDUCED PANCYTOPENIA; T45.1X5A - ADVERSE EFFECT OF ANTINEOPLASTIC AND IMMUNOSUP DRUGS, INIT SNOMED Code(s): 214218379808979 (2) Cholangiocarcinoma Narrative/Plan: Patient has cycle of treatment and patient has had 3 cycles outpatient, she did have a dose reduction of Gemzar by 10% for the second and third cycles. She had a repeat CT scan in early January that reported improving disease in liver, stable osseous metastatic disease. New small to moderate abdominal and pelvic ascites. No new masses or adenopathy. Persistent splenomegaly. There was also report of gallstones. Patient was asymptomatic. Due to elevated bilirubin ultrasound has been ordered of the liver and spleen for evaluation of possible obstruction with either stone or disease. Current Visit: Yes Status: Acute Priority: High Code(s): C22.1 - INTRAHEPATIC BILE DUCT CARCINOMA SNOMED Code(s): 670217536 (3) Hyperbilirubinemia Narrative/Plan: Obstructive are Ultrasound of the liver and spleen ordered for evaluation, bilirubin fractions ordered Current Visit: Yes Status: Acute Priority: High Code(s): E80.6 - OTHER DISORDERS OF BILIRUBIN METABOLISM SNOMED Code(s): 87770480
[2019-02-11] MEDS: HYDROcodone/APAP 5-325MG 1 EACH TAB PO PRN (18:29)
--- NOTE | 2019-02-11 18:55 | US ---
EXAMINATION TYPE: US abdomen complete DATE OF EXAM: 02/11/2019 COMPARISON: NONE CLINICAL HISTORY: LUQ pain/elevated Bilirubin. Elevated bilirubin, abdominal pain, gallstones, bile d uct cancer EXAM MEASUREMENTS: Liver Length: 28.0 cm Gallbladder Wall: 0.4 cm CBD: 0.4 cm Spleen: 17.9 cm Right Kidney: 13.6 x 3.7 x 5.9 cm Left Kidney: 12.7 x 4.2 x 5.0 cm *Technical limitations due to patient's body habitus and overlying bowel content Pancreas: Obscured by bowel gas Liver: heterogeneous with multiple lesions seen Gallbladder: multiple stones, thickened GB wall Evidence for sonographic Gutiérrez's sign: yes CBD: limited evaluation Spleen: enlarged Right Kidney: no evidence of hydronephrosis or mass Left Kidney: no evidence of hydronephrosis or mass Upper IVC: wnl Abd Aorta: obscured by overlying bowel content Small amount of ascites RUQ adjacent to liver IMPRESSION: Heterogeneous liver with multiple masses seen. No dilated ducts. Numerous gallstones. Mild ascites fl uid seen.
[2019-02-11 19:46] LABS: Folate, Serum 4.5 ng/mL
[2019-02-11 19:48] LABS: Ferritin 984.7 ng/mL (10.0-291.0); Iron Saturation 64.49 (12.00-45.00)
[2019-02-12] MEDS: ONDANSETRON 4 MG/2 ML VIAL IVP PRN ×3 (07:02→22:27)
[2019-02-12] MEDS ORDERED: traMADol 50 MG TAB PO PRN (07:43)
[2019-02-12 08:07] LABS: Anisocytosis Slight; Basophils % (A) 0 %; Eosinophils % (A) 0 %; HCT 20.8 % (34.0-46.0); HGB 7.2 gm/dL (11.4-16.0); Lymphocytes # (A) 0.2 k/uL (1.0-4.8); Lymphocytes % (A) 11 %; MCH 33.1 pg (25.0-35.0); MCHC 34.7 g/dL (31.0-37.0); MCV 95.2 fL (80.0-100.0); Mean Platelet Volume 5.4; Monocytes % (A) 2 %; Neutrophils # (A) 1.4 k/uL (1.3-7.7); Neutrophils % (A) 85 %; RBC 2.19 m/uL (3.80-5.40); RDW 16.7 % (11.5-15.5); WBC 1.6 k/uL (3.8-10.6)
[2019-02-12 08:09] LABS: Platelet Count 3 k/uL (150-450)
[2019-02-12] MEDS: SERTRALINE 50 MG TAB PO SCH (08:38)
[2019-02-12] MEDS: FUROSEMIDE 20 MG TAB PO SCH ×2 (08:38→16:55)
[2019-02-12] MEDS: SPIRONOLACTONE 25 MG TAB PO SCH (08:38)
[2019-02-12] MEDS ORDERED: methylPREDNISolone SOD SUCCI 125 MG/2 ML VIAL IV PRN (08:52)
[2019-02-12] MEDS ORDERED: FAMOTIDINE 20 MG/2 ML VIAL IV PRN (08:54)
[2019-02-12] MEDS ORDERED: diphenhydrAMINE 50 MG/ML 1 ML VIAL IVP PRN ×2 (08:54→18:57)
[2019-02-12] MEDS ORDERED: OXYMETAZOLINE 0.05% NASL SPRAY 1 SPRAY BOTTLE NASAL PRN (08:59)
[2019-02-12] MEDS: POLYETHYLENE GLYCOL 3350 17 GM POWD.PACK PO SCH (09:05)
[2019-02-12] MEDS: traMADol 50 MG TAB PO SCH ×2 (09:06→22:28)
--- NOTE | 2019-02-12 09:09 | P.PN ---
Subjective Progress Note Date: 02/12/19 Principal diagnosis: Anemia Patient was seen and examined. No acute events overnight. Patient reports nosebleeds that were controlled with local pressure last night. Complains of large clots in her nose. Requesting tramadol to be restarted from home medication last. Complaining about telemetry and wanting it taken off. Also requesting that she would like to go to the bathroom rather than use the commode. She denies any chest pain, shortness of breath or palpitations. No nausea or vomiting. No fever or chills. Objective - Vital Signs Vital signs: Vital Signs Temp 97.8 F 02/12/19 05:00 Pulse 91 02/12/19 08:44 Resp 18 02/12/19 05:00 BP 126/60 02/12/19 08:44 Pulse Ox 98 02/12/19 05:00 Intake & Output 02/11/19 02/12/19 02/12/19 18:59 06:59 18:59 Intake Total 615 Balance 615 Weight 151.046 kg Intake: Blood Product 615 Platelet Pheresis Acda1 305 Unit [id number] Rc As-1 Unit 310 [id number] Other: # Voids 3 2 - Exam General: [non toxic], [no distress], [appears at stated age], [jaundiced] Derm: [warm], [dry] Head: [atraumatic], [normocephalic], [symmetric] Eyes: [EOMI], [no lid lag], [anicteric sclera] Mouth: [no lip lesion], [mucus membranes moist] Cardiovascular: [S1S2 reg], [systolic murmur], [positive DP pulse bilateral], Lungs: [Decreased breath sounds bilateral], [no rhonchi, no rales] , [no accessory muscle use] Abdominal: [soft], [tenderness to palpation over the left upper quadrant without rebound], [no guarding], [no appreciable organomegaly] Ext: [no gross muscle atrophy], [2+ bilateral lower extremity edema], [no c ontractures] Neuro: [no focal neuro deficits] Psych: [Alert], [oriented], [appropriate affect] - Labs CBC & Chem 7: 02/12/19 07:40 02/11/19 07:56 Labs: Abnormal Lab Results - Last 24 Hours (Table) 02/10/19 02/11/19 02/12/19 Range/Units 12:20 07:56 07:40 WBC 1.6 L (3.8-10.6) k/uL RBC 2.19 L (3.80-5.40) m/uL Hgb 7.2 L (11.4-16.0) gm/dL Hct 20.8 L (34.0-46.0) % RDW 16.7 H (11.5-15.5) % Plt Count 3 L* (150-450) k/uL Lymphocytes # 0.2 L (1.0-4.8) k/uL TIBC 214 L (228-460) ug/dL Iron Saturation 64.49 H (12.00-45.00) Ferritin 984.7 H (10.0-291.0) ng/mL Vitamin B12 2078.0 H (200.0-944.0) pg/mL Crossmatch See Detail Assessment and Plan Assessment: Assessment and Plan Epistaxis Anemia with hemoglobin of 6.2 Thrombocytopenia with platelet count of 6 Leukopenia with WBC count 1.7 Transaminitis Pancreatic cancer currently undergoing chemotherapy with Dr. Hartman Result: Hypokalemia, Fever Likely from thrombocytopenia. Plans: Transfuse 1 unit of platelets today. Afrin spray as needed for nosebleeds if local pressure does not work within 10 minutes. Hemoglobin 6.2-6.4-7.2 post 3 unit PRBC. Likely due to chemotherapy. Current study shows anemia chronic disease. Plans: Telemetry monitoring. Transfuse 1 unit PRBC. Repeat CBC in the morning. Follow oncology consultation. Platelet count of 6-3-3 post 2 unit platelet. Likely due to chemotherapy. Plans: Transfuse 1 unit platelets. Repeat CBC in the morning. Follow oncology consultation. Leukopenia with WBC count 1.6. ANC 1258 on admission. Plans: Leukopenic precautions. No signs of infection. Repeat CBC in the morning. Follow oncology consultation. Total bilirubin 4, AST 44. ALT and alkaline phosphatase within normal limits. Likely obstruction from pancreatic cancer with metastatic disease to the liver. Plans: We'll continue to monitor. Repeat CMP in the morning. Plans: Needs adequate follow-up with Dr. Hartman. Follow oncology consultation. [Patient continues to be severely thrombocytopenic along with anemia. Plans to transfuse platelets and PRBC today. She is pending clinical improvement. Likely DC in 1-2 days.]
[2019-02-12] MEDS: SODIUM CHLORIDE 0.9% 1,000 ML IV SCH (15:38)
[2019-02-12] MEDS: ACETAMINOPHEN TAB 325 MG TAB PO PRN (16:56)
[2019-02-12 17:52] LABS: Anisocytosis Slight; Basophils % (A) 0 %; Eosinophils % (A) 0 %; HCT 21.9 % (34.0-46.0); HGB 7.6 gm/dL (11.4-16.0); Lymphocytes # (A) 0.2 k/uL (1.0-4.8); Lymphocytes % (A) 12 %; MCH 31.6 pg (25.0-35.0); MCHC 34.8 g/dL (31.0-37.0); MCV 90.8 fL (80.0-100.0); Mean Platelet Volume 5.4; Monocytes % (A) 2 %; Neutrophils # (A) 1.5 k/uL (1.3-7.7); Neutrophils % (A) 84 %; RBC 2.41 m/uL (3.80-5.40); RDW 16.5 % (11.5-15.5); WBC 1.8 k/uL (3.8-10.6)
[2019-02-12 17:53] LABS: Platelet Count 3 k/uL (150-450)
--- NOTE | 2019-02-12 18:48 | P.PN ---
Subjective Progress Note Date: 02/12/19 Principal diagnosis: Patient is sitting comfortably, receiving the blood, received platelets, continues to have nosebleeds. Objective - Vital Signs Vital signs: Vital Signs Temp 98.2 F 02/12/19 15:18 Pulse 81 02/12/19 15:18 Resp 20 02/12/19 15:18 BP 122/57 02/12/19 15:18 Pulse Ox 96 02/12/19 15:18 Intake & Output 02/11/19 02/12/19 02/12/19 18:59 06:59 18:59 Intake Total 615 532 Balance 615 532 Weight 151.046 kg Intake: Blood Product 615 532 Platelet Irr Pheresis 222 Acda1 Unit [id number] Platelet Pheresis Acda1 305 Unit [id number] Rc As-1 Unit 310 [id number] Rc As-1 Unit 310 [id number] Other: Voiding Method Toilet # Voids 3 2 3 # Bowel Movements 1 - Exam The patient appeared well nourished and normally developed. Vital signs as documented. Head exam is unremarkable. No scleral icterus or corneal arcus noted. Neck is without jugular venous distension, thyromegaly, or carotid bruits. Carotid upstrokes are brisk bilaterally. Lungs are clear to auscultation and percussion. Cardiac exam reveals the PMI to be normally sized and situated. Rhythm is regular. First and second heart sounds normal. No murmurs, rubs or ga llops. Abdominal exam reveals normal bowel sounds, no masses, no organomegaly and no aortic enlargement. Extremities are nonedematous and both femoral and pedal pulses are normal. - Labs CBC & Chem 7: 02/12/19 17:18 02/11/19 07:56 Labs: Abnormal Lab Results - Last 24 Hours (Table) 02/10/19 02/11/19 02/12/19 Range/Units 12:20 07:56 07:40 WBC 1.6 L (3.8-10.6) k/uL RBC 2.19 L (3.80-5.40) m/uL Hgb 7.2 L (11.4-16.0) gm/dL Hct 20.8 L (34.0-46.0) % RDW 16.7 H (11.5-15.5) % Plt Count 3 L* (150-450) k/uL Lymphocytes # 0.2 L (1.0-4.8) k/uL TIBC 214 L (228-460) ug/dL Iron Saturation 64.49 H (12.00-45.00) Ferritin 984.7 H (10.0-291.0) ng/mL Vitamin B12 2078.0 H (200.0-944.0) pg/mL Crossmatch See Detail 02/12/19 Range/Units 17:18 WBC 1.8 L (3.8-10.6) k/uL RBC 2.41 L (3.80-5.40) m/uL Hgb 7.6 L (11.4-16.0) gm/dL Hct 21.9 L (34.0-46.0) % RDW 16.5 H (11.5-15.5) % Plt Count 3 L* (150-450) k/uL Lymphocytes # 0.2 L (1.0-4.8) k/uL TIBC (228-460) ug/dL Iron Saturation (12.00-45.00) Ferritin (10.0-291.0) ng/mL Vitamin B12 (200.0-944.0) pg/mL Crossmatch Assessment and Plan Plan: Assessment and Plan (1) Pancytopenia due to antineoplastic chemotherapy Narrative/Plan: Patient is status post 3 cycles of cisplatin and Gemzar, days 1 and 8 on 02/07/19. Pancytopenia was the reason patient was sent to the hospital (unable to be transfused outpatient). Platelets were 6000. She had complaints of pers istent mild epistaxis, new onset headache and tinnitus. CT of the brain without contrast was negative for any signs or symptoms of hemorrhage. Patient received a unit of single donor platelets, her platelets were 3 on recheck. It is noted that patient began having transfusion reaction after completion of administration of 2 units of blood and platelets. Patient has been premedicated and 1 unit of packed red blood cells and 1 unit of single donor platelets ordered. CBC ordered for As of February 12, 2019, patient continues to have nosebleeds, check haptoglobin, LDH, and peripheral smear for schistocytes. He received 1 unit of platelets and continues to receive blood. - Close surveillance for bleeding daily CBC. Possibility of alloimmunization, if platelets continue to be low, may need HLA typed platelets. Other possibility could be new onset ITP. (2) Cholangiocarcinoma Narrative/Plan: Patient has cycle of treatment and patient has had 3 cycles outpatient, she did have a dose reduction of Gemzar by 10% for the second and third cycles. She had a repeat CT scan in early January that reported improving disease in liver, stable osseous metastatic disease. New small to moderate abdominal and pelvic ascites. No new masses or adenopathy. Persistent splenomegaly. There was also report of gallstones. Patient was asymptomatic. Due to elevated bilirubin ultrasound has been ordered of the liver and spleen for evaluation of possible obstruction with either stone or disease. (3) Hyperbilirubinemia Narrative/Plan: Obstructive are Ultrasound of the liver and spleen ordered for evaluation, bilirubin fractions ordered Thank you
[2019-02-12 20:12] LABS: D-Dimer 3.09 mg/L FEU (<0.60); INR 1.4 (<1.2); Partial Thromboplastin Time 24.6 sec (22.0-30.0); Prothrombin Time 13.9 sec (9.0-12.0)
[2019-02-12] MEDS: HYDROcodone/APAP 5-325MG 1 EACH TAB PO PRN (21:22)
--- NOTE | 2019-02-12 21:30 | ED ---
Medical Decision Making - Lab Data Result diagrams: 02/12/19 17:18 02/11/19 07:56 Lab Results 02/10/19 02/10/19 02/10/19 Range/Units 12:20 12:20 12:20 WBC 1.7 L (3.8-10.6) k/uL RBC 1.97 L (3.80-5.40) m/uL Hgb 6.2 L* D (11.4-16.0) gm/dL Hct 18.6 L* (34.0-46.0) % MCV 94.4 (80.0-100.0) fL MCH 31.5 (25.0-35.0) pg MCHC 33.3 (31.0-37.0) g/dL RDW 17.6 H (11.5-15.5) % Plt Count 6 L* D (150-450) k/uL Neutrophils % 74 % Lymphocytes % 21 % Monocytes % 1 % Eosinophils % 1 % Basophils % 1 % Neutrophils # 1.2 L (1.3-7.7) k/uL Lymphocytes # 0.4 L (1.0-4.8) k/uL Monocytes # 0.0 (0-1.0) k/uL Eosinophils # 0.0 (0-0.7) k/uL Basophils # 0.0 (0-0.2) k/uL Anisocytosis Slight PT (9.0-12.0) sec INR (<1.2) APTT (22.0-30.0) sec Fibrinogen (200-500) mg/dL Sodium 137 (137-145) mmol/L Potassium 3.2 L (3.5-5.1) mmol/L Chloride 100 (98-107) mmol/L Carbon Dioxide 29 (22-30) mmol/L Anion Gap 8 mmol/L BUN 21 H (7-17) mg/dL Creatinine 0.74 (0.52-1.04) mg/dL Est GFR (CKD-EPI)AfAm >90 (>60 ml/min/1.73 sqM) Est GFR (CKD-EPI)NonAf >90 (>60 ml/min/1.73 sqM) Glucose 109 H (74-99) mg/dL Calcium 8.5 (8.4-10.2) mg/dL Total Bilirubin 2.9 H (0.2-1.3) mg/dL AST 54 H (14-36) U/L ALT 27 (9-52) U/L Alkaline Phosphatase 109 (38-126) U/L Total Protein 6.7 (6.3-8.2) g/dL Albumin 3.0 L (3.5-5.0) g/dL Blood Type A Positive Blood Type Recheck A Pos Bld Type Recheck Status No Antibody Screen NEGATIVE Crossmatch See Detail Transfuse Platelets Spec Expiration Date 02/13/2019231902/10/19 02/10/19 02/10/19 Range/Units 12:20 12:20 12:20 WBC (3.8-10.6) k/uL RBC (3.80-5.40) m/uL Hgb (11.4-16.0) gm/dL Hct (34.0-46.0) % MCV (80.0-100.0) fL MCH (25.0-35.0) pg MCHC (31.0-37.0) g/dL RDW (11.5-15.5) % Plt Count (150-450) k/uL Neutrophils % % Lymphocytes % % Monocytes % % Eosinophils % % Basophils % % Neutrophils # (1.3-7.7) k/uL Lymphocytes # (1.0-4.8) k/uL Monocytes # (0-1.0) k/uL Eosinophils # (0-0.7) k/uL Basophils # (0-0.2) k/uL Anisocytosis PT 12.1 H (9.0-12.0) sec INR 1.2 H (<1.2) APTT 28.2 (22.0-30.0) sec Fibrinogen 307 (200-500) mg/dL Sodium (137-145) mmol/L Potassium (3.5-5.1) mmol/L Chloride (98-107) mmol/L Carbon Dioxide (22-30) mmol/L Anion Gap mmol/L BUN (7-17) mg/dL Creatinine (0.52-1.04) mg/dL Est GFR (CKD-EPI)AfAm (>60 ml/min/1.73 sqM) Est GFR (CKD-EPI)NonAf (>60 ml/min/1.73 sqM) Glucose (74-99) mg/dL Calcium (8.4-10.2) mg/dL Total Bilirubin (0.2-1.3) mg/dL AST (14-36) U/L ALT (9-52) U/L Alkaline Phosphatase (38-126) U/L Total Protein (6.3-8.2) g/dL Albumin (3.5-5.0) g/dL Blood Type Blood Type Recheck Bld Type Recheck Status Antibody Screen Crossmatch Transfuse Platelets [id number] Spec Expiration Date Disposition Clinical Impression: Hypokalemia, Anemia, Pancytopenia, Thrombocytopenia Disposition: ADMITTED IP TO THIS HOSP Condition: Fair Is patient prescribed a controlled substance at d/c from ED?: No Procedures - Procedures Initial comment: Nasal packing to the right nostril. Rhino rocket was used to the right nare. Soaked in afrin nasal spray, applied sterile surgical lube, inserted packing. Instilled 3.5ml of air to both balloons. Patient tolerated well with discomfort. Bleeding did subside.
[2019-02-12] MEDS: DEXAMETHASONE SOD PHOSPHATE 20 MG in DEXTROSE 5% IN WATER 50 ML IV SCH ×2 (22:28)
[2019-02-12] MEDS: AMOXIC-POT CLAV 875-125MG 1 EACH TAB PO SCH (22:29)
[2019-02-13] MEDS: HYDROcodone/APAP 5-325MG 1 EACH TAB PO PRN (02:13)
[2019-02-13 07:21] LABS: Anisocytosis Slight; Basophils % (A) 0 %; Eosinophils % (A) 0 %; HCT 20.7 % (34.0-46.0); HGB 7.1 gm/dL (11.4-16.0); Lymphocytes # (A) 0.3 k/uL (1.0-4.8); Lymphocytes % (A) 17 %; MCH 31.8 pg (25.0-35.0); MCHC 34.1 g/dL (31.0-37.0); MCV 93.2 fL (80.0-100.0); Mean Platelet Volume 8.6; Monocytes # (A) 0.1 k/uL (0-1.0); Monocytes % (A) 3 %; Neutrophils # (A) 1.1 k/uL (1.3-7.7); Neutrophils % (A) 75 %; RBC 2.22 m/uL (3.80-5.40); RDW 16.7 % (11.5-15.5); WBC 1.5 k/uL (3.8-10.6)
[2019-02-13 07:33] LABS: Platelet Count 10 k/uL (150-450)
[2019-02-13 07:45] LABS: Albumin 3.4 g/dL (3.5-5.0); Calcium 8.5 mg/dL (8.4-10.2); Potassium 3.5 mmol/L (3.5-5.1); Total Bilirubin 3.1 mg/dL (0.2-1.3); Total Protein 7.3 g/dL (6.3-8.2)
[2019-02-13] MEDS: DEXAMETHASONE SOD PHOSPHATE 20 MG in DEXTROSE 5% IN WATER 50 ML IV SCH ×4 (09:49→23:46)
[2019-02-13] MEDS: FUROSEMIDE 20 MG TAB PO SCH ×2 (09:50→18:57)
[2019-02-13] MEDS: traMADol 50 MG TAB PO SCH ×2 (09:50→22:36)
[2019-02-13] MEDS: AMOXIC-POT CLAV 875-125MG 1 EACH TAB PO SCH ×2 (09:51→22:36)
[2019-02-13] MEDS: SPIRONOLACTONE 25 MG TAB PO SCH (09:51)
[2019-02-13] MEDS: POLYETHYLENE GLYCOL 3350 17 GM POWD.PACK PO SCH (09:51)
[2019-02-13] MEDS: SERTRALINE 50 MG TAB PO SCH (09:52)
[2019-02-13] MEDS: ONDANSETRON 4 MG/2 ML VIAL IVP PRN (10:00)
--- NOTE | 2019-02-13 10:20 | P.DS ---
Providers Date of admission: 02/10/19 13:53 Expected date of discharge: 02/13/19 Attending physician: Susana Isabel MD Consults: 02/10/19 13:55 Consult Physician Routine Consulting Provider: Dorita Hartman Consult Reason/Comments: pancytopenia Do you want consulting provider notified?: Yes Primary care physician: [facility] Course: 43-year-old female with PMH of pancreatic cancer with metastatic disease to the liver, hypertension, chronic lower back pain presents to the ED after being sent from her oncology clinic. Patient was noted to have a low hemoglobin and low platelet count in the oncology clinic. It was noted that there were no units of platelets that were available to be transfused in the outpatient setting, thus patient was sent to the ED. Patient states that she has been progressively feeling better since her discharge in December 2018. She currently reports worsening indigestion of food and heartburn. She complains of left-sided abdominal pain, 6-7 out of 10 in severity, stabbing in nature without any radiating features. She has been worked up previously for this pain and was told it was too to her pancreatic cancer and metastatic disease. Patient reports a frontal headache that she describes as bandlike that has been ongoing for the past couple of weeks. Patient reports intermittent nosebleeds that have been controlled with local pressure. Patient reports episodes where she wakes up gasping for air. This is been ongoing for the past few weeks and happens every time she dozes off. Of note, patient reports chronic lower extremity swelling but states that this has been improved from her previous admissions. She reports nausea but denies any vomiting. Patient reports low-grade fevers from 98-99F. She denies any cough, chest pain, palpitations, changes in urination or bowel habits. No dizziness, numbness/weakness/tingling of the extremities. She does describe some exertional shortness of breath. In the ED, her vital signs were stable. CBC showed pancytopenia with WBC count 1.7, hemoglobin 6.2, platelet 6. Coagulation panel showed INR of 1.2. Fibrinogen was within normal limits. CMP showed a potassium of 3.2, BUN 21, total bilirubin 2.9, AST 54. Patient is admitted for anemia and thrombocytopenia with 1 unit of PRBC and platelet that is ordered from the ED. Patient required 4 units of PRBCs during her admission. Hemoglobin went up from 6.2-7.1 on discharge. Patient required 4 units of platelets hospitalization. Her platelet count went from 6000-10,000 on discharge. Patient was noted to have epistaxis intermittently throughout her hospitalization. ED was called overnight on 02/12/2019 for prolonged nosebleed not controlled with localized pressure and Afrin spray. Patient had a Rhino Rocket inserted in her right nostril to control the bleeding. Patient was seen and examined. No acute events overnight. Patient reports no epistaxis since the right Rhino Rocket was inserted. She denies any chest pain, shortness breath or palpitations. No nausea or vomiting. No fever or chills. Does complain of some discomfort in the right nose. General: [non toxic], [no distress], [appears at stated age], [jaundiced] Derm: [warm], [dry] Head: [atraumatic], [normocephalic], [symmetric] Eyes: [EOMI], [no lid lag], [anicteric sclera] Mouth: [no lip lesion], [mucus membranes moist] Cardiovascular: [S1S2 reg], [systolic murmur], [positive DP pulse bilateral] Lungs: [Decreased breath sounds bilateral], [no rhonchi, no rales] , [no accessory muscle use] Abdominal: [soft], [tenderness to palpation over the left upper quadrant without rebound], [no guarding], [no appreciable organomegaly] Ext: [no gross muscle atrophy], [2+ bilateral lower extremity edema], [no contractures] Neuro: [no focal neuro deficits] Psych: [Alert], [oriented], [appropriate affect] Assessment and Plan Epistaxis Anemia with hemoglobin of 6.2 Thrombocytopenia with platelet count of 6 Leukopenia with WBC count 1.7 Transaminitis Pancreatic cancer currently undergoing chemotherapy with Dr. Hartman Result: Hypokalemia, Fever Likely from thrombocytopenia. Rhino Rocket inserted 02/12/2019. Plans: Afrin spray as needed for nosebleeds if local pressure does not work within 10 minutes. Hemoglobin 6.2-7.1 post 4 unit PRBC. Likely due to chemotherapy. Current study shows anemia chronic disease. Plans: Telemetry monitoring. Repeat CBC in the morning. Follow oncology consultation. Platelet count of 6-10 post 4 unit platelet. Likely due to chemotherapy. Plans: Repeat CBC in the morning. Follow oncology consultation. Leukopenia with WBC count 1.5. ANC 1258 on admission. Plans: Leukopenic precautions. No signs of infection. Repeat CBC in the morning. Follow oncology consultation. Total bilirubin 3.1, AST 37. ALT and alkaline phosphatase within normal limits. Likely obstruction from pancreatic cancer with metastatic disease to the liver. Abdominal ultrasound shows heterogenous liver with multiple masses, no dilated ducts, numerous gallstones, mild ascites. Plans: We'll continue to monitor. Repeat CMP in the morning. Plans: Needs adequate follow-up with Dr. Hartman. Follow oncology consultation. [Patient continues to be thrombocytopenic along with anemia. Borderline acceptable today. DC planning based on Hematology recommendations.] Pertinent Studies: Brain CT, abdominal ultrasound Patient Condition at Discharge: Stable Plan - Discharge Summary Discharge Rx Participant: No New Discharge Prescriptions: No Action Sertraline [Zoloft] 50 mg PO DAILY Polyethylene Glycol 3350 [Miralax] 17 gm PO DAILY PRN PRN Reason: Constipation traMADol HCL [Ultram] 50 mg PO Q6HR PRN PRN Reason: Pain Ondansetron HCl [Zofran] 4 mg PO Q8H PRN PRN Reason: Nausea Magnesium Oxide [Mag-Ox] 200 mg PO BID Acetaminophen [Tylenol Extra Strength] 1,000 mg PO TID PRN PRN Reason: Pain Furosemide [Lasix] 20 mg PO BID Spironolactone 50 mg PO DAILY Discharge Medication List Polyethylene Glycol 3350 [Miralax] 17 gm PO DAILY PRN 10/25/18 [History] Sertraline [Zoloft] 50 mg PO DAILY 10/25/18 [History] Magnesium Oxide [Mag-Ox] 200 mg PO BID 12/11/18 [History] Ondansetron HCl [Zofran] 4 mg PO Q8H PRN 12/11/18 [History] traMADol HCL [Ultram] 50 mg PO Q6HR PRN 12/11/18 [History] Acetaminophen [Tylenol Extra Strength] 1,000 mg PO TID PRN 01/04/19 [History] Furosemide [Lasix] 20 mg PO BID 01/04/19 [History] Spironolactone 50 mg PO DAILY 02/10/19 [History] Follow up Appointment(s)/Referral(s): Krupa Martin MD [Primary Care Provider] - 1-2 days [facility], [NON-STAFF] -
[2019-02-13] MEDS: SODIUM CHLORIDE 0.9% 1,000 ML IV SCH (18:58)
[2019-02-13] MEDS: ACETAMINOPHEN TAB 325 MG TAB PO PRN (19:04)
[2019-02-13] MEDS ORDERED: diphenhydrAMINE 50 MG/ML 1 ML VIAL IVP STA (19:50)
[2019-02-14 05:34] VITALS: PULSE 75
[2019-02-14 08:25] LABS: Anisocytosis Slight; Basophils % (A) 1 %; Eosinophils % (A) 1 %; HCT 23.5 % (34.0-46.0); Lymphocytes # (A) 0.4 k/uL (1.0-4.8); Lymphocytes % (A) 22 %; MCH 33.1 pg (25.0-35.0); MCHC 34.2 g/dL (31.0-37.0); MCV 96.8 fL (80.0-100.0); Macrocytosis Slight; Mean Platelet Volume 10.2; Monocytes # (A) 0.3 k/uL (0-1.0); Monocytes % (A) 16 %; Neutrophils # (A) 1.1 k/uL (1.3-7.7); Neutrophils % (A) 57 %; RBC 2.43 m/uL (3.80-5.40); RDW 17.1 % (11.5-15.5)
[2019-02-14 08:30] LABS: Platelet Count 12 k/uL (150-450)
[2019-02-14] MEDS: AMOXIC-POT CLAV 875-125MG 1 EACH TAB PO SCH (09:46)
[2019-02-14] MEDS: SPIRONOLACTONE 25 MG TAB PO SCH (09:46)
[2019-02-14] MEDS: traMADol 50 MG TAB PO SCH (09:46)
[2019-02-14] MEDS: SERTRALINE 50 MG TAB PO SCH (09:47)
[2019-02-14] MEDS: DEXAMETHASONE SOD PHOSPHATE 20 MG in DEXTROSE 5% IN WATER 50 ML IV SCH ×2 (09:48)
[2019-02-14] MEDS: POLYETHYLENE GLYCOL 3350 17 GM POWD.PACK PO SCH (09:48)
[2019-02-14] MEDS: FUROSEMIDE 20 MG TAB PO SCH (09:48)
[2019-02-14 11:58] VITALS: BP 128/68; RESP 18; TEMP 98.1
--- NOTE | 2019-02-14 18:08 | P.PN ---
Subjective Progress Note Date: 02/14/19 Principal diagnosis: severe thrombocytopenia from chemo In f/u today pt states no bleeding-nose is currently packed-bruises are stable, small amt of blood when cleansing perineal area, she is eating and drinking, no pain Objective - Vital Signs Vital signs: Vital Signs Temp 98.1 F 02/14/19 11:58 Pulse 75 02/14/19 11:58 Resp 18 02/14/19 11:58 BP 128/68 02/14/19 11:58 Pulse Ox 95 02/14/19 11:58 Intake & Output 02/13/19 02/14/19 02/14/19 18:59 06:59 18:59 Intake Total 240 1462 240 Balance 240 1462 240 Weight 151.046 kg Intake: Intake, IV Titration 110 Amount Dexamethasone Sod 50 Phosphate 20 mg In Dextrose 5% in Water 50 ml @ 100 mls/hr IV BID KHALIDA Rx#:[id number] Sodium Chloride 0.9% 1, 60 000 ml @ 20 mls/hr IV . Q24H KHALIDA Rx#:[id number] Oral 240 830 240 Blood Product 522 Platelet Irr Pheresis 212 Acda1 Unit [id number] Rc As-1 Unit 310 [id number] Other: Voiding Method Toilet Toilet # Voids 3 2 4 - Exam visible bruises on arms, respirations even and unlabored, normocephalic, right nare has been packed - Constitutional General appearance: Present: cooperative, morbidly obese, no acute distress - EENT Eyes: Present: anicteric sclerae, EOMI ENT: Present: normal oropharynx - Labs CBC & Chem 7: 02/14/19 07:15 02/13/19 06:42 Labs: Abnormal Lab Results - Last 24 Hours (Table) 02/12/19 02/13/19 02/14/19 Range/Units 17:18 16:09 07:15 WBC 2.0 L (3.8-10.6) k/uL RBC 2.43 L (3.80-5.40) m/uL Hgb 8.0 L (11.4-16.0) gm/dL Hct 23.5 L (34.0-46.0) % RDW 17.1 H (11.5-15.5) % Plt Count 12 L* (150-450) k/uL Neutrophils # 1.1 L (1.3-7.7) k/uL Lymphocytes # 0.4 L (1.0-4.8) k/uL Pathologist Review See comment A Crossmatch See Detail Assessment and Plan (1) Pancytopenia due to antineoplastic chemotherapy Narrative/Plan: Patient is status post 3 cycles of cisplatin and Gemzar, days 1 and 8 on 02/07/19. Hopefully pt is getting far enough out from treatment that her counts will be able to stabilize Plt stable after transfusion, Hgb stable Appt in 48 hours in office to recheck labs to see if transfusion needed Status: Acute Priority: High Code(s): D61.810 - ANTINEOPLASTIC CHEMOTHERAPY INDUCED PANCYTOPENIA; T45.1X5A - ADVERSE EFFECT OF ANTINEOPLASTIC AND IMMUNOSUP DRUGS, INIT SNOMED Code(s): 868722000939088 (2) Cholangiocarcinoma Narrative/Plan: Patient has cycle of treatment and patient has had 3 cycles outpatient, she did have a dose reduction of Gemzar by 10% for the second and third cycles. She had a repeat CT scan in early January that reported improving disease in liver, stable osseous metastatic disease. New small to moderate abdominal and pelvic ascites. No new masses or adenopathy. Persistent splenomegaly. There was also report of gallstones. Ultrasound of the liver and spleen did not report concerns for possible obstruction with either stone or disease, bilirubin is coming down spontaneously. Pt will have treatment held until counts recuperate She will cont to f/u in office for CBC Status: Acute Priority: High Code(s): C22.1 - INTRAHEPATIC BILE DUCT CARCINOMA SNOMED Code(s): 649052219 (3) Hyperbilirubinemia Narrative/Plan: US no obstruction or duct dilation, bilirubin coming down, will cont to follow Status: Acute Priority: High Code(s): E80.6 - OTHER DISORDERS OF BILIRUBIN METABOLISM SNOMED Code(s): 11703592
== END 2019-02-14 16:50 | disposition home health service (06) | DRG 809 ==
LOC: EC 11:26 → 3NMEDONC 13:53
PROVIDERS: ADMIT Family Medicine; ATTEND Family Medicine
PROC: 30233R1 Transfusion of Nonautologous Platelets into Peripheral Vein, Percutaneous Approach (ICD-10-PCS; principal; 2019-02-10)
PROC: 30233N1 Transfusion of Nonautologous Red Blood Cells into Peripheral Vein, Percutaneous Approach (ICD-10-PCS; 2019-02-10)
PROC: 6A550Z2 Pheresis of Platelets, Single (ICD-10-PCS; 2019-02-12)
DX: D61.810 Antineoplastic chemotherapy induced pancytopenia (principal); C25.9 Malignant neoplasm of pancreas, unspecified; C78.7 Secondary malignant neoplasm of liver and intrahepatic bile duct; C79.51 Secondary malignant neoplasm of bone; R18.8 Other ascites; D63.8 Anemia in other chronic diseases classified elsewhere; E80.7 Disorder of bilirubin metabolism, unspecified; E87.6 Hypokalemia; H93.19 Tinnitus, unspecified ear; I10 Essential (primary) hypertension; K80.20 Calculus of gallbladder without cholecystitis without obstruction; R04.0 Epistaxis; T45.1X5A Adverse effect of antineoplastic and immunosuppressive drugs, initial encounter; T80.92XA Unspecified transfusion reaction, initial encounter; Y84.8 Other medical procedures as the cause of abnormal reaction of the patient, or of later complication, without mention of misadventure at the time of the procedure; Z79.899 Other long term (current) drug therapy; Z80.3 Family history of malignant neoplasm of breast; G89.3 Neoplasm related pain (acute) (chronic); K59.00 Constipation, unspecified; Z87.440 Personal history of urinary (tract) infections; Z82.0 Family history of epilepsy and other diseases of the nervous system; Z82.49 Family history of ischemic heart disease and other diseases of the circulatory system; M54.5 Low back pain; E83.51 Hypocalcemia
CPT/HCPCS: 36415; 36430; 70450; 76700; 80053; 82607; 82728; 82746; 83010; 83540; 83550; 83615; 85025; 85379; 85384; 85610; 85730; 86850; 86880; 86900; 86901; 86920; 93005; 96374; 99285

== ENCOUNTER → 2019-03-29 | Outpatient (CLI) | payer OTHER ==
[2019-03-29 11:50] LABS: African American GFR (CKD) >90 (>60 ml/min/1.73 sqM); Blood Urea Nitrogen 14 mg/dL (7-17)
--- NOTE | 2019-03-29 13:19 | CT ---
EXAMINATION TYPE: CT ChestAbdPelvis w con DATE OF EXAM: 03/29/2019 COMPARISON: 01/18/2019 HISTORY: Bile Duct CA CT DLP: 3245.6 mGycm CONTRAST: CT scan of the chest, abdomen and pelvis is performed with Oral Contrast and with IV Contrast, patien t injected with 100 mL of Isovue 300. CT Chest: LUNGS: The lungs are clear and free of infiltrate or atelectasis. No pulmonary nodule or mass is det ected. No pleural effusion or CT evidence of interstitial lung disease. MEDIASTINUM: Thoracic aorta is of normal caliber. The heart is not enlarged. No evidence for media stinal mass or adenopathy. HILAR STRUCTURES: No evidence for mass. No hilar adenopathy is appreciated. OTHER: No significant abnormality. CONTRAST CT ABDOMEN AND PELVIS FINDINGS: LIVER/GB: Innumerable hepatic lesions redemonstrated occupying predominantly the left hepatic lobe an d to a lesser extent the right hepatic lobe. Overall appearance is essentially unchanged. Lesions are difficult to measure given conglomerate appearance with throughout the left hepatic lobe. Largest le trevon anterior segment right hepatic lobe currently measures 1.8 cm versus 1.9 cm previously. Stable a scites adjacent to the liver edge. Numerous gallstones again noted within the gallbladder. PANCREAS: No inflammation. No distinct mass. SPLEEN: Persistent splenomegaly measuring 18.5 cm craniocaudal dimension versus 20 cm previously. ADRENALS: No nodule. No thickening. KIDNEYS/BLADDER: No hydronephrosis. No nephrolithiasis. No distinct renal mass. BOWEL: Normal appendix. Normal bowel caliber. No inflammation. GENITAL ORGANS: IUD is noted in place. LYMPH NODES: Periportal adenopathy noted measuring up to 1.5 cm. Prior measurement approximately 1.6 cm. AORTA: No significant abnormality. OSSEOUS STRUCTURES: Lytic lesion posterior right ilium at the level of the SI joint is unchanged and measures 3 cm. Degenerative changes throughout the lumbar spine. OTHER: Subcutaneous seroma low midline anterior abdomen unchanged. Fat-containing umbilical hernia no candice also unchanged. The amount of ascites has decreased somewhat. IMPRESSION: 1. Stable disease is felt to be present throughout the liver with stable periportal adenopathy. Splen omegaly slightly improved. 2. Persistent but slightly improved ascites.
== END | disposition home or self-care (01) ==
LOC: RADPROMAIN 10:41
PROVIDERS: ATTEND Internal Medicine Hematology & Oncology
DX: R59.0 Localized enlarged lymph nodes (principal); R16.1 Splenomegaly, not elsewhere classified; R18.8 Other ascites; C24.0 Malignant neoplasm of extrahepatic bile duct
CPT/HCPCS: 82565; 84520; 71260; 74177; J1642; Q9967 ×2

== ENCOUNTER 2019-04-29 14:41 | Emergency (ER) | payer OTHER ==
[2019-04-29] MEDS ORDERED: HYDROmorphone 1 MG/ML 1 ML SYRINGE IVP STA (15:15)
[2019-04-29] MEDS ORDERED: ONDANSETRON 4 MG/2 ML VIAL IVP STA (15:15)
[2019-04-29] MEDS ORDERED: SODIUM CHLORIDE 0.9% 1,000 ML IV STA (15:15)
[2019-04-29] MEDS ORDERED: PANTOPRAZOLE 40 MG/10 ML VIAL IVP STA (15:15)
--- NOTE | 2019-04-29 15:19 | ED ---
General Adult HPI - General Chief complaint: Recheck/Abnormal Lab/Rx Stated complaint: Dr Booth sent patient over, labwork, dizziness Time Seen by Provider: 04/29/19 15:02 Source: patient, family, RN notes reviewed Mode of arrival: wheelchair Limitations: no limitations - History of Present Illness Initial comments: patient is a pleasant 43-year-old female presenting to the emergency Department with abdominal discomfort and nausea and vomiting. Patient has known stage IV pancreatic cancer and is not on any treatment at this time. Last treatment was a month ago. Last CAT scan of the abdomen was around a month ago. Abdominal discomfort is moderate and rated as 5/10 at this time. Discomfort is increased with oral intake. Patient is having some difficulty with oral intake. Patient also has some mild confusion at times described as having problems finding words. Patient does not feel that she has that currently however states it even during triage she had difficulty stating her weight. - Related Data Home Medications Medication Instructions Recorded Confirmed Polyethylene Glycol 3350 [Miralax] 17 gm PO DAILY PRN 10/25/18 02/10/19 Sertraline [Zoloft] 50 mg PO DAILY 10/25/18 02/10/19 Magnesium Oxide [Mag-Ox] 200 mg PO BID 12/11/18 02/10/19 Ondansetron HCl [Zofran] 4 mg PO Q8H PRN 12/11/18 02/10/19 traMADol HCL [Ultram] 50 mg PO Q6HR PRN 12/11/18 02/10/19 Furosemide [Lasix] 20 mg PO BID 01/04/19 02/10/19 Spironolactone 50 mg PO DAILY 02/10/19 02/10/19 Allergies Allergy/AdvReac Type Severity Reaction Status Date / Time No Known Allergies Allergy Verified 04/29/19 15:00 Review of Systems ROS Statement: Those systems with pertinent positive or pertinent negative responses have been documented in the HPI. ROS Other: All systems not noted in ROS Statement are negative. Constitutional: Denies: fever Eyes: Denies: eye pain ENT: Denies: ear pain Respiratory: Denies: cough Cardiovascular: Denies: chest pain Endocrine: Denies: fatigue Gastrointestinal: Reports: abdominal pain, nausea Genitourinary: Denies: dysuria Musculoskeletal: Denies: back pain Skin: Denies: rash Neurological: Reports: confusion Past Medical History Past Medical History: Cancer, Hypertension, Osteoarthritis (OA) Additional Past Medical History / Comment(s): Pancreatic cancer stage IV with mets to liver-current chemo with last dose 02/04/19, pancytopenia, anemia r/t chemotherapy, chronic lower back pain, constipation, cholecystitis, cardiac murmur, lower extremity edema, UTIs. History of Any Multi-Drug Resistant Organisms: None Reported Past Surgical History: Section Additional Past Surgical History / Comment(s): IUD, biopsy of liver. Past Anesthesia/Blood Transfusion Reactions: No Reported Reaction Past Psychological History: No Psychological Hx Reported Smoking Status: Never smoker - Past Family History Mother Family Medical History: Dementia, Vascular Disorder Additional Family Medical History / Comment(s): Mother had appendicitis that went undiagnosed for awhle, PVD. Patient's maternal grandmother had breast cancer around the age of 50 Father Family Medical History: No Reported History Additional Family Medical History / Comment(s): Father is healthy General Exam Limitations: no limitations General appearance: alert, in no apparent distress Head exam: Present: atraumatic, normocephalic Eye exam: Present: normal appearance, PERRL, EOMI. Absent: nystagmus ENT exam: Present: normal oropharynx Neck exam: Present: normal inspection Respiratory exam: Present: normal lung sounds bilaterally Cardiovascular Exam: Present: regular rate, normal rhythm GI/Abdominal exam: Present: soft, tenderness (moderate mid abdominal tenderness), normal bowel sounds. Absent: distended, guarding, rebound, rigid, pulsatile mass Extremities exam: Present: pedal edema. Absent: calf tenderness Neurological exam: Present: alert, oriented X3, CN II-XII intact. Absent: motor sensory deficit Expanded Neurological exam: Present: protecting the airway Speech: Present: fluid speech Cranial nerves: EOM's Intact: Normal Motor strength exam: RUE: 5, LUE: 5, RLE: 5, LLE: 5 Eye Response: (4) open spontaneously Motor Response: (6) obeys commands Verbal Response: (5) oriented Psychiatric exam: Present: normal affect, normal mood Skin exam: Present: normal color Course Vital Signs 04/29/19 14:55 Temperature 98.2 F Pulse Rate 82 Respiratory 16 Rate Blood Pressure 113/63 O2 Sat by Pulse 99 Oximetry Medical Decision Making - Medical Decision Making Patient reevaluated and resting comfortably in bed. Patient states she is feeling better with like to go home. Case was discussed in detail with Dr. Hartman who is familiar with this patient and comfortable discharge home. He is aware that computed tomography scan of the brain and abdomen have not been ordered. He will follow up with patient. Patient refuses nausea medicine stating that she has some at home. - Lab Data Result diagrams: 04/29/19 15:48 04/29/19 15:48 Lab Results 04/29/19 04/29/19 04/29/19 Range/Units 15:48 15:48 15:48 WBC 3.0 L (3.8-10.6) k/uL RBC 3.19 L (3.80-5.40) m/uL Hgb 9.9 L (11.4-16.0) gm/dL Hct 29.8 L (34.0-46.0) % MCV 93.6 D (80.0-100.0) fL MCH 31.1 (25.0-35.0) pg MCHC 33.2 (31.0-37.0) g/dL RDW 13.2 (11.5-15.5) % Plt Count 114 L (150-450) k/uL Neutrophils % 63 % Lymphocytes % 27 % Monocytes % 7 % Eosinophils % 1 % Basophils % 0 % Neutrophils # 1.9 (1.3-7.7) k/uL Lymphocytes # 0.8 L (1.0-4.8) k/uL Monocytes # 0.2 (0-1.0) k/uL Eosinophils # 0.0 (0-0.7) k/uL Basophils # 0.0 (0-0.2) k/uL PT 11.3 (9.0-12.0) sec INR 1.1 (<1.2) APTT 26.6 (22.0-30.0) sec Sodium 139 (137-145) mmol/L Potassium 3.7 (3.5-5.1) mmol/L Chloride 105 (98-107) mmol/L Carbon Dioxide 28 (22-30) mmol/L Anion Gap 6 mmol/L BUN 14 (7-17) mg/dL Creatinine 0.87 (0.52-1.04) mg/dL Est GFR (CKD-EPI)AfAm >90 (>60 ml/min/1.73 sqM) Est GFR (CKD-EPI)NonAf 81 (>60 ml/min/1.73 sqM) Glucose 114 H (74-99) mg/dL Calcium 9.5 (8.4-10.2) mg/dL Total Bilirubin 1.4 H (0.2-1.3) mg/dL AST 69 H (14-36) U/L ALT 14 (4-34) U/L Alkaline Phosphatase 122 (38-126) U/L Total Protein 7.3 (6.3-8.2) g/dL Albumin 3.6 (3.5-5.0) g/dL Amylase 45 (30-110) U/L Lipase 73 (23-300) U/L - Radiology Data Radiology results: image reviewed (Abdominal x-ray shows nonobstructive pattern. Appearance of hepatomegaly and splenomegally) Disposition Clinical Impression: Abdominal pain, Pancreatic cancer Disposition: HOME SELF-CARE Condition: Stable Instructions (If sedation given, give patient instructions): Abdominal Pain (ED) Additional Instructions: please follow-up with primary care physician and Dr. Hartman in the next couple days for recheck. Return for confusion or weakness, fevers, increased abdominal pain, not tolerating oral intake, worsening symptoms or any other concerns. Is patient prescribed a controlled substance at d/c from ED?: No Referrals: Dorita Hartman MD [STAFF PHYSICIAN] - 1-2 days Time of Disposition: 16:49
--- NOTE | 2019-04-29 16:12 | XR ---
EXAMINATION TYPE: XR KUB DATE OF EXAM: 04/29/2019 COMPARISON: NONE HISTORY: Pain TECHNIQUE: Single supine KUB image of the abdomen is obtained FINDINGS: Small bowel demonstrates no evidence for dilatation or air fluid levels. Gas and fecal material is seen in non-distended colon. No convincing evidence for pneumoperitoneum. There is evidence of cholelithiasis. Splenomegaly noted at 18.3 cm craniocaudal dimension. There also appears to be hepatomegaly. The lung bases are clear. The osseous structures are intact. IMPRESSION: 1. Overall nonobstructive bowel gas pattern.
[2019-04-29 16:17] LABS: Basophils % (A) 0 %; Eosinophils % (A) 1 %; HCT 29.8 % (34.0-46.0); HGB 9.9 gm/dL (11.4-16.0); Lymphocytes # (A) 0.8 k/uL (1.0-4.8); Lymphocytes % (A) 27 %; MCH 31.1 pg (25.0-35.0); MCHC 33.2 g/dL (31.0-37.0); Monocytes # (A) 0.2 k/uL (0-1.0); Monocytes % (A) 7 %; Neutrophils # (A) 1.9 k/uL (1.3-7.7); Neutrophils % (A) 63 %; Platelet Count 114 k/uL (150-450); RBC 3.19 m/uL (3.80-5.40); RDW 13.2 % (11.5-15.5)
[2019-04-29 16:20] LABS: MCV 93.6 fL (80.0-100.0)
[2019-04-29 16:26] LABS: INR 1.1 (<1.2); Partial Thromboplastin Time 26.6 sec (22.0-30.0); Prothrombin Time 11.3 sec (9.0-12.0)
[2019-04-29 16:33] LABS: ALT 14 U/L (4-34); AST 69 U/L (14-36); African American GFR (CKD) >90 (>60 ml/min/1.73 sqM); Albumin 3.6 g/dL (3.5-5.0); Alkaline Phosphatase 122 U/L (38-126); Amylase 45 U/L (30-110); Anion Gap 6 mmol/L; Blood Urea Nitrogen 14 mg/dL (7-17); Calcium 9.5 mg/dL (8.4-10.2); Carbon Dioxide 28 mmol/L (22-30); Chloride 105 mmol/L (98-107); Glucose 114 mg/dL (74-99); Non-African American GFR(CKD) 81 (>60 ml/min/1.73 sqM); Potassium 3.7 mmol/L (3.5-5.1); Sodium 139 mmol/L (137-145); Total Bilirubin 1.4 mg/dL (0.2-1.3); Total Protein 7.3 g/dL (6.3-8.2)
[2019-04-29 16:47] LABS: Appearance,Urine Cloudy (Clear); Bilirubin,Urine Negative (Negative); Blood,Urine Negative (Negative); Color,Urine Yellow; Glucose,Urine (UA) Negative (Negative); Ketones,Urine Negative (Negative); Leukocyte Esterase,Urine Trace (Negative); Mucus,Urine Rare /hpf; Nitrite,Urine Negative (Negative); Protein,Urine 1+ (Negative); RBC,Urine 2 /hpf (0-5); Specific Gravity,Urine 1.026 (1.001-1.035); Squamous Epithelial Cell,Urine 19 /hpf (0-4); WBC,Urine 3 /hpf (0-5)
[2019-04-29 17:10] VITALS: BP 125/62; PULSE 91; RESP 18; TEMP 98.1
== END 2019-04-29 17:36 | disposition home or self-care (01) ==
LOC: EC 14:41
DX: C25.9 Malignant neoplasm of pancreas, unspecified (principal); C78.7 Secondary malignant neoplasm of liver and intrahepatic bile duct; I10 Essential (primary) hypertension; M19.90 Unspecified osteoarthritis, unspecified site; Z92.21 Personal history of antineoplastic chemotherapy; Z79.899 Other long term (current) drug therapy
CPT/HCPCS: 36415; 80053; 82150; 83690; 85025; 85610; 85730; 81001; 74018; 96374; 96375 ×2; 96361; 99284; J2405; J1642; J1170; C9113

== ENCOUNTER → 2019-06-06 | Outpatient (CLI) | payer OTHER ==
--- NOTE | 2019-06-06 10:37 | CT ---
EXAMINATION TYPE: CT ChestAbdPelvis w con DATE OF EXAM: 06/06/2019 COMPARISON: CT head March 29, 2019 [address] older [address]s. 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 Automated Exposure Control for Dose Reduction was Utilized. CONTRAST: CT scan of the thorax, abdomen and pelvis is performed with IV Contrast, patient injected with 100 mL of Isovue 300. FINDINGS: LUNGS: The lung volumes redemonstrated. There are now numerous bilateral pulmonary nodules in the low er lungs subcentimeter in size. For reference there is 6 x 4 mm nodule axial image 26. No pleural eff usion or pneumothorax. MEDIASTINUM: There are no greater than 1 cm hilar or mediastinal lymph nodes. No pericardial effus ion is seen. Cardiomegaly redemonstrated. 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 OTHER: Stable right internal jugular Mediport catheter. LIVER/GB: Redemonstration of large irregular left intrahepatic hypodense mass or neoplasm difficult t o accurately measure due to confluent appearance. There are right sided satellite nodules which are b oth increased in number and size from prior study. For reference right hepatic dome lesion measures 2 .3 cm long axis current study axial image 49 versus 1.7 cm prior study image 50. Innumerable calcifie d gallstones in gallbladder redemonstrated. PANCREAS: No significant abnormality is seen. SPLEEN: Splenomegaly measures 19.1 cm long axis coronal image 89 not significantly changed from most recent prior ADRENALS: No significant abnormality is seen. KIDNEYS: No significant abnormality is seen. BOWEL: No significant abnormality is seen. GENITAL ORGANS: Anteverted uterus with central metallic IUD. Lobulated contour may be products of und erlying fibroids. There is however slightly more prominent right-sided lobulation or suspected enlarg ing pelvic mass 6.4 x 4.4 cm axial image 116 versus prior studies LYMPH NODES: Abnormal retroperitoneal adenopathy remains present. For reference left periaortic lymph node measures 1.8 x 1.5 cm axial image 73 is not significantly changed from prior studies.. OSSEOUS STRUCTURES: Sclerotic right ischia show some mild peripheral sclerosis versus older studies. Lesion axial image 85 unchanged Mindy shield tuberosity. Lucent right iliac lesion near inferior right sacroiliac joint axial image 90. Suggestion of new sclerotic foci in the spine from several older CT s as there is 8mm sclerotic lesion T10 vertebra coronal image 96 with smaller sclerotic lesions on ax ial image 49 noted at this level. They appear new from older CTs. Scattered small sclerotic subcentim eter foci for example bilateral humeral head are noted. OTHER: Moderate to severe abdominal and pelvic ascites has progressed prior study including involveme nt in ventral wall or umbilical hernia. IMPRESSION: Disease progression as there is moderate to large amount of abdominal and pelvic ascites. Worsening hepatic disease. Worsening osseous metastatic disease. There is strong suspicion for pulm onary hematogenous metastatic spread. Fairly stable abdominal adenopathy. Nonspecific right pelvic le trevon also suspicious.
== END | disposition home or self-care (01) ==
LOC: RADPROMAIN 07:52
PROVIDERS: ATTEND Internal Medicine Hematology & Oncology
DX: R18.8 Other ascites (principal); R59.0 Localized enlarged lymph nodes
CPT/HCPCS: 71260; 74177; J1642; Q9967 ×2

== ENCOUNTER 2019-06-22 13:09 | Day surgery (SDC) | payer OTHER ==
[2019-06-22 13:46] LABS: INR 1.1 (<1.2); Prothrombin Time 11.5 sec (9.0-12.0)
[2019-06-22 13:48] LABS: African American GFR (CKD) >90 (>60 ml/min/1.73 sqM); Non-African American GFR(CKD) >90 (>60 ml/min/1.73 sqM)
[2019-06-22 14:00] VITALS: TEMP 98.1
[2019-06-22 15:30] VITALS: RESP 16
[2019-06-22 16:07] VITALS: BP 118/75; PULSE 75
--- NOTE | 2019-06-23 10:03 | US ---
Therapeutic paracentesis. DATE OF EXAM: 06/22/2019 CLINICAL HISTORY: Ascites The procedure was discussed with the patient. The risks, complications, benefits, and alternatives we re discussed and any questions were answered. Informed consent was obtained. The patient was placed s upine on the ultrasound table and prepped and draped in the usual sterile fashion. All elements of maximal barrier technique were utilized. Under ultrasound guidance, access into the right lower quadrant was obtained, via the paracentesis catheter system and direct ultrasound guidanc e. Approximately 8 liters of straw-colored fluid was removed. The patient was stable throughout the proc edure and remained stable upon discharge from Department of Radiology. IMPRESSION: Successful therapeutic paracentesis under ultrasound guidance.
== END 2019-06-22 15:45 | disposition home or self-care (01) ==
LOC: RADPROMAIN 13:09
PROVIDERS: ATTEND Internal Medicine Hematology & Oncology
DX: R18.8 Other ascites (principal)
CPT/HCPCS: 36415; 49083; 82565; 85610

== ENCOUNTER 2019-06-27 09:49 | Day surgery (SDC) | payer OTHER ==
[2019-06-27 10:41] VITALS: TEMP 98.3
[2019-06-27 10:57] LABS: Platelet Count 76 k/uL (150-450)
[2019-06-27 11:01] LABS: Mean Platelet Volume 8.4
[2019-06-27 11:05] LABS: INR 1.1 (<1.2)
[2019-06-27 11:30] VITALS: RESP 18
[2019-06-27 12:26] VITALS: BP 120/67; PULSE 87
--- NOTE | 2019-06-27 14:10 | US ---
Therapeutic paracentesis. DATE OF EXAM: 06/27/2019 CLINICAL HISTORY: Ascites The procedure was discussed with the patient. The risks, complications, benefits, and alternatives we re discussed and any questions were answered. Informed consent was obtained. The patient was placed s upine on the ultrasound table and prepped and draped in the usual sterile fashion. All elements of maximal barrier technique were utilized. Under ultrasound guidance, access into the right lower quadrant was obtained, via the paracentesis catheter system and direct ultrasound guidanc e. Approximately 6.5 liters of straw-colored fluid was removed. The patient was stable throughout the pr ocedure and remained stable upon discharge from Department of Radiology. IMPRESSION: Successful therapeutic paracentesis under ultrasound guidance.
== END 2019-06-27 12:50 | disposition home or self-care (01) ==
LOC: RADPROMAIN 09:49
PROVIDERS: ATTEND Internal Medicine Hematology & Oncology
DX: R18.8 Other ascites (principal); C24.0 Malignant neoplasm of extrahepatic bile duct
CPT/HCPCS: 49083; 85049; 85610

== ENCOUNTER 2019-07-05 13:01 | Day surgery (SDC) | payer OTHER ==
[2019-07-05 13:45] LABS: INR 1.1 (<1.2); Prothrombin Time 11.4 sec (9.0-12.0)
[2019-07-05 13:55] VITALS: RESP 16; TEMP 98.3
[2019-07-05 14:08] LABS: Mean Platelet Volume 8.8
[2019-07-05 14:16] LABS: Platelet Count 76 k/uL (150-450)
[2019-07-05 16:44] VITALS: BP 131/71; PULSE 70
--- NOTE | 2019-07-05 16:53 | US ---
EXAMINATION TYPE: US paracentesis abd w/image DATE OF EXAM: 07/05/2019 COMPARISON: NONE HISTORY: Ascites. PROCEDURE: Maximal barrier technique was utilized. The skin overlying a suitable pocket of fluid was localized with ultrasound and the overlying skin was prepped and draped. Ultrasound was utilized with sterile technique. Lidocaine was used for local anesthesia and a skin jessica made with a scalpel. Catheter was advanced under direct ultrasound guidance into a suitable pocket of fluid and approximately 7.3 liter s of serous fluid were removed. Catheter was withdrawn and hemostasis achieved. There is no immedia te complication; the patient is discharged in stable condition. IMPRESSION: STATUS POST ULTRASOUND GUIDED PARACENTESIS FOR PALLIATION OF ASCITES. THIS PROCEDURE WA S PERFORMED BY THE UNDERSIGNED.
== END 2019-07-05 16:00 | disposition home or self-care (01) ==
LOC: RADPROMAIN 13:01
PROVIDERS: ATTEND Internal Medicine Hematology & Oncology
DX: R18.8 Other ascites (principal); C24.0 Malignant neoplasm of extrahepatic bile duct
CPT/HCPCS: 85049; 85610; 49083; J1642

== ENCOUNTER 2019-07-13 13:06 | Day surgery (SDC) | payer OTHER ==
[2019-07-13 13:28] VITALS: BP 116/79; PULSE 87; RESP 20; TEMP 98.7
[2019-07-13 14:06] LABS: INR 1.2 (<1.2); Prothrombin Time 11.9 sec (9.0-12.0)
[2019-07-13 14:11] LABS: Mean Platelet Volume 9.5
[2019-07-13 14:36] LABS: Platelet Count 27 k/uL (150-450)
--- NOTE | 2019-07-13 14:55 | US ---
Ultrasound-guided paracentesis. DATE OF EXAM: 07/13/2019 CLINICAL HISTORY: Ascites The patient had a platelet count of 27 below the normal limits require for the procedure to be perfor med. Referring clinician notified. Procedure deferred. IMPRESSION: 1. Deferred paracentesis due to abnormal blood work
== END 2019-07-13 15:00 | disposition home or self-care (01) ==
LOC: RADPROMAIN 13:06
PROVIDERS: ATTEND Internal Medicine Hematology & Oncology
DX: R18.8 Other ascites (principal); Z53.09 Procedure and treatment not carried out because of other contraindication; D69.6 Thrombocytopenia, unspecified
CPT/HCPCS: 85049; 85610; 76705; J1642

== ENCOUNTER 2019-07-19 12:28 | Day surgery (SDC) | payer OTHER ==
[2019-07-19 13:24] LABS: Mean Platelet Volume 9.9
[2019-07-19 13:25] LABS: Platelet Count 60 k/uL (150-450)
[2019-07-19 13:26] LABS: INR 1.1 (<1.2); Prothrombin Time 11.2 sec (9.0-12.0)
[2019-07-19 14:07] VITALS: RESP 16; TEMP 98
[2019-07-19 15:15] VITALS: BP 97/61; PULSE 61
--- NOTE | 2019-07-19 18:57 | US ---
EXAMINATION TYPE: US paracentesis abd w/image DATE OF EXAM: 07/19/2019 COMPARISON: NONE HISTORY: Ascites. PROCEDURE: Maximal barrier technique was utilized. The skin overlying a suitable pocket of fluid was localized with ultrasound and the overlying skin was prepped and draped. Ultrasound was utilized with sterile technique. Lidocaine was used for local anesthesia and a skin jessica made with a scalpel. Catheter was advanced under direct ultrasound guidance into a suitable pocket of fluid and approximately 7.2 liter s of serous fluid were removed. Catheter was withdrawn and hemostasis achieved. There is no immedia te complication; the patient is discharged in stable condition. IMPRESSION: STATUS POST ULTRASOUND GUIDED PARACENTESIS FOR PALLIATION OF ASCITES. THIS PROCEDURE WA S PERFORMED BY THE UNDERSIGNED.
== END 2019-07-19 15:20 | disposition home or self-care (01) ==
LOC: RADPROMAIN 12:28
PROVIDERS: ATTEND Internal Medicine Hematology & Oncology
DX: R18.8 Other ascites (principal); C24.0 Malignant neoplasm of extrahepatic bile duct
CPT/HCPCS: 85049; 85610; 49083; J1642

== ENCOUNTER 2019-07-26 11:43 | Day surgery (SDC) | payer OTHER ==
[2019-07-26 12:31] LABS: INR 1.2 (<1.2); Prothrombin Time 12.2 sec (9.0-12.0)
[2019-07-26 12:57] LABS: Mean Platelet Volume 9.5
[2019-07-26 12:58] LABS: Platelet Count 23 k/uL (150-450)
[2019-07-26 14:28] VITALS: TEMP 98.5
[2019-07-26 14:41] VITALS: RESP 14
[2019-07-26 15:41] VITALS: BP 101/59; PULSE 80
--- NOTE | 2019-07-26 16:23 | US ---
EXAMINATION TYPE: US paracentesis abd w/image DATE OF EXAM: 07/26/2019 COMPARISON: NONE HISTORY: Ascites. PROCEDURE: Maximal barrier technique was utilized. The skin overlying a suitable pocket of fluid was localized with ultrasound and the overlying skin was prepped and draped. Ultrasound was utilized with sterile technique. Lidocaine was used for local anesthesia and a skin jessica made with a scalpel. Catheter was advanced under direct ultrasound guidance into a suitable pocket of fluid and approximately 6.4 liter s of serous fluid were removed. Catheter was withdrawn and hemostasis achieved. There is no immedia te complication; the patient is discharged in stable condition. IMPRESSION: STATUS POST ULTRASOUND GUIDED PARACENTESIS FOR PALLIATION OF ASCITES. THIS PROCEDURE WA S PERFORMED BY THE UNDERSIGNED.
== END 2019-07-26 15:30 | disposition home or self-care (01) ==
LOC: RADPROMAIN 11:43
PROVIDERS: ATTEND Internal Medicine Hematology & Oncology
DX: R18.8 Other ascites (principal); C24.0 Malignant neoplasm of extrahepatic bile duct
CPT/HCPCS: 85049; 85610; 36415; 49083; P9035; J1642

== ENCOUNTER 2019-08-02 12:17 | Day surgery (SDC) | payer OTHER ==
[2019-08-02 12:34] VITALS: RESP 20; TEMP 97.8
[2019-08-02 12:51] LABS: Mean Platelet Volume 9.8
[2019-08-02 12:56] LABS: Platelet Count 67 k/uL (150-450)
[2019-08-02 12:58] LABS: INR 1.1 (<1.2); Prothrombin Time 11.6 sec (9.0-12.0)
[2019-08-02 14:49] VITALS: BP 101/61; PULSE 75
--- NOTE | 2019-08-02 16:01 | US ---
EXAMINATION TYPE: US paracentesis abd w/image DATE OF EXAM: 08/02/2019 COMPARISON: NONE HISTORY: Ascites. PROCEDURE: Maximal barrier technique was utilized. The skin overlying a suitable pocket of fluid was localized with ultrasound and the overlying skin was prepped and draped. Ultrasound was utilized with sterile technique. Lidocaine was used for local anesthesia and a skin jessica made with a scalpel. Catheter was advanced under direct ultrasound guidance into a suitable pocket of fluid and approximately 8.3 liter s of serous fluid were removed. Catheter was withdrawn and hemostasis achieved. There is no immedia te complication; the patient is discharged in stable condition. IMPRESSION: STATUS POST ULTRASOUND GUIDED PARACENTESIS FOR PALLIATION OF ASCITES. THIS PROCEDURE WA S PERFORMED BY THE UNDERSIGNED.
== END 2019-08-02 15:10 | disposition home or self-care (01) ==
LOC: RADPROMAIN 12:17
PROVIDERS: ATTEND Internal Medicine Hematology & Oncology
DX: R18.8 Other ascites (principal); C24.0 Malignant neoplasm of extrahepatic bile duct
CPT/HCPCS: 85049; 85610; 49083; J1642

== ENCOUNTER 2019-08-09 12:01 | Day surgery (SDC) | payer OTHER ==
[2019-08-09 12:32] VITALS: RESP 20; TEMP 98.2
[2019-08-09 13:32] LABS: INR 1.1 (<1.2); Platelet Count 93 k/uL (150-450); Prothrombin Time 10.8 sec (9.0-12.0)
[2019-08-09 15:04] VITALS: BP 99/55; PULSE 85
--- NOTE | 2019-08-10 08:17 | US ---
Ultrasound-guided paracentesis. DATE OF EXAM: 08/09/2019 CLINICAL HISTORY: ascites The procedure was discussed with the patient. The risks, complications, benefits, and alternatives we re discussed and any questions were answered. Informed consent was obtained. The patient was placed s upine on the ultrasound table and prepped and draped in the usual sterile fashion. All elements of maximal barrier technique were utilized. Under ultrasound guidance, access into the right lower quadrant was obtained, via the paracentesis catheter system and direct ultrasound guidanc e. Approximately 8600 liters of straw-colored fluid was removed. The patient was stable throughout the p rocedure and remained stable upon discharge from Department of Radiology. IMPRESSION: Successful paracentesis under ultrasound guidance.
== END 2019-08-09 15:40 | disposition home or self-care (01) ==
LOC: RADPROMAIN 12:01
PROVIDERS: ATTEND Internal Medicine Hematology & Oncology
DX: R18.8 Other ascites (principal); C24.0 Malignant neoplasm of extrahepatic bile duct
CPT/HCPCS: 49083; 82565; 84520; 85049; 85610

== ENCOUNTER → 2019-08-09 | Outpatient (CLI) | payer OTHER ==
--- NOTE | 2019-08-09 16:16 | CT ---
EXAMINATION TYPE: CT ChestAbdPelvis w con DATE OF EXAM: 08/09/2019 COMPARISON: 06/06/2019 HISTORY: Carcinoma of bile duct. CT DLP: 2048.7 mGycm CONTRAST: CT scan of the chest, abdomen and pelvis is performed with Oral Contrast and with IV Contrast, patien t injected with 80 mL of Isovue 300. CT Chest: LUNGS: Persistent multiple scattered subcentimeter pulmonary nodules without increase in overall size or number. No pleural effusion or CT evidence of interstitial lung disease. MEDIASTINUM: Right sided aortic arch redemonstrated. The heart is not enlarged. No evidence for medi astinal mass or adenopathy. HILAR STRUCTURES: No evidence for mass. No hilar adenopathy is appreciated. OTHER: No significant abnormality. CONTRAST CT ABDOMEN AND PELVIS FINDINGS: LIVER/GB: Infiltrative mass throughout the left hepatic lobe is redemonstrated without significant in terval change. Satellite nodules within the right hepatic lobe are again seen without significant isaura nge in number or size. Largest lesion anterior segment right hepatic lobe measures 2.2 cm versus 2.2 cm previously. Numerous gallstones persist. PANCREAS: No inflammation. No distinct mass. SPLEEN: Splenomegaly persists measuring 16.8 cm craniocaudal. No lesion seen. ADRENALS: No nodule. No thickening. KIDNEYS/BLADDER: No hydronephrosis. No nephrolithiasis. No distinct renal mass. BOWEL: Normal appendix. Normal bowel caliber. No inflammation. GENITAL ORGANS: IUD in place. Lobulated appearance of the uterus may reflect underlying leiomyomatous change. LYMPH NODES: Periportal adenopathy identified measuring short axis up to 1.5 cm. Left periaortic travon opathy redemonstrated measuring up to 1.5 cm short axis unchanged from prior study. AORTA: No significant abnormality. OSSEOUS STRUCTURES: Multiple scattered lytic and sclerotic osseous lesions persist without significan t change. OTHER: Resolution of previously noted severe ascites. Fat-containing umbilical hernia. Subcutaneous s eroma unchanged. IMPRESSION: 1. No significant change in infiltrative mass left hepatic lobe with scattered satellite nodules with in the right hepatic lobe. 2. No change in subcentimeter metastatic disease to the lungs. 3. Periportal adenopathy and para-aortic adenopathy unchanged. 4. No significant change in bony metastatic disease.
== END | disposition home or self-care (01) ==
LOC: RADPROMAIN 11:59
PROVIDERS: ATTEND Internal Medicine Hematology & Oncology
DX: R16.0 Hepatomegaly, not elsewhere classified (principal); C24.0 Malignant neoplasm of extrahepatic bile duct; R59.0 Localized enlarged lymph nodes
CPT/HCPCS: 71260; 74177; J1642; Q9967 ×2

== ENCOUNTER 2019-08-16 09:01 | Day surgery (SDC) | payer OTHER ==
[2019-08-16 09:15] VITALS: RESP 20; TEMP 98.7
[2019-08-16 09:44] LABS: Mean Platelet Volume 8.8; Platelet Count 100 k/uL (150-450)
[2019-08-16 09:47] LABS: INR 1.1 (<1.2)
[2019-08-16 11:18] VITALS: BP 104/64; PULSE 72
--- NOTE | 2019-08-17 09:50 | US ---
Ultrasound-guided paracentesis. DATE OF EXAM: 08/16/2019 CLINICAL HISTORY: Ascites The procedure was discussed with the patient. The risks, complications, benefits, and alternatives we re discussed and any questions were answered. Informed consent was obtained. The patient was placed s upine on the ultrasound table and prepped and draped in the usual sterile fashion. All elements of maximal barrier technique were utilized. Under ultrasound guidance, access into the left lower quadrant was obtained, via the paracentesis catheter system and direct ultrasound guidance . Approximately 8.6 liters of straw-colored fluid was removed. The patient was stable throughout the pr ocedure and remained stable upon discharge from Department of Radiology. IMPRESSION: Successful paracentesis under ultrasound guidance.
== END 2019-08-16 11:30 | disposition home or self-care (01) ==
LOC: RADPROMAIN 09:01
PROVIDERS: ATTEND Internal Medicine Hematology & Oncology
DX: R18.8 Other ascites (principal); C24.0 Malignant neoplasm of extrahepatic bile duct
CPT/HCPCS: 85049; 85610; 49083; J1642

== ENCOUNTER 2019-08-23 08:06 | Day surgery (SDC) | payer OTHER ==
[2019-08-23 08:42] LABS: Mean Platelet Volume 8.1; Platelet Count 114 k/uL (150-450)
[2019-08-23 08:51] LABS: INR 1.1 (<1.2)
[2019-08-23 08:53] VITALS: TEMP 98.7
[2019-08-23 09:50] LABS: Anisocytosis Slight; Basophils % (A) 0 %; Eosinophils # (A) 0.1 k/uL (0-0.7); Eosinophils % (A) 1 %; HCT 29.2 % (34.0-46.0); HGB 9.4 gm/dL (11.4-16.0); Lymphocytes # (A) 0.7 k/uL (1.0-4.8); Lymphocytes % (A) 11 %; MCH 33.3 pg (25.0-35.0); MCHC 32.1 g/dL (31.0-37.0); Macrocytosis Moderate; Mean Platelet Volume 8.4; Monocytes # (A) 0.4 k/uL (0-1.0); Monocytes % (A) 6 %; Neutrophils # (A) 5.4 k/uL (1.3-7.7); Neutrophils % (A) 81 %; Platelet Count 106 k/uL (150-450); RBC 2.81 m/uL (3.80-5.40); RDW 17.2 % (11.5-15.5); WBC 6.7 k/uL (3.8-10.6)
[2019-08-23 10:40] VITALS: RESP 18
[2019-08-23 11:44] VITALS: BP 119/81; PULSE 84
--- NOTE | 2019-08-24 08:41 | US ---
EXAMINATION TYPE: US paracentesis abd w/image DATE OF EXAM: 08/23/2019 COMPARISON: NONE HISTORY: Ascites. PROCEDURE: Maximal barrier technique was utilized. The skin overlying a suitable pocket of fluid was localized with ultrasound and the overlying skin was prepped and draped. Ultrasound was utilized with sterile technique. Lidocaine was used for local anesthesia and a skin jessica made with a scalpel. Catheter was advanced under direct ultrasound guidance into a suitable pocket of fluid and approximately 9.2 liter s of serous fluid were removed. Catheter was withdrawn and hemostasis achieved. There is no immedia te complication; the patient is discharged in stable condition. IMPRESSION: STATUS POST ULTRASOUND GUIDED PARACENTESIS FOR PALLIATION OF ASCITES. THIS PROCEDURE WA S PERFORMED BY THE UNDERSIGNED.
== END 2019-08-23 11:30 | disposition home or self-care (01) ==
LOC: RADPROMAIN 08:06
PROVIDERS: ATTEND Internal Medicine Hematology & Oncology
DX: R18.8 Other ascites (principal); C24.0 Malignant neoplasm of extrahepatic bile duct
CPT/HCPCS: 85025; 85049; 85610; 36415; 49083; J1642

== ENCOUNTER 2019-08-30 08:27 | Day surgery (SDC) | payer OTHER ==
[2019-08-30 09:18] LABS: Mean Platelet Volume 10.9
[2019-08-30 09:21] VITALS: RESP 18
[2019-08-30 09:32] LABS: INR 1.1 (<1.2); Prothrombin Time 11.5 sec (9.0-12.0)
[2019-08-30 09:33] LABS: Platelet Count 22 k/uL (150-450)
[2019-08-30 10:05] LABS: African American GFR (CKD) >90 (>60 ml/min/1.73 sqM); Non-African American GFR(CKD) 83 (>60 ml/min/1.73 sqM)
[2019-08-30 11:35] VITALS: TEMP 98.2
[2019-08-30 12:06] VITALS: BP 101/67; PULSE 78
[2019-08-30 12:32] LABS: Basophils % (A) 0 %; Eosinophils # (A) 0.1 k/uL (0-0.7); Eosinophils % (A) 1 %; HCT 23.6 % (34.0-46.0); Lymphocytes # (A) 0.9 k/uL (1.0-4.8); Lymphocytes % (A) 12 %; MCH 33.3 pg (25.0-35.0); MCHC 32.5 g/dL (31.0-37.0); MCV 102.4 fL (80.0-100.0); Macrocytosis Slight; Mean Platelet Volume 11.2; Monocytes # (A) 0.3 k/uL (0-1.0); Monocytes % (A) 4 %; Neutrophils # (A) 6.1 k/uL (1.3-7.7); Neutrophils % (A) 81 %; RDW 15.6 % (11.5-15.5); WBC 7.5 k/uL (3.8-10.6)
[2019-08-30 12:35] LABS: HGB 7.7 gm/dL (11.4-16.0)
[2019-08-30 12:46] LABS: Platelet Count 21 k/uL (150-450)
[2019-08-30 12:47] LABS: Large Platelets Present
[2019-08-30 13:06] LABS: ALT 22 U/L (4-34); AST 84 U/L (14-36); Albumin 2.2 g/dL (3.5-5.0); Alkaline Phosphatase 208 U/L (38-126); Anion Gap 6 mmol/L; Blood Urea Nitrogen 20 mg/dL (7-17); Calcium 7.8 mg/dL (8.4-10.2); Carbon Dioxide 25 mmol/L (22-30); Chloride 101 mmol/L (98-107); Glucose 117 mg/dL (74-99); Potassium 3.1 mmol/L (3.5-5.1); Sodium 132 mmol/L (137-145); Total Bilirubin 1.5 mg/dL (0.2-1.3); Total Protein 5.4 g/dL (6.3-8.2)
--- NOTE | 2019-08-30 14:46 | US ---
EXAMINATION TYPE: US paracentesis abd w/image DATE OF EXAM: 08/30/2019 COMPARISON: NONE HISTORY: Ascites. PROCEDURE: Maximal barrier technique was utilized. The skin overlying a suitable pocket of fluid was localized with ultrasound and the overlying skin was prepped and draped. Ultrasound was utilized with sterile technique. Lidocaine was used for local anesthesia and a skin jessica made with a scalpel. Catheter was advanced under direct ultrasound guidance into a suitable pocket of fluid and approximately 8.7 liter s of serous fluid were removed. Catheter was withdrawn and hemostasis achieved. There is no immedia te complication; the patient is discharged in stable condition. IMPRESSION: STATUS POST ULTRASOUND GUIDED PARACENTESIS FOR PALLIATION OF ASCITES. THIS PROCEDURE WA S PERFORMED BY THE UNDERSIGNED.
== END 2019-08-30 12:15 | disposition home or self-care (01) ==
LOC: RADPROMAIN 08:27
PROVIDERS: ATTEND Internal Medicine Hematology & Oncology
DX: R18.8 Other ascites (principal); C24.0 Malignant neoplasm of extrahepatic bile duct
CPT/HCPCS: 80053; 85025; 85049; 85610; 49083; P9035

== ENCOUNTER 2019-09-06 08:35 | Day surgery (SDC) | payer OTHER ==
[2019-09-06 09:00] VITALS: RESP 16
[2019-09-06 09:04] LABS: Mean Platelet Volume 9.9
[2019-09-06 09:05] LABS: Platelet Count 39 k/uL (150-450)
[2019-09-06 09:10] LABS: INR 1.1 (<1.2); Prothrombin Time 11.2 sec (9.0-12.0)
--- NOTE | 2019-09-06 12:10 | US ---
Ultrasound-guided paracentesis. DATE OF EXAM: 09/06/2019 CLINICAL HISTORY: Ascites The procedure was discussed with the patient. The risks, complications, benefits, and alternatives we re discussed and any questions were answered. Informed consent was obtained. The patient was placed s upine on the ultrasound table and prepped and draped in the usual sterile fashion. All elements of maximal barrier technique were utilized. Under ultrasound guidance, access into the left lower quadrant was obtained, via the paracentesis catheter system and direct ultrasound guidance . Approximately 8.5 liters of straw-colored fluid was removed. The patient was stable throughout the pr ocedure and remained stable upon discharge from Department of Radiology. IMPRESSION: Successful paracentesis under ultrasound guidance.
[2019-09-06 12:33] VITALS: BP 102/56; PULSE 79; TEMP 98.6
== END 2019-09-06 12:35 | disposition home or self-care (01) ==
LOC: RADPROMAIN 08:35
PROVIDERS: ATTEND Internal Medicine Hematology & Oncology
DX: R18.8 Other ascites (principal); C24.0 Malignant neoplasm of extrahepatic bile duct
CPT/HCPCS: 85049; 85610; 86880; 49083; P9035

== ENCOUNTER → 2019-09-11 | Outpatient (CLI) | payer OTHER | END | disposition home or self-care (01) | LOC: LABWHC1 08:20 | PROVIDERS: ATTEND Internal Medicine Hematology & Oncology | DX: U07.1 COVID-19 (principal) | CPT/HCPCS: 87635 ==

== ENCOUNTER 2019-09-13 08:38 | Day surgery (SDC) | payer OTHER ==
[2019-09-13 10:35] LABS: Mean Platelet Volume 10.3
[2019-09-13 10:38] LABS: INR 1.1 (<1.2); Prothrombin Time 11.1 sec (9.0-12.0)
[2019-09-13 10:41] LABS: Platelet Count 15 k/uL (150-450)
[2019-09-13 11:34] VITALS: RESP 18
[2019-09-13 12:18] VITALS: TEMP 98.3
[2019-09-13 14:14] VITALS: BP 104/58; PULSE 100
--- NOTE | 2019-09-14 10:53 | US ---
EXAMINATION TYPE: US paracentesis abd w/image DATE OF EXAM: 09/13/2019 COMPARISON: NONE HISTORY: Ascites. PROCEDURE: Maximal barrier technique was utilized. The skin overlying a suitable pocket of fluid was localized with ultrasound and the overlying skin was prepped and draped. Ultrasound was utilized with sterile technique. Lidocaine was used for local anesthesia and a skin jessica made with a scalpel. Catheter was advanced under direct ultrasound guidance into a suitable pocket of fluid and approximately 7.1 li ters of serous fluid were removed. Catheter was withdrawn and hemostasis achieved. There is no imme diate complication; the patient is discharged in stable condition. IMPRESSION: STATUS POST ULTRASOUND GUIDED PARACENTESIS FOR PALLIATION OF ASCITES. THIS PROCEDURE WA S PERFORMED BY THE UNDERSIGNED.
== END 2019-09-13 14:00 | disposition home or self-care (01) ==
LOC: RADPROMAIN 08:38
PROVIDERS: ATTEND Internal Medicine Hematology & Oncology
DX: R18.8 Other ascites (principal); C24.0 Malignant neoplasm of extrahepatic bile duct
CPT/HCPCS: 82565; 85049; 85610; 49083; P9035; J1642

== ENCOUNTER → 2019-09-13 | Outpatient (CLI) | payer OTHER ==
--- NOTE | 2019-09-13 14:36 | CT ---
EXAMINATION TYPE: CT abdomen pelvis w con DATE OF EXAM: 09/13/2019 HISTORY: pain, bile duct CA CT DLP: 2647.6mGycm Automated Exposure Control for Dose Reduction was Utilized. CONTRAST: CT scan of the abdomen and pelvis is performed with IV Contrast, patient injected with 100 mL of Isov ue 300. COMPARISON: CT August 09, 2019 [address] older CTs FINDINGS: LUNG BASES: Scattered subcentimeter nodules in the bilateral lung bases are felt increased in number and size from older studies. For reference two peripheral nodules between 4 to 5 mm left lung base ax ial image 6. Similar to peripheral nodules right lung base axial image 5 between 4 to 5 mm. Mediport catheter tip terminating in right atrium redemonstrated. LIVER/GB: Large heterogeneous irregular hypodense mass occupying majority of left hepatic lobe diffic ult to accurately measure shows no significant interval change from most recent CTs. Oval hypodense l esion right hepatic lobe measures roughly 2.4 cm long axis X image 21 not significantly changed from most recent CT. Scattered smaller hypodense lesions are felt stable. Multiple small calcified gallsto leah filling gallbladder redemonstrated. No new biliary dilatation. Stable small caliber but patent ma in portal vein. PANCREAS: No significant abnormality is seen. SPLEEN: Fairly stable splenomegaly at 19.3 cm on axial image 24. Similar measurement on most recent p rior CT study axial image 54 for reference. ADRENALS: No significant abnormality is seen. KIDNEYS: No significant abnormality is seen. BOWEL: Oral contrast only reaches level of the distal ileal loops making evaluation bowel suboptimal. No suspicious small or large bowel dilatation. UTERUS/ADNEXA: Anteverted uterus with central metallic IUD. Small amount of pelvic ascites on current study LYMPH NODES: No greater than 1cm abdominal or pelvic lymph nodes are appreciated. OSSEOUS STRUCTURES: Redemonstration of multiple scattered lytic foci including enlarging destructive lesion left superior pelvic ramus involving the anterior wall and column left hip. This increases isaura nces for pathologic fracture. Consider making nonweightbearing, consider orthopedic consult. Increase in size and number of lesions. Additional few scattered sclerotic metastatic lesions for reference T 10 sclerotic lesion coronal image 72 is more prominent OTHER: Moderate to large sized umbilical hernia containing free fluid redemonstrated. IMPRESSION: No significant change in disease involvement in the liver. Interval progression of osseou s metastatic disease, attention to left hip as detailed above. Suspected pulmonary metastatic disease shows no significant interval change from most recent CT, definitive progression from original CT Ju ne 2018.
== END | disposition home or self-care (01) ==
LOC: RADCTMAIN 08:42
PROVIDERS: ATTEND Internal Medicine Hematology & Oncology
DX: R10.9 Unspecified abdominal pain (principal); R18.8 Other ascites
CPT/HCPCS: 74177; Q9967

== ENCOUNTER 2019-09-20 08:50 | Day surgery (SDC) | payer OTHER ==
[2019-09-20 09:23] LABS: Mean Platelet Volume 9.4
[2019-09-20 09:37] LABS: Platelet Count 56 k/uL (150-450)
[2019-09-20 09:44] LABS: INR 1.1 (<1.2)
[2019-09-20 09:45] VITALS: TEMP 98.1
[2019-09-20] MEDS: ALBUMIN HUMAN 25% 50 ML in EMPTY BAG 1 BAG IVPB SCH ×3 (11:43→12:17)
[2019-09-20 13:12] VITALS: BP 86/53; PULSE 82; RESP 16
--- NOTE | 2019-09-20 14:40 | US ---
EXAMINATION TYPE: US paracentesis abd w/image DATE OF EXAM: 09/20/2019 COMPARISON: NONE HISTORY: Ascites. PROCEDURE: Maximal barrier technique was utilized. The skin overlying a suitable pocket of fluid was localized with ultrasound and the overlying skin was prepped and draped. Ultrasound was utilized with sterile technique. Lidocaine was used for local anesthesia and a skin jessica made with a scalpel. Catheter was advanced under direct ultrasound guidance into a suitable pocket of fluid and approximately 6.6 liter s of serous fluid were removed. Catheter was withdrawn and hemostasis achieved. There is no immedia te complication; the patient is discharged in stable condition. IMPRESSION: STATUS POST ULTRASOUND GUIDED PARACENTESIS FOR PALLIATION OF ASCITES. THIS PROCEDURE WA S PERFORMED BY THE UNDERSIGNED.
== END 2019-09-20 13:05 | disposition home or self-care (01) ==
LOC: RADPROMAIN 08:50
PROVIDERS: ATTEND Internal Medicine Hematology & Oncology
DX: R18.8 Other ascites (principal); C24.0 Malignant neoplasm of extrahepatic bile duct
CPT/HCPCS: 85049; 85610; 87635; 36415; 49083; P9047; J1642

== ENCOUNTER → 2019-09-23 | Outpatient (CLI) | payer OTHER | END | disposition home or self-care (01) | LOC: LABWHC1 10:54 | PROVIDERS: ATTEND Internal Medicine Hematology & Oncology | DX: U07.1 COVID-19 (principal) | CPT/HCPCS: 87635 ==

== ENCOUNTER 2019-09-27 08:51 | Day surgery (SDC) | payer OTHER ==
[2019-09-27 09:19] LABS: Mean Platelet Volume 7.8
[2019-09-27 09:22] LABS: Platelet Count 109 k/uL (150-450)
[2019-09-27 09:24] VITALS: TEMP 98.1
[2019-09-27 09:31] LABS: INR 1.1 (<1.2); Prothrombin Time 11.6 sec (9.0-12.0)
[2019-09-27] MEDS: ALBUMIN HUMAN 25% 50 ML in EMPTY BAG 1 BAG IVPB SCH ×3 (10:48→11:47)
--- NOTE | 2019-09-27 12:40 | US ---
EXAMINATION TYPE: US paracentesis abd w/image DATE OF EXAM: 09/27/2019 COMPARISON: NONE HISTORY: Ascites. PROCEDURE: Maximal barrier technique was utilized. The skin overlying a suitable pocket of fluid was localized with ultrasound and the overlying skin was prepped and draped. Ultrasound was utilized with sterile technique. Lidocaine was used for local anesthesia and a skin jessica made with a scalpel. Catheter was advanced under direct ultrasound guidance into a suitable pocket of fluid and approximately 7 liters of serous fluid were removed. Catheter was withdrawn and hemostasis achieved. There is no immediate complication; the patient is discharged in stable condition. IMPRESSION: STATUS POST ULTRASOUND GUIDED PARACENTESIS FOR PALLIATION OF ASCITES. THIS PROCEDURE WA S PERFORMED BY THE UNDERSIGNED.
[2019-09-27 14:07] VITALS: BP 85/54; PULSE 89; RESP 16
== END 2019-09-27 12:10 | disposition home or self-care (01) ==
LOC: RADPROMAIN 08:51
PROVIDERS: ATTEND Internal Medicine Hematology & Oncology
DX: R18.8 Other ascites (principal); C24.0 Malignant neoplasm of extrahepatic bile duct
CPT/HCPCS: 85049; 85610; 36415; 49083; P9047; J1642

== ENCOUNTER → 2019-09-30 | Outpatient (CLI) | payer OTHER | END | disposition home or self-care (01) | LOC: LABWHC1 08:37 | PROVIDERS: ATTEND Internal Medicine Hematology & Oncology | DX: U07.1 COVID-19 (principal) | CPT/HCPCS: 87635 ==

== ENCOUNTER 2019-10-04 08:40 | Day surgery (SDC) | payer OTHER ==
[2019-10-04 09:22] VITALS: RESP 16; TEMP 98.5
[2019-10-04 09:25] LABS: Platelet Count 109 k/uL (150-450)
[2019-10-04] MEDS: ALBUMIN HUMAN 25% 50 ML in EMPTY BAG 1 BAG IVPB SCH ×4 (09:31→10:45)
[2019-10-04 09:33] LABS: INR 1.2 (<1.2); Prothrombin Time 12.1 sec (9.0-12.0)
[2019-10-04 10:24] LABS: Anisocytosis Slight; Basophils % (A) 0 %; Eosinophils # (A) 0.1 k/uL (0-0.7); Eosinophils % (A) 2 %; HCT 24.7 % (34.0-46.0); HGB 8.1 gm/dL (11.4-16.0); Hypochromasia Moderate; Lymphocytes # (A) 0.5 k/uL (1.0-4.8); Lymphocytes % (A) 15 %; MCH 36.7 pg (25.0-35.0); MCHC 32.8 g/dL (31.0-37.0); Macrocytosis Marked; Monocytes # (A) 0.2 k/uL (0-1.0); Monocytes % (A) 7 %; Neutrophils # (A) 2.6 k/uL (1.3-7.7); Neutrophils % (A) 74 %; Poikilocytosis Slight; RDW 16.3 % (11.5-15.5); WBC 3.5 k/uL (3.8-10.6)
[2019-10-04 11:02] LABS: MCV 111.8 fL (80.0-100.0)
[2019-10-04 11:39] VITALS: BP 101/61; PULSE 70
--- NOTE | 2019-10-04 14:40 | US ---
Ultrasound-guided paracentesis. DATE OF EXAM: 10/04/2019 CLINICAL HISTORY: Ascites The procedure was discussed with the patient. The risks, complications, benefits, and alternatives we re discussed and any questions were answered. Informed consent was obtained. The patient was placed s upine on the ultrasound table and prepped and draped in the usual sterile fashion. All elements of maximal barrier technique were utilized. Under ultrasound guidance, access into the left lower quadrant was obtained, via the paracentesis catheter system and direct ultrasound guidance . Approximately 5.3 liters of straw-colored fluid was removed. The patient was stable throughout the pr ocedure and remained stable upon discharge from Department of Radiology. IMPRESSION: Successful paracentesis under ultrasound guidance.
== END 2019-10-04 11:20 | disposition home or self-care (01) ==
LOC: RADPROMAIN 08:40
PROVIDERS: ATTEND Internal Medicine Hematology & Oncology
DX: R18.8 Other ascites (principal); C24.0 Malignant neoplasm of extrahepatic bile duct
CPT/HCPCS: 82565; 84100; 85025; 85610; 49083; P9047; J1642

== ENCOUNTER → 2019-10-06 | Outpatient (CLI) | payer OTHER ==
--- NOTE | 2019-10-06 10:48 | US ---
EXAMINATION TYPE: US venous doppler duplex LE DATE OF EXAM: 10/06/2019 10:31 AM COMPARISON: NONE CLINICAL HISTORY: M79.662 Pain in [id number] lower limb, M79.661. Swelling SIDE PERFORMED: Bilateral TECHNIQUE: The lower extremity deep venous system is examined utilizing real time linear array sonog kelly with graded compression, doppler sonography and color-flow sonography. VESSELS IMAGED: External Iliac Vein (EIV) Common Femoral Vein Deep Femoral Vein Greater Saphenous Vein * Femoral Vein Popliteal Vein Small Saphenous Vein * Proximal Calf Veins (* superficial vessels) Grayscale, color doppler, spectral doppler imaging performed of the deep veins of the lower extremiti es. There is normal flow, compressibility, vascular waveforms. Right Leg: Negative for DVT Left Leg: Negative for DVT IMPRESSION: No sonographic evidence of deep venous thrombosis within either visualized lower extremit y.
== END | disposition home or self-care (01) ==
LOC: RADUSWWP 10:04
PROVIDERS: ATTEND Internal Medicine Hematology & Oncology
DX: M79.661 Pain in right lower leg (principal); M79.662 Pain in left lower leg
CPT/HCPCS: 93970

== ENCOUNTER → 2019-10-07 | Outpatient (CLI) | payer OTHER | END | disposition home or self-care (01) | LOC: LABWHC1 09:06 | PROVIDERS: ATTEND Internal Medicine Hematology & Oncology | DX: Z11.59 Encounter for screening for other viral diseases (principal) ==

== ENCOUNTER 2019-10-11 08:41 | Day surgery (SDC) | payer OTHER ==
[2019-10-11 09:23] LABS: Mean Platelet Volume 8.7
[2019-10-11 09:25] VITALS: RESP 18; TEMP 98.3
[2019-10-11 09:30] LABS: INR 1.2 (<1.2); Platelet Count 85 k/uL (150-450); Prothrombin Time 12.3 sec (9.0-12.0)
[2019-10-11] MEDS: ALBUMIN HUMAN 25% 50 ML in EMPTY BAG 1 BAG IVPB SCH ×3 (10:06→11:35)
[2019-10-11 12:05] VITALS: BP 95/50; PULSE 74
--- NOTE | 2019-10-11 14:55 | US ---
Ultrasound-guided paracentesis. DATE OF EXAM: 10/11/2019 CLINICAL HISTORY: Ascites The procedure was discussed with the patient. The risks, complications, benefits, and alternatives we re discussed and any questions were answered. Informed consent was obtained. The patient was placed s upine on the ultrasound table and prepped and draped in the usual sterile fashion. All elements of maximal barrier technique were utilized. Under ultrasound guidance, access into the left lower quadrant was obtained, via the paracentesis catheter system and direct ultrasound guidance . Approximately 5.4 liters of straw-colored fluid was removed. The patient was stable throughout the pr ocedure and remained stable upon discharge from Department of Radiology. IMPRESSION: Successful paracentesis under ultrasound guidance.
== END 2019-10-11 12:30 | disposition home or self-care (01) ==
LOC: RADPROMAIN 08:41
PROVIDERS: ATTEND Internal Medicine Hematology & Oncology
DX: R18.8 Other ascites (principal); C24.0 Malignant neoplasm of extrahepatic bile duct
CPT/HCPCS: 82565; 85049; 85610; 49083; P9047; J1642

== ENCOUNTER 2019-10-25 08:50 | Day surgery (SDC) | payer OTHER ==
[2019-10-25 09:23] LABS: Mean Platelet Volume 8.3
[2019-10-25 09:24] LABS: Platelet Count 83 k/uL (150-450)
[2019-10-25 09:36] VITALS: TEMP 98.2
[2019-10-25 09:39] LABS: INR 1.3 (<1.2); Prothrombin Time 12.6 sec (9.0-12.0)
[2019-10-25] MEDS: ALBUMIN HUMAN 25% 50 ML in EMPTY BAG 1 BAG IVPB SCH ×4 (10:46→11:24)
[2019-10-25 12:05] VITALS: BP 109/58; PULSE 74; RESP 16
--- NOTE | 2019-10-25 12:29 | US ---
EXAMINATION TYPE: US paracentesis abd w/image DATE OF EXAM: 10/25/2019 COMPARISON: NONE HISTORY: Ascites. PROCEDURE: Maximal barrier technique was utilized. The skin overlying a suitable pocket of fluid was localized with ultrasound and the overlying skin was prepped and draped. Ultrasound was utilized with sterile technique. Lidocaine was used for local anesthesia and a skin jessica made with a scalpel. Catheter was advanced under direct ultrasound guidance into a suitable pocket of fluid, catheter stopped draining and fluid was confirmed within the abdomen, repeat puncture was performed using similar technique and approximately 4.3 liters of serous fluid were removed in total. Catheters were withdrawn and hemosta sis achieved. There is no immediate complication; the patient is discharged in stable condition. IMPRESSION: STATUS POST ULTRASOUND GUIDED PARACENTESIS FOR PALLIATION OF ASCITES. THIS PROCEDURE WA S PERFORMED BY THE UNDERSIGNED.
== END 2019-10-25 12:00 | disposition home or self-care (01) ==
LOC: RADPROMAIN 08:50
PROVIDERS: ATTEND Internal Medicine Hematology & Oncology
DX: R18.8 Other ascites (principal); C24.0 Malignant neoplasm of extrahepatic bile duct
CPT/HCPCS: 82565; 85049; 85610; 36415; 49083; P9047; J1642

== ENCOUNTER 2019-11-06 19:13 | Observation (INO) | payer OTHER ==
[2019-11-06] MEDS ORDERED: LIDOCAINE 1% INJ 10MG/ML (20 ML MDV) SQ ONE (19:44)
[2019-11-06] MEDS ORDERED: MORPHINE SULFATE 4 MG/ML SYRINGE IVP STA (19:52)
[2019-11-06] MEDS ORDERED: VANCOMYCIN IV PER PHARMACY 1 EACH MISC MISCELLANE PRN ×2 (20:34→23:22)
--- NOTE | 2019-11-06 20:44 | ED ---
Skin/Abscess/FB HPI - General Chief complaint: Skin/Abscess/Foreign Body Stated complaint: Toenail issue Time Seen by Provider: 11/06/19 19:15 Source: patient Mode of arrival: wheelchair Limitations: no limitations - History of Present Illness Initial comments: Patient is a 44-year-old female with past history of metastatic pancreatic cancer who presents to the emergency department for a left toe infection. Patient is underneath the care of Dr. Hartman. She is on her fourth round of chemotherapy. States this most recent chemotherapy has made her toenails brittle and there are almost about to follow-up. She does have a home care nurse who comes in. Reports that during dressing change it was noted that the patient had maggots underneath her left toenail. She is also reported increasing pain and redness to the toe. Denies any fevers or chills. No nausea or vomiting. She has been unable to receive her chemo for the past 2 weeks because of poor blood counts and oral sores. No other alleviating, precipitating or modifying factors - Related Data Home Medications Medication Instructions Recorded Confirmed Ondansetron HCl [Zofran] 4 mg PO Q4H PRN 12/11/18 11/06/19 traMADol HCL [Ultram] 50 mg PO Q6H PRN 12/11/18 11/06/19 Spironolactone 50 mg PO DAILY 02/10/19 11/06/19 Sennosides [Senna] 17.2 mg PO HS PRN 04/29/19 11/06/19 ALPRAZolam [Xanax] 0.25 mg PO TID PRN 09/20/19 11/06/19 Acyclovir [Zovirax] 400 mg PO TID 11/06/19 11/06/19 HYDROcodone/APAP 5-325MG [[place] 1 tab PO QID PRN 11/06/19 11/06/19 5-325] OLANZapine [ZyPREXA] 5 mg PO HS 11/06/19 11/06/19 Pemazyre 13.5mg Tablet 13.5 mg PO DAILY 11/06/19 11/06/19 Benadryl/Lidocaine/Maalox/Nystatin 5 ml PO QID 11/07/19 11/07/19 Oral Solution 1:1 Previous Rx's Medication Instructions Recorded Amoxic-Pot Clav 875-125Mg 1 tab PO Q12HR 8 Days #16 tab 11/09/19 [Augmentin 875-125] Furosemide [Lasix] 40 mg PO BID #60 tablet 11/09/19 Allergies Allergy/AdvReac Type Severity Reaction Status Date / Time No Known Allergies Allergy Verified 11/06/19 22:21 Review of Systems ROS Statement: Those systems with pertinent positive or pertinent negative responses have been documented in the HPI. ROS Other: All systems not noted in ROS Statement are negative. Past Medical History Past Medical History: Cancer, Hypertension, Osteoarthritis (OA) Additional Past Medical History / Comment(s): Pancreatic cancer stage IV with mets to liver-will be restarting chemo, pancytopenia, anemia r/t chemotherapy, chronic lower back pain, constipation, cholecystitis, cardiac murmur, lower extremity edema, UTIs, new spot on lungs per patient on recent CT History of Any Multi-Drug Resistant Organisms: None Reported Past Surgical History: Section Additional Past Surgical History / Comment(s): IUD, biopsy of liver, port placed by Dr Hernandez Past Anesthesia/Blood Transfusion Reactions: No Reported Reaction, Blood Transfusion Reaction Additional Past Anesthesia/Blood Transfusion Reaction / Comment(s): blood transfusion affected immune system during one of the transfusions Past Psychological History: No Psychological Hx Reported Smoking Status: Never smoker Past Alcohol Use History: Rare Past Drug Use History: Marijuana - Past Family History Mother Family Medical History: Dementia, Vascular Disorder Additional Family Medical History / Comment(s): Mother had appendicitis that went undiagnosed for awhle, PVD. Patient's maternal grandmother had breast cancer around the age of 50 Father Family Medical History: No Reported History Additional Family Medical History / Comment(s): Father is healthy General Exam Limitations: no limitations General appearance: alert, in no apparent distress Eye exam: Present: normal appearance, PERRL, EOMI. Absent: scleral icterus, conjunctival injection, periorbital swelling ENT exam: Present: mucous membranes dry Neck exam: Present: normal inspection. Absent: tenderness, meningismus, lymphadenopathy Respiratory exam: Present: normal lung sounds bilaterally. Absent: respiratory distress, wheezes, rales, rhonchi, stridor Cardiovascular Exam: Present: regular rate, normal rhythm, normal heart sounds. Absent: systolic murmur, diastolic murmur, rubs, gallop, clicks GI/Abdominal exam: Present: soft, normal bowel sounds. Absent: distended, tenderness, guarding, rebound, rigid Extremities exam: Present: pedal edema, other (both great toenails are lifted and minimally attached. Patient has bandage keeping them on. Both nails are removed. Left toenail bed is covered in greater than 30 small maggots. Area cleansed. Nailbed remains red, erythematous with some yellow pustular drainage after removal of maggots) Neurological exam: Present: alert, oriented X3, CN II-XII intact Psychiatric exam: Present: depressed Skin exam: Present: warm, other (jaundiced) Course Vital Signs 11/06/19 11/06/19 11/07/19 19:14 22:38 00:00 Temperature 99.0 F 98.4 F 97.8 F Pulse Rate 99 92 Pulse Rate [ 92 Pulse Oximetery ] Respiratory 20 17 16 Rate Blood Pressure 111/64 109/53 Blood Pressure 105/59 [Right Arm] O2 Sat by Pulse 100 98 100 Oximetry 11/07/19 11/07/19 07:00 15:00 Temperature 98.3 F 98.3 F Pulse Rate Pulse Rate [ 88 78 Pulse Oximetery ] Respiratory 18 18 Rate Blood Pressure Blood Pressure 119/49 105/47 [Right Arm] O2 Sat by Pulse 100 99 Oximetry Medical Decision Making - Medical Decision Making Patient was placed into room 28. A thorough history and physical exam was performed. I did perform a digital block on the patient's left great toe and removed nail. Multiple maggots were identified which were flushed from the wound. I also removed the patient's right great toenail. Laboratory studies were conducted. Patient is pancytopenic. Sodium mildly low at 133. Alk phos 214. C-reactive protein 208. I did perform x-rays of the patient's bilateral feet which demonstrated no signs of vasculitis. Recommend hospital admission for patient did agree. I gave the patient dose of Unasyn and Vanco. Blood cultures were obtained. I discussed the case with Dr. Johnson who agreed to admit the patient. She is currently awaiting a bed on the floor - Lab Data Result diagrams: 11/09/19 10:25 11/09/19 10:25 Disposition Clinical Impression: Cellulitis of great toe, right Disposition: ADMITTED IP TO THIS HOSP Condition: Stable Is patient prescribed a controlled substance at d/c from ED?: No Decision to Admit Reason: Admit from EC Decision Date: 11/06/19 Decision Time: 21:25
--- NOTE | 2019-11-06 20:59 | XR ---
EXAMINATION TYPE: XR foot complete bilateral DATE OF EXAM: 11/06/2019 COMPARISON: NONE HISTORY: Infection. Big toe. TECHNIQUE: 3 views each foot. FINDINGS: There is bilateral foot soft tissue swelling. Metatarsals are intact. I see no fracture nor dislocation. There is no evidence of focal bone destruction. There is some mild calcaneal spur forma tion. IMPRESSION: Soft tissue swelling. No fracture. No evidence of osteomyelitis.
[2019-11-06] MEDS ORDERED: AMPICILLIN-SULBACTAM 3 GM in SODIUM CHLORIDE 0.9% 100 ML IVPB ONE (21:00)
[2019-11-06] MEDS ORDERED: NALOXONE 0.4 MG/ML 1 ML VIAL IV PRN (21:25)
[2019-11-06 22:00] LABS: Basophils % (A) 0 %; Eosinophils # (A) 0.1 k/uL (0-0.7); Eosinophils % (A) 1 %; HCT 24.7 % (34.0-46.0); HGB 7.7 gm/dL (11.4-16.0); Hypochromasia Slight; Lymphocytes # (A) 0.6 k/uL (1.0-4.8); Lymphocytes % (A) 16 %; MCH 34.3 pg (25.0-35.0); MCHC 31.3 g/dL (31.0-37.0); Macrocytosis Marked; Mean Platelet Volume 9.1; Monocytes # (A) 0.3 k/uL (0-1.0); Monocytes % (A) 8 %; Neutrophils # (A) 2.7 k/uL (1.3-7.7); Neutrophils % (A) 74 %; Platelet Count 62 k/uL (150-450); RBC 2.25 m/uL (3.80-5.40); RDW 14.5 % (11.5-15.5); WBC 3.6 k/uL (3.8-10.6)
[2019-11-06] MEDS ORDERED: VANCOMYCIN 1,750 MG in SODIUM CHLORIDE 0.9% 500 ML 500 ML IVPB ONE (22:00)
[2019-11-06 22:05] LABS: MCV 109.7 fL (80.0-100.0)
[2019-11-06 22:13] LABS: INR 1.3 (<1.2); Partial Thromboplastin Time 28.7 sec (22.0-30.0); Prothrombin Time 12.8 sec (9.0-12.0)
[2019-11-06 22:20] LABS: Albumin 2.4 g/dL (3.5-5.0); Calcium 8.8 mg/dL (8.4-10.2); Total Bilirubin 2.6 mg/dL (0.2-1.3); Total Protein 6.5 g/dL (6.3-8.2)
[2019-11-06 22:30] LABS: C Reactive Protein 208.1 mg/L (<10.0)
[2019-11-06 22:55] LABS: Erythrocyte Sedimentation Rate 111 mm/hr (0-20)
[2019-11-06] MEDS ORDERED: SENNOSIDES 8.6 MG TAB PO PRN (23:16)
[2019-11-06] MEDS ORDERED: ALPRAZolam 0.25 MG TAB PO PRN (23:16)
--- NOTE | 2019-11-06 23:18 | P.HPIM ---
History of Present Illness H&P Date: 11/06/19 Patient was seen and evaluated in the emergency room on 11/05 at 10 PM The patient is a 44-year-old female with a PMH of pancreatic cancer (with metastases to the liver and lung) diagnosed November 2018 status post 3 cycles of chemotherapy and radiation with last round of chemo 2 weeks ago presented to the ED with complaints of left foot pain. The patient reports gradually worsening bilateral lower extremity edema over the past several months, which has severely limited her mobility area. She also notes that her toenails have been falling off due to her chemotherapy, and that her home care nurse noticed that her left great toe was peeled off and had maggots in it. 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 The patient reported feeling chills at home but denied chest pain, shortness of breath, cough, nausea, vomiting, diarrhea, or vomiting. The ED physician removed the left great t oenail and irrigated the skin with removal of the maggots. Left foot x-ray revealed soft tissue swelling with no evidence of osteomyelitis or fracture. Laboratory evaluation revealed a WBC count of 3.6, hemoglobin 7.7, platelets 62, sodium 133, BUN 33, creatinine 2.22, lactic acid 1.2, CRP 208, AST 74, total bilirubin 2.6, albumin 2.4, and alk phos 214. The patient is being admitted for left toe cellulitis. Review of Systems Pertinent positives and negatives as discussed in HPI, a complete review of systems was performed and all other systems are negative. Past Medical History Past Medical History: Cancer, Hypertension, Osteoarthritis (OA) Additional Past Medical History / Comment(s): Pancreatic cancer stage IV with mets to liver-will be restarting chemo, pancytopenia, anemia r/t chemotherapy, chronic lower back pain, constipation, cholecystitis, cardiac murmur, lower extremity edema, UTIs, new spot on lungs per patient on recent CT History of Any Multi-Drug Resistant Organisms: None Reported Past Surgical History: Section Additional Past Surgical History / Comment(s): IUD, biopsy of liver, port placed by Dr Hernandez Past Anesthesia/Blood Transfusion Reactions: No Reported Reaction, Blood Transfusion Reaction Additional Past Anesthesia/Blood Transfusion Reaction / Comment(s): blood transfusion affected immune system during one of the transfusions Past Psychological History: No Psychological Hx Reported Smoking Status: Never smoker Past Alcohol Use History: Rare Past Drug Use History: Marijuana - Past Family History Mother Family Medical History: Dementia, Vascular Disorder Additional Family Medical History / Comment(s): Mother had appendicitis that went undiagnosed for VERN chavez. Patient's maternal grandmother had breast cancer around the age of 50 Father Family Medical History: No Reported History Additional Family Medical History / Comment(s): Father is healthy Medications and Allergies Home Medications Medication Instructions Recorded Confirmed Type Ondansetron HCl [Zofran] 4 mg PO Q4H PRN 12/11/18 11/06/19 History traMADol HCL [Ultram] 50 mg PO Q6H PRN 12/11/18 11/06/19 History Furosemide [Lasix] 20 mg PO BID 01/04/19 11/06/19 History Spironolactone 50 mg PO DAILY 02/10/19 11/06/19 History Sennosides [Senna] 17.2 mg PO HS PRN 04/29/19 11/06/19 History ALPRAZolam [Xanax] 0.25 mg PO TID PRN 09/20/19 11/06/19 History Acyclovir [Zovirax] 400 mg PO TID 11/06/19 11/06/19 History Compound Drug (Unknown 1 tsp PO QID 11/06/19 11/06/19 History Name/Strength/Dose) HYDROcodone/APAP 5-325MG [[place] 1 tab PO QID PRN 11/06/19 11/06/19 History 5-325] OLANZapine [ZyPREXA] 5 mg PO HS 11/06/19 11/06/19 History Pemazyre 13.5mg Tablet 13.5 mg PO DAILY 11/06/19 11/06/19 History Allergies Allergy/AdvReac Type Severity Reaction Status Date / Time No Known Allergies Allergy Verified 11/06/19 22:21 Physical Exam Vitals: Vital Signs Temp Pulse Resp BP Pulse Ox 11/06/19 22:38 98.4 F 92 17 109/53 98 11/06/19 19:14 99.0 F 99 20 111/64 100 Intake and Output 11/06/19 11/06/19 11/06/19 06:59 14:59 22:59 Other: Weight 125.645 kg General: Chronically ill appearing female, no distress, appears older than stated age Derm: Left toe erythema, warmth, and tenderness, toenail removed with underlying erythema Head: atraumatic, normocephalic, symmetric Eyes: EOMI, no lid lag, anicteric sclera, pupils equal round reactive to light ENT: Nose and ears atraumatic, no thrush, no pharyngeal erythema Neck: No thyromegaly, no cervical lymphadenopathy, trachea midline, supple Mouth: no lip lesion, mucus membranes moist Cardiovascular: S1S2 reg, systolic murmur appreciated, positive posterior tibial pulse bilateral, significant 2+ bilateral lower extremity pitting edema to thighs, capillary refill less than 2 seconds Lungs: CTA bilateral, no rhonchi, no rales , no accessory muscle use Abdominal: soft, mild epigastric tenderness to palpation, some epigastric and right upper quadrant nodularity appreciated no guarding, normal bowel sounds Ext: no gross muscle atrophy, muscle strength 4 out of 5 upper extremities bilaterally with strength 2 out of 5 in bilateral lower extremities due to significant edema, no contractures, Neuro: CN II-XI grossly intact, light touch intact all 4 extremities, finger to nose within normal limits, Psych: Alert, oriented, appropriate affect Results CBC & Chem 7: 11/06/19 21:47 11/06/19 21:47 Labs: Abnormal Lab Results - Last 24 Hours (Table) 11/06/19 11/06/19 11/06/19 Range/Units 21:47 21:47 21:47 WBC 3.6 L (3.8-10.6) k/uL RBC 2.25 L (3.80-5.40) m/uL Hgb 7.7 L (11.4-16.0) gm/dL Hct 24.7 L (34.0-46.0) % MCV 109.7 H (80.0-100.0) fL Plt Count 62 L (150-450) k/uL Lymphocytes # 0.6 L (1.0-4.8) k/uL Macrocytosis Marked A PT 12.8 H (9.0-12.0) sec INR 1.3 H (<1.2) Sodium 133 L (137-145) mmol/L Carbon Dioxide 21 L (22-30) mmol/L BUN 33 H (7-17) mg/dL Creatinine 2.22 H (0.52-1.04) mg/dL Glucose 101 H (74-99) mg/dL Total Bilirubin 2.6 H (0.2-1.3) mg/dL AST 74 H (14-36) U/L Alkaline Phosphatase 214 H (38-126) U/L C-Reactive Protein 208.1 H (<10.0) mg/L Albumin 2.4 L (3.5-5.0) g/dL Assessment and Plan Plan: Left great toe cellulitis -C/w Vancomycin and Unasyn for now -Follow up blood cultures -Wound care Pancytopenia, close to baseline -In setting of chemotherapy -Monitor for now Lower extremity edema with hypoalbuminemia -Likely third spacing due to protein calorie malnutrition -Dietitian consult Chronic kidney disease -Monitor BMP Abnormal LFTs -Likely secondary to metastatic disease of the liver Pancreatic CA with metastases to the liver and lung -Patient following with Dr Hartman as an outpatient -Last round of chemo 2 weeks ago DVT prophylaxis -Lovenox subq The patient is admitted with an anticipated less than 2 midnight stay for evaluation of L toe cellulitis CODE STATUS: Full Code Discussed with: Patient Anticipated discharge date: 1-[address]: Home A total of 40 minutes was spent on the care of this complex patient more than 50% of the time was spent in counseling and care coordination.
[2019-11-07] MEDS ORDERED: CLINDAMYCIN 300 MG in DEXTROSE 5% IN WATER 50 ML IVPB SCH ×2
[2019-11-07] MEDS: AMPICILLIN-SULBACTAM 1.5 GM in SODIUM CHLORIDE 0.9% 50 ML IVPB SCH ×4 (03:45→22:06)
[2019-11-07 07:46] LABS: Basophils % (A) 1 %; Eosinophils # (A) 0.1 k/uL (0-0.7); Eosinophils % (A) 2 %; HCT 25.4 % (34.0-46.0); HGB 7.8 gm/dL (11.4-16.0); Hypochromasia Marked; Lymphocytes # (A) 0.6 k/uL (1.0-4.8); Lymphocytes % (A) 17 %; MCH 34.9 pg (25.0-35.0); MCHC 30.7 g/dL (31.0-37.0); MCV 113.6 fL (80.0-100.0); Macrocytosis Marked; Mean Platelet Volume 9.2; Monocytes # (A) 0.3 k/uL (0-1.0); Monocytes % (A) 8 %; Neutrophils # (A) 2.4 k/uL (1.3-7.7); Neutrophils % (A) 71 %; RBC 2.24 m/uL (3.80-5.40); RDW 14.8 % (11.5-15.5); WBC 3.5 k/uL (3.8-10.6)
[2019-11-07 07:49] LABS: Platelet Count 72 k/uL (150-450)
[2019-11-07 07:57] LABS: Calcium 8.6 mg/dL (8.4-10.2); Total Bilirubin 2.6 mg/dL (0.2-1.3)
[2019-11-07 08:05] LABS: Albumin 2.4 g/dL (3.5-5.0); Potassium 4.8 mmol/L (3.5-5.1); Total Protein 6.8 g/dL (6.3-8.2)
[2019-11-07] MEDS: SPIRONOLACTONE 25 MG TAB PO SCH (09:00)
[2019-11-07] MEDS: ENOXAPARIN 40 MG/0.4 ML SYRINGE SQ SCH (09:15)
[2019-11-07] MEDS: ACYCLOVIR 200 MG CAP PO SCH ×3 (09:18→22:06)
[2019-11-07] MEDS: FUROSEMIDE 20 MG TAB PO SCH ×2 (09:18→22:06)
[2019-11-07] MEDS: traMADol 50 MG TAB PO PRN (09:30)
[2019-11-07 13:59] VITALS: BMI 40.8
--- NOTE | 2019-11-07 15:06 | P.CRDCN ---
History of Present Illness History of present illness: HISTORY OF PRESENTING ILLNESS This is a pleasant 44-year-old female past medical history significant for stage IV pancreatic cancer with mets to the liver and bone, hypertension and arthritis. She denies prior history of coronary artery disease and does not follow with a investigations chief for any reason. She states she has had a heart murmur her whole life. We have been asked to see in consultation for activity intolerance and heart murmur. She is currently undergoing chemotherapy for her cancer diagnosis but has been unable to tolerate due to anemia recently. She has had 2 treatments thus far, with the last one being 2 weeks ago. She presented to the hospital with an infection of the left great toe with maggots found by her home care nurse. She is currently being treated for cellulitis. She states she has been increasingly tired lately with no energy to do anything and she is having periods of confusion. She denies chest pain, shortness of breath, dizziness or palpitations. There is no baseline EKG on admission. Laboratory data reviewed, WBC 3.5, hgb 7.8, plt 72, INR 1.3, sodium 143, potassium 4.8, creatinine 2.18, albumin 2.4, CRP 208. REVIEW OF SYSTEMS At the time of my exam: CONSTITUTIONAL: Denies fever or chills. CARDIOVASCULAR: Denies chest pain, shortness of breath, orthopnea, PND or palpitations. RESPIRATORY: Denies cough. GASTROINTESTINAL: Denies abdominal pain, diarrhea, constipation, nausea or vomiting. MUSCULOSKELETAL: Denies myalgias. NEUROLOGIC: Denies numbness, tingling or weakness. ENDOCRINE: Complains of fatigue. Denies weight change, polydipsia or polyurina. GENITOURINARY: Denies burning, hematuria or urgency with micturation. HEMATOLOGIC: Denies history of anemia or bleeding. PHYSICAL EXAMINATION Blood pressure 119/49 heart rate 88 afebrile and maintaining oxygen saturation on room air. CONSTITUTIONAL: No apparent distress. HEENT: Head is normocephalic. Pupils are equal, round. Sclerae anicteric. Mucous membranes of the mouth are moist. No JVD. No carotid bruit. CHEST EXAMINATION: Lungs are clear to auscultation. No chest wall tenderness is noted on palpation or with deep breathing. HEART EXAMINATION: Regular rate and rhythm. S1, S2 heard. Systolic ejection murmur at the left sternal border and loudest at the apex, no gallops or rub. ABDOMEN: Soft, nontender. Positive bowel sounds. EXTREMITIES: 2+ peripheral pulses, bilateral lower extremity edema and erythema and no calf tenderness. NEUROLOGIC EXAMINATION: Patient is awake, alert and oriented x3. ASSESSMENT Pancreatic cancer on chemotherapy, last treatment 2 weeks ago Pancytopenia secondary to chemotherapy Systolic murmur Protein calorie malnutrition Activity intolerance and generalized weakness and fatigue PLAN Clinically she is comfortable and has no symptoms of heart failure despite her lower extremity swelling which is likely secondary to protein calorie malnutrition. Obtain baseline EKG and echocardiogram to assess murmur. Continue oral diuretics. Further recommendations per oncology team. Thank you kindly for this consultation. Nurse Practitioner note has been reviewed, I agree with a documented findings and plan of care. Patient was seen and examined. Past Medical History Past Medical History: Cancer, Hypertension, Osteoarthritis (OA) Additional Past Medical History / Comment(s): Pancreatic cancer stage IV with mets to liver-will be restarting chemo, pancytopenia, anemia r/t chemotherapy, chronic lower back pain, constipation, cholecystitis, cardiac murmur, lower extremity edema, UTIs, new spot on lungs per patient on recent CT History of Any Multi-Drug Resistant Organisms: None Reported Past Surgical History: Section Additional Past Surgical History / Comment(s): IUD, biopsy of liver, port placed by Dr Hernandez Past Anesthesia/Blood Transfusion Reactions: No Reported Reaction, Blood Transfusion Reaction Additional Past Anesthesia/Blood Transfusion Reaction / Comment(s): blood transfusion affected immune system during one of the transfusions Past Psychological History: No Psychological Hx Reported Smoking Status: Never smoker Past Alcohol Use History: Rare Past Drug Use History: Marijuana - Past Family History Mother Family Medical History: Dementia, Vascular Disorder Additional Family Medical History / Comment(s): Mother had appendicitis that went undiagnosed for awhle, PVD. Patient's maternal grandmother had breast cancer around the age of 50 Father Family Medical History: No Reported History Additional Family Medical History / Comment(s): Father is healthy Medications and Allergies Home Medications Medication Instructions Recorded Confirmed Type Ondansetron HCl [Zofran] 4 mg PO Q4H PRN 12/11/18 11/06/19 History traMADol HCL [Ultram] 50 mg PO Q6H PRN 12/11/18 11/06/19 History Furosemide [Lasix] 20 mg PO BID 01/04/19 11/06/19 History Spironolactone 50 mg PO DAILY 02/10/19 11/06/19 History Sennosides [Senna] 17.2 mg PO HS PRN 04/29/19 11/06/19 History ALPRAZolam [Xanax] 0.25 mg PO TID PRN 09/20/19 11/06/19 History Acyclovir [Zovirax] 400 mg PO TID 11/06/19 11/06/19 History HYDROcodone/APAP 5-325MG [[place] 1 tab PO QID PRN 11/06/19 11/06/19 History 5-325] OLANZapine [ZyPREXA] 5 mg PO HS 11/06/19 11/06/19 History Pemazyre 13.5mg Tablet 13.5 mg PO DAILY 11/06/19 11/06/19 History Benadryl/Lidocaine/Maalox/Nystatin 5 ml PO QID 11/07/19 11/07/19 History Oral Solution 1:1 Allergies Allergy/AdvReac Type Severity Reaction Status Date / Time No Known Allergies Allergy Verified 11/06/19 22:21 Physical Exam Vitals: Vital Signs Temp Pulse Pulse Resp BP BP Pulse Ox 11/07/19 07:00 98.3 F 88 18 119/49 100 11/07/19 00:00 97.8 F 92 16 105/59 100 11/06/19 22:38 98.4 F 92 17 109/53 98 11/06/19 19:14 99.0 F 99 20 111/64 100 Intake and Output 11/06/19 11/07/19 11/07/19 22:59 06:59 14:59 Intake Total 50 Balance 50 Intake: Intake, IV Titration 50 Amount Ampicillin-Sulbactam 1.5 50 gm In Sodium Chloride 0.9 % 50 ml @ 100 mls/hr IVPB Q6H [facility] Rx#:[id number] Other: # Voids 1 Weight 125.645 kg 125.645 kg Results 11/07/19 06:35 11/07/19 06:35 Cardiac Enzymes 11/06/19 11/07/19 Range/Units 21:47 06:35 AST 74 H 93 H (14-36) U/L Coagulation 11/06/19 Range/Units 21:47 PT 12.8 H (9.0-12.0) sec APTT 28.7 (22.0-30.0) sec CBC 11/06/19 11/07/19 Range/Units 21:47 06:35 WBC 3.6 L 3.5 L (3.8-10.6) k/uL RBC 2.25 L 2.24 L (3.80-5.40) m/uL Hgb 7.7 L 7.8 L (11.4-16.0) gm/dL Hct 24.7 L 25.4 L (34.0-46.0) % Plt Count 62 L 72 L (150-450) k/uL Comprehensive Metabolic Panel 11/06/19 11/07/19 Range/Units 21:47 06:35 Sodium 133 L 134 L (137-145) mmol/L Potassium 4.0 4.8 (3.5-5.1) mmol/L Chloride 104 107 (98-107) mmol/L Carbon Dioxide 21 L 19 L (22-30) mmol/L BUN 33 H 34 H (7-17) mg/dL Creatinine 2.22 H 2.18 H (0.52-1.04) mg/dL Glucose 101 H 103 H (74-99) mg/dL Calcium 8.8 8.6 (8.4-10.2) mg/dL AST 74 H 93 H (14-36) U/L ALT 13 13 (4-34) U/L Alkaline Phosphatase 214 H 191 H (38-126) U/L Total Protein 6.5 6.8 (6.3-8.2) g/dL Albumin 2.4 L 2.4 L (3.5-5.0) g/dL Current Medications Generic Name Dose Route Start Last Admin Trade Name Freq PRN Reason Stop Dose Admin Hydrocodone Bitart/Acetaminophen 1 each 11/06/19 23:16 [place] 5-325 PO QID PRN Pain Acyclovir 400 mg 11/07/19 09:00 11/07/19 09:18 Zovirax PO 400 mg TID KHALIDA Administration Alprazolam 0.25 mg 11/06/19 23:16 Xanax PO TID PRN Anxiety/Nausea Al Hydroxide/Mg Hydroxide 30 0 ml 11/07/19 10:45 ml/ Lidocaine HCl 30 ml/ PO Diphenhydramine HCl 75 mg/ TID [facility] Nystatin 3,000,000 unit Enoxaparin Sodium 40 mg 11/07/19 09:00 11/07/19 09:15 Lovenox SQ 40 mg DAILY KHALIDA Administration Furosemide 20 mg 11/07/19 09:00 11/07/19 09:18 Lasix PO 20 mg BID KHALIDA Administration Ampicillin Sodium/Sulbactam 50 mls @ 100 mls/hr 11/07/19 03:00 11/07/19 09:19 Sodium 1.5 gm/ Sodium Chloride IVPB 100 mls/hr Q6H KHALIDA Administration Vancomycin HCl 2,000 mg/ 500 mls @ 167 mls/hr 11/07/19 18:00 Sodium Chloride IVPB Q24H [facility] Naloxone HCl 0.2 mg 11/06/19 21:25 Narcan IV Q2M PRN Opioid Reversal Senna 17.2 mg 11/06/19 23:16 Senokot PO HS PRN Constipation Spironolactone 50 mg 11/07/19 09:00 11/07/19 09:00 Aldactone PO 50 mg DAILY KHALIDA Administration Tramadol HCl 50 mg 11/06/19 23:16 11/07/19 09:30 Ultram PO 50 mg Q6H PRN Administration Pain Intake and Output 11/06/19 11/07/19 11/07/19 22:59 06:59 14:59 Intake Total 50 Balance 50 Intake: Intake, IV Titration 50 Amount Ampicillin-Sulbactam 1.5 50 gm In Sodium Chloride 0.9 % 50 ml @ 100 mls/hr IVPB Q6H [facility] Rx#:[id number] Other: # Voids 1 Weight 125.645 kg 125.645 kg Patient Weight 11/08/19 06:59 Weight 125.645 kg 11/07/19 06:35 11/07/19 06:35
[2019-11-07] MEDS ORDERED: VANCOMYCIN 2,000 MG in SODIUM CHLORIDE 0.9% 500 ML 500 ML IVPB SCH (18:00)
--- NOTE | 2019-11-07 19:26 | P.PN ---
Subjective Progress Note Date: 11/07/19 Principal diagnosis: Cellulitis Patient was seen and examined. No acute events overnight. Patient continues to report swelling in her bilateral lower extremities and redness with warmth. States that her toenail fell off and maggots were seen inside. She denies any chest pain, shortness of breath or palpitations. No nausea or vomiting. No fever or chills. Objective - Vital Signs Vital signs: Vital Signs Temp 98.3 F 11/07/19 15:00 Pulse 78 11/07/19 15:00 Resp 18 11/07/19 15:00 BP 105/47 11/07/19 15:00 Pulse Ox 99 11/07/19 15:00 Intake & Output 11/07/19 11/07/19 11/08/19 06:59 18:59 06:59 Intake Total 50 Balance 50 Weight 125.645 kg 125.645 kg Intake: Intake, IV Titration 50 Amount Ampicillin-Sulbactam 1.5 50 gm In Sodium Chloride 0.9 % 50 ml @ 100 mls/hr IVPB Q6H COUNT INCLUDES THE [facility] Rx#:[id number] Other: # Voids 1 1 - Exam General: [Ill-appearing], [no distress], [appears at stated age] Derm: [warm], [dry], [bilateral lower extremity erythema with left toe erythema and swelling] Head: [atraumatic], [normocephalic], [symmetric] Eyes: [EOMI], [no lid lag], [anicteric sclera] Mouth: [no lip lesion], [mucus membranes moist] Cardiovascular: [S1S2 reg], [systolic murmur], [positive posterior tibial pulse bilateral], Lungs: [CTA bilateral], [no rhonchi, no rales] , [no accessory muscle use] Abdominal: [soft], [ nontender to palpation], [no guarding], [no appreciable organomegaly] Ext: [no gross muscle atrophy], [2+ bilateral lower extremity edema], [no contractures] Neuro: [ CN II-XI grossly intact], [no focal neuro deficits] Psych: [Alert], [oriented], [appropriate affect] - Labs CBC & Chem 7: 11/07/19 06:35 11/07/19 06:35 Labs: Abnormal Lab Results - Last 24 Hours (Table) 11/06/19 11/06/19 11/06/19 Range/Units 21:47 21:47 21:47 WBC 3.6 L (3.8-10.6) k/uL RBC 2.25 L (3.80-5.40) m/uL Hgb 7.7 L (11.4-16.0) gm/dL Hct 24.7 L (34.0-46.0) % MCV 109.7 H (80.0-100.0) fL MCHC (31.0-37.0) g/dL Plt Count 62 L (150-450) k/uL Lymphocytes # 0.6 L (1.0-4.8) k/uL Macrocytosis Marked A ESR 111 H (0-20) mm/hr PT 12.8 H (9.0-12.0) sec INR 1.3 H (<1.2) Sodium 133 L (137-145) mmol/L Carbon Dioxide 21 L (22-30) mmol/L BUN 33 H (7-17) mg/dL Creatinine 2.22 H (0.52-1.04) mg/dL Glucose 101 H (74-99) mg/dL Total Bilirubin 2.6 H (0.2-1.3) mg/dL AST 74 H (14-36) U/L Alkaline Phosphatase 214 H (38-126) U/L C-Reactive Protein 208.1 H (<10.0) mg/L Albumin 2.4 L (3.5-5.0) g/dL 11/07/19 11/07/19 Range/Units 06:35 06:35 WBC 3.5 L (3.8-10.6) k/uL RBC 2.24 L (3.80-5.40) m/uL Hgb 7.8 L (11.4-16.0) gm/dL Hct 25.4 L (34.0-46.0) % MCV 113.6 H (80.0-100.0) fL MCHC 30.7 L (31.0-37.0) g/dL Plt Count 72 L (150-450) k/uL Lymphocytes # 0.6 L (1.0-4.8) k/uL Macrocytosis Marked A ESR (0-20) mm/hr PT (9.0-12.0) sec INR (<1.2) Sodium 134 L (137-145) mmol/L Carbon Dioxide 19 L (22-30) mmol/L BUN 34 H (7-17) mg/dL Creatinine 2.18 H (0.52-1.04) mg/dL Glucose 103 H (74-99) mg/dL Total Bilirubin 2.6 H (0.2-1.3) mg/dL AST 93 H (14-36) U/L Alkaline Phosphatase 191 H (38-126) U/L C-Reactive Protein (<10.0) mg/L Albumin 2.4 L (3.5-5.0) g/dL Assessment and Plan Assessment: Left great toe cellulitis -C/w Vancomycin and Unasyn for now -Follow up blood cultures -Follow ID consultation -Wound care Pancytopenia, close to baseline -In setting of chemotherapy -Monitor for now Lower extremity edema with hypoalbuminemia -Likely third spacing due to protein calorie malnutrition -Possibly related to lymphedema -Follow PT consultation -Dietitian consult Chronic kidney disease with metabolic acidosis -Monitor BMP Abnormal LFTs -Likely secondary to metastatic disease of the liver Pancreatic CA with metastases to the liver and lung -Patient following with Dr Hartman as an outpatient -Last round of chemo 2 weeks ago DVT prophylaxis -Lovenox subq [Patient admitted for bilateral cellulitis. She is pending clinical improvement. ID consultation pending. Likely DC in 1-2 days.]
--- NOTE | 2019-11-07 19:42 | P.CONS ---
History of Present Illness - Reason for Consult Consult date: 11/07/19 cholangiocarcinoma, SE treatment Requesting physician: Bhavna Johnson - Chief Complaint great toe infestation - History of Present Illness Sole is a very pleasant 44-year-old female patient who we initially seen inpatient 10/25/18 when she presented with weakness, hypercalcemia, general malaise for about 2 months, weakness difficulty concentrating and abdominal fu llness. CTCAP 10/26/18 revealed multiple liver lesions, right ilium lytic lesion. 10/27/18 liver biopsy, pathology positive for metastatic adenocarcinoma, non specific, IHC stains which could be consistent with breast,lung,endometrial or upper GI/pancreaticobiliary primary. NGS, PDL-1 and MSI could not be done on the biopsy, 11/06/18 CA19-9 was 2611.8. 11/16/18 EGD and colonoscopy were negative. 11/17/18 mammogram and breast U/S were negative. 11/26/18 started cisplatin/gemzar. 01/18/19 treatment f/u CT revealed improvement her lesions. She had total of 3 cycles, completed 01/27,poorly tolerated with significant hematologic toxicities. 03/29/19 CT revealed stable disease. 06/06/19 CT revealed evidence of disease progression. 06/30 started second line mFOLFOX. 07/20/19 mFOLFOX was held due to fatigue and pancytopenia. Foundation one revealed FGFR mutation, MSI status could not be determined. F/U CT revealed stable disease, leg edema was better, but, still having large volume paracente sis 3-4 times a month. 08/31/19 it was discussed changing therapy to FGFR targeted therapy pemigatinib. CT 09/13/19 which revealed stable liver disease but progression of osseous lesions, frequent paracentesis, weak. In September patient was starting to have issues with hypotension secondary to paracentesis. She was being provided with parenteral albumin. Patient completed her first 14 day cycle of pemazyre. At that time she had mild nausea and diarrhea that she was able to manage, oral irritation were stable, she felt she was tolerating the medication well. 10/26/19 follow-up on pemazyre, completed cycle 2, was on her week off. Her SE had progressed quickly with cycle 2, severe swelling of the lower extremities, grade 4 nail toxicities, significant dry eye as well as irritation from loss of eyelashes, no energy, in general she feels terrible. Drug has been held 2 weeks, awaiting resolution of toxicities to resolve to grade 0-1. Her oral irritation is improved, nail toxicities were stable but, the lifting continued and her left great toe became infected with maggots. This very much frightened her so, she was directed to the ER for evaluation and recommendations. The great toe nails have been removed and the nail beds look good considering. She is emotional and scared. Her abd pain is stable and managed on current analgesics, she has activity intolerance, SOB on exertion and her lower extremity swelling is the same. Poor appetite, low energy. No NOY, cough, chest pain, dysuria, bleeding. Review of Systems 14 point ROS is negative except as stated in HPI Past Medical History Past Medical History: Cancer, Hypertension, Osteoarthritis (OA) Additional Past Medical History / Comment(s): Pancreatic cancer stage IV with mets to liver-will be restarting chemo, pancytopenia, anemia r/t chemotherapy, chronic lower back pain, constipation, cholecystitis, cardiac murmur, lower extremity edema, UTIs, new spot on lungs per patient on recent CT History of Any Multi-Drug Resistant Organisms: None Reported Past Surgical History: Section Additional Past Surgical History / Comment(s): IUD, biopsy of liver, port placed by Dr Hernandez Past Anesthesia/Blood Transfusion Reactions: No Reported Reaction, Blood Transfusion Reaction Additional Past Anesthesia/Blood Transfusion Reaction / Comm: blood transfusion affected immune system during one of the transfusions Past Psychological History: No Psychological Hx Reported Smoking Status: Never smoker Past Alcohol Use History: Rare Past Drug Use History: Marijuana - Past Family History Mother Family Medical History: Dementia, Vascular Disorder Additional Family Medical History / Comment(s): Mother had appendicitis that went undiagnosed for awhle, PVD. Patient's maternal grandmother had breast cancer around the age of 50 Father Family Medical History: No Reported History Additional Family Medical History / Comment(s): Father is healthy Medications and Allergies Home Medications Medication Instructions Recorded Confirmed Type Ondansetron HCl [Zofran] 4 mg PO Q4H PRN 12/11/18 11/06/19 History traMADol HCL [Ultram] 50 mg PO Q6H PRN 12/11/18 11/06/19 History Furosemide [Lasix] 20 mg PO BID 01/04/19 11/06/19 History Spironolactone 50 mg PO DAILY 02/10/19 11/06/19 History Sennosides [Senna] 17.2 mg PO HS PRN 04/29/19 11/06/19 History ALPRAZolam [Xanax] 0.25 mg PO TID PRN 09/20/19 11/06/19 History Acyclovir [Zovirax] 400 mg PO TID 11/06/19 11/06/19 History HYDROcodone/APAP 5-325MG [[place] 1 tab PO QID PRN 11/06/19 11/06/19 History 5-325] OLANZapine [ZyPREXA] 5 mg PO HS 11/06/19 11/06/19 History Pemazyre 13.5mg Tablet 13.5 mg PO DAILY 11/06/19 11/06/19 History Benadryl/Lidocaine/Maalox/Nystatin 5 ml PO QID 11/07/19 11/07/19 History Oral Solution 1:1 Allergies Allergy/AdvReac Type Severity Reaction Status Date / Time No Known Allergies Allergy Verified 11/06/19 22:21 Physical Exam Vitals: Vital Signs Temp Pulse Pulse Resp BP BP Pulse Ox 11/07/19 07:00 98.3 F 88 18 119/49 100 11/07/19 00:00 97.8 F 92 16 105/59 100 11/06/19 22:38 98.4 F 92 17 109/53 98 11/06/19 19:14 99.0 F 99 20 111/64 100 Intake and Output 11/06/19 11/07/19 11/07/19 22:59 06:59 14:59 Intake Total 50 Balance 50 Intake: Intake, IV Titration 50 Amount Ampicillin-Sulbactam 1.5 50 gm In Sodium Chloride 0.9 % 50 ml @ 100 mls/hr IVPB Q6H [facility] Rx#:[id number] Other: # Voids 1 Weight 125.645 kg - Constitutional General appearance: cooperative, mild distress, morbidly obese - EENT Eyes: anicteric sclerae, EOMI ENT: hearing grossly normal, pharyngeal erythema (mild mucositis) - Neck Neck: no lymphadenopathy - Respiratory Respiratory: bilateral: CTA - Cardiovascular Rhythm: regular Heart sounds: normal: S1, S2 Abnormal Heart Sounds: systolic murmur (4/6) - Gastrointestinal General gastrointestinal: no absent bowel sounds, no decreased bowel sounds, no distended, no hepatomegaly, no hyperactive bowel sounds, normal bowel sounds, no organomegaly, no rigid, no scaphoid, soft, no splenomegaly, tenderness (upper quadrants), no umbilical hernia, no ventral hernia - Integumentary bronzed skin color BLE are reddened, few water blister on the shins - Neurologic Neurologic: CNII-XII intact - Musculoskeletal Musculoskeletal: generalized weakness, strength equal bilaterally - Psychiatric Psychiatric: A&O x's 3, appropriate affect (tearful), intact judgment & insight Results CBC & Chem 7: 11/07/19 06:35 11/07/19 06:35 Labs: Abnormal Lab Results - Last 24 Hours (Table) 11/06/19 11/06/19 11/06/19 Range/Units 21:47 21:47 21:47 WBC 3.6 L (3.8-10.6) k/uL RBC 2.25 L (3.80-5.40) m/uL Hgb 7.7 L (11.4-16.0) gm/dL Hct 24.7 L (34.0-46.0) % MCV 109.7 H (80.0-100.0) fL MCHC (31.0-37.0) g/dL Plt Count 62 L (150-450) k/uL Lymphocytes # 0.6 L (1.0-4.8) k/uL Macrocytosis Marked A ESR 111 H (0-20) mm/hr PT 12.8 H (9.0-12.0) sec INR 1.3 H (<1.2) Sodium 133 L (137-145) mmol/L Carbon Dioxide 21 L (22-30) mmol/L BUN 33 H (7-17) mg/dL Creatinine 2.22 H (0.52-1.04) mg/dL Glucose 101 H (74-99) mg/dL Total Bilirubin 2.6 H (0.2-1.3) mg/dL AST 74 H (14-36) U/L Alkaline Phosphatase 214 H (38-126) U/L C-Reactive Protein 208.1 H (<10.0) mg/L Albumin 2.4 L (3.5-5.0) g/dL 11/07/19 11/07/19 Range/Units 06:35 06:35 WBC 3.5 L (3.8-10.6) k/uL RBC 2.24 L (3.80-5.40) m/uL Hgb 7.8 L (11.4-16.0) gm/dL Hct 25.4 L (34.0-46.0) % MCV 113.6 H (80.0-100.0) fL MCHC 30.7 L (31.0-37.0) g/dL Plt Count 72 L (150-450) k/uL Lymphocytes # 0.6 L (1.0-4.8) k/uL Macrocytosis Marked A ESR (0-20) mm/hr PT (9.0-12.0) sec INR (<1.2) Sodium 134 L (137-145) mmol/L Carbon Dioxide 19 L (22-30) mmol/L BUN 34 H (7-17) mg/dL Creatinine 2.18 H (0.52-1.04) mg/dL Glucose 103 H (74-99) mg/dL Total Bilirubin 2.6 H (0.2-1.3) mg/dL AST 93 H (14-36) U/L Alkaline Phosphatase 191 H (38-126) U/L C-Reactive Protein (<10.0) mg/L Albumin 2.4 L (3.5-5.0) g/dL Comments: Foot xray report review-no evidence of osteomyelitis Assessment and Plan (1) Nail abnormalities Narrative/Plan: Lifting secondary to targeted therapy treatment. Subsequent infestation. The nails have been removed and the nail beds look good. Current Visit: Yes Status: Acute Priority: High Code(s): L60.9 - NAIL DISORDER, UNSPECIFIED SNOMED Code(s): 58679071 (2) Cholangiocarcinoma Current Visit: Yes Status: Chronic Priority: High Code(s): C22.1 - INTRAHEPATIC BILE DUCT CARCINOMA SNOMED Code(s): 010591454 (3) Cancer related pain Narrative/Plan: Cont current analgesic regimen Current Visit: Yes Status: Chronic Priority: Medium Code(s): G89.3 - NEOPLASM RELATED PAIN (ACUTE) (CHRONIC) SNOMED Code(s): 50718019573433 (4) Hyperbilirubinemia Narrative/Plan: Stable compared to recent labs in office. Current Visit: Yes Status: Chronic Priority: High Code(s): E80.6 - OTHER DISORDERS OF BILIRUBIN METABOLISM SNOMED Code(s): 87086497 (5) Pancytopenia due to antineoplastic chemotherapy Narrative/Plan: Stable. No chemo at this time. No transfusion need at this time Current Visit: Yes Status: Acute Priority: High Code(s): D61.810 - ANTIN EOPLASTIC CHEMOTHERAPY INDUCED PANCYTOPENIA; T45.1X5A - ADVERSE EFFECT OF ANTINEOPLASTIC AND IMMUNOSUP DRUGS, INIT SNOMED Code(s): 852855121131101 Plan: Have requested a Cardiology consult. Patient's murmur is increased, she is having difficulty with the lower extremity swelling. Pending evaluation and recommendations Another side effect of the medication is elevated phosphorus. This level is been checked and is within normal limits. Patient is to stay off oral FGFR inhibitor
[2019-11-07] MEDS ORDERED: VANCOMYCIN 1,750 MG in SODIUM CHLORIDE 0.9% 500 ML 500 ML IVPB SCH (22:00)
--- NOTE | 2019-11-08 00:07 | P.CONS ---
History of Present Illness - Reason for Consult Consult date: 11/07/19 Left big toe infection Requesting physician: Bhavna Jonhson - Chief Complaint Left big toe pain swelling x few days - History of Present Illness Patient is a 44-year-old female with a past medical history significant for metastatic pancreatic cancer for the patient has been on chemotherapy, patient apparently has some minimal to get chemo last few weeks because of low blood counts, patient mentioning her last chemo made her next having more swelling in her knees to be brittle, patient home care nurse noticed some maggots under her left big toenail which was falling off, patient be complaining of pain to the left big toe area more of a dull aching about 3-410" with associated swelling redness no purulent drainage with the Santyl and the patient came to the ER on arrival. The patient has been afebrile patient did have x-rays of the left foot did not show any bony changes , patient did have mild leukopenia with white count 3.6 last elevated creatinine of 2.4 ,the patient did have removal of the toenail by the ER physician no local culture were done however blood culture has been done which currently pending patient has been started on Unasyn and vancomycin admitted to the hospital infectious disease was consulted for further management of antibiotic therapy Review of Systems Positive point has been mentioned in the HPI rest of the systems are negative Past Medical History Past Medical History: Cancer, Hypertension, Osteoarthritis (OA) Additional Past Medical History / Comment(s): Pancreatic cancer stage IV with mets to liver-will be restarting chemo, pancytopenia, anemia r/t chemotherapy, chronic lower back pain, constipation, cholecystitis, cardiac murmur, lower extremity edema, UTIs, new spot on lungs per patient on recent CT History of Any Multi-Drug Resistant Organisms: None Reported Past Surgical History: Section Additional Past Surgical History / Comment(s): IUD, biopsy of liver, port placed by Dr Hernandez Past Anesthesia/Blood Transfusion Reactions: No Reported Reaction, Blood Transfusion Reaction Additional Past Anesthesia/Blood Transfusion Reaction / Comm: blood transfusion affected immune system during one of the transfusions Past Psychological History: No Psychological Hx Reported Smoking Status: Never smoker Past Alcohol Use History: Rare Past Drug Use History: Marijuana - Past Family History Mother Family Medical History: Dementia, Vascular Disorder Additional Family Medical History / Comment(s): Mother had appendicitis that went undiagnosed for awhle, PVD. Patient's maternal grandmother had breast can cer around the age of 50 Father Family Medical History: No Reported History Additional Family Medical History / Comment(s): Father is healthy Medications and Allergies Home Medications Medication Instructions Recorded Confirmed Type Ondansetron HCl [Zofran] 4 mg PO Q4H PRN 12/11/18 11/06/19 History traMADol HCL [Ultram] 50 mg PO Q6H PRN 12/11/18 11/06/19 History Furosemide [Lasix] 20 mg PO BID 01/04/19 11/06/19 History Spironolactone 50 mg PO DAILY 02/10/19 11/06/19 History Sennosides [Senna] 17.2 mg PO HS PRN 04/29/19 11/06/19 History ALPRAZolam [Xanax] 0.25 mg PO TID PRN 09/20/19 11/06/19 History Acyclovir [Zovirax] 400 mg PO TID 11/06/19 11/06/19 History HYDROcodone/APAP 5-325MG [[place] 1 tab PO QID PRN 11/06/19 11/06/19 History 5-325] OLANZapine [ZyPREXA] 5 mg PO HS 11/06/19 11/06/19 History Pemazyre 13.5mg Tablet 13.5 mg PO DAILY 11/06/19 11/06/19 History Benadryl/Lidocaine/Maalox/Nystatin 5 ml PO QID 11/07/19 11/07/19 History Oral Solution 1:1 Allergies Allergy/AdvReac Type Severity Reaction Status Date / Time No Known Allergies Allergy Verified 11/06/19 22:21 Physical Exam Vitals: Vital Signs Temp Pulse Pulse Resp BP BP Pulse Ox 11/07/19 15:00 98.3 F 78 18 105/47 99 11/07/19 07:00 98.3 F 88 18 119/49 100 11/07/19 00:00 97.8 F 92 16 105/59 100 11/06/19 22:38 98.4 F 92 17 109/53 98 11/06/19 19:14 99.0 F 99 20 111/64 100 Intake and Output 11/07/19 11/07/19 11/07/19 06:59 14:59 22:59 Intake Total 50 Balance 50 Intake: Intake, IV Titration 50 Amount Ampicillin-Sulbactam 1.5 50 gm In Sodium Chloride 0.9 % 50 ml @ 100 mls/hr IVPB Q6H [facility] Rx#:[id number] Other: # Voids 1 1 Weight 125.645 kg GENERAL DESCRIPTION: Middle-aged female lying in bed, no distress. No tachypnea or accessory muscle of respiration use. HEENT: Shows Pallor , no scleral icterus. Oral mucous membrane is dry. No pharyngeal erythema or thrush NECK: Trachea central, no thyromegaly. LUNGS: Unlabored breathing. Clear to auscultation anteriorly. No wheeze or crackle. HEART: S1, S2, regular rate and rhythm. No loud murmur ABDOMEN: Soft, no tenderness , guarding or rigidity, no organomegaly EXTREMITIES: Left big toe nail is currently off minimal bruise was noticed at the base with minimal swelling and redness and no foul-smelling drainage SKIN: No rash, no masses palpable. NEUROLOGICAL: The patient is awake, alert, oriented x3, mood and affect normal. Results CBC & Chem 7: 11/07/19 06:35 11/07/19 06:35 Labs: Abnormal Lab Results - Last 24 Hours (Table) 11/06/19 11/06/19 11/06/19 Range/Units 21:47 21:47 21:47 WBC 3.6 L (3.8-10.6) k/uL RBC 2.25 L (3.80-5.40) m/uL Hgb 7.7 L (11.4-16.0) gm/dL Hct 24.7 L (34.0-46.0) % MCV 109.7 H (80.0-100.0) fL MCHC (31.0-37.0) g/dL Plt Count 62 L (150-450) k/uL Lymphocytes # 0.6 L (1.0-4.8) k/uL Macrocytosis Marked A ESR 111 H (0-20) mm/hr PT 12.8 H (9.0-12.0) sec INR 1.3 H (<1.2) Sodium 133 L (137-145) mmol/L Carbon Dioxide 21 L (22-30) mmol/L BUN 33 H (7-17) mg/dL Creatinine 2.22 H (0.52-1.04) mg/dL Glucose 101 H (74-99) mg/dL Total Bilirubin 2.6 H (0.2-1.3) mg/dL AST 74 H (14-36) U/L Alkaline Phosphatase 214 H (38-126) U/L C-Reactive Protein 208.1 H (<10.0) mg/L Albumin 2.4 L (3.5-5.0) g/dL 11/07/19 11/07/19 Range/Units 06:35 06:35 WBC 3.5 L (3.8-10.6) k/uL RBC 2.24 L (3.80-5.40) m/uL Hgb 7.8 L (11.4-16.0) gm/dL Hct 25.4 L (34.0-46.0) % MCV 113.6 H (80.0-100.0) fL MCHC 30.7 L (31.0-37.0) g/dL Plt Count 72 L (150-450) k/uL Lymphocytes # 0.6 L (1.0-4.8) k/uL Macrocytosis Marked A ESR (0-20) mm/hr PT (9.0-12.0) sec INR (<1.2) Sodium 134 L (137-145) mmol/L Carbon Dioxide 19 L (22-30) mmol/L BUN 34 H (7-17) mg/dL Creatinine 2.18 H (0.52-1.04) mg/dL Glucose 103 H (74-99) mg/dL Total Bilirubin 2.6 H (0.2-1.3) mg/dL AST 93 H (14-36) U/L Alkaline Phosphatase 191 H (38-126) U/L C-Reactive Protein (<10.0) mg/L Albumin 2.4 L (3.5-5.0) g/dL Assessment and Plan Assessment: 1- patient with a left big toe cellulitis in this patient nail has follow-up and apparently there was evidence of maggots underneath the toenail which is currently off x-rays were negative for any bony changes with concern for cellulitis likely from gram-positive skin henrry gram-negative infection not entirely excluded 2-renal insufficiency with low creatinine clearance and high risk of nephrotoxicity from vancomycin (1) Cellulitis of great toe, left Current Visit: Yes Status: Acute Code(s): L03.032 - CELLULITIS OF LEFT TOE SNOMED Code(s): 98405021 Plan: 1- we will increase the dose of Unasyn to 3 g every 8 hour 2-discontinue the vancomycin The patient continued to improve hopefully finish therapy with oral antibiotics We will follow on clinical condition and cultures to further adjust medication if needed Thank you for this consultation will follow this patient with you Time with Patient: Greater than 30
[2019-11-08] MEDS: MAG HYDROX/AL HYDROX/SIMETH 30 ML, LIDOCAINE VISCOUS 30 ML, diphenhydrAMINE ELIXIR 75 M... PO SCH ×24 (00:17→22:26)
[2019-11-08] MEDS ORDERED: AMPICILLIN-SULBACTAM 3 GM in SODIUM CHLORIDE 0.9% 50 ML IVPB SCH (03:00)
[2019-11-08] MEDS: AMPICILLIN-SULBACTAM 3 GM in SODIUM CHLORIDE 0.9% 100 ML IVPB SCH ×4 (05:05→22:26)
[2019-11-08] MEDS: FUROSEMIDE 20 MG TAB PO SCH (08:17)
[2019-11-08] MEDS: SPIRONOLACTONE 25 MG TAB PO SCH (08:17)
[2019-11-08] MEDS: ENOXAPARIN 40 MG/0.4 ML SYRINGE SQ SCH (08:17)
[2019-11-08] MEDS: ACYCLOVIR 200 MG CAP PO SCH ×3 (08:17→22:24)
[2019-11-08] MEDS: traMADol 50 MG TAB PO PRN (08:18)
--- NOTE | 2019-11-08 08:40 | ECHOF ---
Referral Reason:murmur MEASUREMENTS -------- HEIGHT: 175.3 cm WEIGHT: 124.3 kg BP: 105/54 RVIDd: 4.5 cm (< 3.3) IVSd: 1.0 cm (0.6 - 1.1) LVIDd: 5.1 cm (3.9 - 5.3) LVPWd: 1.2 cm (0.6 - 1.1) IVSs: 1.6 cm LVIDs: 3.2 cm LVPWs: 1.6 cm LAESV Index (A-L): 38.52 ml/m Ao Diam: 3.2 cm (2.0 - 3.7) AV Cusp: 2.0 cm (1.5 - 2.6) MV EXCURSION: 16.432 mm (> 18.000) MV EF SLOPE: 78 mm/s (70 - 150) EPSS: 0.5 cm MV E Serafin: 1.61 m/s MV DecT: 259 ms MV A Serafin: 1.01 m/s MV E/A Ratio: 1.60 AV maxP.91 mmHg AV meanP.47 mmHg RAP: 5.00 mmHg RVSP: 36.09 mmHg FINDINGS -------- This was a technically adequate study. The left ventricular size is normal. There is mild concentric left ventricular hypertrophy. Overa ll left ventricular systolic function is normal with, an EF between 55 - 60 %. The diastolic fillin g pattern is normal for the age of the patient 12.81. The right ventricle is moderately enlarged. LA is moderately dilated 34-39 ml/m2 The right atrium is mildly enlarged. Interatrial and interventricular septum intact. The aortic valve is trileaflet and appears structurally normal. There is mild aortic valve sclerosi s. There is no evidence of aortic regurgitation. There is no evidence of aortic stenosis. No mitral regurgitation. Mild tricuspid regurgitation present. There is mild pulmonary hypertension. The right ventricular systolic pressure, as measured by Doppler, is 36.09mmHg. There is no pulmonic regurgitation present. The aortic root size is normal. IVC Not well visulized. There is a trivial pericardial effusion present. CONCLUSIONS -------- 1. This was a technically adequate study. 2. The left ventricular size is normal. 3. There is mild concentric left ventricular hypertrophy. 4. Overall left ventricular systolic function is normal with, an EF between 55 - 60 %. 5. The diastolic filling pattern is normal for the age of the patient 12.81 6. The right ventricle is moderately enlarged. 7. LA is moderately dilated 34-39 ml/m2 8. The right atrium is mildly enlarged. 9. Interatrial and interventricular septum intact. 10. The aortic valve is trileaflet and appears structurally normal. 11. There is mild aortic valve sclerosis. 12. There is no evidence of aortic regurgitation. 13. There is no evidence of aortic stenosis. 14. No mitral regurgitation. 15. Mild tricuspid regurgitation present. 16. There is mild pulmonary hypertension. 17. The right ventricular systolic pressure, as measured by Doppler, is 36.09mmHg. 18. There is no pulmonic regurgitation present. 19. The aortic root size is normal. 20. IVC Not well visulized. 21. There is a trivial pericardial effusion present. GUEST SERVICES REPRESENTATIVE: Stephie Forbes RDCS
--- NOTE | 2019-11-08 09:56 | US ---
EXAMINATION TYPE: US abdomen limited DATE OF EXAM: 11/08/2019 COMPARISON: 10/25/2019 CLINICAL HISTORY: 44-year-old female Ascites Technique: Targeted ultrasound of the right lower quadrant and left lower quadrant for assessment of abdominal ascites. FINDINGS: There is recurrent moderate abdominal ascites, larger pocket in the left lower quadrant. IMPRESSION: Moderate abdominal ascites, left greater than right
[2019-11-08] MEDS ORDERED: BENZOCAINE 20% HEMORRHOIDAL OINT 28GM RECTAL PRN (11:44)
[2019-11-08] MEDS ORDERED: MAGNESIUM HYDROXIDE 2,400 MG/10 ML CUP PO PRN (11:44)
--- NOTE | 2019-11-08 11:54 | P.PN ---
Subjective Progress Note Date: 11/08/19 Principal diagnosis: Nail toxicity from chemotherapy In follow-up today, patient's toes are stable, feeling better, the wounds look good, the swelling in her legs persists, they are now wrapped. Patient was assessed for ascitic fluid, she doesn't feel that there is enough fluid to warrant having a paracentesis. No fevers, mild oral irritation only, no sore throat, chest pain, cough, abdominal pain is stable with current analgesics, she feels that she is constipated and has a hemorrhoid. Objective - Vital Signs Vital signs: Vital Signs Temp 97.9 F 11/08/19 07:00 Pulse 84 11/08/19 07:00 Resp 20 11/08/19 08:20 BP 85/43 11/08/19 07:00 Pulse Ox 98 11/08/19 07:00 Intake & Output 11/07/19 11/08/19 11/08/19 18:59 06:59 18:59 Intake Total 300 Balance 300 Weight 125.645 kg Intake: Oral 300 Other: # Voids 1 3 - Constitutional General appearance: Present: cooperative, morbidly obese, no acute distress - EENT Eyes: Present: anicteric sclerae, EOMI ENT: Present: hearing grossly normal, normal oropharynx (Mild oral redness, fragile mucous membranes) - Respiratory Respiratory: bilateral: CTA - Cardiovascular Heart sounds: normal: S1, S2 Abnormal Heart Sounds: Present: systolic murmur - Peripheral edema leg Peripheral Edema: bilateral: 4+ - Gastrointestinal General gastrointestinal: Present: normal bowel sounds, soft - Neurologic Neurologic: Present: CNII-XII intact - Musculoskeletal Musculoskeletal: Present: generalized weakness - Psychiatric Psychiatric: Present: A&O x's 3, appropriate affect, intact judgment & insight - Labs CBC & Chem 7: 11/07/19 06:35 11/07/19 06:35 Labs: Microbiology - Last 24 Hours (Table) 11/06/19 21:23 Blood Culture - Preliminary Blood No Growth after 24 hours - Imaging and Cardiology Echo report reviewed Abdominal ultrasound report reviewed Assessment and Plan (1) Nail abnormalities Narrative/Plan: Lifting secondary to targeted therapy treatment. Subsequent infestation. The nails have been removed and the nail beds look good. Patient is on antibiotics. She has been seen by Infectious Disease. Current Visit: Yes Status: Acute Priority: High Code(s): L60.9 - NAIL DISORDER, UNSPECIFIED SNOMED Code(s): 59901968 (2) Cholangiocarcinoma Current Visit: Yes Status: Chronic Priority: High Code(s): C22.1 - INTRAHEPATIC BILE DUCT CARCINOMA SNOMED Code(s): 713598599 (3) Cancer related pain Narrative/Plan: Cont current analgesic regimen, patient tolerating well. Multiple medications ordered for patient for narcotic-induced constipation. Topicals ordered for hemorrhoids secondary to constipation. Current Visit: Yes Status: Chronic Priority: Medium Code(s): G89.3 - NEOPLASM RELATED PAIN (ACUTE) (CHRONIC) SNOMED Code(s): 45756103835846 (4) Hyperbilirubinemia Narrative/Plan: Stable Current Visit: Yes Status: Chronic Priority: High Code(s): E80.6 - OTHER DISORDERS OF BILIRUBIN METABOLISM SNOMED Code(s): 88229000 (5) Pancytopenia due to antineoplastic chemotherapy Narrative/Plan: Stable. No chemo at this time. No transfusion need at this time Current Visit: Yes Status: Acute Priority: High Code(s): D61.810 - ANT INEOPLASTIC CHEMOTHERAPY INDUCED PANCYTOPENIA; T45.1X5A - ADVERSE EFFECT OF ANTINEOPLASTIC AND IMMUNOSUP DRUGS, INIT SNOMED Code(s): 556444371348388 Plan: Cardiology consult appreciated. Patient is to stay off oral FGFR inhibitor. Follow-up has been scheduled with Dr. Hartman. Patient does have a restaging CT already scheduled. Want patient to continue home care and wrapping of the bilateral lower extremities.
[2019-11-08] MEDS: SENNOSIDES-DOCUSATE SODIUM 1 EACH TAB PO SCH ×2 (12:07→22:24)
--- NOTE | 2019-11-08 13:30 | P.PN ---
Subjective HISTORY OF PRESENTING ILLNESS This is a pleasant 44-year-old female past medical history significant for stage IV pancreatic cancer with mets to the liver and bone, hypertension and arthritis. 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 She is seen and examined sitting up i n bed in on acute distress. She complains of being quite fatigued. Blood pressure 85/43 heart rate 84 afebrile and maintaining oxygen saturation on room air. EKG revealed sinus mechanism with poor R-wave progression. Echocardiogram reveals preserved LV systolic function with ejection fraction 55-60%, normal diastolic filling pattern, moderately dilated left atrium, mild tricuspid regurgitation and mild pulmonary hypertension with RVSP of 36 mmHg. PHYSICAL EXAMINATION CONSTITUTIONAL: No apparent distress. HEENT: Head is normocephalic. Pupils are equal, round. Sclerae anicteric. Mucous membranes of the mouth are moist. No JVD. No carotid bruit. CHEST EXAMINATION: Lungs are clear to auscultation. No chest wall tenderness is noted on palpation or with deep breathing. HEART EXAMINATION: Regular rate and rhythm. S1, S2 heard. Systolic ejection murmur at the left sternal border and loudest at the apex, no gallops or rub. EXTREMITIES: 2+ peripheral pulses, bilateral lower extremity edema and erythema and no calf tenderness. ASSESSMENT Pancreatic cancer on chemotherapy, last treatment 2 weeks ago Pancytopenia secondary to chemotherapy Systolic murmur Protein calorie malnutrition Activity intolerance and generalized weakness and fatigue PLAN Murmur likely secondary to hypovolemic flow murmur. No further cardiac work-up at this time. Ongoing medical management, we will follow as needed. Please call with further questions or concerns. Nurse Practitioner note has been reviewed, I agree with a documented findings and plan of care. Patient was seen and examined. Objective - Vital Signs Vital signs: Vital Signs Temp 97.9 F 11/08/19 07:00 Pulse 84 11/08/19 07:00 Resp 20 11/08/19 08:20 BP 85/43 11/08/19 07:00 Pulse Ox 98 11/08/19 07:00 Intake & Output 11/07/19 11/08/19 11/08/19 18:59 06:59 18:59 Intake Total 300 Balance 300 Weight 125.645 kg Intake: Oral 300 Other: # Voids 1 3 - Labs CBC & Chem 7: 11/07/19 06:35 11/07/19 06:35 Labs: Microbiology - Last 24 Hours (Table) 11/06/19 21:23 Blood Culture - Preliminary Blood No Growth after 24 hours
--- NOTE | 2019-11-08 15:02 | P.PN ---
Subjective Progress Note Date: 11/08/19 Principal diagnosis: Cellulitis Patient was seen and examined. No acute events overnight. Patient continues to report swelling in her bilateral lower extremities and redness with warmth. Patient states the redness has improved slightly from admission. States that her toenail fell off and maggots were seen inside. She denies any chest pain, shortness of breath or palpitations. No nausea or vomiting. No fever or chills. Patient reports constipation. Objective - Vital Signs Vital signs: Vital Signs Temp 97.9 F 11/08/19 07:00 Pulse 84 11/08/19 07:00 Resp 20 11/08/19 08:20 BP 85/43 11/08/19 07:00 Pulse Ox 98 11/08/19 07:00 Intake & Output 11/07/19 11/08/19 11/08/19 18:59 06:59 18:59 Intake Total 300 100 Balance 300 100 Weight 125.645 kg Intake: Intake, IV Titration 100 Amount Ampicillin-Sulbactam 3 gm 100 In Sodium Chloride 0.9% 100 ml @ 200 mls/hr IVPB Q6H [facility] Rx#:[id number] Oral 300 Other: # Voids 1 3 - Exam General: [Ill-appearing], [no distress], [appears at stated age] Derm: [warm], [dry], [bilateral lower extremity erythema with left toe erythema and swelling, improved] Head: [atraumatic], [normocephalic], [symmetric] Eyes: [EOMI], [no lid lag], [anicteric sclera] Mouth: [no lip lesion], [mucus membranes moist] Cardiovascular: [S1S2 reg], [systolic murmur], [positive posterior tibial pulse bilateral], Lungs: [CTA bilateral], [no rhonchi, no rales] , [no accessory muscle use] Abdominal: [soft], [ nontender to palpation], [no guarding], [no appreciable organomegaly] Ext: [no gross muscle atrophy], [3 + bilateral lower extremity edema], [no contractures] Neuro: [ CN II-XI grossly intact], [no focal neuro deficits] Psych: [Alert], [oriented], [appropriate affect] - Labs CBC & Chem 7: 11/07/19 06:35 11/07/19 06:35 Labs: Microbiology - Last 24 Hours (Table) 11/06/19 21:23 Blood Culture - Preliminary Blood No Growth after 24 hours Assessment and Plan Assessment: Left great toe cellulitis -C/w Unasyn, vancomycin discontinued by ID 11/07/2019 -Follow up blood cultures, currently prelim negative at 24 hours -Follow ID consultation -Wound care Pancytopenia, close to baseline -In setting of chemotherapy -Monitor for now Lower extremity edema with hypoalbuminemia -Likely third spacing due to protein calorie malnutrition -Possibly related to lymphedema -Follow PT consultation -Start Lasix 40 mg IV twice a day -Elevated bilateral lower extremity -Bharathi wrap bilateral lower extremity to the thighs -Dietitian consult Chronic kidney disease with metabolic acidosis -Monitor BMP Abnormal LFTs -Likely secondary to metastatic disease of the liver Pancreatic CA with metastases to the liver and lung -Patient following with Dr Hartman as an outpatient -Last round of chemo 2 weeks ago DVT prophylaxis -Lovenox subq [Patient admitted for bilateral cellulitis. She is pending clinical improvement. Likely DC in 1-2 days.]
[2019-11-08] MEDS: FUROSEMIDE 10 MG/ML 4 ML VIAL IV SCH (15:49)
--- NOTE | 2019-11-08 16:00 | PN ---
PROGRESS NOTE DATE OF SERVICE: 11/08/2019 REASON FOR FOLLOWUP: Left big toe wound and cellulitis. INTERVAL HISTORY: The patient is currently afebrile. The patient is breathing comfortably. Overall pain and discomfort to the left big toe are currently improved. Denies any chest pain or cough. No abdominal pain or diarrhea. PHYSICAL EXAMINATION: Blood pressure 120/74 with a pulse of 84, temperature 97.9. She is 98% on room air. General description is a middle-aged female lying in bed in no distress. RESPIRATORY SYSTEM: Unlabored breathing. Clear to auscultation anteriorly. HEART: S1, S2. Regular rate and rhythm. ABDOMEN: Soft. No tenderness. Left big toe swelling persists. Redness slightly decreased. DIAGNOSTIC IMPRESSION AND PLAN: Patient with a left big toe nailbed infection with maggot infestation, status post removal of the left big toenail. Patient is covered with Unasyn. Local wound care with dry Aquacel Silver dressing and Bharathi wrap to keep the swelling down. Continue with supportive care. MMODL / IJN: [id number] /
[2019-11-08] MEDS: WITCH HAZEL 1 EACH MED..PAD TOPICAL SCH ×3 (22:15→22:27)
[2019-11-08] MEDS: HYDROcodone/APAP 5-325MG 1 EACH TAB PO PRN (22:25)
[2019-11-09] MEDS: FUROSEMIDE 10 MG/ML 4 ML VIAL IV SCH ×2 (03:00→09:26)
[2019-11-09] MEDS: AMPICILLIN-SULBACTAM 3 GM in SODIUM CHLORIDE 0.9% 100 ML IVPB SCH ×2 (03:01→09:26)
[2019-11-09 08:11] VITALS: BP 91/61; PULSE 79; RESP 14; TEMP 99.3
[2019-11-09] MEDS: WITCH HAZEL 1 EACH MED..PAD TOPICAL SCH (09:01)
[2019-11-09] MEDS: MAG HYDROX/AL HYDROX/SIMETH 30 ML, LIDOCAINE VISCOUS 30 ML, diphenhydrAMINE ELIXIR 75 M... PO SCH ×4 (09:02)
[2019-11-09] MEDS: SPIRONOLACTONE 25 MG TAB PO SCH (09:02)
[2019-11-09] MEDS: SENNOSIDES-DOCUSATE SODIUM 1 EACH TAB PO SCH (09:26)
[2019-11-09] MEDS: ACYCLOVIR 200 MG CAP PO SCH (09:26)
[2019-11-09] MEDS: HYDROcodone/APAP 5-325MG 1 EACH TAB PO PRN (09:26)
[2019-11-09] MEDS: ENOXAPARIN 40 MG/0.4 ML SYRINGE SQ SCH (09:27)
[2019-11-09 10:49] LABS: Basophils % (A) 0 %; Eosinophils # (A) 0.1 k/uL (0-0.7); Eosinophils % (A) 1 %; HCT 27.4 % (34.0-46.0); HGB 8.7 gm/dL (11.4-16.0); Hypochromasia Moderate; Lymphocytes # (A) 0.7 k/uL (1.0-4.8); Lymphocytes % (A) 17 %; MCH 35.7 pg (25.0-35.0); MCHC 31.8 g/dL (31.0-37.0); Macrocytosis Marked; Mean Platelet Volume 8.6; Monocytes # (A) 0.2 k/uL (0-1.0); Monocytes % (A) 6 %; Neutrophils # (A) 3.1 k/uL (1.3-7.7); Neutrophils % (A) 75 %; RBC 2.44 m/uL (3.80-5.40); RDW 15.2 % (11.5-15.5); WBC 4.1 k/uL (3.8-10.6)
[2019-11-09 10:56] LABS: MCV 112.3 fL (80.0-100.0); Platelet Count 75 k/uL (150-450)
[2019-11-09 11:31] LABS: Albumin 2.7 g/dL (3.5-5.0); Calcium 9.1 mg/dL (8.4-10.2); Potassium 3.4 mmol/L (3.5-5.1); Total Bilirubin 2.4 mg/dL (0.2-1.3); Total Protein 7.3 g/dL (6.3-8.2)
--- NOTE | 2019-11-09 12:37 | P.PN ---
Subjective Progress Note Date: 11/09/19 Principal diagnosis: Nail toxicity from chemotherapy In follow-up today, patient is in very good spirits and wants to go home. She feels the swelling in her legs is down, he pain is controlled, she is eating and drinking. She has not had a BM Objective - Vital Signs Vital signs: Vital Signs Temp 99.3 F 11/09/19 06:43 Pulse 79 11/09/19 06:43 Resp 14 11/09/19 06:43 BP 91/61 11/09/19 06:43 Pulse Ox 98 11/09/19 06:43 Intake & Output 11/08/19 11/09/19 11/09/19 18:59 06:59 18:59 Intake Total 100 450 Balance 100 450 Intake: Intake, IV Titration 100 Amount Ampicillin-Sulbactam 3 gm 100 In Sodium Chloride 0.9% 100 ml @ 200 mls/hr IVPB Q6H [facility] Rx#:[id number] Oral 450 Other: # Voids 3 - Constitutional General appearance: Present: cooperative, morbidly obese, no acute distress - EENT Eyes: Present: anicteric sclerae, EOMI ENT: Present: hearing grossly normal - Respiratory Respiratory: bilateral: CTA - Cardiovascular Heart sounds: normal: S1, S2 - Peripheral edema leg Peripheral Edema: bilateral: 3+ (wrapped) - Gastrointestinal General gastrointestinal: Present: normal bowel sounds, soft - Neurologic Neurologic: Present: CNII-XII intact - Musculoskeletal Musculoskeletal: Present: generalized weakness, strength equal bilaterally - Psychiatric Psychiatric: Present: A&O x's 3, appropriate affect, intact judgment & insight - Labs CBC & Chem 7: 11/09/19 10:25 11/09/19 10:25 Labs: Abnormal Lab Results - Last 24 Hours (Table) 11/09/19 11/09/19 Range/Units 10:25 10:25 RBC 2.44 L (3.80-5.40) m/uL Hgb 8.7 L (11.4-16.0) gm/dL Hct 27.4 L (34.0-46.0) % MCV 112.3 H (80.0-100.0) fL MCH 35.7 H (25.0-35.0) pg Plt Count 75 L (150-450) k/uL Lymphocytes # 0.7 L (1.0-4.8) k/uL Macrocytosis Marked A Potassium 3.4 L (3.5-5.1) mmol/L Chloride 108 H (98-107) mmol/L Carbon Dioxide 20 L (22-30) mmol/L BUN 32 H (7-17) mg/dL Creatinine 1.78 H (0.52-1.04) mg/dL Total Bilirubin 2.4 H (0.2-1.3) mg/dL AST 82 H (14-36) U/L Alkaline Phosphatase 226 H (38-126) U/L Albumin 2.7 L (3.5-5.0) g/dL Microbiology - Last 24 Hours (Table) 11/06/19 21:23 Blood Culture - Preliminary Blood No Growth after 48 hours Assessment and Plan (1) Nail abnormalities Narrative/Plan: Lifting secondary to targeted therapy treatment. Subsequent infestation. The nails have been removed and the nail beds look good. Patient is on antibiotics. She has been seen by Infectious Disease. Cont off treatment. Close monitoring and supportive care of remaining nails Current Visit: Yes Status: Acute Priority: High Code(s): L60.9 - NAIL DISORDER, UNSPECIFIED SNOMED Code(s): 87970918 (2) Cholangiocarcinoma Narrative/Plan: Holding FGFR targeted therapy. PET scan next week with f/u with Dr. Hartman Current Visit: Yes Status: Chronic Priority: High Code(s): C22.1 - INTRAHEPATIC BILE DUCT CARCINOMA SNOMED Code(s): 341545863 (3) Cancer related pain Narrative/Plan: Cont current analgesic regimen, patient tolerating well. Multiple medications ordered for patient for narcotic-induced constipation. Topicals ordered for hemorrhoids secondary to constipation. Current Visit: Yes Status: Chronic Priority: Medium Code(s): G89.3 - NEOPLASM RELATED PAIN (ACUTE) (CHRONIC) SNOMED Code(s): 26142865804455 (4) Hyperbilirubinemia Narrative/Plan: Stable Current Visit: Yes Status: Chronic Priority: High Code(s): E80.6 - OTHER DISORDERS OF BILIRUBIN METABOLISM SNOMED Code(s): 76497770 (5) Pancytopenia due to antineoplastic chemotherapy Narrative/Plan: Stable, slight improvement. No chemo at this time. No transfusion need at this time Current Visit: Yes Status: Acute Priority: High Code(s): D61.810 - ANTINEOPLASTIC CHEMOTHERAPY INDUCED PANCYTOPENIA; T45.1X5A - ADVERSE EFFECT OF ANTINEOPLASTIC AND IMMUNOSUP DRUGS, INIT SNOMED Code(s): 674650861020941 Plan: Cardiology consult appreciated. Patient is to stay off oral FGFR inhibitor. Follow-up has been scheduled with Dr. Hartman. Want patient to continue home care and wrapping of the bilateral lower extremities.
--- NOTE | 2019-11-09 13:05 | P.DS ---
Providers Date of admission: 11/06/19 21:25 Expected date of discharge: 11/09/19 Attending physician: Bhavna Johnson MD Consults: 11/06/19 21:27 Consult Physician Urgent Consulting Provider: Dorita Hartman Consult Reason/Comments: pancreatic cancer on chemo Do you want consulting provider notified?: Yes 11/07/19 10:19 Consult Physician Stat Consulting Provider: Ashely De Anda Consult Reason/Comments: cellulitis Do you want consulting provider notified?: Yes 11/07/19 10:34 Consult Physician Routine Consulting Provider: Leo Haas Consult Reason/Comments: murmur, activity intolerance Do you want consulting provider notified?: Yes Primary care physician: [facility] Course: The patient is a 44-year-old female with a PMH of pancreatic cancer (with me tastases to the liver and lung) diagnosed November 2018 status post 3 cycles of chemotherapy and radiation with last round of chemo 2 weeks ago presented to the ED with complaints of left foot pain. The patient reports gradually worsening bilateral lower extremity edema over the past several months, which has severely limited her mobility area. She also notes that her toenails have been falling off due to her chemotherapy, and that her home care nurse noticed that her left great toe was peeled off and had maggots in it. 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 The patient reported feeling chills at home but denied chest pain, shortness of breath, cough, nausea, vomiting, diarrhea, or vomiting. The ED physician removed the left great toenail and irrigated the skin with removal of the maggots. Left foot x-ray revealed soft tissue swelling with no evidence of osteomyelitis or fracture. Laboratory evaluation revealed a WBC count of 3.6, hemoglobin 7.7, platelets 62, sodium 133, BUN 33, creatinine 2.22, lactic acid 1.2, CRP 208, AST 74, total bilirubin 2.6, albumin 2.4, and alk phos 214. The patient is being admitted for left toe cellulitis. Patient was initially started on vancomycin and Unasyn. Blood cultures were ordered and were negative during her hospitalization. Her lower extremity swelling was thought to be related to third spacing due to protein calorie malnutrition along with lymphedema. Infectious disease was consulted and recommended discontinuing vancomycin. Her lower extremities were Bharathi wrapped and she was given Lasix 40 mg IV twice a day. Her erythema significantly improved during her hospitalization. Patient was seen and examined. No acute events overnight. Patient reports slight improvement in her lower extremity swelling. She denies any chest pain, shortness of breath or palpitations. No nausea or vomiting. No fever or chills. Wanting to go home today. General: [Ill-appearing, jaundiced], [no distress], [appears at stated age] Derm: [warm], [dry], [bilateral lower extremity erythema with left toe erythema and swelling, improved] Head: [atraumatic], [normocephalic], [symmetric] Eyes: [EOMI], [no lid lag], [anicteric sclera] Mouth: [no lip lesion], [mucus membranes moist] Cardiovascular: [S1S2 reg], [systolic murmur], [positive posterior tibial pulse bilateral], Lungs: [CTA bilateral], [no rhonchi, no rales] , [no accessory muscle use] Abdominal: [soft], [ nontender to palpation], [no guarding], [no appreciable organomegaly] Ext: [no gross muscle atrophy], [2 + bilateral lower extremity edema], [no contractures] Neuro: [ CN II-XI grossly intact], [no focal neuro deficits] Psych: [Alert], [oriented], [appropriate affect] Left great toe cellulitis -C/w Unasyn, vancomycin discontinued by ID 11/07/2019, transitioned to Augmentin on discharge -Follow up blood cultures, currently prelim negative at 48 hours -Follow ID consultation -Wound care Pancytopenia, close to baseline -In setting of chemotherapy -Monitor for now Lower extremity edema with hypoalbuminemia -Likely third spacing due to protein calorie malnutrition -Possibly related to lymphedema -Follow PT consultation -Increase Lasix from 20 mg to 40 mg by mouth twice a day for discharge -Elevated bilateral lower extremity -Bharathi wrap bilateral lower extremity to the thighs -Dietitian consult Chronic kidney disease with metabolic acidosis -Monitor BMP Abnormal LFTs -Likely secondary to metastatic disease of the liver Pancreatic CA with metastases to the liver and lung -Patient following with Dr Hartman as an outpatient -Last round of chemo 2 weeks ago DVT prophylaxis -Lovenox subq [Patient admitted for bilateral cellulitis. Has shown considerable improvement. Slightly decreased swelling. Requesting discharge. Plans on DC home today..] Pertinent Studies: Foot x-ray, echocardiogram, abdominal ultrasound Patient Condition at Discharge: Stable Plan - Discharge Summary Discharge Rx Participant: No New Discharge Prescriptions: New Furosemide [Lasix] 40 mg PO BID #60 tablet Amoxic-Pot Clav 875-125Mg [Augmentin 875-125] 1 tab PO Q12HR 8 Days #16 tab Continue traMADol HCL [Ultram] 50 mg PO Q6H PRN PRN Reason: Pain Ondansetron HCl [Zofran] 4 mg PO Q4H PRN PRN Reason: Nausea Spironolactone 50 mg PO DAILY Sennosides [Senna] 17.2 mg PO HS PRN PRN Reason: Constipation ALPRAZolam [Xanax] 0.25 mg PO TID PRN PRN Reason: Anxiety/Nausea OLANZapine [ZyPREXA] 5 mg PO HS HYDROcodone/APAP 5-325MG [[place] 5-325] 1 tab PO QID PRN PRN Reason: Pain Acyclovir [Zovirax] 400 mg PO TID Pemazyre 13.5mg Tablet 13.5 mg PO DAILY Benadryl/Lidocaine/Maalox/Nystatin Oral Solution 1:1 5 ml PO QID Discontinued Furosemide [Lasix] 20 mg PO BID Discharge Medication List Ondansetron HCl [Zofran] 4 mg PO Q4H PRN 12/11/18 [History] traMADol HCL [Ultram] 50 mg PO Q6H PRN 12/11/18 [History] Spironolactone 50 mg PO DAILY 02/10/19 [History] Sennosides [Senna] 17.2 mg PO HS PRN 04/29/19 [History] ALPRAZolam [Xanax] 0.25 mg PO TID PRN 09/20/19 [History] Acyclovir [Zovirax] 400 mg PO TID 11/06/19 [History] HYDROcodone/APAP 5-325MG [[place] 5-325] 1 tab PO QID PRN 11/06/19 [History] OLANZapine [ZyPREXA] 5 mg PO HS 11/06/19 [History] Pemazyre 13.5mg Tablet 13.5 mg PO DAILY 11/06/19 [History] Benadryl/Lidocaine/Maalox/Nystatin Oral Solution 1:1 5 ml PO QID 11/07/19 [History] Amoxic-Pot Clav 875-125Mg [Augmentin 875-125] 1 tab PO Q12HR 8 Days #16 tab 11/09/19 [Rx] Furosemide [Lasix] 40 mg PO BID #60 tablet 11/09/19 [Rx] Follow up Appointment(s)/Referral(s): Krupa Martin MD [Primary Care Provider] - 1-2 days (office will call with appointment time) [facility], [NON-STAFF] - As Needed Dorita Hartman MD [STAFF PHYSICIAN] - 11/22/19 3:45 pm (Pt has CT scan 11/13) Patient Instructions/Handouts: Cellulitis (DC), Jaundice (DC) Activity/Diet/Wound Care/Special Instructions: Diet: Regular FU PCP within 3 days of DC. Take all meds as advised. Discharge Disposition: HOME SELF-CARE
--- NOTE | 2019-11-09 13:33 | PN ---
PROGRESS NOTE DATE OF SERVICE: 11/09/2019 REASON FOR FOLLOWUP: Left big toe wound and cellulitis. INTERVAL HISTORY: Patient is currently afebrile. Patient is breathing comfortably. Denies having any chest pain. No cough. No nausea. No abdominal pain. No new worsening pain to the left big toe area. On examination, blood pressure is 191/61 with a pulse of 79, temperature 99.3. He is 98% on room air. General description: The patient is a middle-aged female lying in bed in no distress. Respiratory system: Unlabored breathing, clear to auscultation anteriorly. Heart S1, S2. Regular rate and rhythm. Abdomen soft, no tenderness. Left big toe is currently dressed up. No obvious drainage on the dressing. LABS: White count 4.1, creatinine 1.78. Blood culture has been negative. DIAGNOSTIC IMPRESSION AND PLAN: Patient with left big toe wound after removal of the toenail with underlying maggot infection. Overall cellulitis improved with Unasyn. Finish therapy with oral Augmentin for another 7 days. Local care to continue with dry Aquacel dressing and Bharathi wrap to keep the swelling down. Continue supportive care. MMODL / IJN: [id number] /
== END 2019-11-09 12:47 | disposition home or self-care (01) ==
LOC: EC 19:13 → 4SSUR 21:25 → UNDOADMIN 21:25 → 4SSUR 21:25
PROVIDERS: ADMIT Internal Medicine; ATTEND Internal Medicine
DX: L03.032 Cellulitis of left toe (principal); B87.0 Cutaneous myiasis; C25.9 Malignant neoplasm of pancreas, unspecified; C78.7 Secondary malignant neoplasm of liver and intrahepatic bile duct; C78.00 Secondary malignant neoplasm of unspecified lung; C79.51 Secondary malignant neoplasm of bone; E46 Unspecified protein-calorie malnutrition; G62.0 Drug-induced polyneuropathy; T45.1X5A Adverse effect of antineoplastic and immunosuppressive drugs, initial encounter; D61.810 Antineoplastic chemotherapy induced pancytopenia; E87.2 Acidosis; Z03.818 Encounter for observation for suspected exposure to other biological agents ruled out; R18.8 Other ascites; I27.20 Pulmonary hypertension, unspecified; K59.03 Drug induced constipation; T40.605A Adverse effect of unspecified narcotics, initial encounter; I12.9 Hypertensive chronic kidney disease with stage 1 through stage 4 chronic kidney disease, or unspecified chronic kidney disease; N18.9 Chronic kidney disease, unspecified; G89.3 Neoplasm related pain (acute) (chronic); L03.031 Cellulitis of right toe; M54.5 Low back pain; F32.9 Major depressive disorder, single episode, unspecified; E83.52 Hypercalcemia; R53.81 Other malaise; I95.9 Hypotension, unspecified; M19.90 Unspecified osteoarthritis, unspecified site; E66.01 Morbid (severe) obesity due to excess calories; Z68.41 Body mass index [BMI] 40.0-44.9, adult; Z79.899 Other long term (current) drug therapy; Z79.891 Long term (current) use of opiate analgesic; Z95.828 Presence of other vascular implants and grafts; Z87.440 Personal history of urinary (tract) infections; Z98.891 History of uterine scar from previous surgery; Z80.3 Family history of malignant neoplasm of breast; Z81.8 Family history of other mental and behavioral disorders; Z83.79 Family history of other diseases of the digestive system; Z82.49 Family history of ischemic heart disease and other diseases of the circulatory system
CPT/HCPCS: 96376; 96366 ×4; 96372 ×3; 96375 ×2; 96365; 96367; 99284; 64450; 36415; 93005; 93306; 97162; 80053 ×3; 85652; 83605; 84100; 85025 ×3; 85610; 85730; 86140; 87040; 73630; 76705; G0378 ×4; U0003; J3370 ×2; J2270; J1940 ×2; J2001; J1650 ×3; J0295 ×4

== ENCOUNTER 2019-11-15 08:40 | Day surgery (SDC) | payer OTHER ==
[2019-11-15 09:35] LABS: Mean Platelet Volume 9.2
[2019-11-15 09:45] LABS: INR 1.3 (<1.2); Platelet Count 73 k/uL (150-450); Prothrombin Time 13.5 sec (9.0-12.0)
[2019-11-15 10:32] VITALS: RESP 18
[2019-11-15] MEDS: ALBUMIN HUMAN 25% 50 ML in EMPTY BAG 1 BAG IVPB SCH ×2 (10:48→11:13)
[2019-11-15 12:12] VITALS: BP 120/65
== END 2019-11-15 12:43 | disposition home or self-care (01) ==
LOC: RADPROMAIN 08:40
PROVIDERS: ATTEND Internal Medicine Hematology & Oncology
DX: R18.8 Other ascites (principal); C24.0 Malignant neoplasm of extrahepatic bile duct
CPT/HCPCS: 82565; 85049; 85610; P9047; J1642

== ENCOUNTER → 2019-11-15 | Outpatient (CLI) | payer OTHER ==
--- NOTE | 2019-11-15 12:59 | US ---
Ultrasound-guided paracentesis. DATE OF EXAM: 11/15/2019 CLINICAL HISTORY: Ascites The procedure was discussed with the patient. The risks, complications, benefits, and alternatives we re discussed and any questions were answered. Informed consent was obtained. The patient was placed s upine on the ultrasound table and prepped and draped in the usual sterile fashion. All elements of maximal barrier technique were utilized. Under ultrasound guidance, access into the right lower quadrant was obtained, via the paracentesis catheter system and direct ultrasound guidanc e. Approximately 5.4 liters of straw-colored fluid was removed. The patient was stable throughout the pr ocedure and remained stable upon discharge from Department of Radiology. IMPRESSION: Successful paracentesis under ultrasound guidance.
--- NOTE | 2019-11-15 14:13 | CT ---
EXAMINATION TYPE: CT ChestAbdPelvis w con DATE OF EXAM: 11/15/2019 COMPARISON: 09/13/2019 and 08/09/2019 HISTORY: 44-year-old female CA bile duct. TECHNIQUE: Contiguous axial scanning of the chest, abdomen, and pelvis performed with IV Contrast, pa tient injected with 80 mL of Isovue M300. Delayed images through the kidneys were obtained. Coronal/s agittal reconstructions performed. CT DLP: 1812.5 mGycm Automated exposure control for dose reduction was used. FINDINGS: CHEST: Right anterior chest wall injection port with catheter tip at the cavoatrial junction. Heart upper limits of normal in size without pericardial effusion. No thoracic lymphadenopathy by CT size criteria. 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 Redemonstrated numerous small lower lung pulmonary nodules, not significantly changed from 08/09/2019 measuring up to 7 mm there is no consolidation or pleural effusion. ABDOMEN: Extensive abnormal heterogeneous hypovascular mass involving the mid hepatic dome and then extending throughout the left liver lobe measuring up to 16.1 cm wide and 9.9 cm AP, not significantly changed from prior. A lesion within the right liver lobe, axial image 49 measures 2.6 cm versus 2.5 cm on 09/13/2019 and 2. 3 cm on 08/09/2019. Numerous additional smaller right hepatic metastases are redemonstrated. Mild right perihepatic ascites slightly increased from prior. Trace perisplenic ascites persists. Numerous faceted gallstones packing the gallbladder lumen. Spleen remains enlarged at 19.4 cm. There seems to be mass effect narrowing the portal veins at the candido hepatis. Adrenal glands and mildly atrophic pancreas show no gross abnormality. Kidneys show no excretion of contrast on the delayed kidney images. Correlation should be made for ac angelia kidney injury. Mild generalized anasarca. No dilated small bowel or free air. Moderate-sized umbilical hernia containing mesenteric fat and ascites fluid measuring 9.4 cm wide. Mild stool burden. Occasional possible sigmoid diverticulosis. There is short segment annular thickening of the distal sigmoid colon, axial image 104 could be secon marquez to nondistention. PELVIS: Bladder is collapsed. Uterus anteverted with IUD in place. Both ovaries are visualized. Moderate pelv ic free fluid similar to prior. A 7 mm left external iliac chain lymph node is nonspecific, slightly larger but probably reactive. BONES: 3.5 cm destructive lesion posterior right iliac bone redemonstrated. Numerous additional mixed sclero tic and lytic lesions are present throughout the pelvis, sacrum, left lesser trochanter. Lytic destru ctive lesion measuring 3.3 cm anterior left acetabulum is larger as compared to 2.4 cm, previously. Multiple lesions seen throughout the spine and diffuse lytic lesions within the ribs, for example, le ft posterior 10th rib. A couple areas of subacute healing callus involving the bilateral ribs. No winnie vertebral compression collapse. IMPRESSION: 1. KNOWN LARGE HYPOVASCULAR MASS EXTENDING THROUGHOUT THE LEFT LIVER LOBE MEASURING UP TO 16.1 CM, NO T SIGNIFICANTLY CHANGED. NUMEROUS SMALL LESIONS THROUGHOUT THE RIGHT LIVER LOBE ALSO REDEMONSTRATED. NUMEROUS SMALL PULMONARY NODULES MEASURING UP TO 7 MM NOT SIGNIFICANTLY CHANGED. 2. A LESION IN THE RIGHT LIVER LOBE MEASURES 2.6 CM VERSUS 2.5 CM ON 09/13/2019 AND 2.3 CM ON 08/09/2019 . POSSIBLE VERY SLOW GRADUAL PROGRESSION. 3. DIFFUSE MIXED SCLEROTIC AND LYTIC OSSEOUS METASTATIC DISEASE REDEMONSTRATED. A DESTRUCTIVE LESION INVOLVING THE LEFT ANTERIOR ACETABULUM IS SLIGHTLY LARGER AT 3.3 CM VERSUS 2.4 CM, PREVIOUSLY. 4. PERSISTENT SPLENOMEGALY AT 19.4 CM. 5. MILD ABDOMINOPELVIC ASCITES SLIGHTLY INCREASED. NEW MILD GENERALIZED ANASARCA CHANGE. 6. SHORT SEGMENT ANNULAR THICKENING DISTAL SIGMOID COLON COULD BE SECONDARY TO NONDISTENTION. DIRECT VISUALIZATION IF CLINICALLY INDICATED. 7. CHOLELITHIASIS AND INCIDENTAL RIGHT-SIDED AORTIC ARCH.
== END | disposition home or self-care (01) ==
LOC: RADPROMAIN 08:42
PROVIDERS: ATTEND Internal Medicine Hematology & Oncology
DX: R91.8 Other nonspecific abnormal finding of lung field (principal); R16.2 Hepatomegaly with splenomegaly, not elsewhere classified; R18.8 Other ascites; K80.20 Calculus of gallbladder without cholecystitis without obstruction; C79.51 Secondary malignant neoplasm of bone; C24.0 Malignant neoplasm of extrahepatic bile duct
CPT/HCPCS: 84520; 49083; 71260; 74177; Q9967 ×2

== ENCOUNTER 2019-12-12 15:24 | Observation (INO) | payer OTHER ==
[2019-12-12] MEDS ORDERED: SODIUM CHLORIDE 0.9% 500 ML 500 ML IV STA (16:02)
[2019-12-12] MEDS ORDERED: SODIUM CHLORIDE 0.9% 1,000 ML IV STA (16:02)
--- NOTE | 2019-12-12 16:03 | ED ---
General Adult HPI - General Chief complaint: Weakness Stated complaint: Weakness Time Seen by Provider: 12/12/19 15:30 Source: patient, EMS Mode of arrival: EMS Limitations: physical limitation - History of Present Illness Initial comments: Patient is a 44 year old female with history of pancreatic cancer, stage III with metastatic lesions to the liver who presents to the emergency department with reported weakness. The patient was previously on hospice at home and receives assistance from her brothers. Brother reports that she has been walking and transferring herself up until the past 1 day when the patient's weakness significantly progressed. She has sustained 3 falls, one of which she fell and hit her head. She denies loss of consciousness. No headache or visual changes. No unilateral weakness. Patient has had poor by mouth intake. The home care nurse went to the patient's house and found her on the floor. He discussed the case with the patient's family and the patient wish to revoke hospice status and be transported to the hospital for treatment. Patient denies any fevers or chills. No vomiting. Admits to generalized abdominal pain which is chronic. The pain in her extremities. Remainder of the HPI is limited - Related Data Home Medications Medication Instructions Recorded Confirmed Ondansetron HCl [Zofran] 4 mg PO Q4H PRN 12/11/18 12/12/19 traMADol HCL [Ultram] 50 mg PO QID PRN 12/11/18 12/12/19 Spironolactone 50 mg PO DAILY 02/10/19 12/12/19 ALPRAZolam [Xanax] 0.25 mg PO BID 09/20/19 12/12/19 HYDROcodone/APAP 5-325MG [[place] 1 tab PO QID PRN 11/06/19 12/12/19 5-325] Previous Rx's Medication Instructions Recorded Furosemide [Lasix] 40 mg PO BID #60 tablet 11/09/19 Allergies Allergy/AdvReac Type Severity Reaction Status Date / Time No Known Allergies Allergy Verified 11/15/19 11:51 Review of Systems ROS Statement: Those systems with pertinent positive or pertinent negative responses have been documented in the HPI. ROS Other: All systems not noted in ROS Statement are negative. Past Medical History Past Medical History: Cancer, Hypertension, Osteoarthritis (OA) Additional Past Medical History / Comment(s): Pancreatic cancer stage IV with mets to liver-will be restarting chemo, pancytopenia, anemia r/t chemotherapy, chronic lower back pain, constipation, cholecystitis, cardiac murmur, lower extremity edema, UTIs, new spot on lungs per patient on recent CT History of Any Multi-Drug Resistant Organisms: None Reported Past Surgical History: Section Additional Past Surgical History / Comment(s): IUD, biopsy of liver, port placed by Dr Hernandez Past Anesthesia/Blood Transfusion Reactions: No Reported Reaction, Blood Transfusion Reaction Additional Past Anesthesia/Blood Transfusion Reaction / Comment(s): blood transfusion affected immune system during one of the transfusions Past Psychological History: No Psychological Hx Reported Past Alcohol Use History: Rare Past Drug Use History: Marijuana - Past Family History Mother Family Medical History: Dementia, Vascular Disorder Additional Family Medical History / Comment(s): Mother had appendicitis that went undiagnosed for awhle, PVD. Patient's maternal grandmother had breast cancer around the age of 50 Father Family Medical History: No Reported History Additional Family Medical History / Comment(s): Father is healthy General Exam Limitations: physical limitation General appearance: lethargic Head exam: Present: atraumatic, normocephalic Eye exam: Present: PERRL, EOMI, scleral icterus ENT exam: Present: mucous membranes dry Respiratory exam: Present: decreased breath sounds Cardiovascular Exam: Present: regular rate, normal rhythm, normal heart sounds. Absent: systolic murmur, diastolic murmur, rubs, gallop, clicks GI/Abdominal exam: Present: distended, tenderness Extremities exam: Present: pedal edema Neurological exam: Present: altered Psychiatric exam: Present: flat affect Skin exam: Present: other (jaundiced) Course Vital Signs 12/12/19 12/12/19 12/12/19 15:26 16:32 18:03 Temperature 97.8 F Pulse Rate 84 86 92 Respiratory 16 18 16 Rate Blood Pressure 117/61 111/61 123/63 O2 Sat by Pulse 97 100 99 Oximetry EKG Findings - EKG Comments: EKG Findings:: EKG demonstrates significant baseline artifact. Ventricular rate of 85. Portable once before. QRS 114. QTC 466. No acute ST segment elevations. Inverted T-wave in lead V5 V6 with minimal ST depression Medical Decision Making - Medical Decision Making The patient placed into room 4. A thorough history and physical exam was performed. Patient does want to revoke her hospice status. Peripheral IV had been established by EMS. She is given a liter bolus of normal saline followed by 75 mL per hour. Laboratory studies were conducted. I did CT the patient's head and cervical spine because her recent fall. Labs are remarkable for a hemoglobin 7.5. Platelets of 58. Sodium 132. Potassium 3.3. Creatinine 1.3. Bilirubin is elevated at 5.3. I did replace the patient's potassium with [address] of the patient's head and cervical spine demonstrates multiple lytic lesions of the cervical and thoracic spine however no acute fractures. I discussed results with the patient. I recommended hospital admission for electrolyte replacement for which the patient agreed to. She states she would like to be full code at this time. Case discussed with Dr. Tineo who agreed to admit the patient. Patient transported to floor in stable condition - Lab Data Result diagrams: 12/13/19 08:01 12/13/19 08:01 Lab Results 12/12/19 12/12/19 12/12/19 Range/Units 16:33 16:33 16:33 WBC 4.1 (3.8-10.6) k/uL RBC 2.09 L (3.80-5.40) m/uL Hgb 7.5 L (11.4-16.0) gm/dL Hct 23.7 L (34.0-46.0) % MCV 113.3 H (80.0-100.0) fL MCH 35.9 H (25.0-35.0) pg MCHC 31.6 (31.0-37.0) g/dL RDW 15.8 H (11.5-15.5) % Plt Count 58 L (150-450) k/uL Neutrophils % 75 % Lymphocytes % 17 % Monocytes % 6 % Eosinophils % 0 % Basophils % 0 % Neutrophils # 3.1 (1.3-7.7) k/uL Lymphocytes # 0.7 L (1.0-4.8) k/uL Monocytes # 0.3 (0-1.0) k/uL Eosinophils # 0.0 (0-0.7) k/uL Basophils # 0.0 (0-0.2) k/uL Manual Slide Review Performed Hypochromasia Slight Macrocytosis Marked A Sodium 132 L (137-145) mmol/L Potassium 3.3 L (3.5-5.1) mmol/L Chloride 95 L (98-107) mmol/L Carbon Dioxide 29 (22-30) mmol/L Anion Gap 8 mmol/L BUN 22 H (7-17) mg/dL Creatinine 1.31 H (0.52-1.04) mg/dL Est GFR (CKD-EPI)AfAm 56 (>60 ml/min/1.73 sqM) Est GFR (CKD-EPI)NonAf 49 (>60 ml/min/1.73 sqM) Glucose 77 (74-99) mg/dL Plasma Lactic Acid Saroj (0.7-2.0) mmol/L Calcium 12.7 H (8.4-10.2) mg/dL Total Bilirubin 5.3 H (0.2-1.3) mg/dL AST 142 H (14-36) U/L ALT 15 (4-34) U/L Alkaline Phosphatase 167 H (38-126) U/L Creatine Kinase <20 L (30-135) U/L Total Protein 6.8 (6.3-8.2) g/dL Albumin 2.5 L (3.5-5.0) g/dL Urine Color Light Yellow Urine Appearance Clear (Clear) Urine pH 6.5 (5.0-8.0) Ur Specific [place] 1.007 (1.001-1.035) Urine Protein Negative (Negative) Urine Glucose (UA) Negative (Negative) Urine Ketones Negative (Negative) Urine Blood Negative (Negative) Urine Nitrite Negative (Negative) Urine Bilirubin Negative (Negative) Urine Urobilinogen <2.0 (<2.0) mg/dL Ur Leukocyte Esterase Negative (Negative) 12/12/19 Range/Units 16:33 WBC (3.8-10.6) k/uL RBC (3.80-5.40) m/uL Hgb (11.4-16.0) gm/dL Hct (34.0-46.0) % MCV (80.0-100.0) fL MCH (25.0-35.0) pg MCHC (31.0-37.0) g/dL RDW (11.5-15.5) % Plt Count (150-450) k/uL Neutrophils % % Lymphocytes % % Monocytes % % Eosinophils % % Basophils % % Neutrophils # (1.3-7.7) k/uL Lymphocytes # (1.0-4.8) k/uL Monocytes # (0-1.0) k/uL Eosinophils # (0-0.7) k/uL Basophils # (0-0.2) k/uL Manual Slide Review Hypochromasia Macrocytosis Sodium (137-145) mmol/L Potassium (3.5-5.1) mmol/L Chloride (98-107) mmol/L Carbon Dioxide (22-30) mmol/L Anion Gap mmol/L BUN (7-17) mg/dL Creatinine (0.52-1.04) mg/dL Est GFR (CKD-EPI)AfAm (>60 ml/min/1.73 sqM) Est GFR (CKD-EPI)NonAf (>60 ml/min/1.73 sqM) Glucose (74-99) mg/dL Plasma Lactic Acid Saroj 1.1 (0.7-2.0) mmol/L Calcium (8.4-10.2) mg/dL Total Bilirubin (0.2-1.3) mg/dL AST (14-36) U/L ALT (4-34) U/L Alkaline Phosphatase (38-126) U/L Creatine Kinase (30-135) U/L Total Protein (6.3-8.2) g/dL Albumin (3.5-5.0) g/dL Urine Color Urine Appearance (Clear) Urine pH (5.0-8.0) Ur Specific [place] (1.001-1.035) Urine Protein (Negative) Urine Glucose (UA) (Negative) Urine Ketones (Negative) Urine Blood (Negative) Urine Nitrite (Negative) Urine Bilirubin (Negative) Urine Urobilinogen (<2.0) mg/dL Ur Leukocyte Esterase (Negative) Disposition Clinical Impression: Hypokalemia, Anemia, Metastatic adenocarcinoma, Abdominal pain Disposition: ADMITTED IP TO THIS [facility] Condition: Poor Is patient prescribed a controlled substance at d/c from ED?: No Decision to Admit Reason: Admit from EC Decision Date: 12/12/19 Decision Time: 17:36
[2019-12-12 16:49] LABS: ALT 15 U/L (4-34); AST 142 U/L (14-36); African American GFR (CKD) 56 (>60 ml/min/1.73 sqM); Albumin 2.5 g/dL (3.5-5.0); Alkaline Phosphatase 167 U/L (38-126); Anion Gap 8 mmol/L; Blood Urea Nitrogen 22 mg/dL (7-17); Calcium 12.7 mg/dL (8.4-10.2); Carbon Dioxide 29 mmol/L (22-30); Chloride 95 mmol/L (98-107); Creatine Kinase <20 U/L (30-135); Glucose 77 mg/dL (74-99); Non-African American GFR(CKD) 49 (>60 ml/min/1.73 sqM); Potassium 3.3 mmol/L (3.5-5.1); Sodium 132 mmol/L (137-145); Total Bilirubin 5.3 mg/dL (0.2-1.3); Total Protein 6.8 g/dL (6.3-8.2)
[2019-12-12 16:54] LABS: Appearance,Urine Clear (Clear); Bilirubin,Urine Negative (Negative); Blood,Urine Negative (Negative); Color,Urine Light Yellow; Glucose,Urine (UA) Negative (Negative); Ketones,Urine Negative (Negative); Leukocyte Esterase,Urine Negative (Negative); Nitrite,Urine Negative (Negative); PH, Urine 6.5 (5.0-8.0); Protein,Urine Negative (Negative); Specific Gravity,Urine 1.007 (1.001-1.035); Urobilinogen,Urine <2.0 mg/dL (<2.0)
[2019-12-12 17:08] LABS: Basophils % (A) 0 %; Eosinophils % (A) 0 %; HCT 23.7 % (34.0-46.0); HGB 7.5 gm/dL (11.4-16.0); Hypochromasia Slight; Lymphocytes # (A) 0.7 k/uL (1.0-4.8); Lymphocytes % (A) 17 %; MCH 35.9 pg (25.0-35.0); MCHC 31.6 g/dL (31.0-37.0); MCV 113.3 fL (80.0-100.0); Macrocytosis Marked; Mean Platelet Volume 7.9; Monocytes # (A) 0.3 k/uL (0-1.0); Monocytes % (A) 6 %; Neutrophils # (A) 3.1 k/uL (1.3-7.7); Neutrophils % (A) 75 %; RBC 2.09 m/uL (3.80-5.40); RDW 15.8 % (11.5-15.5); WBC 4.1 k/uL (3.8-10.6)
[2019-12-12 17:09] LABS: Platelet Count 58 k/uL (150-450)
[2019-12-12] MEDS ORDERED: POTASSIUM CHLORIDE 20 MEQ in WATER FOR INJECTION 1 100ML.BAG IVPB STA (17:12)
--- NOTE | 2019-12-12 17:39 | CT ---
EXAMINATION TYPE: CT brain ann-marie de souza DATE OF EXAM: 12/12/2019 COMPARISON: HISTORY: Fall. CT DLP: 1332.7 mGycm Automated exposure control for dose reduction was used. Multiple axial sections were obtained of the brain and cervical spine without contrast. Ventricles have normal size. There is no mass effect nor midline shift. There is no sign of intracran ial hemorrhage. There is some cerebral atrophy for the patient's relatively young age. Cervical vertebra show fairly normal alignment. Posterior elements are intact. There is no compressio n fracture. There is mild anterior spurring at C4-5. There is some lucency in the anterior aspect of the C4 vertebral body. There is also T1 and T3 patchy lucency. There is mild spurring in the facet joints in the mid cervical spine. There is lytic expans ile focus in the left side lamina of C1 vertebra. IMPRESSION: There is some cerebral cortical atrophy. No acute intracranial abnormality. No sign of traumatic inju ry. No evidence of cervical spine fracture. There are lytic areas in the cervical and thoracic spine sugg estive of metastatic disease.
[2019-12-12] MEDS ORDERED: NALOXONE 0.4 MG/ML 1 ML VIAL IV PRN (17:43)
[2019-12-12] MEDS ORDERED: SODIUM CHLORIDE 0.9% 1,000 ML IV SCH (17:45)
[2019-12-12] MEDS ORDERED: ONDANSETRON 4 MG TAB PO PRN (17:49)
[2019-12-12] MEDS ORDERED: MORPHINE SULFATE 4 MG/ML SYRINGE IVP STA (18:13)
--- NOTE | 2019-12-12 22:19 | P.HPIM ---
History of Present Illness H&P Date: 12/12/19 The patient is a 44-year-old female with a PMH of stage IV pancreatic cancer (mets to liver, lung, bones), diagnosed 11/2018 status post multiple cycles of chemotherapy and radiation, subsequently switched to hospice at home, was brought into the ED due to weakness and fall at home. The history was supplemental by the brother at the bedside as patient was lethargic after having received pain medications. He notes that the patient had been getting progressively weaker and had not been able to use the bathroom as a result. He reports that despite having help at home, the patient had fallen 3 times in the past 2 days. He reports that she fell earlier today while on her way to the toilet, and her family was unable to get her back into bed. The patient's hospice nurse also arrived at the house and was unable to help the patient into the bed as per the brother. The nurse recommended that the patient may be taken to the hospital while they arrange for a Abhay lift and family education on safe transferring. As per the brother, there is a meeting at their house tomorrow for the above-mentioned education to take place. The patient had reportedly also hit her head during the fall, though no loss of consciousness was reported. The brother notes that they are anticipating that the patient will be discharged in the morning to continue with her hospice care at home. The patient was le thargic during the interview though was oriented and answering questions appropriately. She reported ongoing lower back pain, currently at a 6 out of 10. She reported being weak and noted that she lost her balance earlier today due to which she had a fall. She denied any additional complaints. He denied headaches, chest pain, shortness of breath, nausea, vomiting. Evaluation in the emergency room revealed hypokalemia, chronic anemia, and normocytic anemia, with CT brain unremarkable. Review of Systems Pertinent positives and negatives as discussed in HPI, a complete review of systems was performed and all other systems are negative. Past Medical History Past Medical History: Cancer, Hypertension, Osteoarthritis (OA) Additional Past Medical History / Comment(s): Pancreatic cancer stage IV with mets to liver-will be restarting chemo, pancytopenia, anemia r/t chemotherapy, chronic lower back pain, constipation, cholecystitis, cardiac murmur, lower extremity edema, UTIs, new spot on lungs per patient on recent CT History of Any Multi-Drug Resistant Organisms: None Reported Past Surgical History: Section Additional Past Surgical History / Comment(s): IUD, biopsy of liver, port placed by Dr Hernandez Past Anesthesia/Blood Transfusion Reactions: No Reported Reaction, Blood Transfusion Reaction Additional Past Anesthesia/Blood Transfusion Reaction / Comment(s): blood transfusion affected immune system during one of the transfusions Past Psychological History: No Psychological Hx Reported Past Alcohol Use History: Rare Past Drug Use History: Marijuana - Past Family History Mother Family Medical History: Dementia, Vascular Disorder Additional Family Medical History / Comment(s): Mother had appendicitis that went undiagnosed for awsarita, PVD. Patient's maternal grandmother had breast cancer around the age of 50 Father Family Medical History: No Reported History Additional Family Medical History / Comment(s): Father is healthy Medications and Allergies Home Medications Medication Instructions Recorded Confirmed Type Ondansetron HCl [Zofran] 4 mg PO Q4H PRN 12/11/18 12/12/19 History traMADol HCL [Ultram] 50 mg PO QID PRN 12/11/18 12/12/19 History Spironolactone 50 mg PO DAILY 02/10/19 12/12/19 History ALPRAZolam [Xanax] 0.25 mg PO BID 09/20/19 12/12/19 History HYDROcodone/APAP 5-325MG [[place] 1 tab PO QID PRN 11/06/19 12/12/19 History 5-325] Furosemide [Lasix] 40 mg PO BID #60 tablet 11/09/19 12/12/19 Rx Allergies Allergy/AdvReac Type Severity Reaction Status Date / Time No Known Allergies Allergy Verified 11/15/19 11:51 Physical Exam Vitals: Vital Signs Temp Pulse Pulse Resp BP BP Pulse Ox 12/12/19 21:00 97.7 F 89 16 117/70 100 12/12/19 18:03 92 16 123/63 99 12/12/19 16:32 86 18 111/61 100 12/12/19 15:26 97.8 F 84 16 117/61 97 Intake and Output 12/12/19 12/12/19 12/12/19 06:59 14:59 22:59 Other: # Voids 1 Weight 129.727 kg General: Ill-appearing female, jaundiced, no distress, appears older than stated age, normal weight Derm: Left lower extremity medial aspect 13 x 4 cm necrotic ulcer without surrounding erythema, no drainage noted, right lower extremity medial aspect 3 x 4 cm necrotic ulcer, warm, dry Head: atraumatic, normocephalic, symmetric Eyes: EOMI, no lid lag, scleral icterus, pupils equal round reactive to light ENT: Nose and ears atraumatic, no thrush, no pharyngeal erythema Neck: No thyromegaly, no cervical lymphadenopathy, trachea midline, supple Mouth: no lip lesion, mucus membranes dry Cardiovascular: S1S2 reg, systolic murmur appreciated, positive posterior tibial pulse bilateral, anasarca, capillary refill less than 2 seconds Lungs: CTA bilateral, no rhonchi, no rales , no accessory muscle use Abdominal: soft, nontender to palpation, no guarding Ext: no gross muscle atrophy, muscle strength 2-3 out of 5 in all 4 extremities grossly, no contractures Neuro: CN II-XI grossly intact, light touch intact all 4 extremities Psych: Lethargic, oriented to person, place, and year, not oriented to exact date Results CBC & Chem 7: 12/12/19 16:33 08 16:33 Labs: Abnormal Lab Results - Last 24 Hours (Table) 12/12/19 12/12/19 Range/Units 16:33 16:33 RBC 2.09 L (3.80-5.40) m/uL Hgb 7.5 L (11.4-16.0) gm/dL Hct 23.7 L (34.0-46.0) % MCV 113.3 H (80.0-100.0) fL MCH 35.9 H (25.0-35.0) pg RDW 15.8 H (11.5-15.5) % Plt Count 58 L (150-450) k/uL Lymphocytes # 0.7 L (1.0-4.8) k/uL Macrocytosis Marked A Sodium 132 L (137-145) mmol/L Potassium 3.3 L (3.5-5.1) mmol/L Chloride 95 L (98-107) mmol/L BUN 22 H (7-17) mg/dL Creatinine 1.31 H (0.52-1.04) mg/dL Calcium 12.7 H (8.4-10.2) mg/dL Total Bilirubin 5.3 H (0.2-1.3) mg/dL AST 142 H (14-36) U/L Alkaline Phosphatase 167 H (38-126) U/L Creatine Kinase <20 L (30-135) U/L Albumin 2.5 L (3.5-5.0) g/dL Assessment and Plan Plan: Debility in setting of advanced pancreatic cancer -Patient and family wish to continue with hospice care upon discharge -They do not feel that the patient would benefit from a rehab evaluation or a stay at a rehab facility -Continue with pain control -Discussed with manager business development hospice regarding scheduling for the Abhay lift Bilateral lower extremity necrotic ulcers -Wound care consult -Hold off on antibiotics for now as no surrounding erythema or signs of active infection at this time Prolonged QT -Avoid medications that ma prolong it further Hypokalemia -Replace and monitor Abnormal LFTs with elevated total bilirubin -In setting of liver metastatic disease Anasarca -Continue with Lasix Bicytopenia -Due to ongoing malignancy, similar to baseline DVT prophylaxis -Lovenox The patient is admitted with an anticipated less than 2 midnight stay for evaluation of CODE STATUS: Full Code (The patient and the family wish for her to be full-code while hospitalized) Discussed with: Patient Anticipated discharge date: 1-[address]: Home with hospice A total of 40 minutes was spent on the care of this complex patient more than 50% of the time was spent in counseling and care coordination.
[2019-12-12] MEDS: ALPRAZolam 0.25 MG TAB PO SCH (22:27)
[2019-12-13] MEDS: traMADol 50 MG TAB PO PRN ×2 (00:21→09:27)
[2019-12-13] MEDS ORDERED: POTASSIUM CHLORIDE ER 20 MEQ TAB.ER PO STA (02:12)
[2019-12-13] MEDS: HYDROcodone/APAP 5-325MG 1 EACH TAB PO PRN ×2 (05:23→16:01)
[2019-12-13] MEDS ORDERED: ENOXAPARIN 40 MG/0.4 ML SYRINGE SQ SCH (09:00)
[2019-12-13] MEDS ORDERED: FUROSEMIDE 40 MG TAB PO SCH (09:00)
[2019-12-13] MEDS ORDERED: SPIRONOLACTONE 25 MG TAB PO SCH (09:00)
[2019-12-13 09:11] LABS: Calcium 12.2 mg/dL (8.4-10.2); Potassium 3.7 mmol/L (3.5-5.1)
[2019-12-13 09:19] LABS: Anisocytosis Slight; Basophils % (A) 0 %; Eosinophils % (A) 1 %; HCT 22.5 % (34.0-46.0); Hypochromasia Moderate; Lymphocytes # (A) 0.5 k/uL (1.0-4.8); Lymphocytes % (A) 16 %; MCH 35.3 pg (25.0-35.0); MCHC 30.5 g/dL (31.0-37.0); MCV 115.8 fL (80.0-100.0); Macrocytosis Marked; Mean Platelet Volume 7.7; Monocytes # (A) 0.2 k/uL (0-1.0); Monocytes % (A) 7 %; Neutrophils # (A) 2.5 k/uL (1.3-7.7); Neutrophils % (A) 75 %; RBC 1.94 m/uL (3.80-5.40); RDW 16.1 % (11.5-15.5); WBC 3.4 k/uL (3.8-10.6)
[2019-12-13] MEDS: ALPRAZolam 0.25 MG TAB PO SCH (09:27)
[2019-12-13 09:33] LABS: HGB 6.9 gm/dL (11.4-16.0); Platelet Count 51 k/uL (150-450)
--- NOTE | 2019-12-13 10:09 | P.CONS ---
History of Present Illness - Reason for Consult Consult date: 12/13/19 wound care - History of Present Illness This is a 44-year-old pleasant female with a history of stage IV pancreatic cancer with metastases to the liver, lungs, bones diagnosed 2018 status post multiple cycles of chemotherapy and radiation. Patient has been switched to hospice and has been at home with hospice for the past few weeks. Her brother assist in taking care of her. Her Z H&P the patient had multiple falls at home with the last fall resulting with inability to lift and return to bed. He was instructed for the patient to come to the hospital to assist with a quick but needs. Patient was found to have 2 unstageable ulcers to bilateral lower extremities. Patient states that they have been applying triple antibiotic ointment to the legs. She will routinely have them wrapped which does alleviate some discomfort. Review of Systems Review Of Systems: Constitutional: No fever, no chills, no night sweats. No weight change. No weakness, fatigue or lethargy. No daytime sleepiness. Integumentary:reports wounds, no lesions. No rash or pruritus. No unusual bruising. No change in hair or nails. Past Medical History Past Medical History: Cancer, Hypertension, Osteoarthritis (OA) Additional Past Medical History / Comment(s): Pancreatic cancer stage IV with mets to liver-will be restarting chemo, pancytopenia, anemia r/t chemotherapy, chronic lower back pain, constipation, cholecystitis, cardiac murmur, lower extremity edema, UTIs, new spot on lungs per patient on recent CT History of Any Multi-Drug Resistant Organisms: None Reported Past Surgical History: Section Additional Past Surgical History / Comment(s): IUD, biopsy of liver, port placed by Dr Hernandez Past Anesthesia/Blood Transfusion Reactions: No Reported Reaction, Blood Transfusion Reaction Additional Past Anesthesia/Blood Transfusion Reaction / Comm: blood transfusion affected immune system during one of the transfusions Past Psychological History: No Psychological Hx Reported Past Alcohol Use History: Rare Past Drug Use History: Marijuana - Past Family History Mother Family Medical History: Dementia, Vascular Disorder Additional Family Medical History / Comment(s): Mother had appendicitis that went undiagnosed for awhle, PVD. Patient's maternal grandmother had breast cancer around the age of 50 Father Family Medical History: No Reported History Additional Family Medical History / Comment(s): Father is healthy Medications and Allergies Home Medications Medication Instructions Recorded Confirmed Type Ondansetron HCl [Zofran] 4 mg PO Q4H PRN 12/11/18 12/12/19 History traMADol HCL [Ultram] 50 mg PO QID PRN 12/11/18 12/12/19 History Spironolactone 50 mg PO DAILY 02/10/19 12/12/19 History ALPRAZolam [Xanax] 0.25 mg PO BID 09/20/19 12/12/19 History HYDROcodone/APAP 5-325MG [[place] 1 tab PO QID PRN 11/06/19 12/12/19 History 5-325] Furosemide [Lasix] 40 mg PO BID #60 tablet 11/09/19 12/12/19 Rx Allergies Allergy/AdvReac Type Severity Reaction Status Date / Time No Known Allergies Allergy Verified 11/15/19 11:51 Physical Exam Vitals: Vital Signs Temp Pulse Pulse Resp BP BP Pulse Ox 12/13/19 05:00 97.8 F 86 18 105/65 99 12/12/19 21:00 97.7 F 89 16 117/70 100 12/12/19 18:03 92 16 123/63 99 12/12/19 16:32 86 18 111/61 100 12/12/19 15:26 97.8 F 84 16 117/61 97 Intake and Output 12/12/19 12/13/19 12/13/19 22:59 06:59 14:59 Intake Total 890 Balance 890 Intake: Intake, IV Titration 300 Amount Sodium Chloride 0.9% 1, 300 000 ml @ 75 mls/hr IV . [id number] [facility] Rx#:[id number] Oral 590 Other: # Voids 1 Weight 129.727 kg Physical exam: General Appearance: Alert, cooperative, no distress, appears stated age. Skin: Right lower extremity is unstageable nonhealing ulceration with eschar periwound shows no redness or erythema no granulation seen within wound bed, left lower extremity medial aspect is a nonsurgical nonhealing ulceration with eschar Periwound shows no redness or erythema no granulation seen within wound bed all other Skin color, texture, tugor normal, no rashes or lesions. Neurologic: Alert oriented x3 Results CBC & Chem 7: 12/13/19 08:01 12/13/19 08:01 Labs: Abnormal Lab Results - Last 24 Hours (Table) 12/12/19 12/12/19 12/13/19 Range/Units 16:33 16:33 08:01 WBC 3.4 L (3.8-10.6) k/uL RBC 2.09 L 1.94 L (3.80-5.40) m/uL Hgb 7.5 L 6.9 L* (11.4-16.0) gm/dL Hct 23.7 L 22.5 L (34.0-46.0) % MCV 113.3 H 115.8 H (80.0-100.0) fL MCH 35.9 H 35.3 H (25.0-35.0) pg MCHC 30.5 L (31.0-37.0) g/dL RDW 15.8 H 16.1 H (11.5-15.5) % Plt Count 58 L 51 L (150-450) k/uL Lymphocytes # 0.7 L (1.0-4.8) k/uL Macrocytosis Marked A Marked A Sodium 132 L (137-145) mmol/L Potassium 3.3 L (3.5-5.1) mmol/L Chloride 95 L (98-107) mmol/L BUN 22 H (7-17) mg/dL Creatinine 1.31 H (0.52-1.04) mg/dL Glucose (74-99) mg/dL Calcium 12.7 H (8.4-10.2) mg/dL Total Bilirubin 5.3 H (0.2-1.3) mg/dL AST 142 H (14-36) U/L Alkaline Phosphatase 167 H (38-126) U/L Creatine Kinase <20 L (30-135) U/L Albumin 2.5 L (3.5-5.0) g/dL 12/13/19 Range/Units 08:01 WBC (3.8-10.6) k/uL RBC (3.80-5.40) m/uL Hgb (11.4-16.0) gm/dL Hct (34.0-46.0) % MCV (80.0-100.0) fL MCH (25.0-35.0) pg MCHC (31.0-37.0) g/dL RDW (11.5-15.5) % Plt Count (150-450) k/uL Lymphocytes # (1.0-4.8) k/uL Macrocytosis Sodium 132 L (137-145) mmol/L Potassium (3.5-5.1) mmol/L Chloride (98-107) mmol/L BUN 22 H (7-17) mg/dL Creatinine 1.11 H (0.52-1.04) mg/dL Glucose 54 L (74-99) mg/dL Calcium 12.2 H (8.4-10.2) mg/dL Total Bilirubin (0.2-1.3) mg/dL AST (14-36) U/L Alkaline Phosphatase (38-126) U/L Creatine Kinase (30-135) U/L Albumin (3.5-5.0) g/dL Assessment and Plan (1) Nonhealing ulcer of left lower extremity limited to breakdown of skin Current Visit: Yes Status: Acute Code(s): L97.921 - NON-PRS [facility] [address] UNSP PRT OF L LOW LEG LIMITED TO BRKDWN SKIN SNOMED Code(s): 86629553 (2) Nonhealing ulcer of right lower extremity limited to breakdown of skin Current Visit: Yes Status: Acute Code(s): L97.911 - NON-PRS [facility] UL UNSP PRT OF R LOW LEG LIMITED TO BRKDWN SKIN SNOMED Code(s): 17555643 Plan: Applied zinc barrier cream and 2 layers of Tubigrip to the legs daily. Thank you kindly for the consultation any questions please contact the wound care center DNP note has been reviewed and discussed with Dr. Quintero and the impression and plan of care has been directed as dictated.
[2019-12-13 11:02] LABS: Poikilocytosis (M) Present; Polychromasia Present
[2019-12-13 11:22] VITALS: BP 122/72; PULSE 88; RESP 16; TEMP 98
--- NOTE | 2019-12-13 13:34 | P.DS ---
Providers Date of admission: 12/12/19 17:43 Expected date of discharge: 12/13/19 Attending physician: Kathi Miller DO Consults: 12/13/19 10:31 Consult Physician Routine Consulting Provider: Chris Smith Consult Reason/Comments: pancreatic CA Do you want consulting provider notified?: Yes Primary care physician: Krupa Martin [facility] Course: This is a 44-year-old female with stage IV pancreatic cancer on hospice at home who presented to the emergency room with weakness and multiple falls at home. For further details about her presentation please refer to the H&P. Patient was placed on observation awaiting hospice to provide a Abhay lift for the patient at home. Patient and her family met with the hospice team and were agreeable to be transferred back home under hospice with no further aggressive measures. For further details about this hospitalization please refer to the chart. Patient Condition at Discharge: Poor Plan - Discharge Summary Discharge Rx Participant: No New Discharge Prescriptions: Continue traMADol HCL [Ultram] 50 mg PO QID PRN PRN Reason: Pain Ondansetron HCl [Zofran] 4 mg PO Q4H PRN PRN Reason: Nausea Spironolactone 50 mg PO DAILY ALPRAZolam [Xanax] 0.25 mg PO BID HYDROcodone/APAP 5-325MG [[place] 5-325] 1 tab PO QID PRN PRN Reason: Pain Furosemide [Lasix] 40 mg PO BID #60 tablet Discharge Medication List Ondansetron HCl [Zofran] 4 mg PO Q4H PRN 12/11/18 [History] traMADol HCL [Ultram] 50 mg PO QID PRN 12/11/18 [History] Spironolactone 50 mg PO DAILY 02/10/19 [History] ALPRAZolam [Xanax] 0.25 mg PO BID 09/20/19 [History] HYDROcodone/APAP 5-325MG [[place] 5-325] 1 tab PO QID PRN 11/06/19 [History] Furosemide [Lasix] 40 mg PO BID #60 tablet 11/09/19 [Rx] Follow up Appointment(s)/Referral(s): Krupa Martin MD [Primary Care Provider] - 1-2 days Discharge Disposition: HOME WITH HOSPICE
--- NOTE | 2019-12-13 18:39 | P.CONS ---
History of Present Illness - Reason for Consult Consult date: 12/13/19 cholangiocarcinoma Requesting physician: Iván Tompkins - Chief Complaint needing equipment at home for saftey on hospice - History of Present Illness Sole is a very pleasant 44-year-old female who we have treated in the past for cholangiocarcinoma. Patient was unable to tolerate the most recent therapy with a targeted FGFR2 mutation medication. And unfortunately, there are no additional therapies for metastatic cholangiocarcinoma at this time. Patient was home with hospice care. She is getting progressively weak as would be anticipated, and unfortunately she has had several falls, and was needing assistive devices. It was taking some time to get those devices so, it was felt that bringing the patient to the hospital for her safety and her family safety was the best choice, until those devices are available in the home. Spoke to the patient. She did recognize me, she still has that joking spirit. At moments notice though, she would drift off asleep. I reviewed with her my understanding of her situation and what had happened, she confirmed the same. She verbalized understanding that there is no additional treatment for her type of cancer at this time. She does want to go back home and she does want the assistance of hospice. Review of Systems patient denied pain, nausea or any specific needs Past Medical History Past Medical History: Cancer, Hypertension, Osteoarthritis (OA) Additional Past Medical History / Comment(s): Pancreatic cancer stage IV with mets to liver-will be restarting chemo, pancytopenia, anemia r/t chemotherapy, chronic lower back pain, constipation, cholecystitis, cardiac murmur, lower extremity edema, UTIs, new spot on lungs per patient on recent CT History of Any Multi-Drug Resistant Organisms: None Reported Past Surgical History: Section Additional Past Surgical History / Comment(s): IUD, biopsy of liver, port placed by Dr Hernandez Past Anesthesia/Blood Transfusion Reactions: No Reported Reaction, Blood Transfusion Reaction Additional Past Anesthesia/Blood Transfusion Reaction / Comm: blood transfusion affected immune system during one of the transfusions Past Psychological History: No Psychological Hx Reported Past Alcohol Use History: Rare Past Drug Use History: Marijuana - Past Family History Mother Family Medical History: Dementia, Vascular Disorder Additional Family Medical History / Comment(s): Mother had appendicitis that went undiagnosed for awhle, PVD. Patient's maternal grandmother had breast cancer around the age of 50 Father Family Medical History: No Reported History Additional Family Medical History / Comment(s): Father is healthy Medications and Allergies Home Medications Medication Instructions Recorded Confirmed Type Ondansetron HCl [Zofran] 4 mg PO Q4H PRN 12/11/18 12/12/19 History traMADol HCL [Ultram] 50 mg PO QID PRN 12/11/18 12/12/19 History Spironolactone 50 mg PO DAILY 02/10/19 12/12/19 History ALPRAZolam [Xanax] 0.25 mg PO BID 09/20/19 12/12/19 History HYDROcodone/APAP 5-325MG [[place] 1 tab PO QID PRN 11/06/19 12/12/19 History 5-325] Furosemide [Lasix] 40 mg PO BID #60 tablet 11/09/19 12/12/19 Rx Allergies Allergy/AdvReac Type Severity Reaction Status Date / Time No Known Allergies Allergy Verified 11/15/19 11:51 Physical Exam Vitals: Vital Signs Temp Pulse Pulse Resp BP BP Pulse Ox 12/13/19 11:10 98.0 F 88 16 122/72 98 12/13/19 05:00 97.8 F 86 18 105/65 99 12/12/19 21:00 97.7 F 89 16 117/70 100 12/12/19 18:03 92 16 123/63 99 12/12/19 16:32 86 18 111/61 100 12/12/19 15:26 97.8 F 84 16 117/61 97 Intake and Output 12/12/19 12/13/19 12/13/19 22:59 06:59 14:59 Intake Total 890 Balance 890 Intake: Intake, IV Titration 300 Amount Sodium Chloride 0.9% 1, 300 000 ml @ 75 mls/hr IV . [id number] [facility] Rx#:[id number] Oral 590 Other: # Voids 1 Weight 129.727 kg Well-developed, no acute distress, alert but easily falling back asleep, respirations even and unlabored Results CBC & Chem 7: 12/13/19 08:01 12/13/19 08:01 Labs: Abnormal Lab Results - Last 24 Hours (Table) 12/12/19 12/12/19 12/13/19 Range/Units 16:33 16:33 08:01 WBC 3.4 L (3.8-10.6) k/uL RBC 2.09 L 1.94 L (3.80-5.40) m/uL Hgb 7.5 L 6.9 L* (11.4-16.0) gm/dL Hct 23.7 L 22.5 L (34.0-46.0) % MCV 113.3 H 115.8 H (80.0-100.0) fL MCH 35.9 H 35.3 H (25.0-35.0) pg MCHC 30.5 L (31.0-37.0) g/dL RDW 15.8 H 16.1 H (11.5-15.5) % Plt Count 58 L 51 L (150-450) k/uL Lymphocytes # 0.7 L 0.5 L (1.0-4.8) k/uL Macrocytosis Marked A Marked A Sodium 132 L (137-145) mmol/L Potassium 3.3 L (3.5-5.1) mmol/L Chloride 95 L (98-107) mmol/L BUN 22 H (7-17) mg/dL Creatinine 1.31 H (0.52-1.04) mg/dL Glucose (74-99) mg/dL Calcium 12.7 H (8.4-10.2) mg/dL Total Bilirubin 5.3 H (0.2-1.3) mg/dL AST 142 H (14-36) U/L Alkaline Phosphatase 167 H (38-126) U/L Creatine Kinase <20 L (30-135) U/L Albumin 2.5 L (3.5-5.0) g/dL 12/13/19 Range/Units 08:01 WBC (3.8-10.6) k/uL RBC (3.80-5.40) m/uL Hgb (11.4-16.0) gm/dL Hct (34.0-46.0) % MCV (80.0-100.0) fL MCH (25.0-35.0) pg MCHC (31.0-37.0) g/dL RDW (11.5-15.5) % Plt Count (150-450) k/uL Lymphocytes # (1.0-4.8) k/uL Macrocytosis Sodium 132 L (137-145) mmol/L Potassium (3.5-5.1) mmol/L Chloride (98-107) mmol/L BUN 22 H (7-17) mg/dL Creatinine 1.11 H (0.52-1.04) mg/dL Glucose 54 L (74-99) mg/dL Calcium 12.2 H (8.4-10.2) mg/dL Total Bilirubin (0.2-1.3) mg/dL AST (14-36) U/L Alkaline Phosphatase (38-126) U/L Creatine Kinase (30-135) U/L Albumin (3.5-5.0) g/dL Assessment and Plan (1) Cholangiocarcinoma Status: Chronic Priority: High Code(s): C22.1 - INTRAHEPATIC BILE DUCT CARCINOMA SNOMED Code(s): 841430806 Plan: Patient admitted for her and her family safety until assistive devices are available in the home for her care. She will return home under the care of hospice. Reviewed case with Attending, Pit Slagman Time with Patient: Greater than 30 (counseling and coordinating care)
== END 2019-12-13 18:24 | disposition hospice, home (50) ==
LOC: EC 15:24 → INTOOBSV 17:43 → 5NMEDONC 17:43
PROVIDERS: ADMIT Internal Medicine; ATTEND Internal Medicine
DX: C25.9 Malignant neoplasm of pancreas, unspecified (principal); C22.1 Intrahepatic bile duct carcinoma; C78.00 Secondary malignant neoplasm of unspecified lung; C79.51 Secondary malignant neoplasm of bone; E87.6 Hypokalemia; L97.921 Non-pressure chronic ulcer of unspecified part of left lower leg limited to breakdown of skin; L97.911 Non-pressure chronic ulcer of unspecified part of right lower leg limited to breakdown of skin; R94.31 Abnormal electrocardiogram [ECG] [EKG]; R60.1 Generalized edema; D61.818 Other pancytopenia; R29.6 Repeated falls; I10 Essential (primary) hypertension; M19.90 Unspecified osteoarthritis, unspecified site; G89.29 Other chronic pain; M54.5 Low back pain; M53.82 Other specified dorsopathies, cervical region; M53.84 Other specified dorsopathies, thoracic region; Z51.5 Encounter for palliative care; Z92.21 Personal history of antineoplastic chemotherapy; Z92.3 Personal history of irradiation; Z03.818 Encounter for observation for suspected exposure to other biological agents ruled out; Z79.891 Long term (current) use of opiate analgesic; Z79.899 Other long term (current) drug therapy; Z86.2 Personal history of diseases of the blood and blood-forming organs and certain disorders involving the immune mechanism; Z87.19 Personal history of other diseases of the digestive system; Z87.440 Personal history of urinary (tract) infections; Z98.890 Other specified postprocedural states; Z97.5 Presence of (intrauterine) contraceptive device; Z81.8 Family history of other mental and behavioral disorders; Z82.49 Family history of ischemic heart disease and other diseases of the circulatory system; Z80.3 Family history of malignant neoplasm of breast
CPT/HCPCS: 96361 ×2; 96366; 96372; 96365; 96375; 99285; 36415; 93005; 80053; 80048; 82550; 83605; 85025 ×2; 81003; 72125; 70450; G0378 ×2; U0003; J2270; J3480; J1650